=== PATIENT | male | born 1950 | race Caucasian/White ===

== ENCOUNTER 2022-12-02 08:27 | Emergency (ER) | payer MEDICARE, OTHER, SELFPAY ==
--- NOTE | ~2022-12-02 | XR_ITS ---
EXAMINATION: XR ANKLE, LEFT CLINICAL INFORMATION: Pain. COMPARISON: None available. TECHNIQUE: AP, lateral, and mortise views of the left ankle. FINDINGS: The bones and soft tissues are normal. No fracture. Alignment is anatomic. Joint spaces are maintained. No joint effusion. XR/XR ankle LT 2V IMPRESSION: Unremarkable left ankle.
--- NOTE | ~2022-12-02 | XR_ITS ---
EXAMINATION: XR FOOT, LEFT CLINICAL INFORMATION: Dorsal foot pain. COMPARISON: None available. TECHNIQUE: AP, lateral, and oblique views of the left foot. FINDINGS: There is acute, nondisplaced mid body navicular bone fracture extending into the joint spaces proximally and distally. The tarsal bones are otherwise normally aligned. There is a very small plantar calcaneal spur. The metatarsals and phalanges are intact. There is mild soft tissue swelling. XR/XR foot LT min 3V IMPRESSION: 1. Acute, nondisplaced mid body navicular bone fracture with mild soft tissue swelling. 2. Very small degenerative plantar calcaneal spur.
[2022-12-02 08:30] VITALS: BP 183/98; PULSE 84; RESP 18; TEMP 36.9; O2SAT 98; BMI 32.1
--- NOTE | 2022-12-02 08:41 | ED_ITS ---
HPI - Extremity Injury (Lower) General Chief Complaint: Extremity Injury, Lower Stated Complaint: L foot pain Time Seen by Provider: 12/02/22 08:40 Source: patient Mode of arrival: ambulatory History of Present Illness HPI Narrative: 72-year-old male no significant past medical history presenting to the ED complaining of left foot pain and swelling since awakening on Wednesday. Denies known injury, trauma or fall. Reports pain worse with pressure/ambulation and palpation. Denies numbness, tingling, weakness, calf pain, recent travel, fever MD complaint: foot injury Onset (ago): day(s) Related Data Allergies Allergy/AdvReac Type Severity Reaction Status Date / Time No Known Allergies Allergy Unverified 05/16/20 15:23 Review of Systems Review of Systems: Constitutional: No Fever, No Chills ENT/Mouth: No Ear Pain, No Nasal Congestion, No sore throat, No Rhinorrhea, No Swallowing Difficulty Cardiovascular: No Chest Pain, No SOB Respiratory: No Cough, No Sputum, No Wheezing Gastrointestinal: No Nausea, No Vomiting, No Diarrhea, No Constipation, No Abdominal pain Genitourinary: No Dysuria, No Urinary Frequency, No Hematuria Musculoskeletal: +joint pain, No Myalgias, + Joint Swelling Skin: No Skin Lesions, No rash Neuro: No Weakness, No Numbness, No Paresthesias Yes all other systems are reviewed and are negative Constitutional: Constitutional: Reports as per [facility] Past Medical History Attestation statement: The following information was validated with the patient. Social History Social History Advance Directives: Yes Advance Directives Information Provided: No Advance Directives on File: No Physical Exam Vital Signs: Vital Signs: Last Vital Signs Temp 98.4 F 12/02/22 08:30 Pulse 84 12/02/22 08:30 Resp 18 12/02/22 08:30 BP 183/98 H 12/02/22 08:30 Pulse Ox 98 12/02/22 08:30 O2 Del Method Room Air 12/02/22 08:30 BMI result Body Mass Index 32.1 Const: General: cooperative, healthy appearing and no acute distress Orientation/consciousness: patient oriented x3 Limitations: no limitations HEENT: Head: Yes normal to inspection and Yes atraumatic Ears: hearing grossly normal bilaterally General nose exam: Normal external nose present Face and sinus: Yes normal facial exam Eyes: General: appearance normal, both eyes and all related structures EOM: EOMs intact bilaterally Neck: Neck: Yes normal visual inspection and Yes no meningeal signs Resp: Effort & Inspection: normal respiratory effort and no respiratory distress Cardio: Rate: regular rate Heart sounds: S1 normal heart sound present and S2 normal heart sound present Peripheral pulses: dorsalis pedis present Skin: Rashes: no rashes Wounds: no wounds Neuro: General: patient oriented x3, tone normal and no meningeal signs Gait exam (Neuro): Normal gait present Extrem: Other: Left foot with mild swelling to proximal volar aspect with point tenderness. No erythema/ecchymosis. No warmth. FROM and NV intact Left knee, tib-fib, and ankle nontender. Course Course Course Narrative: XR ankle LT 2V IMPRESSION: Unremarkable left ankle. XR foot LT min 3V IMPRESSION: 1.? Acute, nondisplaced mid body navicular bone fracture with mild soft tissue swelling. 2.? Very small degenerative plantar calcaneal spur. >> patient placed in posterior short-leg splint, supplied with crutches to be nonweightbearing and follow up with Orthopedics Medical Decision Making Medical Decision Making MDM Narrative: 72-year-old male no significant past medical history presenting to the ED complaining of left foot pain and swelling since awakening on Wednesday. On exam vital signs stable, NAD, nontoxic appearing, physical exam as above. Concern for contusion vs fracture vs sprain. No evidence of cellulitis. Low suspicion for septic joint/arthritis or gout Plan: X-rays, pain control Please refer to course for remaining clinical decision making, interpretation of labs/imaging results, and discussions with consultants and/or family members. Differential Diagnosis Differential Diagnoses: The differential diagnosis associated with the presentation includes As above Admission/Observation Consideration of admission/observation: Escalation of care including admission/observation considered Lab Data [facility] Lab Attestation statement: I reviewed the patient's lab results. Radiology Impression Discussion of test interpretation with radiology: I have reviewed the radiologist's reading. External Record Review External record reviewed: Inpatient record, Office record, Outpatient record, Prior outpatient labs, Prior outpatient radiology, Primary care record and Outside ED record Procedures Orthopedic Splinting/Casting Injury #1: Side: left Lower Extremity Injury Location: foot Lower Extremity Immobilizer: posterior splint Other Orthopedic Equipment: crutches Discharge Plan Discharge Clinical Impression: Fracture of navicular bone of foot Patient Disposition: Home, Self-Care Instructions: Foot Fracture in Adults (ED) Additional Instructions: You have a nondisplaced fracture of her navicular bone. Keep splint on, dry, and clean. DO NOT BEAR ANY WEIGHT ON YOUR LEFT FOOT Use crutches Ice and elevate Take Tylenol and Motrin for pain Please follow-up with orthopedics Referrals: [facility] [Provider Group] - 1 week Interventions: ED Discharge Assessment Last Done: 12/02/22 10:36 Discharge Date/Time: 12/02/22 10:37
== END 2022-12-02 10:37 | disposition home or self-care (01) ==
PROVIDERS: Emergency Provider Emergency Medicine Emergency Medical Services; PCP Physician Assistant Medical
DX: S92.255A Nondisplaced fracture of navicular [scaphoid] of left foot, initial encounter for closed fracture (principal); X58.XXXA Exposure to other specified factors, initial encounter; Y93.9 Activity, unspecified; Y92.9 Unspecified place or not applicable; Y99.9 Unspecified external cause status
CPT/HCPCS: 29515; 73600; 73630; 99283

== ENCOUNTER → 2022-12-07 13:00 | Outpatient (BNVA) | payer MEDICARE, OTHER, SELFPAY | PROVIDERS: PCP Physician Assistant Medical; Visit Provider Physician Assistant | DX: S92.252A Displaced fracture of navicular [scaphoid] of left foot, initial encounter for closed fracture (principal) | CPT/HCPCS: 28450; 29405; 99202 ==

== ENCOUNTER 2023-01-18 07:08 | Outpatient (REF) | payer MEDICARE, OTHER, SELFPAY ==
--- NOTE | ~2023-01-18 | XR_ITS ---
EXAMINATION: XR FOOT, LEFT CLINICAL INFORMATION: Pain COMPARISON: Left foot radiograph from 12/02/2022 TECHNIQUE: AP, lateral, and oblique views of the left foot. FINDINGS: Redemonstration of fracture through the mid body of the navicular, stable. Plantar calcaneal heel spur. Spurring the dorsal midfoot. Joint spaces and alignment are maintained. Soft tissues are unremarkable. XR/XR foot LT min 3V IMPRESSION: 1. Redemonstration of fracture through the mid body of the navicular, stable. 2. Plantar calcaneal heel spur. 3. Spurring the dorsal midfoot.
== END 2023-01-18 07:09 | disposition home or self-care (01) ==
LOC: HO.HOSX 07:08
PROVIDERS: Visit Provider Physician Assistant
DX: S92.252D Displaced fracture of navicular [scaphoid] of left foot, subsequent encounter for fracture with routine healing (principal)
CPT/HCPCS: 73630; 99212

== ENCOUNTER 2023-02-19 07:54 | Outpatient (REF) | payer MEDICARE, OTHER, SELFPAY ==
--- NOTE | ~2023-02-19 | XR_ITS ---
EXAMINATION: XR FOOT, LEFT CLINICAL INFORMATION: Pain in left foot COMPARISON: 01/18/2023 TECHNIQUE: AP, lateral, and oblique views of the left foot. FINDINGS: Redemonstration of fracture through the mid body of the navicular with persistent visibility of the fracture line. Plantar calcaneal spur. Spurring along the dorsal aspect of the midfoot. XR/XR foot LT min 3V IMPRESSION: Redemonstration of fracture through the mid body of the navicular, similar in appearance
== END 2023-02-19 07:55 | disposition home or self-care (01) ==
LOC: HO.HOSX 07:54
PROVIDERS: Visit Provider Physician Assistant
DX: S92.252D Displaced fracture of navicular [scaphoid] of left foot, subsequent encounter for fracture with routine healing (principal); M79.672 Pain in left foot; X58.XXXD Exposure to other specified factors, subsequent encounter
CPT/HCPCS: 73630; 99212

== ENCOUNTER 2023-04-02 06:58 | Emergency (ER) | payer MEDICARE, OTHER, SELFPAY ==
--- NOTE | ~2023-04-02 | CT_ITS ---
EXAMINATION: CT CHEST WITHOUT CONTRAST CLINICAL INFORMATION: Rib pain status post fall. COMPARISON: Chest radiographs dated 02/04/2009. TECHNIQUE: Multidetector volumetric CT imaging of the chest was done. Axial MIP volume rendering provided. Sagittal and coronal reformatted images were obtained. This CT examination was performed using dose optimization techniques as appropriate, variously including the following: *Automated exposure control *Adjustment of mA and/or kV according to patient size (this includes techniques or standardized protocols for targeted exams where dose is matched to indication/reason for exam; i.e. extremities or head) *Use of iterative reconstruction technique DLP: 387.41 mGy-cm FINDINGS: LUNGS/PLEURA/AIRWAYS: Minimal biapical scarring. Very small calcified granulomas are seen. A guest services representative granuloma measures 0.2 cm laterally in the right upper lobe (image 247, series 26). No pleural effusions. No pneumothorax. The airways are patent. MEDIASTINUM: The thyroid gland is unremarkable. The ascending aorta measures up to 4.1 cm in AP dimension. Mild to moderate atherosclerosis is seen. Moderate to severe coronary artery calcifications. No pericardial effusion. UPPER ABDOMEN: Small low-attenuation focus in the interpolar right kidney measures 1.1 cm. No other significant upper abdominal abnormality. MUSCULOSKELETAL: Mild to moderate multilevel degenerative changes. No acute/suspicious SOFT TISSUES: No significant abnormality. CT/CT chest wo IV con IMPRESSION: 1. No overt acute osseous abnormality. 2. No acute cardiopulmonary process. 3. Incidental dilatation of the ascending aorta up to 4.1 cm.
--- NOTE | ~2023-04-02 | CT_ITS ---
EXAMINATION: CT ANGIOGRAM OF THE CHEST WITH AND WITHOUT CONTRAST (CT PULMONARY ANGIOGRAM FOR PE) CLINICAL INFORMATION: Reason for Exam PE? Elevated D- dimer COMPARISON: None available. TECHNIQUE: Prior to contrast administration, noncontrast localization images were obtained. Subsequently, multidetector volumetric imaging was performed from the thoracic inlet to below the diaphragms following the administration of 80 mL Omnipaque 350 intravenous contrast. No contrast reaction reported Sagittal, coronal, and MIP oblique sagittal reformatted images were obtained on the CT workstation, uploaded to PACS, and reviewed. This CT examination was performed using dose optimization techniques as appropriate, variously including the following: *Automated exposure control *Adjustment of mA and/or kV according to patient size (this includes techniques or standardized protocols for targeted exams where dose is matched to indication/reason for exam; i.e. extremities or head) *Use of iterative reconstruction technique Total exam dose-length product 427 mGy-cm FINDINGS: QUALITY OF STUDY/CONTRAST BOLUS: Satisfactory. PULMONARY ARTERIES: No pulmonary emboli. THORACIC AORTA: No aneurysm. LUNG: No focal consolidation, nodules or masses. PLEURA: No pleural effusion or pneumothorax. MEDIASTINUM: Normal heart size. No pericardial effusion. No hilar or mediastinal lymphadenopathy. No evidence of septal bowing or right heart strain. CORONARY ARTERY CALCIFICATION: Moderate calcification seen in the coronary arteries. CHEST WALL/AXILLA: No axillary or internal mammary lymphadenopathy. OSSEOUS STRUCTURES: There are multilevel degenerative changes in thoracic spine. There are postsurgical changes in the right shoulder UPPER ABDOMEN: Unremarkable. No reflux of contrast into the hepatic veins to suggest elevated right heart pressures. CT/CT angio chest PE protocol IMPRESSION: 1. No evidence of pulmonary embolism. 2. Coronary artery calcifications. VTE: negative.
--- NOTE | ~2023-04-02 | CT_ITS ---
EXAMINATION: CT HEAD WITHOUT CONTRAST CLINICAL INFORMATION: Head trauma. COMPARISON: None available. TECHNIQUE: Contiguous axial imaging was performed from the skull base to vertex without intravenous administration of contrast. Coronal and sagittal reformatted images were obtained. This CT examination was performed using dose optimization techniques as appropriate, variously including the following: *Automated exposure control *Adjustment of mA and/or kV according to patient size (this includes techniques or standardized protocols for targeted exams where dose is matched to indication/reason for exam; i.e. extremities or head) *Use of iterative reconstruction technique DLP: 842.68 mGy-cm FINDINGS: There is mild widening of the cortical sulci. Moderate symmetric dilatation of the lateral ventricles is seen. The callosal angle measures approximately 55 degrees (image 106, series 14). The lateral ventricles are symmetrical. The third and fourth ventricles are in their normal midline position. The basilar and prepontine cisterns are unremarkable. Mild periventricular microvascular changes are seen. There is no acute intra or extracerebral abnormality. There is no mass effect or midline shift. Sections through the bony calvarium are unremarkable. The orbits are intact. The paranasal sinuses are clear. The mastoid air cells are clear. CT/CT head/brain wo IV con IMPRESSION: 1. No acute intracranial pathology. 2. Moderate symmetric dilatation of the lateral ventricles with decreased callosal angle. These findings are nonspecific, but can be seen with normal pressure hydrocephalus.
--- NOTE | ~2023-04-02 | CT_ITS ---
EXAMINATION: CT CERVICAL SPINE WITHOUT CONTRAST CLINICAL INFORMATION: Neck pain status post fall. COMPARISON: None available. TECHNIQUE: Multiple axial images of the cervical spine were obtained without the administration of intravenous contrast. Coronal and sagittal reformatted images were obtained. This CT examination was performed using dose optimization techniques as appropriate, variously including the following: *Automated exposure control *Adjustment of mA and/or kV according to patient size (this includes techniques or standardized protocols for targeted exams where dose is matched to indication/reason for exam; i.e. extremities or head) *Use of iterative reconstruction technique DLP: 624.65 mGy-cm FINDINGS: There is straightening of the normal cervical lordosis with normal spinal alignment. Moderate to severe multilevel degenerative disc disease is seen most pronounced at C3-4, C5-6 and C6-7 with severe disc space narrowing, sclerosis and adjacent endplates, mild marginal ossified formation and mild bilateral neural foraminal narrowing. The odontoid process is intact. Mild to moderate articulating degenerative changes are seen. Mild multilevel bilateral facet arthropathy. The spinous and transverse processes are intact. The cervical soft tissues are unremarkable. There is no lymphadenopathy. The thyroid gland is unremarkable. The lung apices are clear. CT/CT cervical spine wo IV con IMPRESSION: 1. Straightening of the normal cervical lordosis may be secondary to positioning and/or muscle spasm. 2. Multilevel degenerative changes without acute abnormality.
[2023-04-02 07:07] VITALS: BP 155/90; PULSE 90; RESP 18; TEMP 36.9; O2SAT 94; BMI 32.9
--- NOTE | 2023-04-02 07:20 | ED_ITS ---
HPI - General Adult General Chief complaint: Fall Stated complaint: Fall/Head Inj 13 days ago Time Seen by Provider: 04/02/23 07:11 Source: patient Mode of arrival: ambulatory Limitations: no limitations History of Present Illness HPI narrative: 72-year-old male history with history of hypertension presents to ED for imaging of head and neck as recommended by his PA. patient was sent for imaging due to falling and hitting his head on the curb and having whiplash neck movement. patient states after fall he had left frontal headache/pain after fall and left rib pain that resolved, and since than has had posterior neck pain. patient states he fell due to tripping after coming out of his car. patient denies h aving any chest pain, abdominal pain, headache, or dizziness before falling. patient denies any chest pain, shortness of breath, nausea, abdominal pain, recetal bleeding, blood in urine, or vomitting blood. Patietn denies any headache. patient takes asprin. Patient denies any pleurisy, leg swelling, recent long travel, Calf pain, history of blood clots, or on estrogen therapy. Related Data Home Medications Medication Instructions Recorded Confirmed atenolol 50 mg tablet 50 mg PO DAILY 12/07/22 12/07/22 hydrochlorothiazide 25 mg tablet 25 mg PO DAILY 12/07/22 12/07/22 lisinopril 40 mg tablet 40 mg PO DAILY 12/07/22 12/07/22 Allergies Allergy/AdvReac Type Severity Reaction Status Date / Time No Known Allergies Allergy Unverified 02/19/23 11:50 Review of Systems Review of Systems: posterior neck pain Yes all other systems are reviewed and are negative [facility] Past Medical History Medical History High blood pressure Social History Social History Alcohol intake: current Alcohol intake frequency: holidays/special occasions only Smoked in Last 30 Days: No Use of substances other than those prescribed or required for medical reasons: No Advance Directives: Yes Advance Directives Information Provided: Yes Advance Directives on File: No 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[employer]/ [employer] Physical Exam ED Vital Signs: Vital Signs - 24 hr 04/02/23 07:07 04/02/23 07:43 Temperature 98.4 F 98.7 F Pulse Rate 90 87 Respiratory Rate 18 16 Blood Pressure 155/90 H 144/84 H Pulse Oximetry 94 94 Oxygen Delivery Method Room Air Room Air BMI result Body Mass Index 32.9 Const General: cooperative, healthy appearing, comfortable, no acute distress, well developed, alert, awake and Physically active Orientation/consciousness: oriented to person, oriented to place, oriented to time and patient oriented x3 HENWA Head: Yes normal to inspection, Yes No palpable skull fracture present, Yes normocephalic and Yes atraumatic Ears: hearing grossly normal bilaterally, external ears normal, TM's normal bilaterally, TM normal on the right, EAC's normal, mastoids normal and no periauricular adenopathy Face and sinus: Yes normal facial exam, Yes sinuses nontender and Yes face symmetric Mouth: Normal oral and palatal mucosa present, lip normal and tongue normal Eyes General: appearance normal, both eyes and all related structures Neck Neck: Yes normal visual inspection, Yes full ROM, Yes no lymphadenopathy, Yes no meningeal signs, Yes trachea midline, Yes supple, No anterior neck swelling and Yes tender (posterior cervical spine tenderness) Chest Chest palpation & inspection: normal inspection of the chest and normal palpation of entire chest wall Resp Effort & Inspection: normal respiratory effort and able to speak in complete sentences Auscultation: clear to auscultation bilaterally Cardio Jugular venous distension: no JVD Heart sounds: S1 normal heart sound present and S2 normal heart sound present GI Inspection: Yes normal to inspection and No abdominal wall ecchymosis Palpation (GI): Soft to palpation, not firm, nontender, no guarding and not rigid General: No CVA tenderness and Yes no CVA tenderness Back/Spine/Pelvis Back: no CVA tenderness, No CVA tenderness and No back tenderness Skin General skin exam: no rashes or lesions noted, elasticity normal and turgor n ormal Neuro General: oriented to person, oriented to place, oriented to time, patient oriented x3, gait normal, tone normal, moves all extremities, Normal light touch and pain sensation, no meningeal signs, no focal motor deficits, CN's II-XI intact bilaterally and normal sensation to monofilament Extrem General: Yes normal to inspection and Yes full ROM Knee images: 1. healing knee abrasions. no signs of infection. Psych Appearance: grossly normal, well kempt and not disheveled Medications Administered Discontinued Medications Generic Name Dose Route Start Last Admin Trade Name Balaji PRN Reason Stop Dose Admin Sodium Chloride 1,000 mls @ 999 mls/hr 04/02/23 08:21 04/02/23 09:55 Ns IV 04/02/23 09:21 Infused .Q1H1M STA Infusion Sodium Chloride 1,000 mls @ 999 mls/hr 04/02/23 08:21 04/02/23 11:47 Ns IV 04/02/23 09:21 Infused .Q1H1M STA Infusion Iohexol 65 ml 04/02/23 10:21 04/02/23 10:21 Iohexol 350 Mg/Ml 100 Ml Infus..Btl IV 04/02/23 10:22 65 ml ONCE ONE Administration Medical Decision Making Medical Decision Making [facility] Narrative: 72-year-old male with history of high blood pressure presents to ED for posterior neck pain. Patient is sent by primary care provider for imaging of head and neck due to patient falling and having slight headache with posterior neck pain. Patient no longer has left rib pain or frontal headache. Patient denies any chest pain or shortness of breath. Due to patient stating he had left for the rib pain after fall although presently asymptomatic will send for imaging of chest. Will have labs EKG ordered. Head CT cervical spine CT ordered. 7:44am 9:52am: Patient had D-dimer sent because patient stated although presently he has no left rib pain about a week ago he had pleurisy with left rib pain and also recent right hip surgery at the end of January with put him at risk of pulmonary embolus. D-dimer was 916. Patient is hyponatremic. Will give flu ids. CTA of chest ordered 2:27pm: Patient's chest CT came back negative for PE. Patient repeat troponin negative. Repeat chemistry shows improvement in hyponatremia. Patient presently asymptomatic. Rest of imaging head CT scan cervical spine chest CT came back normal. Patient informed to follow-up with primary care provider. Differential Diagnosis Differential Diagnoses: The differential diagnosis associated with the presenta tion includes (Cervical spine fracture, brain bleed, skull fracture, cervical spine subluxation, rib fracture, pulmonary embolus, myocardial infarction,) Admission/Observation Consideration of admission/observation: Escalation of care including admiss ion/observation considered Lab Data [facility] Lab Attestation statement: I reviewed the patient's lab results. 04/02/23 07:52 04/02/23 07:52 Labs: Lab Results 04/02/23 04/02/23 04/02/23 Range/Units 07:52 07:52 07:52 WBC 5.4 (4.8-10.8) X10*3/uL RBC 4.45 L (4.60-5.80) X10*6/uL Hgb 14.7 (14.0-18.0) g/dl Hct 42.4 (42.0-52.0) % MCV 95.3 (80.0-98.0) fL MCH 33.0 (27.0-33.0) pg MCHC 34.7 (31.0-36.0) g/dl RDW 12.8 (11.0-16.0) % Plt Count 219 (160-400) X10*3/uL MPV 9.6 (9.4-12.4) fL Immature Gran % (Auto) 1.1 H (0.0-0.4) % Neut % (Auto) 59.7 (45-73) % Lymph % (Auto) 20.8 (20-40) % [place] % (Auto) 9.2 (2-11) % Eos % (Auto) 8.1 H (0-4) % Baso % (Auto) 1.1 (0-2) % Lymph # (Auto) 1.1 L (1.2-4.9) X10*3/uL [place] # (Auto) 0.5 (0.1-1.2) X10*3/uL Eos # (Auto) 0.4 (0.0-0.4) X10*3/uL Baso # (Auto) 0.1 (0.0-0.2) X10*3/uL Abs Immat Gran (auto) 0.06 H (0.00-0.03) X10*3/uL Absolute Neuts (auto) 3.2 (2.0-8.3) x10*3/uL Absolute Nucleated RBC 0.000 (0.0-0.012) X10*3/uL Nucleated RBC % (auto) 0.0 (0.0-0.2) /100WBC PT 11.1 (11.1-13.3) SEC INR 0.9 (0.9-1.1) APTT 32.8 (26.0-36.4) SEC D-Dimer High Sensitivty 916 NG/ML Sodium 129 L (135-145) mmol/L Potassium 4.5 (3.3-5.1) mmol/L Chloride 95 L (96-108) mmol/L Carbon Dioxide 21 L (22-29) mmol/L Anion Gap 18 (12-20) BUN 13 (9-16) mg/dL Creatinine 0.86 (0.5-1.4) mg/dL Estim Creat Clear Calc 100.9 Estimated GFR > 60 Random Glucose 101 (60-115) mg/dL Calcium 9.6 (8.4-10.2) mg/dL Total Bilirubin 0.7 (0.0-1.0) mg/dL AST 47 H (5-37) U/L ALT 19 (0-40) U/L Alkaline Phosphatase 97 (39-117) U/L Troponin I High Sens (<3.5-35.0) ng/L B-Natriuretic Peptide (<100) pg/mL Total Protein 7.7 (6.5-8.0) g/dL Albumin 4.2 (3.5-5.0) g/dL 04/02/23 04/02/23 04/02/23 Range/Units 07:52 07:52 12:04 WBC (4.8-10.8) X10*3/uL RBC (4.60-5.80) X10*6/uL Hgb (14.0-18.0) g/dl Hct (42.0-52.0) % MCV (80.0-98.0) fL MCH (27.0-33.0) pg MCHC (31.0-36.0) g/dl RDW (11.0-16.0) % Plt Count (160-400) X10*3/uL MPV (9.4-12.4) fL Immature Gran % (Auto) (0.0-0.4) % Neut % (Auto) (45-73) % Lymph % (Auto) (20-40) % [place] % (Auto) (2-11) % Eos % (Auto) (0-4) % Baso % (Auto) (0-2) % Lymph # (Auto) (1.2-4.9) X10*3/uL [place] # (Auto) (0.1-1.2) X10*3/uL Eos # (Auto) (0.0-0.4) X10*3/uL Baso # (Auto) (0.0-0.2) X10*3/uL Abs Immat Gran (auto) (0.00-0.03) X10*3/uL Absolute Neuts (auto) (2.0-8.3) x10*3/uL Absolute Nucleated RBC (0.0-0.012) X10*3/uL Nucleated RBC % (auto) (0.0-0.2) /100WBC PT (11.1-13.3) SEC INR (0.9-1.1) APTT (26.0-36.4) SEC D-Dimer High Sensitivty NG/ML Sodium 131 L (135-145) mmol/L Potassium 4.6 (3.3-5.1) mmol/L Chloride 96 (96-108) mmol/L Carbon Dioxide 21 L (22-29) mmol/L Anion Gap 19 (12-20) BUN 13 (9-16) mg/dL Creatinine 0.81 (0.5-1.4) mg/dL Estim Creat Clear Calc 107.1 Estimated GFR > 60 Random Glucose 87 (60-115) mg/dL Calcium 9.2 (8.4-10.2) mg/dL Total Bilirubin 0.9 (0.0-1.0) mg/dL AST 46 H (5-37) U/L ALT 20 (0-40) U/L Alkaline Phosphatase 96 (39-117) U/L Troponin I High Sens < 2.7 (<3.5-35.0) ng/L B-Natriuretic Peptide 88 (<100) pg/mL Total Protein 7.8 (6.5-8.0) g/dL Albumin 4.3 (3.5-5.0) g/dL 04/02/23 Range/Units 12:04 WBC (4.8-10.8) X10*3/uL RBC (4.60-5.80) X10*6/uL Hgb (14.0-18.0) g/dl Hct (42.0-52.0) % MCV (80.0-98.0) fL MCH (27.0-33.0) pg MCHC (31.0-36.0) g/dl RDW (11.0-16.0) % Plt Count (160-400) X10*3/uL MPV (9.4-12.4) fL Immature Gran % (Auto) (0.0-0.4) % Neut % (Auto) (45-73) % Lymph % (Auto) (20-40) % [place] % (Auto) (2-11) % Eos % (Auto) (0-4) % Baso % (Auto) (0-2) % Lymph # (Auto) (1.2-4.9) X10*3/uL [place] # (Auto) (0.1-1.2) X10*3/uL Eos # (Auto) (0.0-0.4) X10*3/uL Baso # (Auto) (0.0-0.2) X10*3/uL Abs Immat Gran (auto) (0.00-0.03) X10*3/uL Absolute Neuts (auto) (2.0-8.3) x10*3/uL Absolute Nucleated RBC (0.0-0.012) X10*3/uL Nucleated RBC % (auto) (0.0-0.2) /100WBC PT (11.1-13.3) SEC INR (0.9-1.1) APTT (26.0-36.4) SEC D-Dimer High Sensitivty NG/ML Sodium (135-145) mmol/L Potassium (3.3-5.1) mmol/L Chloride (96-108) mmol/L Carbon Dioxide (22-29) mmol/L Anion Gap (12-20) BUN (9-16) mg/dL Creatinine (0.5-1.4) mg/dL Estim Creat Clear Calc Estimated GFR Random Glucose (60-115) mg/dL Calcium (8.4-10.2) mg/dL Total Bilirubin (0.0-1.0) mg/dL AST (5-37) U/L ALT (0-40) U/L Alkaline Phosphatase (39-117) U/L Troponin I High Sens < 2.7 (<3.5-35.0) ng/L B-Natriuretic Peptide (<100) pg/mL Total Protein (6.5-8.0) g/dL Albumin (3.5-5.0) g/dL Independent Interpretation I performed an independent interpretation of an: EKG (Normal sinus rhythm. Normal EKG. Ventricular rate 80. NV interval 180. QRS 68. QTC 419. Negative STEMI) and CT Scan Radiology Impression Discussion of test interpretation with radiology: I have reviewed the radiologist's reading. External Record Review External record reviewed: Other (Prior ED ivist) Discharge Plan Discharge Clinical Impression: Hyponatremia, Fall, Neck pain Patient Disposition: Home, Self-Care Instructions: Hyponatremia (ED), Fall Prevention for Older Adults (ED), Acute Neck Pain (ED) Additional Instructions: Your images came back normal and negative for brain bleed, skull fracture, cervical spine fracture, rib fractures, pneumothorax, hemothorax, or pulmonary embolus. Blood and EKG came back negative for signs of heart attack or heart failure. The low sodium increased during ED visit. Patient labs are normal. Please follow-up with your primary care provider. Return to the ED immediately for any chest pain, shortness of breath, dizziness, weakness, headache, seizure, fever, chills, abdominal pain, rectal bleeding, vomitting blood, or any other co ncerning symptoms. Prescriptions: No Action atenolol 50 mg tablet 50 mg PO DAILY hydrochlorothiazide 25 mg tablet 25 mg PO DAILY lisinopril 40 mg tablet 40 mg PO DAILY Interventions: ED Discharge Assessment Last Done: 04/02/23 14:45 Discharge Date/Time: 04/02/23 14:45 Print Language: Sinhala
--- NOTE | 2023-04-02 07:34 | ECG_ITS ---
Test Reason : fall Blood Pressure : / mmHG Vent. Rate : 080 BPM Atrial Rate : 080 BPM P-R Int : 188 ms QRS Dur : 068 ms QT Int : 364 ms P-R-T Axes : 028 013 023 degrees QTc Int : 419 ms Normal sinus rhythm Normal ECG When compared with ECG of 04-FEB-2009 08:25, No significant change was found Referred By: sOcar Jovel Electronically Signed By:JULIETTE JANSEN
[2023-04-02 07:43] VITALS: BP 144/84; PULSE 87; RESP 16; TEMP 37.1; O2SAT 94
[2023-04-02 07:58] LABS: MANUAL DIFF FLAG NO
--- NOTE | 2023-04-02 08:00 | PC.NURSE ---
pt axox4, vss, respirations even and unlabored, neuros intact, skin wpd. pt states he had a fall 03/20/23, tripped on sidewalk hit forehead against curb. pt states hes been on 325mg bid aspirin since hip replacement surgery 1 mo ago, last dose 04/01/23. pt states he had appt with pcp who advised he come in for ct scan. pt also c/o L. sided rib pain since fall; no tenderness at this time. denies cp/sob/n/v/d/dizziness. scabbed abrasions to L. knee from fall. PA to bedside. iv established, labs drawn, awaiting ct scan.
[2023-04-02 08:02] LABS: Basophils Absolute Auto 0.1 X10*3/uL (0.0-0.2); Basophils Percent Auto 1.1 % (0-2); Eosinophils Absolute Auto 0.4 X10*3/uL (0.0-0.4); Eosinophils Percent Auto 8.1 % (0-4); Hematocrit 42.4 % (42.0-52.0); Hemoglobin 14.7 g/dl (14.0-18.0); Imm Gran Abs Auto 0.06 X10*3/uL (0.00-0.03); Imm Gran Pct Auto 1.1 % (0.0-0.4); Lymphocytes Absolute Auto 1.1 X10*3/uL (1.2-4.9); Lymphocytes Percent Auto 20.8 % (20-40); Mean Corpuscular HGB Conc 34.7 g/dl (31.0-36.0); Mean Corpuscular Volume 95.3 fL (80.0-98.0); Mean Platelet Volume 9.6 fL (9.4-12.4); Monocytes Absolute Auto 0.5 X10*3/uL (0.1-1.2); Monocytes Percent Auto 9.2 % (2-11); Neutrophils Absolute Auto 3.2 x10*3/uL (2.0-8.3); Neutrophils Percent Auto 59.7 % (45-73); Platelet Count 219 X10*3/uL (160-400); Red Blood Count 4.45 X10*6/uL (4.60-5.80); Red Cell Distribution Width 12.8 % (11.0-16.0); White Blood Count 5.4 X10*3/uL (4.8-10.8)
[2023-04-02 08:05] LABS: INTERNATIONAL NORM RATIO 0.9 (0.9-1.1); Prothrombin Time 11.1 SEC (11.1-13.3)
[2023-04-02 08:07] LABS: Partial Thromboplastin Time 32.8 SEC (26.0-36.4)
[2023-04-02 08:15] LABS: Alanine Aminotransferase 19 U/L (0-40); Albumin Level 4.2 g/dL (3.5-5.0); Alkaline Phosphatase 97 U/L (39-117); Anion Gap 18 (12-20); Aspartate Amino Transferase 47 U/L (5-37); Bilirubin Total 0.7 mg/dL (0.0-1.0); Blood Urea Nitrogen 13 mg/dL (9-16); Calcium 9.6 mg/dL (8.4-10.2); Carbon Dioxide 21 mmol/L (22-29); Chloride 95 mmol/L (96-108); Creatinine Clr Calc Pharmacy 100.9; Estimated Glomerular Filt Rate > 60; Glucose Random 101 mg/dL (60-115); Potassium 4.5 mmol/L (3.3-5.1); Sodium 129 mmol/L (135-145); Total Protein 7.7 g/dL (6.5-8.0)
[2023-04-02 08:20] LABS: B Type Natriuretic Peptide 88 pg/mL (<100)
[2023-04-02 08:30] LABS: Troponin-I High Sensitivity < 2.7 ng/L (<3.5-35.0)
[2023-04-02] MEDS: 0.9 % Sodium Chloride 1,000 ML 999 ML IV ×2 (08:50→09:54)
[2023-04-02 08:57] LABS: D Dimer High Sensitivity 916 NG/ML
[2023-04-02] MEDS: iohexoL 350 MG/ML 100 ML INFUS..BTL 65 ML IV (10:21)
--- NOTE | 2023-04-02 12:09 | PC.NURSE ---
ivf infused; repeat labs drawn; awaiting results. pt pain level assessed; denies pain at this time.
[2023-04-02 13:11] LABS: Troponin-I High Sensitivity < 2.7 ng/L (<3.5-35.0)
[2023-04-02 13:49] LABS: Albumin Level 4.3 g/dL (3.5-5.0); Anion Gap 19 (12-20); Calcium 9.2 mg/dL (8.4-10.2); Carbon Dioxide 21 mmol/L (22-29); Chloride 96 mmol/L (96-108); Glucose Random 87 mg/dL (60-115); Potassium 4.6 mmol/L (3.3-5.1); Sodium 131 mmol/L (135-145); Total Protein 7.8 g/dL (6.5-8.0)
[2023-04-02 14:12] LABS: Alanine Aminotransferase 20 U/L (0-40); Alkaline Phosphatase 96 U/L (39-117); Aspartate Amino Transferase 46 U/L (5-37); Bilirubin Total 0.9 mg/dL (0.0-1.0); Blood Urea Nitrogen 13 mg/dL (9-16); Creatinine Clr Calc Pharmacy 107.1; Estimated Glomerular Filt Rate > 60
[2023-04-02 14:31] VITALS: PULSE 89; RESP 18; O2SAT 95
[2023-04-02 14:34] VITALS: BP 168/101
== END 2023-04-02 14:45 | disposition home or self-care (01) ==
PROVIDERS: Physician Assistant; Emergency Provider Emergency Medicine; PCP Physician Assistant Medical
DX: E87.1 Hypo-osmolality and hyponatremia (principal); M54.2 Cervicalgia; R51.9 Headache, unspecified; Z91.81 History of falling; I10 Essential (primary) hypertension; Z79.899 Other long term (current) drug therapy; Z79.82 Long term (current) use of aspirin
CPT/HCPCS: 36415; 70450; 71250; 71275; 72125; 80053; 83880; 84484; 85025; 85379; 85610; 85730; 93005; 96360; 96361; 99284; 99285; Q9967

== ENCOUNTER → 2023-04-02 07:34 | Outpatient (BNV) | payer MEDICARE, OTHER, SELFPAY | PROVIDERS: Emergency Provider Emergency Medicine; PCP Physician Assistant Medical; Visit Provider Internal Medicine | DX: R55 Syncope and collapse (principal) | CPT/HCPCS: 93010 ==

== ENCOUNTER 2023-05-12 09:42 | Outpatient (REF) | payer MEDICARE, OTHER, SELFPAY | END 2023-05-12 09:43 | disposition home or self-care (01) | LOC: HO.XRAY 09:42 | PROVIDERS: PCP Physician Assistant Medical; Visit Provider Internal Medicine | DX: Z13.89 Encounter for screening for other disorder (principal) ==

== ENCOUNTER 2023-05-24 10:19 | Outpatient (REF) | payer MEDICARE, OTHER, SELFPAY ==
--- NOTE | ~2023-05-24 | FL_ITS ---
EXAMINATION: FL BARIUM SWALLOW CLINICAL INFORMATION: Esophageal dysphagia. COMPARISON: None available. TECHNIQUE: Barium swallow examination is performed using fluoroscopic evaluation in addition to multiple fluoroscopic spot views. The patient is imaged both upright and prone and using both thick and thin sulfate along with effervescent granules. Fluoroscopy time: 41 seconds minutes DAP: 22 15 mcg Gycm2 Images: 7 cine runs FINDINGS: Following oral administration of thin, thick barium and barium coated turkey there is normal propagation of bolus from the cavity into the pharynx. A tight cricoesophageal sphincter is seen with mild ballooning of the pharynx. Otherwise there is normal transition of bolus from upper esophagus into the stomach without any evidence of obstruction, narrowing or stricture. On oral administration of barium tablet there is spontaneous passage of tablet from the oral cavity through the pharynx, esophagus into stomach. FL/FL barium swallow IMPRESSION: Prominent cricoesophageal sphincter with mild ballooning of pharynx. Otherwise unremarkable barium swallow.
== END 2023-05-24 10:20 | disposition home or self-care (01) ==
LOC: HO.XRAY 10:19
PROVIDERS: PCP Physician Assistant Medical; Visit Provider Internal Medicine
DX: R13.19 Other dysphagia (principal)
CPT/HCPCS: 74220

== ENCOUNTER → 2023-05-24 10:23 | Outpatient (BNV) | payer MEDICARE, OTHER, SELFPAY | PROVIDERS: PCP Physician Assistant Medical; Visit Provider Radiology Diagnostic Radiology | DX: R13.14 Dysphagia, pharyngoesophageal phase (principal) | CPT/HCPCS: 74221 ==

== ENCOUNTER 2024-07-04 06:35 | Outpatient (REF) | payer MEDICARE, OTHER, SELFPAY ==
[2024-07-04 08:17] LABS: Alanine Aminotransferase 31 U/L (0-40); Albumin Level 4.2 g/dL (3.5-5.0); Alkaline Phosphatase 57 U/L (39-117); Anion Gap 14 (12-20); Aspartate Amino Transferase 63 U/L (5-37); Bilirubin Direct 0.3 mg/dL (0.0-0.5); Bilirubin Total 0.7 mg/dL (0.0-1.0); Blood Urea Nitrogen 18 mg/dL (9-16); Calcium 9.3 mg/dL (8.4-10.2); Carbon Dioxide 27 mmol/L (22-29); Chloride 94 mmol/L (96-108); Estimated Glomerular Filt Rate > 60; Glucose Random 101 mg/dL (60-115); Sodium 131 mmol/L (135-145); Total Protein 7.7 g/dL (6.5-8.0)
[2024-07-04 08:36] LABS: Syphilis Screen Nonreactive (Nonreactive)
[2024-07-04 08:47] LABS: Folate 7.8 ng/mL (> or = 4.0); Vitamin B12 977 pg/mL (200-900)
[2024-07-06 06:48] LABS: Lyme Abs Screen <0.90 index
--- NOTE | 2024-08-04 11:23 | PC.NURSE ---
08/04/2024 Spoke with the patient. Medications and history updated. The patient states he doesn't take any NSAIDs or anticoagulants. Instructions for the day of the procedure were given. The patient verbalized an understanding.
== END 2024-07-04 06:36 | disposition home or self-care (01) ==
LOC: HO.LAB 06:35
PROVIDERS: PCP Physician Assistant Medical; Visit Provider Psychiatry & Neurology Neurology
DX: G62.9 Polyneuropathy, unspecified (principal)
CPT/HCPCS: 36415; 80048; 80076; 82607; 82746; 86617; 86618; 86780

== ENCOUNTER 2024-09-15 09:23 | Day surgery (SDC) | payer MEDICARE, OTHER, SELFPAY ==
--- NOTE | ~2024-09-15 | FL_ITS ---
FLUOROSCOPIC GUIDED LUMBAR PUNCTURE INDICATION: Peripheral neuropathy TECHNIQUE: Risks and benefits and possible complications were discussed with the patient and the consent form was signed. Patient was placed prone on the fluoroscopy table. The back was prepped and draped in routine sterile fashion. Betadine was used as a skin antiseptic. Utilizing fluoroscopic guidance, the L3-4 interlaminar space was accessed with a 22 gauge Anurag spinal needle and clear CSF fluid obtained. Opening pressure was 11 cm H2O. 8 cc of fluid was sent for analysis. The needle was removed without immediate complications. Total fluoroscopy time: 2.1 min FL/FL guided lumbar puncture LP IMPRESSION: Successful fluoroscopic guided lumbar puncture at L3-L4. This procedure was performed by Jaycob Farooq PA-C and supervised by Dr. Palumbo. Electronically signed by: Hector Palumbo MD 09/15/2024 03:54 PM [facility]
[2024-09-15 11:08] VITALS: BP 162/94; PULSE 79; RESP 14; TEMP 36.8; O2SAT 96
[2024-09-15 11:55] VITALS: BP 144/90; PULSE 76; RESP 16; TEMP 36.6; O2SAT 95
[2024-09-15 12:25] VITALS: BP 148/86; PULSE 78; RESP 16; O2SAT 98
[2024-09-15 12:53] VITALS: BP 149/86; PULSE 75; RESP 16; TEMP 36.6; O2SAT 98
[2024-09-15 12:59] LABS: CSF Appearance Clear, Colorless; CSF Tube # 1
[2024-09-15 13:07] LABS: Glucose CSF 67 mg/dL; Total Protein CSF 52.8 mg/dL (15-45)
[2024-09-15 13:26] LABS: Oligoclonal Serum Yes
[2024-09-15 13:46] LABS: Appearance CSF CLEAR; CSF Tube # 4; Color CSF COLORLESS; Red Blood Cell CSF 1 MM*3; White Blood Cell CSF 3 MM*3
[2024-09-15 13:47] LABS: Lymphocytes CSF 100 %
[2024-09-19 08:39] LABS: Albumin 4.2 g/dL (3.6-5.1); Albumin, CSF 31.9 mg/dL (8.0-42.0); IgG 1410 mg/dL (600-1540); IgG Synthesis Rate 0.5 mg/24 h (-9.9-3.3); IgG, CSF 5.9 mg/dL (0.8-7.7)
[2024-09-20 17:53] LABS: Oligoclonal Banding Absent (Absent)
== END 2024-09-15 12:55 | disposition home or self-care (01) ==
PROVIDERS: Physician Assistant Surgical; PCP Physician Assistant Medical; Visit Provider Psychiatry & Neurology Neurology
PROC: 009U3ZZ Drainage of Spinal Canal, Percutaneous Approach (ICD-10-PCS; CPT 62270; principal; 2024-09-15 11:00)
DX: G62.9 Polyneuropathy, unspecified (principal); R27.0 Ataxia, unspecified; R20.0 Anesthesia of skin; R20.2 Paresthesia of skin; I10 Essential (primary) hypertension; E78.5 Hyperlipidemia, unspecified; K21.9 Gastro-esophageal reflux disease without esophagitis; Z79.899 Other long term (current) drug therapy
CPT/HCPCS: 62328; 82042; 82945; 83916; 84157; 87015; 87070; 87205; 89051; J2003

== ENCOUNTER → 2024-09-15 11:20 | Outpatient (BNV) | payer MEDICARE, OTHER, SELFPAY | PROVIDERS: PCP Physician Assistant Medical; Visit Provider Physician Assistant Surgical | DX: G62.9 Polyneuropathy, unspecified (principal) | CPT/HCPCS: 62328 ==

== ENCOUNTER 2025-06-14 15:35 | Inpatient (IN) | payer MEDICARE, OTHER, SELFPAY ==
[2025-06-14] VITALS (7 sets, daily range): BP systolic 103–132; BP diastolic 57–88; PULSE 78–140; RESP 12–20; TEMP 36.4–37.9; O2SAT 91–96; BMI 29.0
--- NOTE | ~2025-06-14 | CT_ITS ---
CLINICAL HISTORY: dysuria, fever, fall CT abdomen and pelvis without contrast Comparison: None provided Findings: The lung bases are clear. The gallbladder and solid organs are within normal limits. No renal stones. Segmental mural thickening of the sigmoid colon with pericolonic inflammatory changes and distal sigmoid colon. Superior of the bladder and adjacent to the sigmoid colon there is an air-fluid level collection, 3.4 x 3.4 x 3.6 cm, axial image number 5 of 92 of 140 series 37. Calcified coronary atherosclerotic disease. [id number] calcified atherosclerotic disease of the abdominal aorta. The appendix not grossly identified. Diverticulosis. No acute fracture. IMPRESSION: 1. Sigmoid colon mural thickening with pericolonic inflammation and adjacent 3.4 x 3.4 x 3.6 cm air-fluid collection; intraperitoneal abscess from sigmoid diverticulitis and sigmoid colitis. 2. Calcified coronary and abdominal aortic atherosclerotic disease. This document has been electronically signed by: Gus Del Toro MD on 06/14/2025 19:36:48
--- NOTE | ~2025-06-14 | CT_ITS ---
CLINICAL HISTORY: fall non focal exam, septic CT cervical spine without contrast Comparison: CT/WA/SR - CT CERVICAL SPINE WITHOUT IV CONTRAST - 04/02/23 07:56 EDT Findings: C3-4: Grade 1 retrolisthesis C3 over C4. Moderate to severe DJD. Moderate anterior spurring. C4-5: Grade 1 retrolisthesis C4 over C5. Moderate DJD. Moderate anterior spurring. No significant degenerative change. No acute fractures or dislocations. No acute findings on limited view of the intracranial contents. Soft tissues of the neck are normal. Lung apices are clear. C1-2: [id number]-[id number] anterior osteoarthrosis of the mild mineralized pannus formation surrounding the odontoid. C2-3: Mild DJD mild anterior spurring. C5-6: Moderate DJD. Moderate anterior spurring. C6-7: Moderate to severe DJD. Mild anterior spurring C7-T1: Moderate DJD. Mild anterior spurring. IMPRESSION: 1. Grade 1 retrolisthesis of C3 over C4 and C4 over C5. 2. Moderate to severe degenerative joint disease throughout the cervical spine, most pronounced at C3-4 and C6-7. 3. No acute fractures or dislocations. 4. No acute cervical spine findings. This document has been electronically signed by: Gus Del Toro MD on 06/14/2025 19:16:52
--- NOTE | ~2025-06-14 | CT_ITS ---
CLINICAL HISTORY: fall, fever unknown source CT chest without contrast Comparison: CT/REG - CT ANGIO CHEST PE PROTOCOL - 04/02/23 10:06 EDT Findings: Calcified coronary atherosclerotic disease. Hiatal hernia. Gynecomastia. No consolidation or effusion. Mild calcified atherosclerotic disease of the abdominal aorta. Mild osteopenia. Diffuse idiopathic skeletal hyperostosis IMPRESSION: 1. Calcified coronary atherosclerotic disease. 2. Hiatal hernia. 3. No acute intrathoracic findings. This document has been electronically signed by: Gus Del Toro MD on 06/14/2025 19:13:41
--- NOTE | ~2025-06-14 | CT_ITS ---
CLINICAL HISTORY: fall, confused CT head without contrast Comparison: CT/NC/SR - CT HEAD WITHOUT IV CONTRAST - 04/02/23 07:56 EDT Findings: No intra-axial mass, midline shift, hydrocephalus, or acute hemorrhage. Mild heterogeneous low attenuation in the periventricular white matter. Mild cerebral atrophy. The visualized paranasal sinuses and mastoid air cells are normal. The orbits are unremarkable. There is no acute fracture. IMPRESSION: 1. Mild chronic periventricular microvascular ischemic disease. 2. Mild cerebral atrophy. 3. No acute intracranial findings. This document has been electronically signed by: Gus Del Toro MD on 06/14/2025 19:13:46
--- NOTE | ~2025-06-14 | XR_ITS ---
CLINICAL HISTORY: Low O2, fever, wheezing 1 view chest x-ray Comparison: None provided Findings: Mild perihilar edema or infiltrates. Cardiac silhouette is enlarged. No acute fracture. IMPRESSION: Mild perihilar edema or infiltrates. This document has been electronically signed by: Shreyas Canales MD, PHD on 06/16/2025 02:56:13
--- NOTE | ~2025-06-14 | CT_ITS ---
PROCEDURE: CT-GUIDED DRAINAGE, PERITONEAL ABSCESS CLINICAL INFORMATION: Diverticular abscess COMPARISON: Previous CT of the abdomen and pelvis from yesterday TECHNIQUE: Procedure and risks and benefits including bleeding, infection and injury to the adjacent organs, particularly the colon and bladder were discussed with the patient and informed consent was obtained. The patient was positioned in the supine position. Limited axial images through the pelvis were performed. The left lower quadrant was prepped and draped in the usual sterile fashion. The skin and soft tissues were anesthetized with 1% lidocaine plain. Using CT guidance an 8 22-gauge Chiba needle, access to the fluid collection in between the bladder and sigmoid colon was obtained. 2 to 3 mL of purulent fluid was obtained aspirated. Over an 018 wire, a 6 Irish drain was positioned in the collection. Additional scans bloody fluid was aspirated. A drainage catheter was attached to bulb suction. Specimen was specimen was sent for Gram stain and culture. Conscious sedation was provided by registered nurse under my direct supervision with continuous hemodynamic monitoring. Patient received Versed 1.5 mg and fentanyl 75 mcg intravenously during the procedure. Total sedation time was [address] examination was performed using dose optimization techniques as appropriate, variously including the following: *Automated exposure control *Adjustment of mA and/or kV according to patient size (this includes techniques or standardized protocols for targeted exams where dose is matched to indication/reason for exam; i.e. extremities or head) *Use of iterative reconstruction technique DLP 4 3 6 mgy /cm. FINDINGS: There is diverticulitis of the sigmoid colon. There is a small collection with air-fluid level in between the sigmoid colon and the bladder measuring 3 x 4 cm that was targeted for drainage. There is air in the bladder. Findings are suggestive of a colovesicular fistula. Images post drain placement demonstrate a drain positioned in the collection. This does not appear appreciably changed in size post aspiration. There is a small amount of hemorrhage seen in the left lateral pelvis adjacent to the drain. This remained stable on serial imaging. CT/CT drain peritoneum IMPRESSION: 6 Irish drain in pelvic abscess between the sigmoid colon and bladder. Sigmoid diverticulitis and air in the bladder suggestive of a colovesicular fistula. Abscess is likely in the site of connection between the bladder and colon. Electronically signed by: Marla Vallejo MD 06/15/2025 12:43 PM EDT
--- NOTE | 2025-06-14 15:50 | ECG_ITS ---
Test Reason : TACHYCARDIA Blood Pressure : */* mmHG Vent. Rate : 135 BPM Atrial Rate : 135 BPM P-R Int : 148 ms QRS Dur : 74 ms QT Int : 298 ms P-R-T Axes : 36 25 55 degrees QTcB Int : 447 ms Sinus tachycardia Nonspecific ST and T wave abnormality Abnormal ECG When compared with ECG of 02-Apr-2023 08:09, Vent. rate has increased by [address] now depressed in Lateral leads Nonspecific T wave abnormality now evident in Lateral leads Referred By: Yoni Malik Electronically Signed By: Segundo Vargas
--- NOTE | 2025-06-14 15:50 | ED.TRAUMA ---
HPI - Trauma General Chief Complaint: Fall Stated Complaint: fall, SOB Time Seen by Provider: 06/14/25 15:47 History of Present Illness ED Provider: madiha Related Data Home Medications ?Medication ?Instructions ?Recorded ?Confirmed atenolol 50 mg tablet 50 mg PO BEDTIME 12/07/22 06/14/25 hydrochlorothiazide 25 mg tablet 25 mg PO DAILY 12/07/22 06/14/25 lisinopril 40 mg tablet 40 mg PO DAILY 12/07/22 06/14/25 omeprazole 20 mg capsule,delayed 20 mg PO DAILY PRN Acid Reflux 08/04/24 06/14/25 release vitamin B complex 1 cap PO DAILY 06/14/25 06/14/25 Allergies Allergy/AdvReac Type Severity Reaction Status Date / Time No Known Allergies Allergy Verified 06/14/25 15:49 [facility] Past Medical History Medical History (Updated 06/15/25 @ 10:13 by Yoni Malik MD) Colonic diverticular abscess Essential hypertension FH: total knee replacement High blood pressure Surgical History (Updated 08/04/24 @ 11:19 by Cherie Betancourt RN) History of hip replacement, total Social History Social History Alcohol intake: current Alcohol intake frequency: holidays/special occasions only Advance Directives: No Advance Directives Information Provided: Yes service: No 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 Physical Exam Vital Signs: Vital Signs: Last Vital Signs Temp 97.9 F 06/15/25 10:01 Pulse 76 06/15/25 09:11 Resp 22 H 06/15/25 08:20 BP 144/89 H 06/15/25 09:11 Pulse Ox 96 06/15/25 08:20 O2 Del Method Room Air 06/15/25 08:20 BMI result Body Mass Index 29.0 Medications Administered Generic Name Dose Route Start Last Admin Trade Name Freq PRN Reason Stop Dose Admin Atenolol 50 mg 06/15/25 08:15 06/15/25 09:11 Atenolol 50 Mg Tablet PO 50 mg BEDTIME CORIE Administration Protocol Lactated Ringer's 1,000 mls @ 100 mls/hr 06/14/25 20:00 06/15/25 09:11 Lr IVCONT 100 mls/hr .Q10H CORIE Administration Piperacillin Sod/Tazobactam 50 mls @ 100 mls/hr 06/15/25 08:00 06/15/25 09:09 Sod 2.25 gm/ Sodium Chloride IV 100 mls/hr Q6H CORIE Administration Multivitamins/Vitamin C 1 tab 06/15/25 09:00 06/15/25 09:12 Multivitamin Tablet PO 1 tab DAILY CORIE Administration Sodium Chloride 3 ml 06/15/25 00:00 06/15/25 09:10 0.9 % Sodium Chloride Flush 3 Ml Syringe IVFLUSH 3 ml QSHIFT CORIE Administration Discontinued Medications Generic Name Dose Route Start Last Admin Trade Name Freq PRN Reason Stop Dose Admin Acetaminophen 975 mg 06/14/25 16:00 06/14/25 16:31 Acetaminophen 325 Mg Tablet PO 06/14/25 16:01 975 mg ONCE ONE Administration Ceftriaxone Sodium 1 gm 06/14/25 15:47 06/14/25 16:05 Ceftriaxone Sodium 1 Gm Vial IVPUSH 06/14/25 15:48 1 gm ONCE ONE Administration Lactated Ringer's 2,907 mls @ 2,907 mls/hr 06/14/25 16:00 06/14/25 19:14 Lr 30 ml/kg infuse over 1 hr (2907 ml) 06/14/25 16:59 Infused IV Infusion .Q1H ONE Vancomycin HCl 2,000 mg in 500 mls @ 250 mls/hr 06/14/25 16:59 06/14/25 19:40 Vancomycin/Ns IV 06/14/25 18:58 Infused ONCE ONE Infusion Metronidazole 500 mg in 100 mls @ 100 mls/hr 06/14/25 19:15 06/14/25 20:44 Flagyl IV 06/14/25 20:14 Infused ONCE ONE Infusion Piperacillin Sod/Tazobactam 50 mls @ 100 mls/hr 06/14/25 20:00 06/15/25 02:40 Sod 3.375 gm/ Sodium Chloride IV Infused Q6H CORIE Infusion Medical Decision Making Medical Decision Making MDM Narrative: Medical Decision Makin-year-old male who came in for a ground level fall but was reportedly confused. On arrival he had tactile fever and sure enough was febrile to 100.2 orally. This time we activated sepsis ordered antibiotics 30 cc/kg crystalloid bolus he did not have any clear obvious signs of traumatic injuries but given that he seemed slightly confused oriented x2 and there was suspicion of either head injury and/or intoxication or encephalopathy powell scan was ordered. The patient denied abdominal pain but CT did show colitis with intraperitoneal abscess. He did not have peritoneal signs. He never developed shock in the ED. Lactate was elevated however any met severe sepsis criteria. He did receive IV antibiotics and 30 cc/kg crystalloid bolus. Lactate improved somewhat. Likely intraperitoneal abscess as the infectious source covered broadly with ceftriaxone and Flagyl and vancomycin. No obvious signs of trauma on the imaging he did have some mild right hip tenderness but CT pelvis did not reveal fracture per my review of the report Preliminary Favored Differential Diagnosis: Trauma, encephalopathy, infectious versus metabolic versus toxic logic, electrolyte derangement, musculoskeletal or intra-abdominal or intrathoracic injury, among additional considered etiologies Testing Interpreted Independently: ?Sinus tachycardia rate 135, QTC 447, QRS 7 4, subtle possibly rate related ST depression V2 through V5. No ST elevations. Radiology or Lab testing Results Reviewed: Radiology reports reviewed most notable for no trauma and intra-abdominal abscess on the abdominal CT Leukocytosis to 25 with elevated lactate Consults: ?General surgery Dr. Whalen consulted who will follow the case recommends likely IR drainage of the abscess no emergent surgical intervention. Hospitalist consulted and will admit the case Independent Historians/External Chart Reviews: ?EMS Social Determinants of Health Impacting MDM/Planning: ?See below for details Lab Data 06/15/25 05:52 06/15/25 05:52 Labs: Lab Results 06/14/25 06/14/25 Range/Units 16:03 18:34 WBC 25.7 H (4.8-10.8) X10*3/uL RBC 4.38 L (4.60-5.80) X10*6/uL Hgb 14.5 (14.0-18.0) g/dl Hct 41.1 L (42.0-52.0) % MCV 93.8 (80.0-98.0) fL MCH 33.1 H (27.0-33.0) pg MCHC 35.3 (31.0-36.0) g/dl RDW 12.6 (11.0-16.0) % Plt Count 319 D (160-400) X10*3/uL MPV 9.7 (9.4-12.4) fL Immature Gran % (Auto) 2.3 H (0.0-0.4) % Neut % (Auto) 83.9 H (45-73) % Lymph % (Auto) 9.9 L (20-40) % [place] % (Auto) 3.3 (2-11) % Eos % (Auto) 0.1 (0-4) % Baso % (Auto) 0.5 (0-2) % Lymph # (Auto) 2.6 (1.2-4.9) X10*3/uL [place] # (Auto) 0.8 (0.1-1.2) X10*3/uL Eos # (Auto) 0.0 (0.0-0.4) X10*3/uL Baso # (Auto) 0.1 (0.0-0.2) X10*3/uL Abs Immat Gran (auto) 0.60 H (0.00-0.03) X10*3/uL Absolute Neuts (auto) 21.6 H (2.0-8.3) x10*3/uL Absolute Nucleated RBC 0.000 (0.0-0.012) X10*3/uL Nucleated RBC % (auto) 0.0 (0.0-0.2) /100WBC Smear Tech's Comments VERIFIED PT 12.3 (10.9-12.4) SEC INR 1.1 (0.9-1.1) APTT 28.2 (26.7-34.1) SEC Sodium 132 L (135-145) mmol/L Potassium 4.3 (3.3-5.1) mmol/L Chloride 100 (96-108) mmol/L Carbon Dioxide 19 L (22-29) mmol/L Anion Gap 17 (12-20) BUN 20 H (9-16) mg/dL Creatinine 1.86 H (0.5-1.4) mg/dL Estim Creat Clear Calc 42.6 Estimated GFR 36 Random Glucose 227 H (60-115) mg/dL Lactic Acid 6.0 H* (0.5-2.0) mmol/L Lactic Acid F/U @ 2Hr 2.4 H* (0.5-2.0) mmol/L Calcium 9.4 (8.4-10.2) mg/dL Total Bilirubin 0.8 (0.0-1.0) mg/dL Direct Bilirubin 0.3 (0.0-0.5) mg/dL AST 87 H (5-37) U/L ALT 30 (0-40) U/L Alkaline Phosphatase 74 (39-117) U/L Total Protein 7.9 (6.5-8.0) g/dL Albumin 4.3 (3.5-5.0) g/dL Ethyl Alcohol < 10 mg/dL Critical Care Time Critical Care Time Critical Care Time: Yes Total Critical Care Time: 100 Attestation: ED Critical Care: Trauma Severe sepsis Intra-abdominal abscess Authorized and Performed by: Yoni Malik MD Total critical care time: Approximately [] min Due to a high probability of clinically significant, life threatening deterioration, the patient required my highest level of preparedness to intervene emergently and I personally spent this critical care time directly and personally managing the patient. This critical care time included obtaining a history; examining the patient; pulse oximetry; ordering and review of studies; arranging urgent treatment with development of a management plan; evaluation of patient's response to treatment; frequent reassessment; and, discussions with other providers. This critical care time was performed to assess and manage the high probability of imminent, life-threatening deterioration that could result in multi-organ failure. It was exclusive of separately billable procedures and treating other patients and teaching time. Discharge Plan Discharge Clinical Impression: Severe sepsis, Intra-abdominal abscess Patient Disposition: Admitted As Inpatient
[2025-06-14] MEDS: LACTATED RINGERS 2907 ML IV (16:05)
[2025-06-14 16:14] LABS: Hematocrit 41.1 % (42.0-52.0); Hemoglobin 14.5 g/dl (14.0-18.0); Imm Gran Abs Auto 0.60 X10*3/uL (0.00-0.03); Imm Gran Pct Auto 2.3 % (0.0-0.4); Lymphocytes Absolute Auto 2.6 X10*3/uL (1.2-4.9); MANUAL DIFF FLAG SCAN; Mean Corpuscular HGB Conc 35.3 g/dl (31.0-36.0); Mean Corpuscular Hemoglobin 33.1 pg (27.0-33.0); Mean Corpuscular Volume 93.8 fL (80.0-98.0); NRBC Abs Auto 0.000 X10*3/uL (0.0-0.012); NRBC Pct Auto 0.0 /100WBC (0.0-0.2); Platelet Count 319 X10*3/uL (160-400); Red Blood Count 4.38 X10*6/uL (4.60-5.80); SCAN SMEAR FLAG 1; White Blood Count 25.7 X10*3/uL (4.8-10.8)
[2025-06-14 16:26] LABS: Anion Gap 17 (12-20); Blood Urea Nitrogen 20 mg/dL (9-16); Calcium 9.4 mg/dL (8.4-10.2); Carbon Dioxide 19 mmol/L (22-29); Chloride 100 mmol/L (96-108); Creatinine Clr Calc Pharmacy 42.6; Estimated Glomerular Filt Rate 36; Potassium 4.3 mmol/L (3.3-5.1); Sodium 132 mmol/L (135-145)
[2025-06-14 16:34] LABS: INTERNATIONAL NORM RATIO 1.1 (0.9-1.1); Partial Thromboplastin Time 28.2 SEC (26.7-34.1); Prothrombin Time 12.3 SEC (10.9-12.4)
[2025-06-14] MEDS: vancomycin/NS 2,000 MG/500 ML PLAST..BAG 250 MG IV (17:18)
[2025-06-14 18:11] LABS: Reflex Lactate? Lactic Acid Added
--- NOTE | 2025-06-14 18:18 | PC.NURSE ---
patient from home, had unwitnessed fall, heard him fall. patient on ground for 1hr, unable to get up. patient tachycardic in the 140s and febrile. per ems patient story kept changing. unknown loc or headstrike, c collar in placed in ED. #18 IV placed in the RFA, labs drawn and sent. condom cath placed on patient for urine sample. patients at bedside aware of plan.
[2025-06-14 19:00] LABS: ~Lactic Acid-LAB USE ONLY 2.4 mmol/L (0.5-2.0)
--- OUTSIDE RECORDS SUMMARY | 2025-06-14 19:41 | XMS_ITS | Clinical Summary ---
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 Name Role Phone Unavailable Primary Care Provider Unavailabl e Social History Tobacco Use Types Packs/Day Years Used Date Smoking Tobacco: Never Assessed Sex and Gender Information Value Date Recorded Sex Assigned at Not on file Legal Sex Male 12:42 PM EDT Gender Identity Not on file Sexual Orientation Not on file Plan of Treatment Health Maintenance Due Date Last Done Comments Advance Care Planning 1950 Hepatitis C Virus Screening 1950 DTaP/Tdap/Td Vaccines (1 - Tdap) 11/12/1970 Pneumococcal Vaccines 50+ (1 of 1 - PCV) 11/12/2001 Zoster (Shingles) Vaccine (1 of 2) 11/12/2001 COVID-19 Vaccine ( - 2023-2 5 season) 2025 RSV Vaccine 50 years and old er and Patients (1 - 1-dose 75+ series) 11/12/2026 Hepatitis B Vaccines Aged Out No long er eligible based on patient's age to complete this topic
--- OUTSIDE RECORDS SUMMARY | 2025-06-14 19:41 | XMS_ITS | Clinical Summary ---
Author Organization [facility] [address] [place] [address] [place] [phone] Phone Care Team Providers Care Latent Print Examiner Name Role Phone Bimal Feliz Primary Care Provider [phone] Allergies No known active allergies Medications lisinopril (PRINIVIL,ZESTR IL) 40 mg tablet TAKE 1 TABLET BY MOUTH DAILY 90 tablet 4 Active APPLE CIDER VINEGAR ORAL Take by mouth. Ac tive hydroCHLOROthia zide (HYDRODIURIL) 25 mg tablet Take 1 Tablet by mouth daily. 3 Active lisinopril (PRINIVIL,ZESTR IL) 40 mg tablet Take 1 Tablet by mouth daily. 3 Active MILK THISTLE ORAL 2 daily Active omeprazole (PriLOSEC) [address] capsule Take 20 mg by mouth daily. Active POTASSIUM CITRATE ORAL Take 99 mg by mouth daily. Active sildenafiL (VIAGRA) 100 mg tablet Take 0.5 Tablets by mouth as needed for Erectile Dysfunction for up to 180 days. 4 Active atenoloL (TENORMIN) 50 mg tablet Take 1 tablet (50 mg total) by mouth 1 (one) time each day. 90 tablet 3 5 Active lisinopril (PRINIVIL,ZESTR IL) 40 mg tablet Take 1 tablet (40 mg total) by mouth 1 (one) time each day. 90 tablet 3 5 Active diclofenac (VOLTAREN) 1 % topical gel Apply 2 gram four times daily to affected joint 100 g 5 Active hydroCHLOROthia zide (HYDRODIURIL) 25 mg tablet Take 1 tablet (25 mg total) by mouth 1 (one) time each day. 90 tablet 3 5 Active polyethylene glycol (Golytely) 236-22.74-6.74 -5.86 gram solution Take 4L by mouth once for one dose. May substitue any PEG. Starting at 2PM the day before your procedure drink 1 8oz glasses at your own pace until you complete half of the gallon. Finish 2nd half of the gallon at 8PM. 4000 mL 5 Active bisacodyL (DULCOLAX) 5 mg EC tablet Take 2 tablets by mouth right before beginning bowel prep. See instructions provided by the office 2 tablet 5 Active Active Problems Problem Noted Date Diagnosed Date Neuropathy 10/13/2024 Hyperlipidemia 08/28/2015 Osteoarthritis of knee 02/21/2009 Essential hypertension, benign 08/09/2005 Immunizations Immunization Administration Dates Next Due Influenza trivalent, 0.5mL ( Fluad) 65yo and older 07/16/2023,07/29/2022,06/02/2021,07/02 [place] SARS-CoV-2 COVID-19, mRNA, LNP-S, preservative free 12/16/2020,2020 Pneumococcal conjugate 13 va lent (Prevnar 13, PCV13) 2mo and older 12/03/2017 Pneumococcal polysaccharide 23 valent (Pneumovax 23) 2yo and older 06/12/2019 TD, Adsorbed, Preservative Free 04/30/2016 Tdap Tetanus diptheria acell ular pertussis (Boostrix; Adacel) 7yo and older 08/10/2007 Zoster Live 08/29/2012 Surgical History Surgery Date Site/Laterality Comments ROTATOR CUFF REPAIR Right PROCEDURE: HISTORICAL ROTATOR CUFF REPAIR; COMMENT: DONE TWICE 2003 DR ROMAN OTHER SURGICAL HISTORY PROCEDURE: HISTORY OTHER; COMMENT: RT KNEE ARTHAROSSCOPIC SURGERY APPENDECTOMY PROCEDURE: LA APPENDECTOMY OTHER SURGICAL HISTORY PROCEDURE: HISTORY OTHER; COMMENT: right partial knee replacement [facility] 2011 COLONOSCOPY 2002 PROCEDURE: LA COLONOSCOPY FLX DX W/COLLJ SPEC WHEN PFRMD; COMMENT: normal COLONOSCOPY 2012 PROCEDURE: LA COLONOSCOPY FLX DX W/COLLJ SPEC WHEN PFRMD; COMMENT: normal HIP ARTHROPLASTY 2015 Bilateral PROCEDURE: HISTORICAL HIP REPLACEMENT; COMMENT: dr modi Medical History Medical History Date Comments Essential hypertension, benign 08/09/2005 D X:Essential hypertension, benign Osteoarthritis of knee 02/21/2009 DX:Osteoa rthritis of knee Family History Medical History Relation Name Comments Colon cancer Father Relation Name Status Comments Brother htn Father (Age 72) colon canc er Mother Sister (Age 46) lupus Social History Tobacco Use Types Packs/Day Years Used Date Smoking Tobacco: Never Smokeless Tobacco: Never Tobacco Cessation:Counseling Given: Not Answered Alcohol Use Standard Drinks/Week Comments Yes 0 (1 standard drink = 0.6 oz pur e alcohol) occ Housing Instability Answer Date Recorde d Are you worried that in the next 2 months you may not have stable housing? No 10/11/2024 Food Access & Nutrition Answer Date Rec orded Do you have access to a vari ety of food including fruits and vegetables? Yes 10/11/2024 Access to Healthcare Answer Date Record ed Within the last 3 months, ho w many times did you visit the emergency department for your medical care? 0 10/11/2024 Health Literacy Answer Date Recorded How often do you need to hav e someone help you when you read instructions, pamphlets, or other written material from your doctor or pharmacy? Never 10/11/2024 Caregiver: How often do you need to have someone help you when you read instructions, pamphlets, or other written material from your doctor or pharmacy? Not on file 10/11/2024 Financial Risk Answer Date Recorded How hard is it for you to pa y for the very basics like food, housing, medical care, and air conditioning / heating? Not very hard 10/11/2024 Transportation Answer Date Recorded Has the lack of transportati on kept you from meetings, work, or from getting things needed for daily living? No Has the lack of transportati on kept you from medical appointments or from getting medications? No 10/11/2024 Social Isolation Answer Date Recorded How often do you feel lonely or isolated from th ose around you? Never 10/11/2024 Food Risk Answer Date Recorded Within the past 12 months we worried whether our food would run out before we got money to buy more. Never true 10/11/2024 Within the past 12 months th e food we bought just didn't last and we didn't have money to get more. Never true 10/11/2024 Dependent Care Answer Date Recorded Do you need help finding or paying for care for your loved ones. For example, child advocate or elderly care for an older adult? No 10/11/2024 Education Answer Date Recorded Do you think completing more education or training, like finishing a GED, going to college, or learning a trade, would be helpful for you? No 10/11/2024 Employment and Income Answer Date Recor ded During the last four weeks, have you been actively looking for work? No 10/11/2024 Living Situation Answer Date Recorded What is your living situation? Unrecognized valu e 10/11/2024 Sex and Gender Information Value Date Recorded Sex Assigned at Not on file Legal Sex Male 10:07 PM EST Gender Identity Not on file Sexual Orientation Not on file Obstetrics History Last Filed Vital Signs Vital Sign Reading Time Taken Comments Blood Pressure 130/80 10/13/2024 8:10 AM EST Pulse 81 10/13/2024 7:49 AM EST Temperature 36.8 C (98.3 F) 10/13/2024 7:49 AM EST Respiratory Rate 15 10/13/2024 7:49 AM EST Oxygen Saturation - - Inhaled Oxygen Concentration - - Weight 106 kg (234 lb) 10/13/2024 7:49 AM EST Height 182.9 cm (6') 10/13/2024 7:49 AM EST Body Mass Index 31.74 10/13/2024 7:49 AM EST Plan of Treatment Upcoming Encounters Date Type Department Care Team (Late st Contact Info) Description 06/21/2025 7:45 AM EDT Hospital Encounter [facility] [address] [place] [id number] Tommy Marie MD [address] [id number] Health Maintenance Due Date Last Done Comments Colorectal Cancer Screening: Colonoscopy 1950 Zoster Vaccines (2 of 3) 10/24/2012 08/29/2012 Falls Risk Assessment 08/08/2022 Medicare Annual Wellness Visit 07/16/2024 07/16/2023 COVID-19 Vaccine ( season) 2025 09/04/2021, 12/16/2020, 2020 Influenza Vaccine (#1) 2025 , 07/29/2022, 06/02/2021, Additional history exists Hypertension/CHF/CAD Annual BMP Blood Test 05/25/2025 05/25/2024, 05/25/2024 Social Influencers of Health Screening 10/11/2025 10/11/2024 DTaP,Tdap,and Td Vaccines (3 - Td or Tdap) 04/30/2026 04/30/2016, 08/10/2007 RSV Immunization Adult Patients (1 - 1-dose 75+ series) 11/12/2026 Cholesterol Screening (Lipid Panel) 05/25/2029 05/25/2024, 05/25/2024 Hepatitis C Screening Completed 02/12/2016 Pneumococcal Vaccine: 50+ Years Completed 06/12/2019, 12/03/2017 Depression Screening Completed 10/11/2024 HIB Vaccines Aged Out No longer eligi ble based on patient's age to complete this topic HPV Vaccines Aged Out No longer eligi ble based on patient's age to complete this topic Hepatitis A Vaccines Aged Out No long er eligible based on patient's age to complete this topic Hepatitis B Vaccines Aged Out No long er eligible based on patient's age to complete this topic IPV Vaccines Aged Out No longer eligi ble based on patient's age to complete this topic MMR Vaccines Aged Out No longer eligi ble based on patient's age to complete this topic Meningococcal ACWY Vaccine Aged Out N o longer eligible based on patient's age to complete this topic Meningococcal B Vaccine Aged Out No l onger eligible based on patient's age to complete this topic RSV Immunization Patients Under 20 months Aged Out No longer eligible based on patient's age to complete this topic Varicella Vaccines Aged Out No longer eligible based on patient's age to complete this topic Procedures Procedure Name Priority Date/Time Associated Diagnosis Comments ANNUAL BMP BLOOD TEST Routine 05/25/2024 LIPID PANEL Routine 05/25/2024 HEPATITIS C SCREENING Routine 02/12/2016 from Last 3 Months or Most Recently Relevant to Health Maintenance Results * Annual BMP Blood Test (05/25/2024) Pathologist [facility] Annual BMP Blood Test Abstracted Historical Provider HEALTH MAINTENANCE Final Result * (ABNORMAL) Lipid panel (05/25/2024) [facility] LDL/HDL Ratio 2 0 - 4 Triglycerides 65 0 - 150 mg/dL Cholesterol 217(A) 0 - 200 mg/dL HDL 100 >=40 mg/dL LDL Cholesterol 104(A) 0 - 100 mg/dL Blood Venous blood specimen / Unknown Historical Provider LAB BLOOD ORDERABLES Camille l Result * Hepatitis C Screening (02/12/2016) [facility] Hepatitis C Screening Abstracted [facility] Provider HEALTH MAINTENANCE Final Result from Last 3 Months or Most Recently Relevant to Health Maintenance Insurance MEDICARE [facility] [address] [place] [phone] Care Teams Latent Print Examiner Relationship Specialty Start Date End Date Bimal Feliz PA [address] [place] [phone] PCP - General Internal Medicine 11/07/20
--- OUTSIDE RECORDS SUMMARY | 2025-06-14 19:41 | XMS_ITS | Clinical Summary ---
Author Organization [facility] Address [address] [place] [phone] Phone Care Team Providers Care Commercial Solar Sales Consultant Name Role Phone Bimal Feliz Primary Care Provid er Allergies No known active allergies Medications lisinopril (PRINIVIL,ZESTR IL) 40 MG tablet Take 1 tablet by mouth every morning. 05/21/2023 Active hydroCHLOROthia zide (HYDRODIURIL) 25 MG tablet Take 1 tablet by mouth every morning. 04/18/2023 Active atenolol (TENORMIN) 50 mg tablet Take 1 tablet by mouth every morning. 04/18/2023 Active omeprazole (PRILOSEC) 20 MG capsule Take 1 capsule by mouth every morning. 04/18/2023 Active Active Problems No known active problems Social History Tobacco Use Types Packs/Day Years Used Date Smoking Tobacco: Never Passive Smoke Exposure: Never Smokeless Tobacco: Never Tobacco Cessation:Counseling Given: Not Answered Alcohol Use Standard Drinks/Week Comments Yes 0 (1 standard drink = 0.6 oz pur e alcohol) social Education Answer Date Recorded Are you interested in more education? Not on roxana e 01/13/2023 Are you concerned about learning? Not on file 01/13/2023 No 01/13/2023 No 01/13/2023 Digital Access Answer Date Recorded No 01/20/2023 No 01/20/2023 Reliable internet access at home? Not on file 01/20/2023 Device with a working camera? Not on file Sex and Gender Information Value Date Recorded Sex Assigned at Not on file Legal Sex Male 2:01 PM EDT Gender Identity Not on file Sexual Orientation Not on file Last Filed Vital Signs Vital Sign Reading Time Taken Comments Blood Pressure 162/95 06/03/2023 10:27 AM EDT Pulse 83 06/03/2023 10:27 AM EDT Temperature 36.7 C (98.1 F) 01/12/2023 2:37 PM EDT Respiratory Rate 16 06/03/2023 10:27 AM EDT Oxygen Saturation 97% 06/03/2023 10:27 AM EDT Inhaled Oxygen Concentration - - Weight 104.3 kg (230 lb) 06/03/2023 10:27 AM EDT Height 182.9 cm (6') 06/03/2023 10:27 AM EDT Body Mass Index 31.19 06/03/2023 10:27 AM EDT Plan of Treatment Health Maintenance Due Date Last Done Comments Adult Td,Tdap Booster 1950 CREATININE LEVEL 1950 LIPID PANEL 1950 POTASSIUM LEVEL 1950 DEPRESSION SCREENING 1963 HEPATITIS C SCREENING 11/12/1969 COLOGUARD 11/12/1996 COLONOSCOPY 11/12/1996 COLORECTAL CANCER SCREENING 11/12/1996 FIT TEST 11/12/1996 FOBT 11/12/1996 SIGMOIDOSCOPY 11/12/1996 VIRTUAL COLONOSCOPY 11/12/1996 PNEUMOCOCCAL VACCINES (50+ y ears) (1 of 1 - PCV) 11/12/2001 ZOSTER VACCINES (1 of 2) 11/12/2001 INFLUENZA VACCINE (#1) 2025 COVID-19 VACCINE ( - 2024-2 6 season) 2025 RSV VACCINE (1 - 1-dose 75+ series) 11/12/2026 SMOKING STATUS SCREENING (On ce After 26 Yrs) Completed 06/03/2023 HEPATITIS A VACCINES Aged Out No long er eligible based on patient's age to complete this topic HIB VACCINES Aged Out No longer eligi ble based on patient's age to complete this topic MENINGOCOCCAL VACCINES (ACWY) Aged Out No longer eligible based on patient's age to complete this topic MENINGOCOCCAL VACCINES (B) Aged Out N o longer eligible based on patient's age to complete this topic Medical Devices Not on file Insurance MEDICARE PART A & B [facility] MEDICARE SUPPLEMENT Care Teams Commercial Solar Sales Consultant Relationship Specialty Start Date End Date Bimal Feliz PA [address] [place] [address] PCP - General Physician Cat Dog Or Other Pet Groomer 01/12/23 Additional Source Comments The information contained in this document represents components of the legal health record. It is not the complete legal health record.[facility]
--- OUTSIDE RECORDS SUMMARY | 2025-06-14 19:41 | XMS_ITS ---
Author Name [facility] Organization Unknown Care Team Organization Name Specialty Phone Email Start Date End Da te [facility] Termed, PROVIDER Primary Care 07/07/202203/30
[2025-06-14] MEDS: metroNIDAZOLE/NS 500 MG/100 ML PIGGYBACK 100 MG IV (19:43)
[2025-06-14 20:37] LABS: Reflex Lactate? 2 Y
--- NOTE | 2025-06-14 20:37 | PM.IMHP ---
History of Present Illness Date of Service: 06/14/25 Attending physician on admission: Gamaliel Quinonez Chief Complaint: Fall, fever Alexandro Lastowski 74 years old man with past medical history significant for multiple events of diverticulitis, hypertension (on hydrochlorothiazide + lisinopril and atenolol) presents to the ED after sustaining a fall resulting in head trauma. His who is at bedside noted that he has been confused. Patient had fever spike of 102 today and has been having urinary frequency. Denied bloody urine. He denied abdominal pain, nausea, vomiting, diarrhea or constipation. Denied headache. He denied any acute cardiopulmonary symptoms. No history of abdominal surgeries. In the ED, he was initially found to have significant sinus tachycardia. Blood pressure has been stable. Yunier no significant hypoxia and temperature was a 100.2 degrees. Blood workup was remarkable for significant leukocytosis of 27.7. Hemoglobin is 14.5 and platelets 219. INR is 1.1. There are no significant electrolyte imbalances. CO2 is 19, BUN 20 and creatinine 1.86. He had significant lactic acidosis of 6.0. It is now 2.4. ETOH level is < 10. Abdominal pelvis CT scan showed sigmoid colon mural thickening with pericolic inflammation and adjacent 3.4 x 3.4 by 3.6 cm air-fluid collection, intraperitoneal abscess with sigmoid diverticulitis and sigmoid colitis. Head and neck CT scan showed no acute abnormalities. Chest CT scan without contrast showed no acute intrathoracic findings. ECG showed sinus tachycardia, 135 beats per minute with nonspecific ST and T-wave abnormalities. ED tx: Ceftriaxone 1 g, acetaminophen 975 mg p.o., LR 2.9 L bolus, vancomycin 2 g IV, metronidazole 500 mg IV Review of Systems Review of Systems: All 12 systems were reviewed and normal except as noted in HPI. 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/ [employer] Meds Allergies Allergy/AdvReac Type Severity Reaction Status Date / Time No Known Allergies Allergy Verified 06/14/25 15:49 Active Medications: Current Medications Acetaminophen (Acetaminophen 325 Mg Tablet) 650 mg PO Q6H PRN PRN Reason: Pain, Mild 1-3,fever,headache Calcium Carbonate (Calcium Carbonate 750 Mg Tab.Chew) 750 mg PO Q4H PRN PRN Reason: Heartburn Hydromorphone HCl (Hydromorphone Hcl 0.5 Mg/0.5 Ml Syringe) 0.5 mg IVPUSH Q3H PRN; Protocol PRN Reason: abdominal pain Lactated Ringer's (Lr) 1,000 mls @ 100 mls/hr IVCONT .Q10H CORIE Piperacillin Sod/Tazobactam (Sod 3.375 gm/ Sodium Chloride) 50 mls @ 100 mls/hr IV Q6H CORIE Magnesium Hydroxide (Milk Of Magnesia 30 Ml Oral.Susp) 30 ml PO DAILY PRN PRN Reason: Constipation Melatonin (Melatonin 3 Mg Tablet) 6 mg PO BEDTIME PRN PRN Reason: Insomnia Ondansetron HCl (Ondansetron Hcl 4 Mg/2 Ml Vial) 4 mg IVPUSH Q6H PRN PRN Reason: Nausea and Vomiting Sodium Chloride (0.9 % Sodium Chloride Flush 3 Ml Syringe) 3 ml [facility]FLUSH [facility] Home Medications ?Medication ?Instructions ?Recorded ?Confirmed ?Last Taken ?Type atenolol 50 mg tablet 50 mg PO DAILY 12/07/22 08/04/24 Unknown History hydrochlorothiazide 25 mg tablet 25 mg PO DAILY 12/07/22 08/04/24 Unknown History lisinopril 40 mg tablet 40 mg PO DAILY 12/07/22 08/04/24 Unknown History omeprazole 20 mg capsule,delayed 20 mg PO DAILY 08/04/24 08/04/24 Unknown History release Physical Exam Vital Signs and Narrative: Vital Signs: Last Vital Signs Temp 97.6 F 06/14/25 19:40 Pulse 90 06/14/25 19:17 Resp 16 06/14/25 19:17 BP 125/88 06/14/25 19:17 Pulse Ox 96 06/14/25 19:17 O2 Del Method Room Air 06/14/25 19:17 BMI result Body Mass Index 29.0 General: Alert, oriented, in no acute distress. Well nourished and cooperative. Afebrile. HEENT: Head normocephalic, atraumatic. PER, EOMI. Sclerae anicteric, conjunctiva clear. Oropharynx without erythema or exudate. Mucous membranes moist. Neck: Supple. Heart: RRR, no murmurs, rubs or gallops. Lungs: Clear to auscultation bilaterally. No wheezes, rales, or rhonchi. Normal respiratory effort. Abdomen: Distended, mildly depressible, increased bowel sounds; non tenderness. Extremities: No calf tenderness bilaterally, no swelling Musculoskeletal: Full range of motion. No joint swelling, deformity, or tenderness. Normal muscle tone and strength. Skin: Warm/Dry. No pallor. No jaundice. Neurologic: Alert & oriented x4. Moving all extremities spontaneously. Normal speech. Psychological: Normal mood and affect. Thought process coherent. Results Labs 06/14/25 16:03 06/14/25 16:03 Labs: Laboratory Results - last 24 hr 06/14/25 06/14/25 16:03 18:34 MCV 93.8 MCH 33.1 H MCHC 35.3 RDW 12.6 Plt Count 319 D MPV 9.7 Immature Gran % (Auto) 2.3 H Neut % (Auto) 83.9 H Lymph % (Auto) 9.9 L [place] % (Auto) 3.3 Eos % (Auto) 0.1 Baso % (Auto) 0.5 Lymph # (Auto) 2.6 [place] # (Auto) 0.8 Eos # (Auto) 0.0 Baso # (Auto) 0.1 Abs Immat Gran (auto) 0.60 H Absolute Neuts (auto) 21.6 H Absolute Nucleated RBC 0.000 Nucleated RBC % (auto) 0.0 Smear Tech's Comments VERIFIED PT 12.3 INR 1.1 APTT 28.2 Anion Gap 17 Estim Creat Clear Calc 42.6 Estimated GFR 36 Random Glucose 227 H Lactic Acid 6.0 H* Lactic Acid F/U @ 2Hr 2.4 H* Calcium 9.4 Total Bilirubin 0.8 Ethyl Alcohol < 10 Assessment and Plan (1) Severe sepsis: Status: Acute (2) Acute kidney injury: Status: Acute (3) Sigmoid diverticulitis: Status: Acute (4) Intraperitoneal abscess: Status: Acute Plan Alexandro Cullen 74 y/o man with a PMHx significant for multiple events of diverticulitis who presents with: Severe sepsis secondary to sigmoid diverticulitis/colitis with intraperitoneal abscess. NPO. Empiric IV antibiotic therapy with Zosyn. Continue IV fluids. Continue to monitor lactic acid. Blood culture obtained -will follow results. Urinalysis is still pending. Check LFTs. Discussed with surgeon, will arrange for CT drain tomorrow. IR consult. Acute kidney injury likely secondary to sepsis/volume depletion. Hold lisinopril. Continue IV fluids. Continue to monitor renal function. Essential hypertension. Hold home meds for now. Continue to monitor BP. Recent fall. Fall precautions. Code status: Full. DVT prophylaxis: SCDs for now (possible invasive procedure). Patient will need hospitalization for at least 2 midnights for severe sepsis due to diverticulitis with abscess treatment with IV fluids, IV antibiotics and urgent invasive procedure. This documentation was generated using dictation software; minor spreading or operator control room errors may be present. Quality Stroke Does the patient have a stroke diagnosis?: No VTE Prior VTE?: No VTE Risk Level:: Medical - moderate - high VTE Device Contraindication: N/A - Device Ordered VTE Drug Contraindication: Treatment Not Indicated
[2025-06-14 21:12] LABS: Alanine Aminotransferase 30 U/L (0-40); Albumin Level 4.3 g/dL (3.5-5.0); Alkaline Phosphatase 74 U/L (39-117); Aspartate Amino Transferase 87 U/L (5-37); Total Protein 7.9 g/dL (6.5-8.0)
--- NOTE | 2025-06-14 21:21 | PHA.MEDREC ---
Pharmacy Consult ? Medication Reconciliation Pharmacy has completed the medication reconciliation. Spoke to patient at bedside
[2025-06-14] MEDS: Lactated Ringers 1,000 ML 100 ML IVCONT (21:30)
[2025-06-14 21:32] LABS: ~Lactic Acid-LAB USE ONLY 1.6 mmol/L (0.5-2.0)
[2025-06-15] VITALS (23 sets, daily range): BP systolic 123–180; BP diastolic 74–105; PULSE 72–105; RESP 10–24; TEMP 36.4–38.3; O2SAT 92–100
[2025-06-15 00:45] LABS: Appearance Urine Cloudy; Glucose Urine UA Negative (Negative); PH 7.0 (5.0-9.0); Specific Gravity - Urine 1.015 (1.005-1.025); UMIC TRIGGER UACC YES
[2025-06-15 01:05] LABS: UACC Culture Trigger YES
--- NOTE | 2025-06-15 06:03 | P.CONGS_ITS ---
History of Present Illness Consult details Consult date: 06/15/25 Reason for consult: other (diverticulitis with abscess) Requesting physician: Gamaliel Quinonez Narrative: Alexandro Cullen is a 74 year old man with PMH significant for hypertension, GERD, hx of diverticulitis who presented to the ED after a fall resulting in head trauma. His stated he had been confused at home and had a fever with tmax of 102 degrees yesterday prior to the fall. He was up the previous night with urinary frequency. Following the fall, he was brought to the ED for evaluation. Work up included CBC, BMP, LFTs which was significant for a leukocytosis of 27.7 and Cr of 1.86. His initial lactic acid was 6 down to 2.4 with IV hydration. Abdominal pelvis CT scan showed thickening of the sigmoid colon with pericolonic inflammatory changes with possible adjacent fluid collection and bladder with air. UA suggestive of UTI. Head and neck CT scan showed no acute abnormalities. He was admitted to the hospitalist service for diverticulitis with abscess. He is on IV zosyn. He feels improved this morning. He denies nausea, vomiting, abdominal pain, diarrhea, pneumoturia, fecaluria. He had a colonoscopy 5 years ago which showed polyps. He is scheduled for a colonoscopy next week actually. he reports two prior episodes of diverticulitis 10-15 years ago. 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 Meds Allergies Allergy/AdvReac Type Severity Reaction Status Date / Time No Known Allergies Allergy Verified 06/14/25 15:49 Active Medications: Current Medications Acetaminophen (Acetaminophen 325 Mg Tablet) 650 mg PO Q6H PRN PRN Reason: Pain, Mild 1-3,fever,headache Calcium Carbonate (Calcium Carbonate 750 Mg Tab.Chew) 750 mg PO Q4H PRN PRN Reason: Heartburn Hydromorphone HCl (Hydromorphone Hcl 0.5 Mg/0.5 Ml Syringe) 0.5 mg IVPUSH Q3H PRN; Protocol PRN Reason: abdominal pain Lactated Ringer's (Lr) 1,000 mls @ 100 mls/hr IVCONT .Q10H [facility] Last Infusion: 06/15/25 02:41 Dose: 100 mls/hr Piperacillin Sod/Tazobactam (Sod 3.375 gm/ Sodium Chloride) 50 mls @ 100 mls/hr IV Q6H [facility] Last Infusion: 06/15/25 02:40 Dose: Infused Magnesium Hydroxide (Milk Of Magnesia 30 Ml Oral.Susp) 30 ml PO DAILY PRN PRN Reason: Constipation Melatonin (Melatonin 3 Mg Tablet) 6 mg PO BEDTIME PRN PRN Reason: Insomnia Ondansetron HCl (Ondansetron Hcl 4 Mg/2 Ml Vial) 4 mg IVPUSH Q6H PRN PRN Reason: Nausea and Vomiting Sodium Chloride (0.9 % Sodium Chloride Flush 3 Ml Syringe) 3 ml IVFLUSH QSHIFT [facility] Last Admin: 06/15/25 00:18 Dose: Not Given Home Medications ?Medication ?Instructions ?Recorded ?Confirmed ?Last Taken ?Type atenolol 50 mg tablet 50 mg PO BEDTIME 12/07/2206/13/25 History hydrochlorothiazide 25 mg tablet 25 mg PO DAILY 06/14/25 06/13/25 History lisinopril 40 mg tablet 40 mg PO DAILY 12/07/2205/3006/13/25 History omeprazole 20 mg capsule,delayed 20 mg PO DAILY PRN Ac id Reflux 08/04/24 06/14/25 06/13/25 History release vitamin B complex 1 cap PO DAILY 06/14/2505/3006/13/25 History Physical Exam 2 Vital Signs: Vital Signs: Last Vital Signs Temp 97.7 F 06/15/25 04:27 Pulse 72 06/15/25 04:27 Resp 18 06/15/25 04:27 BP 135/76 06/15/25 04:27 Pulse Ox 96 06/15/25 04:27 O2 Del Method Room Air 06/15/25 04:27 BMI result Body Mass Index 29.0 Const: General: comfortable, no acute distress and alert O rientation/consciousness: patient oriented x3 Resp: Effort & Inspection: normal respiratory effort and able to speak in complete sentences GI: Other: corpulent, protuberant abdomen soft, nontender, nondistended Inspection: No scar Palpation (GI): no guarding Percussion: Yes normal to percussion Skin: General skin exam: no rashes or lesions noted Neuro: General: patient oriented x3 and moves all extremities Results Labs 06/15/25 05:52 06/15/25 05:52 Labs: Abnormal lab results 06/14/25 06/14/25 06/15/25 Range/Units 16:03 18:34 00:32 WBC 25.7 H (4.8-10.8) X10*3/uL RBC 4.38 L (4.60-5.80) X10*6/uL Hct 41.1 L (42.0-52.0) % MCH 33.1 H (27.0-33.0) pg Immature Gran % (Auto) 2.3 H (0.0-0.4) % Neut % (Auto) 83.9 H (45-73) % Lymph % (Auto) 9.9 L (20-40) % Abs Immat Gran (auto) 0.60 H (0.00-0.03) X10*3/uL Absolute Neuts (auto) 21.6 H (2.0-8.3) x10*3/uL Sodium 132 L (135-145) mmol/L Carbon Dioxide 19 L (22-29) mmol/L BUN 20 H (9-16) mg/dL Creatinine 1.86 H (0.5-1.4) mg/dL Random Glucose 227 H (60-115) mg/dL Lactic Acid 6.0 H* (0.5-2.0) mmol/L Lactic Acid F/U @ 2Hr 2.4 H* (0.5-2.0) mmol/L AST 87 H (5-37) U/L Urine Blood Large (3+) H (Negative) Urine RBC >20 H (0-2) /HPF Urine WBC >50 H (0-5) /HPF Short CBC 06/14/25 Range/Units 16:03 WBC 25.7 H (4.8-10.8) X10*3/uL Hgb 14.5 (14.0-18.0) g/dl Hct 41.1 L (42.0-52.0) % Plt Count 319 D (160-400) X10*3/uL BMP 06/14/25 16:03 Sodium 132 L Potassium 4.3 Chloride 100 Carbon Dioxide 19 L BUN 20 H Creatinine 1.86 H Calcium 9.4 Liver Function 06/14/25 Range/Units 16:03 Total Bilirubin 0.8 (0.0-1.0) mg/dL Direct Bilirubin 0.3 (0.0-0.5) mg/dL AST 87 H (5-37) U/L ALT 30 (0-40) U/L Alkaline Phosphatase 74 (39-117) U/L Albumin 4.3 (3.5-5.0) g/dL Urine 06/15/25 Range/Units 00:32 Urine Color BROWN Urine Appearance Cloudy Urine pH 7.0 (5.0-9.0) Ur Specific [place] 1.015 (1.005-1.025) Urine Protein See Note (Neg-Trace) mg/dL Urine Glucose (UA) Negative (Negative) mg/dL All other labs normal. Imaging Abdomen CT scan report/results: report reviewed and image reviewed Additional studies: labs reveiwed Assessment and Plan (1) Colovesical fistula: Status: Acute Plan Alexandro Cullen is a 74 year old man with PMH significant for hypertension, GERD, hx of diverticulitis presenting following a fall with work up demonstrating sigmoid diverticulitis with abscess and likely colovesical fistula given the air in the bladder. He has been started on IV abx. Plan for IR drainage of the abscess collection today. Unfortunately the scan does demonstrate a colovesical fistula and he will require resection for this. Will add tenatively on the schedule for Wednesday. NPO until IR drainage, then ok for clears. Procedures Date of Service Date of Service: 06/15/25
[2025-06-15 06:07] LABS: MANUAL DIFF FLAG NO
[2025-06-15 06:11] LABS: Hematocrit 39.4 % (42.0-52.0); Hemoglobin 13.3 g/dl (14.0-18.0); Imm Gran Abs Auto 0.09 X10*3/uL (0.00-0.03); Imm Gran Pct Auto 0.6 % (0.0-0.4); Lymphocytes Absolute Auto 1.0 X10*3/uL (1.2-4.9); Mean Corpuscular HGB Conc 33.8 g/dl (31.0-36.0); Mean Corpuscular Hemoglobin 32.5 pg (27.0-33.0); Mean Corpuscular Volume 96.3 fL (80.0-98.0); NRBC Abs Auto 0.000 X10*3/uL (0.0-0.012); NRBC Pct Auto 0.0 /100WBC (0.0-0.2); Platelet Count 168 X10*3/uL (160-400); Red Blood Count 4.09 X10*6/uL (4.60-5.80); White Blood Count 14.4 X10*3/uL (4.8-10.8)
[2025-06-15 06:23] LABS: Anion Gap 15 (12-20); Blood Urea Nitrogen 25 mg/dL (9-16); Calcium 8.6 mg/dL (8.4-10.2); Carbon Dioxide 23 mmol/L (22-29); Chloride 102 mmol/L (96-108); Creatinine Clr Calc Pharmacy 34.8; Estimated Glomerular Filt Rate 28; Magnesium 1.9 mg/dL (1.6-2.6); Potassium 3.9 mmol/L (3.3-5.1); Sodium 136 mmol/L (135-145)
--- NOTE | 2025-06-15 06:40 | P.CONGS_ITS ---
History of Present Illness Consult details Consult date: 06/15/25 Narrative: 74-year-old male with a history of hypertension admitted last night because of the diverticular abscess. He actually was brought to the ER yesterday afternoon because of a fall at home. He said he has slipped while getting up with socks on. He admits he had not been feeling well yesterday morning and had some fevers. He denied any abdominal pain. He denied any vomiting. He says that he does felt unwell yesterday morning and this may have been contributory to this fall. He says that he has had poor oral intake as well today as he did not have any appetite. He denies any abdominal surgeries. Currently he says he is comfortable and denies any abdominal pain Review of Systems 2 Constitutional: Constitutional: Reports chills, Reports fever(s) and Reports malaise Cardiovascular: Cardiovascular: Denies chest pain, Denies dyspnea and Denies dyspnea on exertion Respiratory: Respiratory: Denies cough, Denies dyspnea and Denies dyspnea on exertion Gastrointestinal: Gastrointestinal: Denies hematochezia and Denies change in bowel habits Genitourinary: Genitourinary: Denies hematuria, Denies difficulty urinating and Reports urinary frequency Musculoskeletal: Musculoskeletal: Denies back pain and Denies limited range of motion Neurologic: Denies focal weakness and Denies convulsions Psychiatric: Psychiatric: Denies depression and Denies mood swings PMFSH Past Medical History Medical History Colonic diverticular abscess Essential hypertension FH: total knee replacement High blood pressure Surgical History Surgical History (Updated 06/18/25 @ 10:02 by Jeevan Nava RN) History of appendectomy History of knee replacement History of repair of right rotator cuff History of tonsillectomy History of colonoscopy History of hip replacement, total Social History Social History Household Members: Spouse Housing: House Are you a primary behavioral health care coordinator to a significant other at home: No Do you presently have visiting nurse or other home services: No Alcohol intake: current Alcohol intake frequency: does not drink Comment: one fall prior to this admission Patient Tobacco Use Status: Never used Tobacco Second Hand Smoke Exposure: No service: No 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[employer]/ [employer] Meds Allergies Allergy/AdvReac Type Severity Reaction Status Date / Time No Known Allergies Allergy Verified 06/14/25 15:49 Active Medications: Current Medications Acetaminophen (Acetaminophen 325 Mg Tablet) 650 mg PO Q6H PRN PRN Reason: Pain, Mild 1-3,fever,headache Calcium Carbonate (Calcium Carbonate 750 Mg Tab.Chew) 750 mg PO Q4H PRN PRN Reason: Heartburn Hydromorphone HCl (Hydromorphone Hcl 0.5 Mg/0.5 Ml Syringe) 0.5 mg IVPUSH Q3H PRN; Protocol PRN Reason: abdominal pain Lactated Ringer's (Lr) 1,000 mls @ 100 mls/hr IVCONT .Q10H [facility] Last Infusion: 06/15/25 02:41 Dose: 100 mls/hr Piperacillin Sod/Tazobactam (Sod 3.375 gm/ Sodium Chloride) 50 mls @ 100 mls/hr IV Q6H [facility] Last Infusion: 06/15/25 02:40 Dose: Infused Magnesium Hydroxide (Milk Of Magnesia 30 Ml Oral.Susp) 30 ml PO DAILY PRN PRN Reason: Constipation Melatonin (Melatonin 3 Mg Tablet) 6 mg PO BEDTIME PRN PRN Reason: Insomnia Ondansetron HCl (Ondansetron Hcl 4 Mg/2 Ml Vial) 4 mg IVPUSH Q6H PRN PRN Reason: Nausea and Vomiting Sodium Chloride (0.9 % Sodium Chloride Flush 3 Ml Syringe) 3 ml IVFLUSH QSHIFT [facility] Last Admin: 06/15/25 00:18 Dose: Not Given Home Medications ?Medication ?Instructions ?Recorded ?Confirmed ?Last Taken ?Type atenolol 50 mg tablet 50 mg PO BEDTIME 12/07/2206/13/25 History hydrochlorothiazide 25 mg tablet 25 mg PO DAILY 06/14/25 06/13/25 History lisinopril 40 mg tablet 40 mg PO DAILY 12/07/2205/3006/13/25 History omeprazole 20 mg capsule,delayed 20 mg PO DAILY PRN Ac id Reflux 08/04/24 06/14/25 06/13/25 History release vitamin B complex 1 cap PO DAILY 06/14/2505/3006/13/25 History Physical Exam 2 Vital Signs: Vital Signs: Last Vital Signs Temp 97.7 F 06/15/25 04:27 Pulse 72 06/15/25 04:27 Resp 18 06/15/25 04:27 BP 135/76 06/15/25 04:27 Pulse Ox 96 06/15/25 04:27 O2 Del Method Room Air 06/15/25 04:27 BMI result Body Mass Index 29.0 Const: Other: Alert and appears well General: comfortable and no acute distress Orientation/consciousness: p atient oriented x3 Neck: Neck: Yes no lymphadenopathy Resp: Auscultation: clear to auscultation bilaterally Cardio: Rhythm: regular rhythm GI: Palpation (GI): Soft to palpation, nontender, no guarding and not rigid Neuro: General: patient oriented x3 Results Labs 06/17/25 08:37 06/17/25 08:37 Labs: Abnormal lab results 06/14/25 06/14/25 06/15/25 Range/Units 16:03 18:34 00:32 WBC 25.7 H (4.8-10.8) X10*3/uL RBC 4.38 L (4.60-5.80) X10*6/uL Hgb (14.0-18.0) g/dl Hct 41.1 L (42.0-52.0) % MCH 33.1 H (27.0-33.0) pg Immature Gran % (Auto) 2.3 H (0.0-0.4) % Neut % (Auto) 83.9 H (45-73) % Lymph % (Auto) 9.9 L (20-40) % Lymph # (Auto) (1.2-4.9) X10*3/uL Abs Immat Gran (auto) 0.60 H (0.00-0.03) X10*3/uL Absolute Neuts (auto) 21.6 H (2.0-8.3) x10*3/uL Sodium 132 L (135-145) mmol/L Carbon Dioxide 19 L (22-29) mmol/L BUN 20 H (9-16) mg/dL Creatinine 1.86 H (0.5-1.4) mg/dL Random Glucose 227 H (60-115) mg/dL Lactic Acid 6.0 H* (0.5-2.0) mmol/L Lactic Acid F/U @ 2Hr 2.4 H* (0.5-2.0) mmol/L AST 87 H (5-37) U/L Urine Blood Large (3+) H (Negative) Urine RBC >20 H (0-2) /HPF Urine WBC >50 H (0-5) /HPF 06/15/25 Range/Units 05:52 WBC 14.4 H (4.8-10.8) X10*3/uL RBC 4.09 L (4.60-5.80) X10*6/uL Hgb 13.3 L (14.0-18.0) g/dl Hct 39.4 L (42.0-52.0) % MCH (27.0-33.0) pg Immature Gran % (Auto) 0.6 H (0.0-0.4) % Neut % (Auto) 87.3 H (45-73) % Lymph % (Auto) 7.1 L (20-40) % Lymph # (Auto) 1.0 L (1.2-4.9) X10*3/uL Abs Immat Gran (auto) 0.09 H (0.00-0.03) X10*3/uL Absolute Neuts (auto) 12.5 H (2.0-8.3) x10*3/uL Sodium (135-145) mmol/L Carbon Dioxide (22-29) mmol/L BUN 25 H (9-16) mg/dL Creatinine 2.28 H (0.5-1.4) mg/dL Random Glucose (60-115) mg/dL Lactic Acid (0.5-2.0) mmol/L Lactic Acid F/U @ 2Hr (0.5-2.0) mmol/L AST (5-37) U/L Urine Blood (Negative) Urine RBC (0-2) /HPF Urine WBC (0-5) /HPF Short CBC 06/14/25 06/15/25 Range/Units 16:03 05:52 WBC 25.7 H 14.4 H (4.8-10.8) X10*3/uL Hgb 14.5 13.3 L (14.0-18.0) g/dl Hct 41.1 L 39.4 L (42.0-52.0) % Plt Count 319 D 168 D (160-400) X10*3/uL BMP 06/14/25 06/15/25 16:03 05:52 Sodium 132 L 136 Potassium 4.3 3.9 Chloride 100 102 Carbon Dioxide 19 L 23 BUN 20 H 25 H Creatinine 1.86 H 2.28 H Calcium 9.4 8.6 D Liver Function 06/14/25 Range/Units 16:03 Total Bilirubin 0.8 (0.0-1.0) mg/dL Direct Bilirubin 0.3 (0.0-0.5) mg/dL AST 87 H (5-37) U/L ALT 30 (0-40) U/L Alkaline Phosphatase 74 (39-117) U/L Albumin 4.3 (3.5-5.0) g/dL Urine 06/15/25 Range/Units 00:32 Urine Color BROWN Urine Appearance Cloudy Urine pH 7.0 (5.0-9.0) Ur Specific [place] 1.015 (1.005-1.025) Urine Protein See Note (Neg-Trace) mg/dL Urine Glucose (UA) Negative (Negative) mg/dL All other labs normal. Imaging Abdomen CT scan report/results: report reviewed and image reviewed CT scan - pelvis: report reviewed and image reviewed Additional studies: CLINICAL HISTORY: dysuria, fever, fall CT abdomen and pelvis without contrast Comparison: None provided Findings: The lung bases are clear. The gallbladder and solid organs are within normal limits. No renal stones. Segmental mural thickening of the sigmoid colon with pericolonic inflammatory changes and distal sigmoid colon. Superior of the bladder and adjacent to the sigmoid colon there is an air-fluid level collection, 3.4 x 3.4 x 3.6 cm, axial image number 5 of 92 of 140 series 37. Calcified coronary atherosclerotic disease. [id number] calcified atherosclerotic disease of the abdominal aorta. The appendix not grossly identified. Diverticulosis. No acute fracture. IMPRESSION: 1. Sigmoid colon mural thickening with pericolonic inflammation and adjacent 3.4 x 3.4 x 3.6 cm air-fluid collection; intraperitoneal abscess from sigmoid diverticulitis and sigmoid colitis. 2. Calcified coronary and abdominal aortic atherosclerotic disease. This document has been electronically signed by: Gus Del Toro MD on 06/14/2025 19:36:48 Assessment and Plan (1) Colonic diverticular abscess: Status: Acute 74-year-old male with hypertension, brought to the ER last night because of a fall. He had a CAT scan of the abdomen because of this and this shows diverticulitis of the sigmoid with what appears to be an abscess adjacent to this up to 3.6 cm in dimension. We will schedule him for IR drainage today. He came in with signs of sepsis and his lactate was elevated. This has improved with hydration. Currently he looks well and comfortable and is not toxic looking. His abdomen is very soft and benign and is not tender Review of his CAT scan images also showed that there may be air in the bladder. This has not mentioned on the official report. He also has a urinary tract infection. He likely has a colovesical fistula so I have reviewed this CAT scan images with the radiologist . He does understand that there is a likelihood that he may require surgical intervention with the sigmoid resection and a stoma because of the CAT scan findings suggestive of a colovesical fistula. He has been started on IV antibiotics. I was able to talk to the Marla. She stated that the patient drinks about 3 glasses of hard drinks every day. He has not shown any signs of small bowel. His LFTs are unremarkable. Procedures Date of Service Date of Service: 06/18/25
--- NOTE | 2025-06-15 08:06 | PC.NURSE ---
pt is caox4 and in no distress, his resps are = and nonlabored and he is in nsr in lead 2. his pure wick needed to be changed and his bedding was changed, no skin breakdown was noted. we are awating a bed assignment and he is being maintained npo.
[2025-06-15] MEDS: 0.9 % Sodium Chloride Flush 3 ML SYRINGE IVFLUSH (09:10)
[2025-06-15] MEDS: Lactated Ringers 1,000 ML 100 ML IVCONT ×2 (09:11→19:44)
--- NOTE | 2025-06-15 09:21 | HO.PM.IMPN ---
Subjective Subjective Date of Service: 06/15/25 Interval History: Severe sepsis secondary to sigmoid diverticulitis/colitis with intraperitoneal abscess Review of Systems abd pain improving s/p Ir guided -6 Filipino drain in pelvic abscess between the sigmoid colon and bladder. Sigmoid diverticulitis and air in the bladder suggestive of a colovesicular fistula. Review of Systems: Yes all other systems are reviewed and are negative Physical Exam Exam: Exam: Appearance: Alert.? Oriented X3.? . cvs: rrr, [id number] , no murmur res: clear to auscultation ,no rhonchii or wheezing abd: no rebound or guarding , nt, bs present. ext pulses present , no cyanosis . neuro: axo3 , nonfocal. Vital Signs: Vital Signs: Last Vital Signs Temp 98.0 F 06/15/25 08:20 Pulse 76 06/15/25 09:11 Resp 22 H 06/15/25 08:20 BP 144/89 H 06/15/25 09:11 Pulse Ox 96 06/15/25 08:20 O2 Del Method Room Air 06/15/25 08:20 BMI result Body Mass Index 29.0 Objective Data Active Medications Acetaminophen (Acetaminophen 325 Mg Tablet) 650 mg PO Q6H PRN PRN Reason: Pain, Mild 1-3,fever,headache Atenolol (Atenolol 50 Mg Tablet) 50 mg PO BEDTIME [facility]; Protocol Last Admin: 06/15/25 09:11 Dose: 50 mg Documented By: DEANNA Calcium Carbonate (Calcium Carbonate 750 Mg Tab.Chew) 750 mg PO Q4H PRN PRN Reason: Heartburn Hydromorphone HCl (Hydromorphone Hcl 0.5 Mg/0.5 Ml Syringe) 0.5 mg IVPUSH Q3H PRN; Protocol PRN Reason: abdominal pain Lactated Ringer's (Lr) 1,000 mls @ 100 mls/hr IVCONT .Q10H [facility] Last Admin: 06/15/25 09:11 Dose: 100 mls/hr Documented By: DEANNA Piperacillin Sod/Tazobactam (Sod 2.25 gm/ Sodium Chloride) 50 mls @ 100 mls/hr IV Q6H [facility] Last Admin: 06/15/25 09:09 Dose: 100 mls/hr Documented By: DEANNA Magnesium Hydroxide (Milk Of Magnesia 30 Ml Oral.Susp) 30 ml PO DAILY PRN PRN Reason: Constipation Melatonin (Melatonin 3 Mg Tablet) 6 mg PO BEDTIME PRN PRN Reason: Insomnia Multivitamins/Vitamin C (Multivitamin Tablet) 1 tab PO DAILY [facility] Last Admin: 06/15/25 09:12 Dose: 1 tab Documented By: DEANNA Omeprazole (Omeprazole 20 Mg Capsule.Dr) 20 mg PO DAILY PRN PRN Reason: Acid Reflux Ondansetron HCl (Ondansetron Hcl 4 Mg/2 Ml Vial) 4 mg IVPUSH Q6H PRN PRN Reason: Nausea and Vomiting Sodium Chloride (0.9 % Sodium Chloride Flush 3 Ml Syringe) 3 ml IVFLUSH QSHIFT [facility] Last Admin: 06/15/25 09:10 Dose: 3 ml Documented By: DEANNA Labs 06/15/25 05:52 06/15/25 05:52 Labs: Laboratory Results - last 24 hr 06/14/25 06/14/25 06/14/25 16:03 18:34 21:12 MCV 93.8 MCH 33.1 H MCHC 35.3 RDW 12.6 Plt Count 319 D MPV 9.7 Immature Gran % (Auto) 2.3 H Neut % (Auto) 83.9 H Lymph % (Auto) 9.9 L [place] % (Auto) 3.3 Eos % (Auto) 0.1 Baso % (Auto) 0.5 Lymph # (Auto) 2.6 [place] # (Auto) 0.8 Eos # (Auto) 0.0 Baso # (Auto) 0.1 Abs Immat Gran (auto) 0.60 H Absolute Neuts (auto) 21.6 H Absolute Nucleated RBC 0.000 Nucleated RBC % (auto) 0.0 Smear Tech's Comments VERIFIED PT 12.3 INR 1.1 APTT 28.2 Anion Gap 17 Estim Creat Clear Calc 42.6 Estimated GFR 36 Random Glucose 227 H Lactic Acid 6.0 H* Lactic Acid F/U @ 2Hr 2.4 H* Lactic Acid F/U @ 4Hr 1.6 Calcium 9.4 Magnesium Total Bilirubin 0.8 Direct Bilirubin 0.3 AST 87 H ALT 30 Alkaline Phosphatase 74 Total Protein 7.9 Albumin 4.3 Urine Color Urine Appearance Urine pH Ur Specific [place] Urine Protein Urine Glucose (UA) Urine Ketones Urine Blood Urine Nitrite Ur Leukocyte Esterase Urine RBC Urine WBC Ur Squamous Epith Cells Urine Bacteria Hyaline Casts Ethyl Alcohol < 10 06/15/25 06/15/25 00:32 05:52 MCV 96.3 MCH 32.5 MCHC 33.8 RDW 12.8 Plt Count 168 D MPV 9.5 Immature Gran % (Auto) 0.6 H Neut % (Auto) 87.3 H Lymph % (Auto) 7.1 L [place] % (Auto) 4.6 Eos % (Auto) 0.1 Baso % (Auto) 0.3 Lymph # (Auto) 1.0 L [place] # (Auto) 0.7 Eos # (Auto) 0.0 Baso # (Auto) 0.0 Abs Immat Gran (auto) 0.09 H Absolute Neuts (auto) 12.5 H Absolute Nucleated RBC 0.000 Nucleated RBC % (auto) 0.0 Smear Tech's Comments PT INR APTT Anion Gap 15 Estim Creat Clear Calc 34.8 Estimated GFR 28 Random Glucose 102 Lactic Acid Lactic Acid F/U @ 2Hr Lactic Acid F/U @ 4Hr Calcium 8.6 D Magnesium 1.9 Total Bilirubin Direct Bilirubin AST ALT Alkaline Phosphatase Total Protein Albumin Urine Color BROWN Urine Appearance Cloudy Urine pH 7.0 Ur Specific [place] 1.015 Urine Protein See Note Urine Glucose (UA) Negative Urine Ketones Trace Urine Blood Large (3+) H Urine Nitrite See Note Ur Leukocyte Esterase See Note Urine RBC >20 H Urine WBC >50 H Ur Squamous Epith Cells 0-2 Urine Bacteria 4+ Hyaline Casts 0-2 Ethyl Alcohol Assessment and Plan (1) Sigmoid diverticulitis: Status: Acute (2) Colonic diverticular abscess: Status: Acute Plan 74 y/o man with a PMHx significant for multiple events of diverticulitis who presents with: Severe sepsis secondary to sigmoid diverticulitis/colitis with intraperitoneal abscess. NPO. Empiric IV antibiotic therapy with Zosyn. Continue IV fluids. Continue to monitor lactic acid. Blood culture obtained -will follow results. Urinalysis is still pending. Check LFTs. Discussed with surgeon, s/p CT drain ,may need surgerical interevntion. Acute kidney injury likely secondary to sepsis/volume depletion. Hold lisinopril. Continue IV fluids. Continue to monitor renal function. Essential hypertension. Hold home meds for now. Continue to monitor BP. Recent fall. Fall precautions. Code status: Full. DVT prophylaxis: SCDs for now (possible invasive procedure). ongoing need hospitalization for at least 2 midnights for severe sepsis due to diverticulitis with abscess treatment with IV fluids, IV antibiotics and urgent invasive procedure. Quality Stroke Does the patient have a stroke diagnosis?: No VTE Prior VTE?: No VTE Risk Level:: Medical - moderate - high VTE Device Contraindication: N/A - Device Ordered VTE Drug Contraindication: Treatment Not Indicated
--- NOTE | 2025-06-15 09:30 | MHC.CM.PN ---
CM met with Patient at bedside, in the ED, and addressed IMM with him, providing Patient with the original and a copy will be placed on the chart. Patient lives in a house with his /HCP/Marla, who will transport to home at dc. Patient is S/P Fall and may benefit from a PT Eval to assist with disposition. CM has initiated and will follow for dc Planning.PCP/PA is Bimal Feliz.
--- NOTE | 2025-06-15 11:30 | HO.RADPN ---
RADIOLOGY Narrative Narrative: 6 fr drain placed in pelvic abscess. 2-3 ml of purulent fluid followed by bloody fluid aspirated. Drain left in place. gram stain and culture sent.
--- NOTE | 2025-06-15 15:12 | P.EN_ITS ---
Event Note Date of Service: 06/15/25 Event Note: IR drain placed earlier - scanty amount of pus drained pt currently comfortable denies abdominal pain I have reviewed his images with the radiologist - findings consistent with acute sigmoid diverticulitis, with abscess and colovesical fistula the patient does admit to frequency of urination and very cloudy dark urine had urosepsis on admission I had a long discussion with pt and his I explained to the pt that it is best to proceed with hand assisted lapa roscopic sigmoid resection possible stoma I explained the risks inccluding but not limited to bleeding, infections, bowel injury, leak from bladder, anastomotic leak if with anastomosis, injury to ur inary tract, NE stroke, pneumonia I explained to him and his Marla what to expect he says he understands and agrees to proceed he is on the schedule for surgery on Wednesday continue IV abx Time Spent With Patient Time: Total time managing care of this patient today ____ minutes.
--- NOTE | 2025-06-15 21:37 | HO.NURTONUR ---
Pt initially arrived s/p fall, noticed confusion. Hx diverticulitis, HTN. Pt febrile to 102F, HR 140s; sepsis alert in ED. Lac 6-2.4-1.6, abd CT showed 'sigmoid colon mural thickening with pericolic inflammation and adjacent 3.4 x 3.4 by 3.6 cm air-fluid collection, intraperitoneal abscess with sigmoid diverticulitis and sigmoid colitis.' Pt sent to IR today for drain placement, currently clear liquid diet. Admit for IV abx (zosyn) and possible surgical intervention tomorrow. Pt aaox4, ambulatory @ baseline.
[2025-06-16] VITALS (7 sets, daily range): BP systolic 133–157; BP diastolic 78–90; PULSE 86–95; RESP 18–24; TEMP 36.5–37.7; O2SAT 95–98; BMI 32.1
[2025-06-16] MEDS: Lactated Ringers 1,000 ML 100 ML IVCONT ×2 (06:15→16:28)
--- NOTE | 2025-06-16 08:11 | P.PNIM_ITS ---
Subjective Subjective Date of Service: 06/16/25 Interval History: severe sepsis Review of Systems abd pain improving has some blood soaking on drain dressing no fevers Review of Systems: Yes all other systems are reviewed and are negative Physical Exam 2 Exam: Exam: Appearance: Alert.? Oriented X3.? cvs: rrr, [id number]. res: clear to auscultation ,no rhonchii or wheezing abd: no rebound or guarding , nt, bs present. has drain-draining little amount blood/purulent fluid ext pulses present , no cyanosis . neuro: axo3 , nonfocal. Vital Signs: Vital Signs: Last Vital Signs Temp 97.7 F 06/16/25 04:00 Pulse 88 06/16/25 04:00 Resp 24 H 06/16/25 04:00 BP 149/88 H 06/16/25 04:00 Pulse Ox 96 06/16/25 04:00 O2 Del Method Nasal Cannula 06/16/25 04:00 O2 Flow Rate 2 06/16/25 04:00 BMI result Body Mass Index 32.1 Objective Data Active Medications Acetaminophen (Acetaminophen 325 Mg Tablet) 975 mg PO Q6H PRN PRN Reason: Pain, Mild 1-3,fever,headache Atenolol (Atenolol 50 Mg Tablet) 50 mg PO BEDTIME [facility]; Protocol Last Admin: 06/15/25 21:55 Dose: 50 mg Documented By: YUNG-ZEINAB Calcium Carbonate (Calcium Carbonate 750 Mg Tab.Chew) 750 mg PO Q4H PRN PRN Reason: Heartburn Hydromorphone HCl (Hydromorphone Hcl 0.5 Mg/0.5 Ml Syringe) 0.5 mg IVPUSH Q3H PRN; Protocol PRN Reason: abdominal pain Lactated Ringer's (Lr) 1,000 mls @ 100 mls/hr IVCONT .Q10H [facility] Last Admin: 06/16/25 06:15 Dose: 100 mls/hr Documented By: NURIA Piperacillin Sod/Tazobactam (Sod 2.25 gm/ Sodium Chloride) 50 mls @ 100 mls/hr IV Q6H [facility] Last Infusion: 06/16/25 03:57 Dose: Infused Documented By: NURIA Lactated Ringer's (Lr) 1,000 mls @ 80 mls/hr IVCONT .[id number] [facility] Levalbuterol HCl (Levalbuterol Hcl 1.25 Mg/3 Ml Vial.Neb) 1.25 mg INHALE Q3H PRN PRN Reason: Wheezing Magnesium Hydroxide (Milk Of Magnesia 30 Ml Oral.Susp) 30 ml PO DAILY PRN PRN Reason: Constipation Melatonin (Melatonin 3 Mg Tablet) 6 mg PO BEDTIME PRN PRN Reason: Insomnia Multivitamins/Vitamin C (Multivitamin Tablet) 1 tab PO DAILY [facility] Last Admin: 06/15/25 09:12 Dose: 1 tab Documented By: DEANNA Omeprazole (Omeprazole 20 Mg Capsule.Dr) 20 mg PO DAILY PRN PRN Reason: Acid Reflux Ondansetron HCl (Ondansetron Hcl 4 Mg/2 Ml Vial) 4 mg IVPUSH Q6H PRN PRN Reason: Nausea and Vomiting Sodium Chloride (0.9 % Sodium Chloride Flush 3 Ml Syringe) 3 ml IVFLUSH QSHIFT [facility] Last Admin: 06/16/25 00:05 Dose: Not Given Documented By: NURIA Non-Admin Reason: IV Running Labs 06/15/25 05:52 06/15/25 05:52 Microbiology Microbiology Results: Microbiology 06/14/25 16:03 Blood Culture - Preliminary Blood - Venous No growth after 24 hours. 06/14/25 16:03 Blood Culture - Preliminary Blood - Venous No growth after 24 hours. 06/15/25 11:15 Gram Stain - Final Abscess Intra-abdominal Assessment and Plan (1) Sigmoid diverticulitis: Status: Acute (2) Acute kidney injury: Status: Acute Plan 74 y/o man with a PMHx significant for multiple events of diverticulitis who presents with: Severe sepsis secondary to sigmoid diverticulitis/colitis with intraperitoneal abscess,?uti plan:clears diet, Empiric IV antibiotic therapy with Zosyn. Continue IV fluids. Continue to monitor lactic acid. Blood culture obtained -will follow results. Urinalysis is still pending. Check LFTs. Discussed with surgeon, s/p CT drain ,possible surgery on wednesday-: Colovesical fistula in the setting of diverticulitis/abscess surgery following Acute kidney injury likely secondary to sepsis/volume depletion. Hold lisinopril/hctz. Continue IV fluids. Continue to monitor renal function. reviewed by vern: ?atn , recomended to continue ivf . moniter renal function/electrolytes daily Essential hypertension. Hold home meds for now. Continue to monitor BP. Recent fall. Fall precautions. Code status: Full. DVT prophylaxis: SCDs for now (possible invasive procedure). ongoing need hospitalization for severe sepsis due to diverticulitis with abscess treatment with IV fluids, IV antibiotics and will need surgerical procedure on wednesday. Quality Stroke Does the patient have a stroke diagnosis?: No VTE Prior VTE?: No VTE Risk Level:: Medical - moderate - high VTE Device Contraindication: N/A - Device Ordered VTE Drug Contraindication: Treatment Not Indicated
[2025-06-16] MEDS: 0.9 % Sodium Chloride Flush 3 ML SYRINGE IVFLUSH (10:25)
--- NOTE | 2025-06-16 12:38 | P.PNGS_ITS ---
Subjective Subjective Date of Service: 06/16/25 Interval history: Patient denies abdominal pain and denies pain at the drain site. Bloody discharge noted within bulb. Physical Exam 2 Vital Signs: Vital Signs: Last Vital Signs Temp 99.8 F 06/16/25 11:32 Pulse 94 06/16/25 11:32 Resp 18 06/16/25 11:32 BP 154/90 H 06/16/25 11:32 Pulse Ox 98 06/16/25 11:32 O2 Del Method Nasal Cannula 06/16/25 11:32 O2 Flow Rate 2 06/16/25 11:32 BMI result Body Mass Index 32.1 Const: General: no acute distress Nutritional Appearance: well nourished Orientation/consciousness: patient oriented x3 Resp: Effort & Inspection: normal respiratory effort, no audible wheezes, no cough and no respiratory distress GI: Other: IR drain in left groin dressings changed. Drained stripped of clot. No feculent material noted at this time. Inspection: Yes normal to inspection Palpation (GI): Soft to palpation, nontender and no guarding Neuro: General: patient oriented x3 Extrem: General: Yes no pedal edema Objective Data Active Medications Acetaminophen (Acetaminophen 325 Mg Tablet) 975 mg PO Q6H PRN PRN Reason: Pain, Mild 1-3,fever,headache Atenolol (Atenolol 50 Mg Tablet) 50 mg PO BEDTIME [facility]; Protocol Last Admin: 06/15/25 21:55 Dose: 50 mg Documented By: N-ZEINAB Calcium Carbonate (Calcium Carbonate 750 Mg Tab.Chew) 750 mg PO Q4H PRN PRN Reason: Heartburn Hydromorphone HCl (Hydromorphone Hcl 0.5 Mg/0.5 Ml Syringe) 0.5 mg IVPUSH Q3H PRN; Protocol PRN Reason: abdominal pain Lactated Ringer's (Lr) 1,000 mls @ 100 mls/hr IVCONT .Q10H [facility] Last Infusion: 06/16/25 10:53 Dose: 100 mls/hr Documented By: HATTIE Piperacillin Sod/Tazobactam (Sod 2.25 gm/ Sodium Chloride) 50 mls @ 100 mls/hr IV Q6H [facility] Last Infusion: 06/16/25 10:49 Dose: Infused Documented By: HO.FIGDIAN Levalbuterol HCl (Levalbuterol Hcl 1.25 Mg/3 Ml Vial.Neb) 1.25 mg INHALE Q3H PRN PRN Reason: Wheezing Magnesium Hydroxide (Milk Of Magnesia 30 Ml Oral.Susp) 30 ml PO DAILY PRN PRN Reason: Constipation Melatonin (Melatonin 3 Mg Tablet) 6 mg PO BEDTIME PRN PRN Reason: Insomnia Multivitamins/Vitamin C (Multivitamin Tablet) 1 tab PO DAILY [facility] Last Admin: 06/16/25 10:13 Dose: 1 tab Documented By: HATTIE Omeprazole (Omeprazole 20 Mg Capsule.Dr) 20 mg PO DAILY PRN PRN Reason: Acid Reflux Ondansetron HCl (Ondansetron Hcl 4 Mg/2 Ml Vial) 4 mg IVPUSH Q6H PRN PRN Reason: Nausea and Vomiting Sodium Chloride (0.9 % Sodium Chloride Flush 3 Ml Syringe) 3 ml IVFLUSH QSHIFT [facility] Last Admin: 06/16/25 10:25 Dose: 3 ml Documented By: KOLBYDIMIKE Labs 06/15/25 05:52 06/15/25 05:52 Microbiology Microbiology Results: Microbiology 06/15/25 Unknown Urine Culture - Final Urine clean catch - Clean Catch Midstream 06/15/25 11:15 Gram Stain - Final Abscess Intra-abdominal Routine Culture - Preliminary Culture in progress. Anaerobic Culture - Preliminary Culture in progress. 06/14/25 16:03 Blood Culture - Preliminary Blood - Venous No growth after 24 hours. 06/14/25 16:03 Blood Culture - Preliminary Blood - Venous No growth after 24 hours. Procedures Date of Service Date of Service: 06/16/25 Progress Note: A&P Assessment and plan (1) Sigmoid diverticulitis: Status: Acute (2) Colonic diverticular abscess: Status: Acute (3) Colovesical fistula: Status: Acute Plan 74-year-old male patient with diverticular abscess was resulting in a colovesical fistula. The patient is asymptomatic at this time. He is draining some bloody fluid from the IR drain but denies any symptoms from this. He is scheduled for surgery on Wednesday as per Dr. Whalen's note. Continue IV antibiotics. Time Spent With Patient Time: Total time managing care of this patient today ____ minutes. Quality Stroke Does the patient have a stroke diagnosis?: No VTE Prior VTE?: No VTE Risk Level:: Medical - moderate - high VTE Device Contraindication: N/A - Device Ordered VTE Drug Contraindication: Treatment Not Indicated
[2025-06-17] VITALS (8 sets, daily range): BP systolic 115–165; BP diastolic 58–103; PULSE 79–86; RESP 16–24; TEMP 36.6–37.6; O2SAT 93–99
[2025-06-17] MEDS: Lactated Ringers 1,000 ML 100 ML IVCONT ×3 (02:36→21:31)
--- NOTE | 2025-06-17 08:23 | HO.PM.IMPN ---
Subjective Subjective Date of Service: 06/17/25 Interval History: severe sepsis /abcess Review of Systems Abdominal pain improving , no nausea or vomiting Producing urine but look like has some fecal matter in it. adeline worsenin Review of Systems: Yes all other systems are reviewed and are negative Physical Exam Exam: Exam: Appearance: Alert.? Oriented X3.? cvs: rrr, [id number]. res: clear to auscultation ,no rhonchii or wheezing abd: no rebound or guarding , nt, bs present. has drain-draining little amount blood/purulent fluid ext pulses present , no cyanosis . neuro: axo3 , nonfocal. Vital Signs: Vital Signs: Last Vital Signs Temp 98.7 F 06/17/25 07:58 Pulse 81 06/17/25 07:58 Resp 19 06/17/25 07:58 BP 162/78 H 06/17/25 07:58 Pulse Ox 95 06/17/25 07:58 O2 Del Method Nasal Cannula 06/17/25 07:58 O2 Flow Rate 2 06/17/25 07:58 BMI result Body Mass Index 32.1 Objective Data Active Medications Acetaminophen (Acetaminophen 325 Mg Tablet) 975 mg PO Q6H PRN PRN Reason: Pain, Mild 1-3,fever,headache Atenolol (Atenolol 50 Mg Tablet) 50 mg PO BEDTIME [facility]; Protocol Last Admin: 06/16/25 20:26 Dose: 50 mg Documented By: KIMBERLY Calcium Carbonate (Calcium Carbonate 750 Mg Tab.Chew) 750 mg PO Q4H PRN PRN Reason: Heartburn Hydromorphone HCl (Hydromorphone Hcl 0.5 Mg/0.5 Ml Syringe) 0.5 mg IVPUSH Q3H [facility]; Protocol PRN Reason: abdominal pain Lactated Ringer's (Lr) 1,000 mls @ 100 mls/hr IVCONT .Q10H [facility] Last Admin: 06/17/25 02:36 Dose: 100 mls/hr Documented By: KIMBERLY Piperacillin Sod/Tazobactam (Sod 2.25 gm/ Sodium Chloride) 50 mls @ 100 mls/hr IV Q6H [facility] Last Infusion: 06/17/25 03:00 Dose: Infused Documented By: KIMBERLY Levalbuterol HCl (Levalbuterol Hcl 1.25 Mg/3 Ml Vial.Neb) 1.25 mg INHALE Q3H PRN PRN Reason: Wheezing Last Admin: 06/17/25 03:51 Dose: 1.25 mg Documented By: KURT Magnesium Hydroxide (Milk Of Magnesia 30 Ml Oral.Susp) 30 ml PO DAILY PRN PRN Reason: Constipation Melatonin (Melatonin 3 Mg Tablet) 6 mg PO BEDTIME PRN PRN Reason: Insomnia Multivitamins/Vitamin C (Multivitamin Tablet) 1 tab PO DAILY [facility] Last Admin: 06/16/25 10:13 Dose: 1 tab Documented By: HATTIE Omeprazole (Omeprazole 20 Mg Capsule.Dr) 20 mg PO DAILY PRN PRN Reason: Acid Reflux Ondansetron HCl (Ondansetron Hcl 4 Mg/2 Ml Vial) 4 mg IVPUSH Q6H PRN PRN Reason: Nausea and Vomiting Sodium Chloride (0.9 % Sodium Chloride Flush 3 Ml Syringe) 3 ml IVFLUSH QSHIFT [facility] Last Admin: 06/16/25 23:11 Dose: Not Given Documented By: KIMBERLY Non-Admin Reason: IV Running Labs 06/17/25 08:37 06/17/25 08:37 Microbiology Microbiology Results: Microbiology 06/15/25 11:15 Gram Stain - Final Abscess Intra-abdominal Routine Culture - Final Anaerobic Culture - Preliminary Culture in progress. 06/14/25 16:03 Blood Culture - Preliminary Blood - Venous No growth after 48 hours. 06/14/25 16:03 Blood Culture - Preliminary Blood - Venous No growth after 48 hours. 06/15/25 Unknown Urine Culture - Final Urine clean catch - Clean Catch Midstream Assessment and Plan (1) Sigmoid diverticulitis: Status: Acute (2) Acute kidney injury: Status: Acute Plan 74 y/o man with a PMHx significant for multiple events of diverticulitis who presents with: Severe sepsis secondary to sigmoid diverticulitis/colitis with intraperitoneal abscess,?uti plan:clears diet, Empiric IV antibiotic therapy with Zosyn. Continue IV fluids. Continue to monitor lactic acid. Blood culture obtained -will follow results. Urinalysis is still pending. Check LFTs. Discussed with surgeon, s/p CT drain ,possible surgery on wednesday-: Colovesical fistula in the setting of diverticulitis/abscess surgery following Acute kidney injury likely secondary to sepsis/volume depletion. Hold lisinopril/hctz. Continue IV fluids. Continue to monitor renal function. reviewed by vern: ?atn , recomended to continue ivf . moniter renal function/electrolytes daily Discussed with Nephro and urology: Currently plan is continue IV fluids, ADELINE in the setting of above possible colovesical fistula. Continue to monitor renal function electrolytes. Essential hypertension. Hold home meds for now. Continue to monitor BP. Recent fall. Fall precautions. Code status: Full. DVT prophylaxis: SCDs for now (possible invasive procedure). ongoing need hospitalization for severe sepsis due to diverticulitis with abscess treatment with IV fluids, IV antibiotics and will need surgerical procedure on wednesday. Quality Stroke Does the patient have a stroke diagnosis?: No VTE Prior VTE?: No VTE Risk Level:: Medical - moderate - high VTE Device Contraindication: N/A - Device Ordered VTE Drug Contraindication: Treatment Not Indicated
[2025-06-17 09:04] LABS: Hematocrit 33.9 % (42.0-52.0); Hemoglobin 11.6 g/dl (14.0-18.0); Mean Corpuscular HGB Conc 34.2 g/dl (31.0-36.0); Mean Corpuscular Hemoglobin 33.1 pg (27.0-33.0); Mean Corpuscular Volume 96.9 fL (80.0-98.0); NRBC Abs Auto 0.000 X10*3/uL (0.0-0.012); NRBC Pct Auto 0.0 /100WBC (0.0-0.2); Platelet Count 156 X10*3/uL (160-400); Red Blood Count 3.50 X10*6/uL (4.60-5.80); White Blood Count 8.2 X10*3/uL (4.8-10.8)
[2025-06-17 09:22] LABS: Anion Gap 15 (12-20); Blood Urea Nitrogen 41 mg/dL (9-16); Calcium 8.7 mg/dL (8.4-10.2); Carbon Dioxide 23 mmol/L (22-29); Chloride 100 mmol/L (96-108); Creatinine Clr Calc Pharmacy 30.1; Estimated Glomerular Filt Rate 23; Potassium 4.5 mmol/L (3.3-5.1); Sodium 133 mmol/L (135-145)
[2025-06-17] MEDS: 0.9 % Sodium Chloride Flush 3 ML SYRINGE IVFLUSH (09:52)
--- NOTE | 2025-06-17 13:17 | P.PNGS_ITS ---
Subjective Subjective Date of Service: 06/17/25 Interval history: Feels well today, denies any abdominal pain. EB producing a small amount of thin bloody fluid Physical Exam 2 Vital Signs: Vital Signs: Last Vital Signs Temp 98.2 F 06/17/25 11:49 Pulse 80 06/17/25 11:49 Resp 19 06/17/25 11:49 BP 154/80 H 06/17/25 11:49 Pulse Ox 99 06/17/25 11:49 O2 Del Method Nasal Cannula 06/17/25 11:49 O2 Flow Rate 2 06/17/25 11:49 BMI result Body Mass Index 32.1 Const: General: no acute distress Nutritional Appearance: well nourished Orientation/consciousness: patient oriented x3 Resp: Effort & Inspection: normal respiratory effort, no audible wheezes, no cough and no respiratory distress GI: Other: IR drain in left groin with thin bloody fluid. Inspection: Yes normal to inspection Palpation (GI): Soft to palpation, nontender and no guarding Neuro: General: patient oriented x3 Extrem: General: Yes no pedal edema Objective Data Active Medications Acetaminophen (Acetaminophen 325 Mg Tablet) 975 mg PO Q6H PRN PRN Reason: Pain, Mild 1-3,fever,headache Atenolol (Atenolol 50 Mg Tablet) 50 mg PO BEDTIME [facility]; Protocol Last Admin: 06/16/25 20:26 Dose: 50 mg Documented By: KIMBERLY Calcium Carbonate (Calcium Carbonate 750 Mg Tab.Chew) 750 mg PO Q4H PRN PRN Reason: Heartburn Hydromorphone HCl (Hydromorphone Hcl 0.5 Mg/0.5 Ml Syringe) 0.5 mg IVPUSH Q3H PRN; Protocol PRN Reason: abdominal pain Lactated Ringer's (Lr) 1,000 mls @ 100 mls/hr IVCONT .Q10H [facility] Last Admin: 06/17/25 10:50 Dose: 100 mls/hr Documented By: HATTIE Piperacillin Sod/Tazobactam (Sod 2.25 gm/ Sodium Chloride) 50 mls @ 100 mls/hr IV Q6H [facility] Last Infusion: 06/17/25 10:19 Dose: Infused Documented By: HATTIE Levalbuterol HCl (Levalbuterol Hcl 1.25 Mg/3 Ml Vial.Neb) 1.25 mg INHALE Q3H PRN PRN Reason: Wheezing Last Admin: 06/17/25 11:11 Dose: 1.25 mg Documented By: DIMPLE Loperamide HCl (Loperamide Hcl 2 Mg Capsule) 2 mg PO Q4H PRN PRN Reason: Diarrhea Magnesium Hydroxide (Milk Of Magnesia 30 Ml Oral.Susp) 30 ml PO DAILY PRN PRN Reason: Constipation Melatonin (Melatonin 3 Mg Tablet) 6 mg PO BEDTIME PRN PRN Reason: Insomnia Multivitamins/Vitamin C (Multivitamin Tablet) 1 tab PO DAILY [facility] Last Admin: 06/17/25 09:46 Dose: 1 tab Documented By: HATTIE Omeprazole (Omeprazole 20 Mg Capsule.) 20 mg PO DAILY PRN PRN Reason: Acid Reflux Ondansetron HCl (Ondansetron Hcl 4 Mg/2 Ml Vial) 4 mg IVPUSH Q6H PRN PRN Reason: Nausea and Vomiting Sodium Chloride (0.9 % Sodium Chloride Flush 3 Ml Syringe) 3 ml IVFLUSH QSHIFT [facility] Last Admin: 06/17/25 09:52 Dose: 3 ml Documented By: HATTIE Labs 06/17/25 08:37 06/17/25 08:37 Labs: Laboratory Results - last 24 hr 06/17/25 06/17/25 07:25 08:37 MCV 96.9 MCH 33.1 H MCHC 34.2 RDW 13.0 Plt Count 156 L MPV 9.6 Absolute Nucleated RBC 0.000 Nucleated RBC % (auto) 0.0 Anion Gap 15 Estim Creat Clear Calc 30.1 Estimated GFR 23 Random Glucose 105 Calcium 8.7 Blood Type A Positive Antibody Screen NEGATIVE Microbiology Microbiology Results: Microbiology 06/15/25 11:15 Gram Stain - Final Abscess Intra-abdominal Routine Culture - Final Anaerobic Culture - Preliminary Culture in progress. 06/14/25 16:03 Blood Culture - Preliminary Blood - Venous No growth after 48 hours. 06/14/25 16:03 Blood Culture - Preliminary Blood - Venous No growth after 48 hours. 06/15/25 Unknown Urine Culture - Final Urine clean catch - Clean Catch Midstream Procedures Date of Service Date of Service: 06/17/25 Progress Note: A&P Assessment and plan (1) Sigmoid diverticulitis: Status: Acute (2) Colonic diverticular abscess: Status: Acute (3) Colovesical fistula: Status: Acute Plan 74-year-old male patient with diverticular abscess was resulting in a colovesical fistula. The patient is asymptomatic at this time. He is draining some bloody fluid from the IR drain but denies any symptoms from this. He is scheduled for surgery tomorrow. NPO after midnight. Patient currently on Zosyn. Explain the procedure in detail with the patient he expressed understanding. Time Spent With Patient Time: Total time managing care of this patient today ____ minutes. Quality Stroke Does the patient have a stroke diagnosis?: No VTE Prior VTE?: No VTE Risk Level:: Medical - moderate - high VTE Device Contraindication: N/A - Device Ordered VTE Drug Contraindication: Treatment Not Indicated
[2025-06-18] VITALS (12 sets, daily range): BP systolic 138–178; BP diastolic 81–99; PULSE 71–78; RESP 13–22; TEMP 35.7–36.9; O2SAT 92–99
[2025-06-18] MEDS: Lactated Ringers 1,000 ML 100 ML IVCONT (08:06)
[2025-06-18] MEDS: 0.9 % Sodium Chloride Flush 3 ML SYRINGE IVFLUSH ×2 (08:09→17:14)
--- NOTE | 2025-06-18 08:49 | PM.PNGS ---
Subjective Subjective Date of Service: 06/20/25 Interval history: Says he feels well Denies GI complaints Denies abdominal pain Physical Exam Vital Signs: Vital Signs: Last Vital Signs Temp 97.2 F 06/18/25 07:48 Pulse 78 06/18/25 07:48 Resp 18 06/18/25 07:48 BP 168/84 H 06/18/25 07:48 Pulse Ox 92 06/18/25 07:48 O2 Del Method Room Air 06/18/25 07:48 O2 Flow Rate 2 06/17/25 11:49 BMI result Body Mass Index 32.1 Const: General: comfortable and no acute distress Resp: Effort & Inspection: normal respiratory effort Cardio: Rate: regular rate GI: Palpation (GI): Soft to palpation, not firm, nontender and no guarding Objective Data Active Medications Acetaminophen (Acetaminophen 325 Mg Tablet) 975 mg PO Q6H PRN PRN Reason: Pain, Mild 1-3,fever,headache Atenolol (Atenolol 50 Mg Tablet) 50 mg PO BEDTIME [facility]; Protocol Last Admin: 06/17/25 21:27 Dose: 50 mg Documented By: WILFRED Calcium Carbonate (Calcium Carbonate 750 Mg Tab.Chew) 750 mg PO Q4H PRN PRN Reason: Heartburn Hydromorphone HCl (Hydromorphone Hcl 0.5 Mg/0.5 Ml Syringe) 0.5 mg IVPUSH Q3H PRN; Protocol PRN Reason: abdominal pain Lactated Ringer's (Lr) 1,000 mls @ 100 mls/hr IVCONT .Q10H [facility] Last Admin: 06/18/25 08:06 Dose: 100 mls/hr Documented By: ANI Piperacillin Sod/Tazobactam (Sod 2.25 gm/ Sodium Chloride) 50 mls @ 100 mls/hr IV Q6H [facility] Last Infusion: 06/18/25 06:31 Dose: Infused Documented By: WILFRED Levalbuterol HCl (Levalbuterol Hcl 1.25 Mg/3 Ml Vial.Neb) 1.25 mg INHALE Q3H PRN PRN Reason: Wheezing Last Admin: 06/17/25 11:11 Dose: 1.25 mg Documented By: DIMPLE Loperamide HCl (Loperamide Hcl 2 Mg Capsule) 2 mg PO Q4H PRN PRN Reason: Diarrhea Magnesium Hydroxide (Milk Of Magnesia 30 Ml Oral.Susp) 30 ml PO DAILY PRN PRN Reason: Constipation Melatonin (Melatonin 3 Mg Tablet) 6 mg PO BEDTIME PRN PRN Reason: Insomnia Multivitamins/Vitamin C (Multivitamin Tablet) 1 tab PO DAILY [facility] Last Admin: 06/18/25 07:15 Dose: Not Given Documented By: ANI Non-Admin Reason: npo Omeprazole (Omeprazole 20 Mg Capsule.Dr) 20 mg PO DAILY PRN PRN Reason: Acid Reflux Ondansetron HCl (Ondansetron Hcl 4 Mg/2 Ml Vial) 4 mg IVPUSH Q6H PRN PRN Reason: Nausea and Vomiting Sodium Chloride (0.9 % Sodium Chloride Flush 3 Ml Syringe) 3 ml IVFLUSH QSHIFT [facility] Last Admin: 06/18/25 08:09 Dose: 3 ml Documented By: ANI Labs 06/20/25 06:45 06/20/25 06:45 Labs: Laboratory Results - last 24 hr 06/17/25 08:37 MCV 96.9 MCH 33.1 H MCHC 34.2 RDW 13.0 Plt Count 156 L MPV 9.6 Absolute Nucleated RBC 0.000 Nucleated RBC % (auto) 0.0 Anion Gap 15 Estim Creat Clear Calc 30.1 Estimated GFR 23 Random Glucose 105 Calcium 8.7 Microbiology Microbiology Results: Microbiology 06/15/25 11:15 Gram Stain - Final Abscess Intra-abdominal Routine Culture - Final Anaerobic Culture - Preliminary Culture in progress. Procedures Date of Service Date of Service: 06/20/25 Progress Note: A&P Assessment and plan (1) Colovesical fistula: Status: Acute Assessment and Plan: No complaints currently Scheduled for HALS sigmoid resection, stoma, possible open today, flexible sigmoidoscopy He understands the technique of the planned procedure He is aware of the risks, benefits, and alternatives He has given consent Creatinine remains elevated Time Spent With Patient Time: Total time managing care of this patient today ____ minutes. Quality Stroke Does the patient have a stroke diagnosis?: No VTE Prior VTE?: No VTE Risk Level:: Medical - moderate - high VTE Device Contraindication: N/A - Device Ordered VTE Drug Contraindication: Treatment Not Indicated
--- NOTE | 2025-06-18 10:33 | HO.ANESPROP2 ---
Documented by User: Oneida Stubbs NP 06/15/25 13:33 HPI - Anesthesia Eval Consult details Narrative: 74 yr old male for Hand Assist Laparoscopic Sigmoid Resection,possible Ostomy GA scares him , but has no adverse effects from previous anesthesia for hip replacements No GENNA dx however snores loudly No CP/SOB with walking 15 min daily No recent illness PMFSH Active Problems Active Problems: All Active Problems (Updated 06/15/25 @ 10:13 by Yoni Malik MD) Intra-abdominal abscess (Acute) Colovesical fistula (Acute) Colonic diverticular abscess (Acute) Intraperitoneal abscess (Acute) Sigmoid diverticulitis (Acute) Acute kidney injury (Acute) Severe sepsis (Acute) Left navicular fracture of foot (Acute) Past Medical History Medical History Colonic diverticular abscess Essential hypertension FH: total knee replacement High blood pressure Family History Family history of problems with anesthesia: No Surgical History Surgical History (Updated 06/18/25 @ 10:02 by Jeevan Nava RN) History of appendectomy History of knee replacement History of repair of right rotator cuff History of tonsillectomy History of colonoscopy History of hip replacement, total History of Problems with Anesthesia: No Social History Social History Household Members: Spouse Housing: House Are you a primary health care manager to a significant other at home: No Do you presently have visiting nurse or other home services: No Alcohol intake: current Alcohol intake frequency: does not drink Comment: one fall prior to this admission Patient Tobacco Use Status: Never used Tobacco Second Hand Smoke Exposure: No service: No 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 Meds Allergies Allergy/AdvReac Type Severity Reaction Status Date / Time No Known Allergies Allergy Verified 06/14/25 15:49 Active Medications: Current Medications Acetaminophen (Acetaminophen 325 Mg Tablet) 650 mg PO Q6H PRN PRN Reason: Pain, Mild 1-3,fever,headache Atenolol (Atenolol 50 Mg Tablet) 50 mg PO BEDTIME [facility]; Protocol Last Admin: 06/15/25 09:11 Dose: 50 mg Calcium Carbonate (Calcium Carbonate 750 Mg Tab.Chew) 750 mg PO Q4H PRN PRN Reason: Heartburn Hydromorphone HCl (Hydromorphone Hcl 0.5 Mg/0.5 Ml Syringe) 0.5 mg IVPUSH Q3H PRN; Protocol PRN Reason: abdominal pain Lactated Ringer's (Lr) 1,000 mls @ 100 mls/hr IVCONT .Q10H [facility] Last Admin: 06/15/25 09:11 Dose: 100 mls/hr Piperacillin Sod/Tazobactam (Sod 2.25 gm/ Sodium Chloride) 50 mls @ 100 mls/hr IV Q6H [facility] Last Admin: 06/15/25 09:09 Dose: 100 mls/hr Magnesium Hydroxide (Milk Of Magnesia 30 Ml Oral.Susp) 30 ml PO DAILY PRN PRN Reason: Constipation Melatonin (Melatonin 3 Mg Tablet) 6 mg PO BEDTIME PRN PRN Reason: Insomnia Multivitamins/Vitamin C (Multivitamin Tablet) 1 tab PO DAILY [facility] Last Admin: 06/15/25 09:12 Dose: 1 tab Omeprazole (Omeprazole 20 Mg Capsule.Dr) 20 mg PO DAILY PRN PRN Reason: Acid Reflux Ondansetron HCl (Ondansetron Hcl 4 Mg/2 Ml Vial) 4 mg IVPUSH Q6H PRN PRN Reason: Nausea and Vomiting Sodium Chloride (0.9 % Sodium Chloride Flush 3 Ml Syringe) 3 ml IVFLUSH QSHIFT [facility] Last Admin: 06/15/25 09:10 Dose: 3 ml Home Medications ?Medication ?Instructions ?Recorded ?Confirmed ?Last Taken ?Type atenolol 50 mg tablet 50 mg PO BEDTIME 12/07/22 06/14/25 06/13/25 History hydrochlorothiazide 25 mg tablet 25 mg PO DAILY 12/07/22 06/14/25 06/13/25 History lisinopril 40 mg tablet 40 mg PO DAILY 12/07/22 06/14/25 06/13/25 History omeprazole 20 mg capsule,delayed 20 mg PO DAILY PRN Acid Reflux 08/04/24 06/14/25 06/13/25 History release vitamin B complex 1 cap PO DAILY 06/14/25 06/14/25 06/13/25 History Exam Height,Weight and Vital Signs: Height 6 ft Weight 96.9 kg Last Vital Signs Temp 97.9 F 06/15/25 10:01 Pulse 73 06/15/25 11:15 Resp 12 06/15/25 11:15 BP 147/79 H 06/15/25 11:15 Pulse Ox 99 06/15/25 11:15 O2 Del Method Room Air 06/15/25 11:15 O2 Flow Rate 0 06/15/25 11:15 Pertinent Lab Results Pertinent Lab Results: Laboratory Tests 06/14/25 06/14/25 06/14/25 16:03 18:34 21:12 WBC 25.7 H RBC 4.38 L Hgb 14.5 Hct 41.1 L MCV 93.8 MCH 33.1 H MCHC 35.3 RDW 12.6 Plt Count 319 D MPV 9.7 Immature Gran % (Auto) 2.3 H Neut % (Auto) 83.9 H Lymph % (Auto) 9.[address] % (Auto) 3.3 Eos % (Auto) 0.1 Baso % (Auto) 0.5 Lymph # (Auto) 2.6 [place] # (Auto) 0.8 Eos # (Auto) 0.0 Baso # (Auto) 0.1 Abs Immat Gran (auto) 0.60 H Absolute Neuts (auto) 21.6 H Absolute Nucleated RBC 0.000 Nucleated RBC % (auto) 0.0 Smear Tech's Comments VERIFIED PT 12.3 INR 1.1 APTT 28.2 Sodium 132 L Potassium 4.3 Chloride 100 Carbon Dioxide 19 L Anion Gap 17 BUN 20 H Creatinine 1.86 H Estim Creat Clear Calc 42.6 Estimated GFR 36 Random Glucose 227 H Lactic Acid 6.0 H* Lactic Acid F/U @ 2Hr 2.4 H* Lactic Acid F/U @ 4Hr 1.6 Calcium 9.4 Magnesium Total Bilirubin 0.8 Direct Bilirubin 0.3 AST 87 H ALT 30 Alkaline Phosphatase 74 Total Protein 7.9 Albumin 4.3 Urine Color Urine Appearance Urine pH Ur Specific [place] Urine Protein Urine Glucose (UA) Urine Ketones Urine Blood Urine Nitrite Ur Leukocyte Esterase Urine RBC Urine WBC Ur Squamous Epith Cells Urine Bacteria Hyaline Casts Ethyl Alcohol < 10 06/15/25 06/15/25 00:32 05:52 WBC 14.4 H RBC 4.09 L Hgb 13.3 L Hct 39.4 L MCV 96.3 MCH 32.5 MCHC 33.8 RDW 12.8 Plt Count 168 D MPV 9.5 Immature Gran % (Auto) 0.6 H Neut % (Auto) 87.3 H Lymph % (Auto) 7.[address] [place] % (Auto) 4.6 Eos % (Auto) 0.1 Baso % (Auto) 0.3 Lymph # (Auto) 1.[address] [place] # (Auto) 0.7 Eos # (Auto) 0.0 Baso # (Auto) 0.0 Abs Immat Gran (auto) 0.09 H Absolute Neuts (auto) 12.5 H Absolute Nucleated RBC 0.000 Nucleated RBC % (auto) 0.0 Smear Tech's Comments PT INR APTT Sodium 136 Potassium 3.9 Chloride 102 Carbon Dioxide 23 Anion Gap 15 BUN 25 H Creatinine 2.28 H Estim Creat Clear Calc 34.8 Estimated GFR 28 Random Glucose 102 Lactic Acid Lactic Acid F/U @ 2Hr Lactic Acid F/U @ 4Hr Calcium 8.6 D Magnesium 1.9 Total Bilirubin Direct Bilirubin AST ALT Alkaline Phosphatase Total Protein Albumin Urine Color BROWN Urine Appearance Cloudy Urine pH 7.0 Ur Specific [place] 1.015 Urine Protein See Note Urine Glucose (UA) Negative Urine Ketones Trace Urine Blood Large (3+) H Urine Nitrite See Note Ur Leukocyte Esterase See Note Urine RBC >20 H Urine WBC >50 H Ur Squamous Epith Cells 0-2 Urine Bacteria 4+ Hyaline Casts 0-2 Ethyl Alcohol Narrative Narrative: EKG 06/14/25 Vent. Rate : 135 BPM Atrial Rate : 135 BPM P-R Int : 148 ms QRS Dur : 74 ms QT Int : 298 ms P-R-T Axes : 36 25 55 degrees QTcB Int : 447 ms Sinus tachycardia Nonspecific ST and T wave abnormality Abnormal ECG When compared with ECG of 02-Apr-2023 08:09, Vent. rate has increased by [address] now depressed in Lateral leads Nonspecific T wave abnormality now evident in Lateral leads Assessment and Plan Final Anesthetic Review Family History of Problems with Anesthesia: No History of Problems with Anesthesia: No Documented by User: Ronel Jean DO 06/18/25 10:38 [facility] Past Medical History Medical History Colonic diverticular abscess Essential hypertension FH: total knee replacement High blood pressure Family History Family history of problems with anesthesia: No Surgical History Surgical History (Updated 06/18/25 @ 10:02 by Jeevan Nava RN) History of appendectomy History of knee replacement History of repair of right rotator cuff History of tonsillectomy History of colonoscopy History of hip replacement, total History of Problems with Anesthesia: No Social History Social History Household Members: Spouse Housing: House Are you a primary health care manager to a significant other at home: No Do you presently have visiting nurse or other home services: No Alcohol intake: current Alcohol intake frequency: does not drink Comment: one fall prior to this admission Patient Tobacco Use Status: Never used Tobacco Second Hand Smoke Exposure: No service: No 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 First Meds Allergies Allergy/AdvReac Type Severity Reaction Status Date / Time No Known Allergies Allergy Verified 06/14/25 15:49 Home Medications ?Medication ?Instructions ?Recorded ?Confirmed ?Last Taken ?Type atenolol 50 mg tablet 50 mg PO BEDTIME 12/07/22 06/14/25 06/13/25 History hydrochlorothiazide 25 mg tablet 25 mg PO DAILY 12/07/22 06/14/25 06/13/25 History lisinopril 40 mg tablet 40 mg PO DAILY 12/07/22 06/14/25 06/13/25 History omeprazole 20 mg capsule,delayed 20 mg PO DAILY PRN Acid Reflux 08/04/24 06/14/25 06/13/25 History release vitamin B complex 1 cap PO DAILY 06/14/25 06/14/25 06/13/25 History Exam Exam Date and Time: 06/18/25 1020 Height,Weight and Vital Signs: Vital Signs Temperature 100.2 F 06/14/25 15:47 Pulse Rate 140 H 06/14/25 15:47 Respiratory Rate 20 06/14/25 15:47 Blood Pressure 132/74 06/14/25 15:47 Pulse Oximetry 91 L 06/14/25 15:47 Oxygen Delivery Method Room Air 06/14/25 15:47 Temperature 98.5 F 06/18/25 09:55 Pulse Rate 75 10/20/25 09:55 Respiratory Rate 16 06/18/25 09:55 Blood Pressure 178/96 H 06/18/25 09:55 Pulse Oximetry 95 06/18/25 09:55 Oxygen Delivery Method Room Air 06/18/25 09:55 Oxygen Flow Rate 2 06/17/25 11:49 Height 6 ft Weight 96.9 kg Last Vital Signs Temp 97.9 F 06/15/25 10:01 Pulse 73 06/15/25 11:15 Resp 12 06/15/25 11:15 BP 147/79 H 06/15/25 11:15 Pulse Ox 99 06/15/25 11:15 O2 Del Method Room Air 06/15/25 11:15 O2 Flow Rate 0 06/15/25 11:15 Airway Mallampati Class: III TM Dist: <=3cm Neck ROM: Full Loose/Missing/Broken Teeth: No (patient denies any loose or broken teeth) Heart: S1S2 Lungs: CTAB Assessment and Plan Assessment Anesthesia Assessment: Anesthesia Plan Discussed and Chart Reviewed Final Anesthetic Review Family History of Problems with Anesthesia: No History of Problems with Anesthesia: No NPO: Yes ASA Class: II Final Preanesthetic Review: No Changes in Pt Med Stat, Meds/Allgs Chart Reviewed, Consent Obtained/Reviewed and Anes Risks/Benef Reviewed Patient Risk: Low Procedure Risk: Intermediate Anesthetic Plan Anesthetic Plan: GA, Regional Block (bilateral TAP block and bilateral rectus sheath block) and Agree w/ Assess. and Plan Disposition: Standard PACU
--- NOTE | 2025-06-18 10:48 | MHC.CM.PN ---
Per ROUNDS discussion, Patient is not yet medically cleared for dc (Surgery today); Patient may benefit from a PT Eval to assist with disposition. CM will continue to follow.
--- NOTE | 2025-06-18 12:07 | HO.OSTOMY ---
Ostomy consult: Site Marking Patient seen in Pre-OP for brief pre-operative ostomy teaching and stoma site selection/marking. ?The patient was instructed in very basic GI anatomy and stoma creation, and teaching to be available after surgery should a stoma be created. Throughout the visit the patient and his had several questions related to the ostomy and future care of the ostomy. ?Instruction was given on the purpose of pre-operative stoma site selection and marking: ?the importance of identifying a location within sight, avoiding creases on a relatively flat area of the abdomen, and siting within the large muscle of the abdomen for support. ?He agreed with the procedure. The patient's abdomen was visualized and palpated in the sitting, bending, and lying positions, patient was not steady to stand at this time of my consultation. ?The margins of the rectus abdominis muscles were identified, and sites were marked in the RLQ and LLQ within the margins. ?The patients pant location was taken into consideration when marking. ?He has a diastasis recti above the umbilicus and he was marking accordingly - I also took into consideration a midline incision and marked accordingly for surgeon visibility in the OR. The sites were cleansed with alcohol prep pads before marking, marked with sterile surgical marker, and covered with tegaderms. ? Please re-consult after surgery for timely teaching. ?Thank you.
--- NOTE | 2025-06-18 14:02 | HO.PM.IMPN ---
Subjective Subjective Date of Service: 06/19/25 Interval History: severe sepsis /abcess Review of Systems Abdominal pain improving, No nausea/vomiting Still has urine with fecal material Review of Systems: Yes all other systems are reviewed and are negative Physical Exam Exam: Exam: Appearance: Alert.? Oriented X3.? cvs: rrr, [id number]. res: clear to auscultation ,no rhonchii or wheezing abd: no rebound or guarding , nt, bs present. has drain-draining little amount blood/purulent fluid ext pulses present , no cyanosis . neuro: axo3 , nonfocal. Vital Signs: Vital Signs: Last Vital Signs Temp 98.5 F 06/18/25 09:55 Pulse 75 06/18/25 09:55 Resp 16 06/18/25 09:55 BP 178/96 H 06/18/25 09:55 Pulse Ox 95 06/18/25 09:55 O2 Del Method Room Air 06/18/25 09:55 O2 Flow Rate 2 06/17/25 11:49 BMI result Body Mass Index 32.1 Objective Data Active Medications Acetaminophen (Acetaminophen 325 Mg Tablet) 975 mg PO Q6H PRN PRN Reason: Pain, Mild 1-3,fever,headache Atenolol (Atenolol 50 Mg Tablet) 50 mg PO BEDTIME CORIE; Protocol Last Admin: 06/17/25 21:27 Dose: 50 mg Documented By: WILFRED Calcium Carbonate (Calcium Carbonate 750 Mg Tab.Chew) 750 mg PO Q4H PRN PRN Reason: Heartburn Haloperidol Lactate (Haloperidol Lactate 5 Mg/Ml Vial) 0.5 mg IVPUSH ONCE PRN PRN Reason: intractable nausea Stop: 06/18/25 16:40 Hydromorphone HCl (Hydromorphone Hcl 0.5 Mg/0.5 Ml Syringe) 0.5 mg IVPUSH Q3H PRN; Protocol PRN Reason: abdominal pain Hydromorphone HCl (Hydromorphone Hcl 0.5 Mg/0.5 Ml Syringe) 0.5 mg IVPUSH Q5M PRN PRN Reason: Pain, Moderate to Severe (Pain Scale 4-10) Stop: 06/18/25 16:40 Lactated Ringer's (Lr) 1,000 mls @ 100 mls/hr IVCONT .Q10H CORIE Last Admin: 06/18/25 08:06 Dose: 100 mls/hr Documented By: ANI Piperacillin Sod/Tazobactam (Sod 2.25 gm/ Sodium Chloride) 50 mls @ 100 mls/hr IV Q6H [facility] Last Infusion: 06/18/25 06:31 Dose: Infused Documented By: WILFRED Levalbuterol HCl (Levalbuterol Hcl 1.25 Mg/3 Ml Vial.Neb) 1.25 mg INHALE Q3H PRN PRN Reason: Wheezing Last Admin: 06/17/25 11:11 Dose: 1.25 mg Documented By: DIMPLE Loperamide HCl (Loperamide Hcl 2 Mg Capsule) 2 mg PO Q4H PRN PRN Reason: Diarrhea Magnesium Hydroxide (Milk Of Magnesia 30 Ml Oral.Susp) 30 ml PO DAILY PRN PRN Reason: Constipation Melatonin (Melatonin 3 Mg Tablet) 6 mg PO BEDTIME PRN PRN Reason: Insomnia Multivitamins/Vitamin C (Multivitamin Tablet) 1 tab PO DAILY [facility] Last Admin: 06/18/25 07:15 Dose: Not Given Documented By: ANI Non-Admin Reason: npo Naloxone HCl (Naloxone Hcl 0.4 Mg/Ml Vial) 0.04 mg IVPUSH Q5M PRN PRN Reason: Excessive sedation or RR < 8 Omeprazole (Omeprazole 20 Mg Capsule.Dr) 20 mg PO DAILY PRN PRN Reason: Acid Reflux Ondansetron HCl (Ondansetron Hcl 4 Mg/2 Ml Vial) 4 mg IVPUSH Q6H PRN PRN Reason: Nausea and Vomiting Sodium Chloride (0.9 % Sodium Chloride Flush 3 Ml Syringe) 3 ml IVFLUSH QSHIFT [facility] Last Admin: 06/18/25 08:09 Dose: 3 ml Documented By: ANI Labs 06/19/25 05:18 06/19/25 05:18 Microbiology Microbiology Results: Microbiology 06/15/25 11:15 Gram Stain - Final Abscess Intra-abdominal Routine Culture - Final Anaerobic Culture - Final Assessment and Plan (1) Sigmoid diverticulitis: Status: Acute (2) Acute kidney injury: Status: Acute Plan 74 y/o man with a PMHx significant for multiple events of diverticulitis who presents with: Severe sepsis secondary to sigmoid diverticulitis/colitis with intraperitoneal abscess,?uti plan:clears diet, Empiric IV antibiotic therapy with Zosyn. Continue IV fluids. Continue to monitor lactic acid. Blood culture obtained -will follow results. Urinalysis is still pending. Check LFTs. 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 Hold lisinopril/hctz. Continue IV fluids. Continue to monitor renal function. reviewed by vern: ?atn , recomended to continue ivf . moniter renal function/electrolytes daily Discussed with Nephro and urology: Currently plan is continue IV fluids, ADELINE in the setting of above possible colovesical fistula. Continue to monitor renal function electrolytes. Essential hypertension. Hold home meds for now. Continue to monitor BP. Recent fall. Fall precautions. Code status: Full. DVT prophylaxis: SCDs for now (possible invasive procedure). ongoing need hospitalization for severe sepsis due to diverticulitis with abscess treatment with IV fluids, IV antibiotics and will need surgerical procedure on wednesday. Quality Stroke Does the patient have a stroke diagnosis?: No VTE Prior VTE?: No VTE Risk Level:: Medical - moderate - high VTE Device Contraindication: N/A - Device Ordered VTE Drug Contraindication: Treatment Not Indicated
--- NOTE | 2025-06-18 15:31 | W.PM.OPN ---
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 He understood the technique of the planned procedure. He was aware of the risks, benefits, and alternatives He was brought to the operating room placed in modified lithotomy position under general anesthesia via endotracheal tube. A Esqueda catheter was inserted. We removed the pigtail drain placed last week Markings had been earlier placed by the stoma nurse for ideal stoma placement.. A TAP block and rectus sheath block were done by the anesthesiologist. The abdomen and the perineum were then prepped and draped in the usual sterile fashion. A surgical time-out was done. The patient was receiving scheduled IV antibiotics. I made a short infraumbilical midline incision with a blade 15. This carried down through the full-thickness of the skin subcutaneous fat with electrocautery. The peritoneum was entered. We positioned the Jesus wound retractor as well as the GelPort with the insufflating port. Laparoscopic visualization should the GelPort we inserted the 5/12 mm port in the epigastric area. We moved the laparoscope into this epigastric port the 2nd 5/12 mm port was placed in the right lower quadrant The patient was placed in a steep head-down [id number] position. I placed my hand through the GelPort. I reflected small bowel loops away from the pelvis. I could actually see the very indurated sigmoid starting from the distal left colon all the the rectosigmoid. This was also densely adherent to the pelvic sidewall as well as the left anterior pelvis I had to release this with careful dissection using the LigaSure from the left pelvic sidewall. This was also done with a combination of finger fracture technique. I had to mobilize the left colon all the way to the hepatic flexure allow good visualization of the sigmoid in view of the poor planes We had to work on the long segment of disease rectosigmoid which was very indurated with severely foreshortened mesentery. We had to separate this from the left pelvic sidewall all the way to the rectosigmoid. This part of the procedure took an extended period of time in view of the extreme induration and poor planes Eventually was able to palpate for a supple rectosigmoid. I was also able to see the transition from diseased sigmoid and non diseased left colon. This disease segment was noted to be very long We then proceeded to continued to mobilize these diseased sigmoid from the left colon was able to release it from the anterior pelvis with finger fracture technique We had extremely poor planes so we could not really separate the sigmoid from the pelvic side wall. We had to continue to do this part of the procedure mm by mm using the LigaSure Eventually I was able to achieve some degree of mobilization of the sigmoid. However, we could not pull this up we will because of the very foreshortened and severely inflamed mesentery with what appeared to be an abscess We continued to work on this diseased mesentery for an extended period of time. Eventually, I decided to transect the proximal sigmoid/left colon. I chose a supple area and created a mesenteric window with the LigaSure. I transected this with an Endo-ADALBERTO 60 mm stapler. We had to fire this multiple times because of the diameter of the colon We then proceeded to try to work on the mesentery from proximal to distal. Again, we had very limited success in view of the severe induration. The mesentery was very thickened and the laparoscopic LigaSure could not adequately divide the thickened mesentery I decided to divide the distal rectosigmoid as well by creating mesenteric window. I used an Endo-ADALBERTO 60 mm stapler and this was fired multiple times Once we had transected both proximal distal segments, I continued to try to work on the mesentery. Eventually, we had to through this with direct visualization through the incision. We had to lengthen the incision a little bit to allow good visualization. We positioned the retractors We used the [place]'s retractor as well to lift up the pelvis. This allowed me visualization of the distal rectosigmoid. I had to use the large [place] LigaSure to divide the very thickened mesentery. We had to do this serially in a mm by mm fashion until we are able to completely transect this has he segment. This has sent as a specimen We then proceeded to copiously irrigate. We suctioned out the irrigant fluid. We observed for hemostasis I examined the cecum, and all the bowel loops surrounding the pelvis. There were no evidence of any bowel injury I cauterized oozing areas on the divided this has mesentery to achieve hemostasis Once this was achieved, I proceeded to ask for Dr. Rangel to do an intraop consult. While waiting, we proceeded to mature the stoma. I created the stoma opening by excising a discoid piece of skin in the left side of the abdomen and dividing through the anterior sheath, the rectus muscles and dividing the posterior sheath. He had up the remaining left colon with the staple line through this opening. We matured the stoma by excisi the staple line and applying a circumferential row of full-thickness Polysorb 3-0 simple interrupted sutures through the full-thickness of the wall and the subdermal layer. The stoma appeared adequately vascularized with a any signs of ischemia. There was no significant tension Dr. Rangel then eventually came in He insufflated the urinary bladder with methylene blue. There was no evidence of any obvious leak . We irrigated. We made sure that there was good hemostasis We positioned a EB drain into the pelvis and this was brought out of the port site on the left side of the abdomen This EB drain was secured to the skin with anchoring nylon 3-0 sutures I proceeded to then close the fascia with a running Maxon 1 stitch All skin incisions were closed with skin sveta. The stoma appliance was placed Dressings were applied. The procedure was completed The patient tolerated the procedure well. There were no immediate complications. Initial final counts of sponges and instruments were correct. Estimated blood loss about 250 cc The patient was extubated without difficulty and transferred to the recovery room with stable vital signs The urine was clear and nonbloody after the procedure.
--- NOTE | 2025-06-18 15:48 | W.PM.OPN ---
Operative Note Operative Note Date of Service: 06/18/25 Narrative: This is an intraoperative consult Please see Dr. Whalen's dictation for complete note 74-year-old male patient with diverticular abscess was resulting in a colovesical fistula. Has undergone sigmoid resection Concern regarding potential bladder laceration or communication 180 cc methylene blue normal saline injected into bladder using catheter tip syringe. No leakage seen within operative field Bladder palpated and shown to be full Decision made to allow bladder drainage and have Esqueda catheter remain 2 weeks prior to removal
[2025-06-18 17:37] LABS: Hematocrit 38.8 % (42.0-52.0); Hemoglobin 12.9 g/dl (14.0-18.0); Mean Corpuscular HGB Conc 33.2 g/dl (31.0-36.0); Mean Corpuscular Hemoglobin 32.7 pg (27.0-33.0); Mean Corpuscular Volume 98.2 fL (80.0-98.0); NRBC Abs Auto 0.000 X10*3/uL (0.0-0.012); NRBC Pct Auto 0.0 /100WBC (0.0-0.2); Platelet Count 148 X10*3/uL (160-400); Red Blood Count 3.95 X10*6/uL (4.60-5.80); White Blood Count 10.6 X10*3/uL (4.8-10.8)
[2025-06-18 17:52] LABS: Anion Gap 15 (12-20); Blood Urea Nitrogen 44 mg/dL (9-16); Calcium 8.8 mg/dL (8.4-10.2); Carbon Dioxide 25 mmol/L (22-29); Chloride 102 mmol/L (96-108); Creatinine Clr Calc Pharmacy 33.8; Estimated Glomerular Filt Rate 26; Potassium 5.3 mmol/L (3.3-5.1); Sodium 137 mmol/L (135-145)
--- NOTE | 2025-06-18 18:14 | PM.EVENT ---
Event Note Date of Service: 06/19/25 Event Note: Seen postop Underwent complicated sigmoid resection, end colostomy for colovesical fistula earlier Appears to have adequate pain control currently Abdomen is soft Stoma viable Good urine output Stable vital sign Pain Management IV antibiotics EB drain care Incentive spirometry at bedside Time Spent With Patient Time: Total time managing care of this patient today ____ minutes.
[2025-06-19] MEDS: Lactated Ringers 1,000 ML 100 ML IVCONT ×2 (02:43→11:15)
[2025-06-19 03:00] VITALS: BP 142/90; PULSE 71; RESP 18; TEMP 36.4; O2SAT 96
[2025-06-19 05:30] LABS: MANUAL DIFF FLAG NO
[2025-06-19 05:38] LABS: Hematocrit 35.1 % (42.0-52.0); Hemoglobin 11.9 g/dl (14.0-18.0); Imm Gran Abs Auto 0.10 X10*3/uL (0.00-0.03); Imm Gran Pct Auto 1.0 % (0.0-0.4); Lymphocytes Absolute Auto 1.0 X10*3/uL (1.2-4.9); Mean Corpuscular HGB Conc 33.9 g/dl (31.0-36.0); Mean Corpuscular Hemoglobin 32.8 pg (27.0-33.0); Mean Corpuscular Volume 96.7 fL (80.0-98.0); NRBC Abs Auto 0.000 X10*3/uL (0.0-0.012); NRBC Pct Auto 0.0 /100WBC (0.0-0.2); Platelet Count 160 X10*3/uL (160-400); Red Blood Count 3.63 X10*6/uL (4.60-5.80); White Blood Count 10.5 X10*3/uL (4.8-10.8)
[2025-06-19 05:51] LABS: Anion Gap 14 (12-20); Blood Urea Nitrogen 49 mg/dL (9-16); Calcium 8.4 mg/dL (8.4-10.2); Carbon Dioxide 24 mmol/L (22-29); Chloride 103 mmol/L (96-108); Creatinine Clr Calc Pharmacy 34.4; Estimated Glomerular Filt Rate 26; Potassium 5.3 mmol/L (3.3-5.1); Sodium 136 mmol/L (135-145)
[2025-06-19 07:00] VITALS: BP 171/91; PULSE 71; RESP 18; TEMP 36.6; O2SAT 96
--- NOTE | 2025-06-19 08:04 | P.PNGS_ITS ---
Subjective Subjective Date of Service: 06/19/25 <Heather Macedo PA-C - Last Filed: 06/19/25 08:09> 06/19/25 <Juarez Whalen MD - Last Filed: 06/19/25 08:23> Interval history: Feels well this morning. Has some soreness at incision site but comfortable. Has not been OOB yet. Reports passing smallt amount of flatus from ostomy. <Heather Macedo PA-C - Last Filed: 06/19/25 08:09> Physical Exam 2 Vital Signs: Vital Signs: Last Vital Signs Temp 97.6 F 06/19/25 03:00 Pulse 71 06/19/25 03:00 Resp 18 06/19/25 03:00 BP 142/90 H 06/19/25 03:00 Pulse Ox 96 06/19/25 03:00 O2 Del Method Room Air 06/19/25 03:00 O2 Flow Rate 1 06/18/25 17:00 BMI result Body Mass Index 32.1 <Heather Macedo PA-C - Last Filed: 06/19/25 08:09> Const: General: comfortable, no acute distress and alert <Heather Macedo PA-C - Last Filed: 06/19/25 08:09> Orientation/consciousness: patient oriented x3 <PERRY Sabillon Last Filed: 06/19/25 08:09> Resp: Effort & Inspection: normal respiratory effort and able to speak in complete sentences <Heather Macedo PA-C - Last Filed: 06/19/25 08:09> GI: Other: abdomen distended soft, mild incisional tenderness dressing clean and intact EB scant serosanguineous ostomy pink, no output <PERRY Sabillon Last Filed: 06/19/25 08:09> : Other: alba in place, straw colored urine <PERRY Sabillon Last Filed: 06/19/25 08:09> Skin: General skin exam: no rashes or lesions noted <PERRY Sabillon Last Filed: 06/19/25 08:09> Neuro: General: patient oriented x3 and moves all extremities <Heather Macedo PA-C - Last Filed: 06/19/25 08:09> Objective Data Active Medications Amlodipine Besylate (Amlodipine Besylate 2.5 Mg Tablet) 2.5 mg PO ONCE PRN; Protocol PRN Reason: htn Atenolol (Atenolol 50 Mg Tablet) 50 mg PO BEDTIME CORIE; Protocol Last Admin: 06/18/25 21:09 Dose: 50 mg Documented By: WILFRED Calcium Carbonate (Calcium Carbonate 750 Mg Tab.Chew) 750 mg PO Q4H PRN PRN Reason: Heartburn Hydromorphone HCl (Hydromorphone Hcl 0.5 Mg/0.5 Ml Syringe) 0.5 mg IVPUSH Q3H PRN; Protocol PRN Reason: abdominal pain Lactated Ringer's (Lr) 1,000 mls @ 100 mls/hr IVCONT .Q10H CORIE Last Admin: 06/19/25 02:43 Dose: 100 mls/hr Documented By: WILFRED Piperacillin Sod/Tazobactam (Sod 2.25 gm/ Sodium Chloride) 50 mls @ 100 mls/hr IV Q6H [facility] Last Infusion: 06/19/25 06:11 Dose: Infused Documented By: WILFRED Acetaminophen (Ofirmev) 1,000 mg in 100 mls @ 400 mls/hr IV Q6H [facility] Last Infusion: 06/19/25 05:15 Dose: Infused Documented By: WILFRED Levalbuterol HCl (Levalbuterol Hcl 1.25 Mg/3 Ml Vial.Neb) 1.25 mg INHALE Q3H PRN PRN Reason: Wheezing Last Admin: 06/17/25 11:11 Dose: 1.25 mg Documented By: DIMPLE Loperamide HCl (Loperamide Hcl 2 Mg Capsule) 2 mg PO Q4H PRN PRN Reason: Diarrhea Magnesium Hydroxide (Milk Of Magnesia 30 Ml Oral.Susp) 30 ml PO DAILY PRN PRN Reason: Constipation Melatonin (Melatonin 3 Mg Tablet) 6 mg PO BEDTIME PRN PRN Reason: Insomnia Multivitamins/Vitamin C (Multivitamin Tablet) 1 tab PO DAILY CORIE Last Admin: 06/18/25 07:15 Dose: Not Given Documented By: ANI Non-Admin Reason: npo Omeprazole (Omeprazole 20 Mg Capsule.Dr) 20 mg PO DAILY PRN PRN Reason: Acid Reflux Ondansetron HCl (Ondansetron Hcl 4 Mg/2 Ml Vial) 4 mg IVPUSH Q6H PRN PRN Reason: Nausea and Vomiting Oxycodone HCl (Oxycodone Hcl Immed Release 5 Mg Tablet) 5 mg PO Q4H PRN PRN Reason: Pain, Moderate(Pain Scale 4-6) Sodium Chloride (0.9 % Sodium Chloride Flush 3 Ml Syringe) 3 ml IVFLUSH QSHIFT CORIE Last Admin: 06/18/25 21:14 Dose: Not Given Documented By: WILFRED Non-Admin Reason: IV Running <Heather Macedo PA-C - Last Filed: 06/19/25 08:09> Labs CBC & Chem 7: 06/19/25 05:18 06/19/25 05:18 <Heather Macedo PA-C - Last Filed: 06/19/25 08:09> Labs: Laboratory Results - last 24 hr 06/18/25 06/19/25 17:29 05:18 MCV 98.2 H 96.7 MCH 32.7 32.8 MCHC 33.2 33.9 RDW 12.7 12.7 Plt Count 148 L 160 MPV 9.6 10.0 Immature Gran % (Auto) 1.0 H Neut % (Auto) 80.5 H Lymph % (Auto) 9.4 L [place] % (Auto) 9.0 Eos % (Auto) 0.0 Baso % (Auto) 0.1 Lymph # (Auto) 1.0 L [place] # (Auto) 0.9 Eos # (Auto) 0.0 Baso # (Auto) 0.0 Abs Immat Gran (auto) 0.10 H Absolute Neuts (auto) 8.4 H Absolute Nucleated RBC 0.000 0.000 Nucleated RBC % (auto) 0.0 0.0 Anion Gap 15 14 Estim Creat Clear Calc 33.8 34.4 Estimated GFR 26 26 Random Glucose 148 H Fasting Glucose 142 H Calcium 8.8 8.4 <Heather Macedo PA-C - Last Filed: 06/19/25 08:09> Microbiology Microbiology Results: Microbiology 06/15/25 11:15 Gram Stain - Final Abscess Intra-abdominal Routine Culture - Final Anaerobic Culture - Final <Heather Macedo PA-C - Last Filed: 06/19/25 08:09> Procedures Date of Service Date of Service: 06/19/25 <Heather Macedo PA-C - Last Filed: 06/19/25 08:09> 06/19/25 <Juarez Whalen MD - Last Filed: 06/19/25 08:23> Progress Note: A&P Assessment and plan (1) Colovesical fistula: Status: Acute <Heather Macedo PA-C - Last Filed: 06/19/25 08:09> Assessment and Plan: States he was comfortable overnight Good pain control He says he has noticed some air from his stoma Stoma viable Good urine output, clear Abdomen is soft EB drain serosanguineous Pain management Incentive spirometry Out of bed Seen and examined independently Keep Alba in <Juarez Whalen MD - Last Filed: 06/19/25 08:23> (2) Colonic diverticular abscess: Status: Acute <Heather Macedo PA-C - Last Filed: 06/19/25 08:09> Assessment and Plan: POD #1 s/p Hand assisted laparoscopic sigmoid resection, extensive lysis of adhesions, end-colostomy, intraop consultation with Urology. Doing fairly well post op. Abd benign with appropriate post op tenderness, dressing intact, ostomy viable appearing with no significant output. EB drain serosang, urine clear. Will cont clear liquids for now until more evidence of GI functon but ostomy is viable appearing, IVF, IV abx. Encouraged OOB/ambulation and IS use. Keep alba x 1 month and f/u with urology. AM labs reviewed. <Heather Macedo PA-C - Last Filed: 06/19/25 08:09> Time Spent With Patient Time: Total time managing care of this patient today ____ minutes. <Heather Macedo PA-C - Last Filed: 06/19/25 08:09> Quality Stroke Does the patient have a stroke diagnosis?: No <PERRY Sabillon Last Filed: 06/19/25 08:09> VTE Prior VTE?: No <Heather Macedo PA-C - Last Filed: 06/19/25 08:09> VTE Risk Level:: Medical - moderate - high <PERRY Sabillon Last Filed: 06/19/25 08:09> VTE Device Contraindication: N/A - Device Ordered <PERRY Sabillon Last Filed: 06/19/25 08:09> VTE Drug Contraindication: Treatment Not Indicated <Heather Macedo PA-C - Last Filed: 06/19/25 08:09>
--- NOTE | 2025-06-19 08:18 | HO.POSTANES ---
Post Anesthesia Evaluation Post Anesthesia Evaluation Date of Service: 06/19/25 Vital Signs: Vital Signs Temp Pulse Resp BP Pulse Ox O2 Del Method 06/19/25 03:00 97.6 F 71 18 142/90 H 96 Room Air 06/18/25 23:09 97.0 F 72 18 152/91 H 92 Room Air Anesthesia: Nerve Block and General Mental Status: Awake Pain Control: Satisfactory Nausea/Vomiting: None Hydration: Adequate Anesthesia-Related Issues: No Anes. Related Issues
--- NOTE | 2025-06-19 10:49 | P.CONNP_ITS ---
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 Underwent IR guided drainage of the abscess, followed by laparoscopic sigmoid resection with extensive lysis of adhesion and end colostomy on 06/18/2025 His baseline creatinine is around 1, increased to 1.86 on 06/14/2025, peaking at 2.76 and now slowly trending down. Urinalysis showed greater than 50 WBCs, greater than 50 RBCs Review of Systems Review of Systems Const : no body aches, no chills Eyes: no blurry vision and no change in vision ENT: no bleeding gums and no change in voice, no dizziness Card: no chest pain, no shortness of breath, no orthopnea, no PND Resp: no cough, no excessive phlegm production, no SOB GI: + abdominal pain and + nausea, + vomiting : no hematuria, no urinary frequency and no difficulty voiding Musc: no abnormal gait, no bone pain Neuro: no abnormal movements, no weakness Psych: no behavioral changes and no change in appetite Endo: no change in body appearance, no cold intolerance PMFSH Past Medical History Medical History Colonic diverticular abscess Essential hypertension FH: total knee replacement High blood pressure Surgical History Surgical History (Updated 06/18/25 @ 10:02 by Jeevan Nava RN) History of appendectomy History of knee replacement History of repair of right rotator cuff History of tonsillectomy History of colonoscopy History of hip replacement, total Social History Social History Household Members: Spouse Housing: House Are you a primary childcare center director to a significant other at home: No Do you presently have visiting nurse or other home services: No Alcohol intake: current Alcohol intake frequency: does not drink Comment: one fall prior to this admission Patient Tobacco Use Status: Never used Tobacco Second Hand Smoke Exposure: No service: No 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[employer] Allergies Allergy/AdvReac Type Severity Reaction Status Date / Time No Known Allergies Allergy Verified 06/14/25 15:49 Active Medications: Current Medications Amlodipine Besylate (Amlodipine Besylate 2.5 Mg Tablet) 2.5 mg PO ONCE PRN; Protocol PRN Reason: htn Atenolol (Atenolol 50 Mg Tablet) 50 mg PO BEDTIME [facility]; Protocol Last Admin: 06/18/25 21:09 Dose: 50 mg Calcium Carbonate (Calcium Carbonate 750 Mg Tab.Chew) 750 mg PO Q4H PRN PRN Reason: Heartburn Hydromorphone HCl (Hydromorphone Hcl 0.5 Mg/0.5 Ml Syringe) 0.5 mg IVPUSH Q3H PRN; Protocol PRN Reason: abdominal pain Piperacillin Sod/Tazobactam (Sod 2.25 gm/ Sodium Chloride) 50 mls @ 100 mls/hr IV Q6H [facility] Last Infusion: 06/19/25 06:11 Dose: Infused Acetaminophen (Ofirmev) 1,000 mg in 100 mls @ 400 mls/hr IV Q6H [facility] Last Admin: 06/19/25 10:33 Dose: 100 mls/hr Levalbuterol HCl (Levalbuterol Hcl 1.25 Mg/3 Ml Vial.Neb) 1.25 mg INHALE Q3H PRN PRN Reason: Wheezing Last Admin: 06/17/25 11:11 Dose: 1.25 mg Loperamide HCl (Loperamide Hcl 2 Mg Capsule) 2 mg PO Q4H PRN PRN Reason: Diarrhea Magnesium Hydroxide (Milk Of Magnesia 30 Ml Oral.Susp) 30 ml PO DAILY PRN PRN Reason: Constipation Melatonin (Melatonin 3 Mg Tablet) 6 mg PO BEDTIME PRN PRN Reason: Insomnia Multivitamins/Vitamin C (Multivitamin Tablet) 1 tab PO DAILY [facility] Last Admin: 06/19/25 09:05 Dose: 1 tab Omeprazole (Omeprazole 20 Mg Capsule.Dr) 20 mg PO DAILY PRN PRN Reason: Acid Reflux Ondansetron HCl (Ondansetron Hcl 4 Mg/2 Ml Vial) 4 mg IVPUSH Q6H PRN PRN Reason: Nausea and Vomiting Oxycodone HCl (Oxycodone Hcl Immed Release 5 Mg Tablet) 5 mg PO Q4H PRN PRN Reason: Pain, Moderate(Pain Scale 4-6) Sodium Chloride (0.9 % Sodium Chloride Flush 3 Ml Syringe) 3 ml IVFLUSH QSHIFT [facility] Last Admin: 06/19/25 09:05 Dose: Not Given Home Medications ?Medication ?Instructions ?Recorded ?Confirmed ?Last Taken ?Type atenolol 50 mg tablet 50 mg PO BEDTIME 12/07/2206/13/25 History hydrochlorothiazide 25 mg tablet 25 mg PO DAILY 06/14/25 06/13/25 History lisinopril 40 mg tablet 40 mg PO DAILY 12/07/2205/3006/13/25 History omeprazole 20 mg capsule,delayed 20 mg PO DAILY PRN Ac id Reflux 08/04/24 06/14/25 06/13/25 History release vitamin B complex 1 cap PO DAILY 06/14/2505/3006/13/25 History Physical Exam Vital Signs: Last Vital Signs Temp 97.9 F 06/19/25 07:00 Pulse 71 06/19/25 07:00 Resp 18 06/19/25 07:00 BP 171/91 H 06/19/25 07:00 Pulse Ox 96 06/19/25 07:00 O2 Del Method Room Air 06/19/25 07:00 O2 Flow Rate 1 06/18/25 17:00 BMI result Body Mass Index 32.1 General: Elderly male in severe acute distress, ill appearing and tired appearing Nutritional Appearance: well nourished and overweight Eyes: appearance normal, both eyes and all related structures; Alignment and Position: alignment normal and position normal Neck: No lymphadenopathy, no thyromegaly Resp: bilateral air entry equal, occasional added sounds present Cardio: Regular rate, regular rhythm; Heart sounds: S1 normal heart sound present and S2 normal heart sound present GI: soft, nontender, no guarding, no hepatosplenomegaly : bladder normal to inspection, bladder normal to palpation, no renal angle tenderness Skin: no rashes or lesions noted and elasticity normal Neuro: oriented to person, oriented to place, oriented to time and moves all extremities Results Lab Results 06/19/25 05:18 06/19/25 05:18 Lab results: Chemistry 06/17/25 06/18/25 06/19/25 08:37 17:29 05:18 Sodium 133 L 137 136 Potassium 4.5 5.3 H 5.3 H Carbon Dioxide 23 25 24 BUN 41 H 44 H 49 H Creatinine 2.76 H 2.46 H 2.42 H Calcium 8.7 8.8 8.4 Hematology 06/17/25 06/18/25 06/19/25 08:37 17:29 05:18 WBC 8.2 10.6 10.5 Hgb 11.6 L 12.9 L 11.9 L Plt Count 156 L 148 L 160 Assessment and Plan (1) Acute kidney injury: Status: Acute (2) Intraperitoneal abscess: Status: Acute Plan Acute kidney injury: Possibly secondary to ATN due to drop in the blood pressures to 103/57mmHG in a patient with relatively very high blood pressures all the time as creatinine started uptrending the day after this event. Baseline creatinine around 1.07, peaked to 2.76, currently trending down for the past 2 days Urinalysis showing greater than 50 WBCs, 50 RBCs possibly secondary to colovesical fistula leading to pus drainage; so not much helpful Status post IR guided drainage of the abscess, and also status post laparoscopic sigmoid resection with lysis of adhesions and end colostomy on 06/18/2025. Continue Zosyn for antibiotics Hold nephrotoxic medications, IV contrast, Raymundo or arbs Hypertension: On atenolol, hydrochlorothiazide and lisinopril at home with poor control of blood pressures Continue holding lisinopril, on atenolol Can add chlorthalidone or hydrochlorothiazide Can also add hydralazine as needed to maintain normotension Procedures Date of Service Date of Service: 06/19/25
[2025-06-19 11:00] VITALS: BP 170/94; PULSE 74; RESP 20; TEMP 36.8; O2SAT 95
--- NOTE | 2025-06-19 13:37 | HO.WOUND ---
Ostomy Consult: Initial Teaching 74yr old male admitted to [facility] on 06/14/25 - see H&P for detailed history and admission.? Consult for new ostomy teaching. ?He had Colostomy creation on 06/18/[address] Whalen. ?Upon entry into patient's room, patient is sitting in his recliner chair, alert and oriented x 3, currently has no complaints. ? at bedside for teaching as well. Introductions were completed, they are agreeable to continuing with teaching. ? We discussed pain control at ?3?/10 at the current moment, not yet ambulating. ?We began by discussing general knowledge about the Colostomy and questions they had. ?We discussed opening and closing the ostomy pouch. They were able to independently provide a return demonstration on an empty pouch. ?They had not yet emptied their pouch only bowel sweat is noted, gas was audible while in with patient. ? We discussed the importance of emptying pouch when 1/3 to 1/2 full, how to empty pouch, and lining water with toilet paper to prevent splash back. Patient was educated on when to contact radio program checker/Dr?s office/seek emergency medical treatment. Aware that Rx written for pouches and rings will be sent by Outpt nurse to [facility] for home delivery.? Reviewed written education with patient and left at bedside for further review. ?Education videos supplied by [facility] were not yet watched he reports he will watch on another day. Permission was granted for pouch assessment and no leak was noted.? Stoma is flush, round and pink.? Due to no output from stoma pouch is not needed to be changed at this time.? Throughout education he and his had questions that lead to further discussion and understanding. ?Patient reported having no questions at this time. ?Patient was made aware that I will return to bedside later in week for ongoing education - however to note patient seems to have a good understanding of care and material at this time. ?Patient will benefit from VNA services at time of discharge. ?All questions and concerns addressed at this time. Next teaching session goals: Demonstrate open and close independently Stoma model pouch change.
[2025-06-19 15:00] VITALS: BP 174/88; PULSE 80; RESP 20; TEMP 36.7; O2SAT 97
--- NOTE | 2025-06-19 15:36 | P.PNIM_ITS ---
Subjective Subjective Date of Service: 06/19/25 Interval History: severe sepsis /abcess Review of Systems Status post laparoscopic procedure-sigmoid resection/end colostomy. Says abdominal pain minimal. Has drain on the left side As well as colostomy bag-minimal serous fluid Review of Systems: Yes all other systems are reviewed and are negative Physical Exam 2 Exam: Exam: Appearance: Alert.? Oriented X3.? cvs: rrr, [id number]. res: clear to auscultation ,no rhonchii or wheezing abd: no rebound or guarding ,nt, bs present, has drain-draining minimal pinkish fluid, Colostomy bag as above. ext pulses present , no cyanosis . neuro: axo3 , nonfocal. Vital Signs: Vital Signs: Last Vital Signs Temp 98.3 F 06/19/25 11:00 Pulse 74 06/19/25 11:00 Resp 20 06/19/25 11:00 BP 170/94 H 06/19/25 11:00 Pulse Ox 95 06/19/25 11:00 O2 Del Method Room Air 06/19/25 11:00 O2 Flow Rate 1 06/18/25 17:00 BMI result Body Mass Index 32.1 Objective Data Active Medications Amlodipine Besylate (Amlodipine Besylate 2.5 Mg Tablet) 2.5 mg PO ONCE PRN; Protocol PRN Reason: htn Atenolol (Atenolol 50 Mg Tablet) 50 mg PO BEDTIME [facility]; Protocol Last Admin: 06/18/25 21:09 Dose: 50 mg Documented By: WILFRED Calcium Carbonate (Calcium Carbonate 750 Mg Tab.Chew) 750 mg PO Q4H PRN PRN Reason: Heartburn Hydrochlorothiazide (Hydrochlorothiazide 25 Mg Tablet) 25 mg PO DAILY [facility]; Protocol Last Admin: 06/19/25 11:13 Dose: 25 mg Documented By: ANGEL Hydromorphone HCl (Hydromorphone Hcl 0.5 Mg/0.5 Ml Syringe) 0.5 mg IVPUSH Q3H PRN; Protocol PRN Reason: abdominal pain Piperacillin Sod/Tazobactam (Sod 2.25 gm/ Sodium Chloride) 50 mls @ 100 mls/hr IV Q6H [facility] Last Infusion: 06/19/25 12:26 Dose: Infused Documented By: ANGEL Acetaminophen (Ofirmev) 1,000 mg in 100 mls @ 400 mls/hr IV Q6H [facility] Last Infusion: 06/19/25 11:29 Dose: 0 mls/hr Documented By: ANGEL Levalbuterol HCl (Levalbuterol Hcl 1.25 Mg/3 Ml Vial.Neb) 1.25 mg INHALE Q3H PRN PRN Reason: Wheezing Last Admin: 06/17/25 11:11 Dose: 1.25 mg Documented By: DIMPLE Loperamide HCl (Loperamide Hcl 2 Mg Capsule) 2 mg PO Q4H PRN PRN Reason: Diarrhea Magnesium Hydroxide (Milk Of Magnesia 30 Ml Oral.Susp) 30 ml PO DAILY PRN PRN Reason: Constipation Melatonin (Melatonin 3 Mg Tablet) 6 mg PO BEDTIME PRN PRN Reason: Insomnia Multivitamins/Vitamin C (Multivitamin Tablet) 1 tab PO DAILY [facility] Last Admin: 06/19/25 09:05 Dose: 1 tab Documented By: ANGEL Omeprazole (Omeprazole 20 Mg Capsule.Dr) 20 mg PO DAILY PRN PRN Reason: Acid Reflux Ondansetron HCl (Ondansetron Hcl 4 Mg/2 Ml Vial) 4 mg IVPUSH Q6H PRN PRN Reason: Nausea and Vomiting Oxycodone HCl (Oxycodone Hcl Immed Release 5 Mg Tablet) 5 mg PO Q4H PRN PRN Reason: Pain, Moderate(Pain Scale 4-6) Sodium Chloride (0.9 % Sodium Chloride Flush 3 Ml Syringe) 3 ml IVFLUSH QSHIFT [facility] Last Admin: 06/19/25 09:05 Dose: Not Given Documented By: ANGEL Non-Admin Reason: Patient Refused Labs 06/19/25 05:18 06/19/25 05:18 Labs: Laboratory Results - last 24 hr 06/18/25 06/19/25 17:29 05:18 MCV 98.2 H 96.7 MCH 32.7 32.8 MCHC 33.2 33.9 RDW 12.7 12.7 Plt Count 148 L 160 MPV 9.6 10.0 Immature Gran % (Auto) 1.0 H Neut % (Auto) 80.5 H Lymph % (Auto) 9.4 L [place] % (Auto) 9.0 Eos % (Auto) 0.0 Baso % (Auto) 0.1 Lymph # (Auto) 1.0 L [place] # (Auto) 0.9 Eos # (Auto) 0.0 Baso # (Auto) 0.0 Abs Immat Gran (auto) 0.10 H Absolute Neuts (auto) 8.4 H Absolute Nucleated RBC 0.000 0.000 Nucleated RBC % (auto) 0.0 0.0 Anion Gap 15 14 Estim Creat Clear Calc 33.8 34.4 Estimated GFR 26 26 Random Glucose 148 H Fasting Glucose 142 H Calcium 8.8 8.4 Microbiology Microbiology Results: Microbiology 06/15/25 11:15 Gram Stain - Final Abscess Intra-abdominal Routine Culture - Final Anaerobic Culture - Final Assessment and Plan (1) Sigmoid diverticulitis: Status: Acute (2) Acute kidney injury: Status: Acute Plan 74 y/o man with a PMHx significant for multiple events of diverticulitis who presents with: Severe sepsis secondary to sigmoid diverticulitis/colitis with intraperitoneal abscess,?uti : normal lactic acid. plan: POD #1 s/p Hand assisted laparoscopic sigmoid resection, extensive lysis of adhesions, end-colostomy, intraop consultation with Urology clears diet, Empiric IV antibiotic therapy with Zosyn. colostomy bag , has drain. Acute kidney injury likely secondary to sepsis/volume depletion. Hold lisinopril/hctz. Mild hyperkalemia-added Lokelma. Continue IV fluids. Continue to monitor renal function. reviewed by vern: ?atn , recomended to continue ivf . moniter renal function/electrolytes daily Discussed with Nephro and urology: Currently plan is continue IV fluids, ADELINE in the setting of above possible colovesical fistula. Continue to monitor renal function electrolytes. Essential hypertension. Hold home meds for now. Continue to monitor BP. Recent fall. Fall precautions. Code status: Full. DVT prophylaxis: SCDs for now (possible invasive procedure). ongoing need hospitalization for severe sepsis due to diverticulitis with abscess treatment with IV fluids, IV antibiotics and will need surgerical procedure on wednesday. Quality Stroke Does the patient have a stroke diagnosis?: No VTE Prior VTE?: No VTE Risk Level:: Medical - moderate - high VTE Device Contraindication: N/A - Device Ordered VTE Drug Contraindication: Treatment Not Indicated
--- NOTE | 2025-06-19 15:45 | PM.EVENT ---
Event Note Date of Service: 06/19/25 Event Note: Seen on afternoon rounds Says he had a good day Feels comfortable Good pain control Abdomen is soft He says he has noticed flatus via his stoma Good urine output Continue current care Hope to advance diet tomorrow Keep Esqueda in Time Spent With Patient Time: Total time managing care of this patient today ____ minutes.
[2025-06-19 19:00] VITALS: BP 170/90; PULSE 76; RESP 22; TEMP 36.6; O2SAT 94
[2025-06-19 23:00] VITALS: BP 176/94; PULSE 73; RESP 20; TEMP 36.5; O2SAT 94
[2025-06-20] VITALS (7 sets, daily range): BP systolic 130–174; BP diastolic 70–98; PULSE 71–95; RESP 18–20; TEMP 36.2–36.7; O2SAT 95–97
[2025-06-20 07:23] LABS: Hematocrit 35.8 % (42.0-52.0); Hemoglobin 12.1 g/dl (14.0-18.0); Mean Corpuscular HGB Conc 33.8 g/dl (31.0-36.0); Mean Corpuscular Hemoglobin 32.7 pg (27.0-33.0); Mean Corpuscular Volume 96.8 fL (80.0-98.0); NRBC Abs Auto 0.000 X10*3/uL (0.0-0.012); NRBC Pct Auto 0.0 /100WBC (0.0-0.2); Platelet Count 172 X10*3/uL (160-400); Red Blood Count 3.70 X10*6/uL (4.60-5.80); White Blood Count 10.0 X10*3/uL (4.8-10.8)
[2025-06-20 07:48] LABS: Alanine Aminotransferase 148 U/L (0-40); Albumin Level 2.9 g/dL (3.5-5.0); Alkaline Phosphatase 47 U/L (39-117); Anion Gap 13 (12-20); Aspartate Amino Transferase 524 U/L (5-37); Blood Urea Nitrogen 45 mg/dL (9-16); Calcium 8.4 mg/dL (8.4-10.2); Carbon Dioxide 25 mmol/L (22-29); Chloride 104 mmol/L (96-108); Creatinine Clr Calc Pharmacy 38.9; Estimated Glomerular Filt Rate 30; Potassium 4.0 mmol/L (3.3-5.1); Sodium 138 mmol/L (135-145); Total Protein 5.9 g/dL (6.5-8.0)
--- NOTE | 2025-06-20 08:11 | PM.PNGS ---
Subjective Subjective Date of Service: 06/20/25 Interval history: Says he was initially unable to sleep but did well after a getting melatonin Says he is passing flatus via the stoma No nausea or vomiting No events reported Physical Exam Vital Signs: Vital Signs: Last Vital Signs Temp 97.9 F 06/20/25 04:50 Pulse 74 06/20/25 04:50 Resp 20 06/20/25 04:50 BP 174/98 H 06/20/25 04:50 Pulse Ox 96 06/20/25 04:50 O2 Del Method Room Air 06/20/25 04:50 O2 Flow Rate 1 06/18/25 17:00 BMI result Body Mass Index 32.1 Const: General: comfortable and no acute distress Resp: Effort & Inspection: normal respiratory effort Cardio: Rate: regular rate GI: Other: Stoma viable, no stool yet, EB drain serosanguineous Palpation (GI): Soft to palpation, not firm and no guarding Objective Data Active Medications Amlodipine Besylate (Amlodipine Besylate 2.5 Mg Tablet) 2.5 mg PO ONCE PRN; Protocol PRN Reason: htn Last Admin: 06/19/25 23:40 Dose: 2.5 mg Documented By: NURIA Atenolol (Atenolol 50 Mg Tablet) 50 mg PO BEDTIME [facility]; Protocol Last Admin: 06/19/25 20:14 Dose: 50 mg Documented By: NURIA Calcium Carbonate (Calcium Carbonate 750 Mg Tab.Chew) 750 mg PO Q4H PRN PRN Reason: Heartburn Hydrochlorothiazide (Hydrochlorothiazide 25 Mg Tablet) 25 mg PO DAILY [facility]; Protocol Last Admin: 06/20/25 07:51 Dose: 25 mg Documented By: ANGEL Piperacillin Sod/Tazobactam (Sod 2.25 gm/ Sodium Chloride) 50 mls @ 100 mls/hr IV Q6H [facility] Last Infusion: 06/20/25 06:42 Dose: Infused Documented By: NURIA Acetaminophen (Ofirmev) 1,000 mg in 100 mls @ 400 mls/hr IV Q6H [facility] Last Infusion: 06/20/25 05:47 Dose: Infused Documented By: NURIA Sodium Chloride (Ns) 1,000 mls @ 80 mls/hr IVCONT .[id number] [facility] Last Admin: 06/20/25 05:04 Dose: 80 mls/hr Documented By: NURIA Levalbuterol HCl (Levalbuterol Hcl 1.25 Mg/3 Ml Vial.Neb) 1.25 mg INHALE Q3H PRN PRN Reason: Wheezing Last Admin: 06/17/25 11:11 Dose: 1.25 mg Documented By: DIMPLE Loperamide HCl (Loperamide Hcl 2 Mg Capsule) 2 mg PO Q4H PRN PRN Reason: Diarrhea Magnesium Hydroxide (Milk Of Magnesia 30 Ml Oral.Susp) 30 ml PO DAILY PRN PRN Reason: Constipation Melatonin (Melatonin 3 Mg Tablet) 6 mg PO BEDTIME PRN PRN Reason: Insomnia Last Admin: 06/19/25 23:22 Dose: 6 mg Documented By: NURIA Multivitamins/Vitamin C (Multivitamin Tablet) 1 tab PO DAILY [facility] Last Admin: 06/20/25 07:51 Dose: 1 tab Documented By: ANGEL Omeprazole (Omeprazole 20 Mg Capsule.Dr) 20 mg PO DAILY PRN PRN Reason: Acid Reflux Ondansetron HCl (Ondansetron Hcl 4 Mg/2 Ml Vial) 4 mg IVPUSH Q6H PRN PRN Reason: Nausea and Vomiting Oxycodone HCl (Oxycodone Hcl Immed Release 5 Mg Tablet) 5 mg PO Q4H PRN PRN Reason: Pain, Moderate(Pain Scale 4-6) Sodium Chloride (0.9 % Sodium Chloride Flush 3 Ml Syringe) 3 ml IVFLUSH QSHIFT [facility] Last Admin: 06/20/25 07:52 Dose: Not Given Documented By: ANGEL Non-Admin Reason: IV Running Labs 06/20/25 06:45 06/20/25 06:45 Labs: Laboratory Results - last 24 hr 06/20/25 06:45 MCV 96.8 MCH 32.7 MCHC 33.8 RDW 12.8 Plt Count 172 MPV 10.5 Absolute Nucleated RBC 0.000 Nucleated RBC % (auto) 0.0 Anion Gap 13 Estim Creat Clear Calc 38.9 Estimated GFR 30 Random Glucose 110 Calcium 8.4 Total Bilirubin 0.5 AST 524 H ALT 148 H Alkaline Phosphatase 47 Total Protein 5.9 L Albumin 2.9 L Microbiology Microbiology Results: Microbiology 06/14/25 16:03 Blood Culture - Final Blood - Venous No growth after 5 days. 06/14/25 16:03 Blood Culture - Final Blood - Venous No growth after 5 days. Procedures Date of Service Date of Service: 06/20/25 Progress Note: A&P Assessment and plan (1) Colovesical fistula: Status: Acute Assessment and Plan: Status post sigmoid resection, end colostomy Doing well clinically Has flatus via the stoma Possibly advance diet later on Keep EB drain in place Esqueda in place - clear urine output Creatinine slowly improved Out of bed Stoma care Incentive spirometry Time Spent With Patient Time: Total time managing care of this patient today ____ minutes. Quality Stroke Does the patient have a stroke diagnosis?: No VTE Prior VTE?: No VTE Risk Level:: Medical - moderate - high VTE Device Contraindication: N/A - Device Ordered VTE Drug Contraindication: Treatment Not Indicated
--- NOTE | 2025-06-20 09:36 | P.PNNP_ITS ---
Subjective Subjective Date of Service: 06/20/25 Interval history: Doing well, creatinine improving down to 2.14 this morning Physical Exam 2 Vital Signs: Vital Signs: Last Vital Signs Temp 98.1 F 06/20/25 08:13 Pulse 75 06/20/25 08:13 Resp 18 06/20/25 08:13 BP 158/86 H 06/20/25 08:13 Pulse Ox 95 06/20/25 08:13 O2 Del Method Room Air 06/20/25 08:13 O2 Flow Rate 1 06/18/25 17:00 BMI result Body Mass Index 32.1 General: not in any acute distress, ill appearing Nutritional Appearance: well nourished and overweight Eyes: appearance normal, both eyes and all related structures; Alignment and Position: alignment normal and position normal Neck: No lymphadenopathy, no thyromegaly Resp: bilateral air entry equal, no added sounds present Cardio: Regular rate, regular rhythm; Heart sounds: S1 normal heart sound present and S2 normal heart sound present GI: soft, nontender, no guarding, no hepatosplenomegaly : bladder normal to inspection, bladder normal to palpation, no renal angle tenderness Skin: no rashes or lesions noted and elasticity normal Neuro: alert, oriented x 3, moves all extremities Objective Data Labs 06/20/25 06:45 06/20/25 06:45 Labs: Laboratory Results - last 24 hr 06/20/25 06:45 WBC 10.0 RBC 3.70 L Hgb 12.1 L Hct 35.8 L MCV 96.8 MCH 32.7 MCHC 33.8 RDW 12.8 Plt Count 172 MPV 10.5 Absolute Nucleated RBC 0.000 Nucleated RBC % (auto) 0.0 Sodium 138 Potassium 4.0 D Chloride 104 Carbon Dioxide 25 Anion Gap 13 BUN 45 H Creatinine 2.14 H Estim Creat Clear Calc 38.9 Estimated GFR 30 Random Glucose 110 Calcium 8.4 Total Bilirubin 0.5 AST 524 H ALT 148 H Alkaline Phosphatase 47 Total Protein 5.9 L Albumin 2.9 L Microbiology Microbiology Results: Microbiology 06/14/25 16:03 Blood - Venous Blood Culture - Final No growth after 5 days. 06/14/25 16:03 Blood - Venous Blood Culture - Final No growth after 5 days. 06/15/25 11:15 Abscess Intra-abdominal Gram Stain - Final 06/15/25 11:15 Abscess Intra-abdominal Routine Culture - Final 06/15/25 11:15 Abscess Intra-abdominal Anaerobic Culture - Final 06/15/25 Unknown Urine clean catch - Clean Catch Midstream Urine Culture - Final Procedures Date of Service Date of Service: 06/20/25 Assessment & Plan Assessment and plan (1) Acute kidney injury: Status: Acute Plan Acute kidney injury: Possibly secondary to ATN due to drop in the blood pressures to 103/57mmHG in a patient with relatively very high blood pressures all the time as creatinine started uptrending the day after this event. Baseline creatinine around 1.07, peaked to 2.76, currently trending down; down to 2.14 this morning. Urinalysis showing greater than 50 WBCs, 50 RBCs possibly secondary to colovesical fistula leading to pus drainage; so not much helpful Status post IR guided drainage of the abscess, and also status post laparoscopic sigmoid resection with lysis of adhesions and end colostomy on 06/18/2025. Continue Zosyn for antibiotics Hold nephrotoxic medications, IV contrast, Raymundo or arbs eating well, no need for IV fluids. Hypertension: On atenolol, hydrochlorothiazide and lisinopril at home with poor control of blood pressures Continue holding lisinopril, on atenolol, hydrochlorothiazide will add amlodipine 10mg to further assist with blood pressure control. Time Spent With Patient Time: Total time managing care of this patient today ____ minutes. Progress Note: Quality Stroke Does the patient have a stroke diagnosis?: No
--- NOTE | 2025-06-20 10:45 | HO.PM.IMPN ---
Subjective Subjective Date of Service: 06/20/25 Interval History: first day feeling better Physical Exam Vital Signs: Vital Signs: Last Vital Signs Temp 98.1 F 06/20/25 08:13 Pulse 75 06/20/25 08:13 Resp 18 06/20/25 08:13 BP 158/86 H 06/20/25 08:13 Pulse Ox 95 06/20/25 08:13 O2 Del Method Room Air 06/20/25 08:13 O2 Flow Rate 1 06/18/25 17:00 BMI result Body Mass Index 32.1 General: not in any acute distress, ill appearing Nutritional Appearance: well nourished and overweight Eyes: appearance normal, both eyes and all related structures; Alignment and Position: alignment normal and position normal Neck: No lymphadenopathy, no thyromegaly Resp: bilateral air entry equal, no added sounds present Cardio: Regular rate, regular rhythm; Heart sounds: S1 normal heart sound present and S2 normal heart sound present GI: soft, nontender, no guarding, no hepatosplenomegaly : bladder normal to inspection, bladder normal to palpation, no renal angle tenderness Skin: no rashes or lesions noted and elasticity normal Neuro: alert, oriented x 3, moves all extremities Objective Data Active Medications Amlodipine Besylate (Amlodipine Besylate 2.5 Mg Tablet) 2.5 mg PO ONCE PRN; Protocol PRN Reason: htn Last Admin: 06/19/25 23:40 Dose: 2.5 mg Documented By: NURIA Amlodipine Besylate (Amlodipine Besylate 10 Mg Tablet) 10 mg PO DAILY [facility]; Protocol Last Admin: 06/20/25 10:34 Dose: 10 mg Documented By: ANGEL Atenolol (Atenolol 50 Mg Tablet) 50 mg PO BEDTIME [facility]; Protocol Last Admin: 06/19/25 20:14 Dose: 50 mg Documented By: NURIA Calcium Carbonate (Calcium Carbonate 750 Mg Tab.Chew) 750 mg PO Q4H PRN PRN Reason: Heartburn Hydrochlorothiazide (Hydrochlorothiazide 25 Mg Tablet) 25 mg PO DAILY [facility]; Protocol Last Admin: 06/20/25 07:51 Dose: 25 mg Documented By: ANGEL Piperacillin Sod/Tazobactam (Sod 2.25 gm/ Sodium Chloride) 50 mls @ 100 mls/hr IV Q6H [facility] Last Infusion: 06/20/25 06:42 Dose: Infused Documented By: NURIA Acetaminophen (Ofirmev) 1,000 mg in 100 mls @ 400 mls/hr IV Q6H [facility] Last Admin: 06/20/25 10:35 Dose: 400 mls/hr Documented By: ANGEL Sodium Chloride (Ns) 1,000 mls @ 80 mls/hr IVCONT .[id number] [facility] Last Admin: 06/20/25 05:04 Dose: 80 mls/hr Documented By: NURIA Levalbuterol HCl (Levalbuterol Hcl 1.25 Mg/3 Ml Vial.Neb) 1.25 mg INHALE Q3H PRN PRN Reason: Wheezing Last Admin: 06/17/25 11:11 Dose: 1.25 mg Documented By: DIMPLE Loperamide HCl (Loperamide Hcl 2 Mg Capsule) 2 mg PO Q4H PRN PRN Reason: Diarrhea Magnesium Hydroxide (Milk Of Magnesia 30 Ml Oral.Susp) 30 ml PO DAILY PRN PRN Reason: Constipation Melatonin (Melatonin 3 Mg Tablet) 6 mg PO BEDTIME PRN PRN Reason: Insomnia Last Admin: 06/19/25 23:22 Dose: 6 mg Documented By: NURIA Multivitamins/Vitamin C (Multivitamin Tablet) 1 tab PO DAILY [facility] Last Admin: 06/20/25 07:51 Dose: 1 tab Documented By: ANGEL Omeprazole (Omeprazole 20 Mg Capsule.Dr) 20 mg PO DAILY PRN PRN Reason: Acid Reflux Ondansetron HCl (Ondansetron Hcl 4 Mg/2 Ml Vial) 4 mg IVPUSH Q6H PRN PRN Reason: Nausea and Vomiting Oxycodone HCl (Oxycodone Hcl Immed Release 5 Mg Tablet) 5 mg PO Q4H PRN PRN Reason: Pain, Moderate(Pain Scale 4-6) Sodium Chloride (0.9 % Sodium Chloride Flush 3 Ml Syringe) 3 ml IVFLUSH QSHIFT [facility] Last Admin: 06/20/25 07:52 Dose: Not Given Documented By: ANGEL Non-Admin Reason: IV Running Labs 06/20/25 06:45 06/20/25 06:45 Labs: Laboratory Results - last 24 hr 06/20/25 06:45 MCV 96.8 MCH 32.7 MCHC 33.8 RDW 12.8 Plt Count 172 MPV 10.5 Absolute Nucleated RBC 0.000 Nucleated RBC % (auto) 0.0 Anion Gap 13 Estim Creat Clear Calc 38.9 Estimated GFR 30 Random Glucose 110 Calcium 8.4 Total Bilirubin 0.5 AST 524 H ALT 148 H Alkaline Phosphatase 47 Total Protein 5.9 L Albumin 2.9 L Microbiology Microbiology Results: Microbiology 06/14/25 16:03 Blood Culture - Final Blood - Venous No growth after 5 days. 06/14/25 16:03 Blood Culture - Final Blood - Venous No growth after 5 days. Assessment and Plan (1) Sigmoid diverticulitis: Status: Acute Plan 74M PMH diverticulitis, htn, presented with fall, ams, found to have sepsis due to sigmoid diverticulitis with abscess Severe sepsis due to acute recurrent sigmoid diverticulitis with retroperitoneal abscess Continue Zosyn, cultures negative so far, postop day 2 sigmoid resection with colostomy PT eval ATN/acute kidney injury Due to sepsis Improving Continue to monitor Keep [place] 2 weeks, follow up with Urology Hypertension Atenolol, HCTZ, amlodipine DVT prophylaxis with heparin subQ Full code reason for continued hospitalization: Awaiting return of GI function, monitoring creatinine Quality Stroke Does the patient have a stroke diagnosis?: No VTE Prior VTE?: No VTE Risk Level:: Medical - moderate - high VTE Device Contraindication: N/A - Device Ordered VTE Drug Contraindication: Treatment Not Indicated
--- NOTE | 2025-06-20 11:01 | MHC.CM.PN ---
Per ROUNDS discussion, Patient is not yet medically cleared for dc (on clear liquids/advancing diet); Patient may benefit from a PT Eval to assist with disposition.
--- NOTE | 2025-06-20 13:33 | HO.OSTOMY ---
Ostomy Consult: Follow up Teaching 74yr old male admitted to [facility] [place] on 06/14/25 - see H&P for detailed history and admission.? Consult for ostomy teaching. ?He had Colostomy creation on 06/18/[address] Whalen. ?Upon entry into patient's room, patient is sitting in his recliner chair, alert and oriented x 3, currently has no complaints. ? at bedside for teaching as well. Introductions were completed, they are agreeable to continuing with teaching. ? We discussed pain control at ?0?/10 at the current moment. Patient is not yet ambulating, but expressing desire to get up and walk. Spoke with direct care RN who reports patient was heavy assist to chair with noted weakness, plan for PT eval. ?We began by discussing general knowledge about the Colostomy and questions they had. ?We discussed opening and closing the ostomy pouch. They were able to independently provide a return demonstration on an empty pouch. ?They had not yet emptied their pouch only bowel sweat is noted, gas was audible while in with patient. ? We discussed the importance of emptying pouch when 1/3 to 1/2 full, how to empty pouch, and lining water with toilet paper to prevent splash back. We discussed purpose and process of measuring stoma for pouch change, pouch change was demonstrated on stoma model, including measuring of stoma. Patient was educated on when to contact band ripsaw operator/?s office/seek emergency medical treatment. Aware that Rx written for pouches and rings will be sent by Outpt nurse to [facility] for home delivery.? Reviewed written education with patient and left at bedside for further review. ?Education videos supplied by [facility] were watched by patients at home. She had many appropriate questions, which were all answered. Patient has begun watching videos and plans to complete them prior to next teaching. Permission was granted for pouch assessment and no leak was noted.? Stoma is flush, round and pink.? Due to no output from stoma pouch is not needed to be changed at this time.? Throughout education he and his had questions that lead to further discussion and understanding. ?Patient reported having no further questions at this time. ?Patient was made aware that I will return to bedside later in week for ongoing education - however to note patient seems to have a good understanding of care and material at this time. ?Patient will benefit from VNA services at time of discharge. ?All questions and concerns addressed at this time. Next teaching session goals: Demonstrate open and close independently Empty pouch Pouch change
--- NOTE | 2025-06-20 15:11 | MHC.CM.PN ---
CM met with Patient at bedside to discuss PT's recommendation for STR. Patient is agreeable to the initiation of a SNF bed search. CM will continue to follow.
--- NOTE | 2025-06-20 15:26 | PM.EVENT ---
Event Note Date of Service: 06/20/25 Event Note: Seen on afternoon rounds Continues to feel well Passing flatus via the stoma Abdomen is soft Tolerating clear liquids Stable vital signs He wants to try food Regular diet ordered for anna Instructed to do on a small meals for now Urine clear updated Time Spent With Patient Time: Total time managing care of this patient today ____ minutes.
[2025-06-20] MEDS: 0.9 % Sodium Chloride Flush 3 ML SYRINGE IVFLUSH (20:48)
[2025-06-21 03:00] VITALS: BP 140/80; PULSE 67; RESP 18; TEMP 36.7; O2SAT 93
[2025-06-21 07:00] VITALS: BP 148/86; PULSE 71; RESP 20; TEMP 36.4; O2SAT 97
[2025-06-21 07:06] LABS: Hematocrit 35.7 % (42.0-52.0); Hemoglobin 11.9 g/dl (14.0-18.0); Mean Corpuscular HGB Conc 33.3 g/dl (31.0-36.0); Mean Corpuscular Hemoglobin 32.8 pg (27.0-33.0); Mean Corpuscular Volume 98.3 fL (80.0-98.0); NRBC Abs Auto 0.000 X10*3/uL (0.0-0.012); NRBC Pct Auto 0.0 /100WBC (0.0-0.2); Platelet Count 164 X10*3/uL (160-400); Red Blood Count 3.63 X10*6/uL (4.60-5.80); White Blood Count 9.2 X10*3/uL (4.8-10.8)
[2025-06-21 07:53] LABS: Anion Gap 13 (12-20); Blood Urea Nitrogen 39 mg/dL (9-16); Calcium 8.5 mg/dL (8.4-10.2); Carbon Dioxide 28 mmol/L (22-29); Chloride 104 mmol/L (96-108); Creatinine Clr Calc Pharmacy 41.8; Estimated Glomerular Filt Rate 33; Magnesium 1.7 mg/dL (1.6-2.6); Potassium 4.3 mmol/L (3.3-5.1); Sodium 141 mmol/L (135-145)
[2025-06-21] MEDS: 0.9 % Sodium Chloride Flush 3 ML SYRINGE IVFLUSH ×3 (09:08→20:37)
--- NOTE | 2025-06-21 09:16 | P.PNGS_ITS ---
Subjective Subjective Date of Service: 06/21/25 Interval history: Feels well Tolerated regular diet Stoma functioning well with good stools Urine clear Physical Exam 2 Vital Signs: Vital Signs: Last Vital Signs Temp 97.5 F 06/21/25 07:00 Pulse 71 06/21/25 07:00 Resp 20 06/21/25 07:00 BP 148/86 H 06/21/25 07:00 Pulse Ox 97 06/21/25 07:00 O2 Del Method Room Air 06/21/25 07:00 O2 Flow Rate 1 06/18/25 17:00 BMI result Body Mass Index 32.1 Const: General: comfortable and no acute distress Resp: Effort & Inspection: normal respiratory effort Cardio: Rate: regular rate GI: Other: Stoma functioning well with good output Incisions clean, EB drain serosanguineous Palpation (GI): Soft to palpation, not firm and nontender Objective Data Active Medications Amlodipine Besylate (Amlodipine Besylate 2.5 Mg Tablet) 2.5 mg PO ONCE PRN; Protocol PRN Reason: htn Last Admin: 06/19/25 23:40 Dose: 2.5 mg Documented By: NURIA Amlodipine Besylate (Amlodipine Besylate 10 Mg Tablet) 10 mg PO DAILY [facility]; Protocol Last Admin: 06/21/25 09:00 Dose: 10 mg Documented By: PHU Atenolol (Atenolol 50 Mg Tablet) 50 mg PO BEDTIME [facility]; Protocol Last Admin: 06/20/25 20:45 Dose: 50 mg Documented By: CLARISSA Calcium Carbonate (Calcium Carbonate 750 Mg Tab.Chew) 750 mg PO Q4H PRN PRN Reason: Heartburn Heparin Sodium (Porcine) (Heparin Sodium,Porcine 5,000 Unit/Ml Vial) 5,000 unit SUBCUT Q8H [facility] Last Admin: 06/21/25 03:29 Dose: 5,000 unit Documented By: CLARISSA Hydrochlorothiazide (Hydrochlorothiazide 25 Mg Tablet) 25 mg PO DAILY [facility]; Protocol Last Admin: 06/21/25 09:00 Dose: 25 mg Documented By: PHU Piperacillin Sod/Tazobactam (Sod 2.25 gm/ Sodium Chloride) 50 mls @ 100 mls/hr IV Q6H [facility] Last Infusion: 06/21/25 06:49 Dose: Infused Documented By: CLARISSA Acetaminophen (Ofirmev) 1,000 mg in 100 mls @ 400 mls/hr IV Q6H [facility] Last Admin: 06/21/25 05:45 Dose: Not Given Documented By: CLARISSA Non-Admin Reason: Patient Refused Levalbuterol HCl (Levalbuterol Hcl 1.25 Mg/3 Ml Vial.Neb) 1.25 mg INHALE Q3H PRN PRN Reason: Wheezing Last Admin: 06/17/25 11:11 Dose: 1.25 mg Documented By: DIMPLE Loperamide HCl (Loperamide Hcl 2 Mg Capsule) 2 mg PO Q4H PRN PRN Reason: Diarrhea Magnesium Hydroxide (Milk Of Magnesia 30 Ml Oral.Susp) 30 ml PO DAILY PRN PRN Reason: Constipation Melatonin (Melatonin 3 Mg Tablet) 6 mg PO BEDTIME PRN PRN Reason: Insomnia Last Admin: 06/19/25 23:22 Dose: 6 mg Documented By: NURIA Multivitamins/Vitamin C (Multivitamin Tablet) 1 tab PO DAILY [facility] Last Admin: 06/21/25 09:00 Dose: 1 tab Documented By: PHU Omeprazole (Omeprazole 20 Mg Capsule.Dr) 20 mg PO DAILY PRN PRN Reason: Acid Reflux Ondansetron HCl (Ondansetron Hcl 4 Mg/2 Ml Vial) 4 mg IVPUSH Q6H PRN PRN Reason: Nausea and Vomiting Oxycodone HCl (Oxycodone Hcl Immed Release 5 Mg Tablet) 5 mg PO Q4H PRN PRN Reason: Pain, Moderate(Pain Scale 4-6) Sodium Chloride (0.9 % Sodium Chloride Flush 3 Ml Syringe) 3 ml IVFLUSH QSHIFT [facility] Last Admin: 06/21/25 09:08 Dose: 3 ml Documented By: PHU Labs 06/21/25 06:28 06/21/25 06:28 Labs: Laboratory Results - last 24 hr 06/21/25 06:28 MCV 98.3 H MCH 32.8 MCHC 33.3 RDW 12.6 Plt Count 164 MPV 11.0 Absolute Nucleated RBC 0.000 Nucleated RBC % (auto) 0.0 Anion Gap 13 Estim Creat Clear Calc 41.8 Estimated GFR 33 Random Glucose 112 Calcium 8.5 Magnesium 1.7 Procedures Date of Service Date of Service: 06/21/25 Progress Note: A&P Assessment and plan (1) Colovesical fistula: Status: Acute Assessment and Plan: Status post sigmoid resection, colostomy Doing well Good GI function, on regular diet Stoma functioning well Discharge planning [place] to stay for at least 2 weeks Possibly remove EB drain prior to discharge Ambulate [place] to leg bag Time Spent With Patient Time: Total time managing care of this patient today ____ minutes. Quality Stroke Does the patient have a stroke diagnosis?: No VTE Prior VTE?: No VTE Risk Level:: Medical - moderate - high VTE Device Contraindication: N/A - Device Ordered VTE Drug Contraindication: Treatment Not Indicated
--- NOTE | 2025-06-21 09:21 | P.PNNP_ITS ---
Subjective Subjective Date of Service: 06/21/25 Interval history: Blood pressure is better controlled after adding amlodipine yesterday Renal function improving, creatinine down to 1.99 Physical Exam 2 Vital Signs: Vital Signs: Last Vital Signs Temp 97.5 F 06/21/25 07:00 Pulse 71 06/21/25 07:00 Resp 20 06/21/25 07:00 BP 148/86 H 06/21/25 07:00 Pulse Ox 97 06/21/25 07:00 O2 Del Method Room Air 06/21/25 07:00 O2 Flow Rate 1 06/18/25 17:00 BMI result Body Mass Index 32.1 General: not in any acute distress, ill appearing Nutritional Appearance: well nourished and overweight Eyes: appearance normal, both eyes and all related structures; Alignment and Position: alignment normal and position normal Neck: No lymphadenopathy, no thyromegaly Resp: bilateral air entry equal, no added sounds present Cardio: Regular rate, regular rhythm; Heart sounds: S1 normal heart sound present and S2 normal heart sound present GI: soft, nontender, no guarding, no hepatosplenomegaly : bladder normal to inspection, bladder normal to palpation, no renal angle tenderness Skin: no rashes or lesions noted and elasticity normal Neuro: alert, oriented x 3, moves all extremities Objective Data Labs 06/21/25 06:28 06/21/25 06:28 Labs: Laboratory Results - last 24 hr 06/21/25 06:28 WBC 9.2 RBC 3.63 L Hgb 11.9 L Hct 35.7 L MCV 98.3 H MCH 32.8 MCHC 33.3 RDW 12.6 Plt Count 164 MPV 11.0 Absolute Nucleated RBC 0.000 Nucleated RBC % (auto) 0.0 Sodium 141 Potassium 4.3 Chloride 104 Carbon Dioxide 28 Anion Gap 13 BUN 39 H Creatinine 1.99 H Estim Creat Clear Calc 41.8 Estimated GFR 33 Random Glucose 112 Calcium 8.5 Magnesium 1.7 Microbiology Microbiology Results: Microbiology 06/14/25 16:03 Blood - Venous Blood Culture - Final No growth after 5 days. 06/14/25 16:03 Blood - Venous Blood Culture - Final No growth after 5 days. 06/15/25 11:15 Abscess Intra-abdominal Gram Stain - Final 06/15/25 11:15 Abscess Intra-abdominal Routine Culture - Final 06/15/25 11:15 Abscess Intra-abdominal Anaerobic Culture - Final 06/15/25 Unknown Urine clean catch - Clean Catch Midstream Urine Culture - Final Procedures Date of Service Date of Service: 06/21/25 Assessment & Plan Assessment and plan (1) Acute kidney injury: Status: Acute (2) High blood pressure: Status: Acute Plan Acute kidney injury: Possibly secondary to ATN due to drop in the blood pressures to 103/57mmHG in a patient with relatively very high blood pressures all the time as creatinine started uptrending the day after this event. Baseline creatinine around 1.07, peaked to 2.76, currently trending down for the past 3-4 days and is down to 1.99 this morning. Urinalysis showing greater than 50 WBCs, 50 RBCs possibly secondary to colovesical fistula leading to pus drainage; so not much helpful Status post IR guided drainage of the abscess, and also status post laparoscopic sigmoid resection with lysis of adhesions and end colostomy on 06/18/2025. Continue Zosyn for antibiotics Hold nephrotoxic medications, IV contrast, Raymundo or arbs eating well, no need for IV fluids. Hypertension: On atenolol, hydrochlorothiazide and lisinopril at home with poor control of blood pressures Continue holding lisinopril, on atenolol, hydrochlorothiazide and amlodipine 10 mg added yesterday with which the blood pressures are better controlled. Nephrology we will sign off, please reconsult if clinical status changes Time Spent With Patient Time: Total time managing care of this patient today ____ minutes. Progress Note: Quality Stroke Does the patient have a stroke diagnosis?: No
--- NOTE | 2025-06-21 10:21 | P.PNIM_ITS ---
Subjective Subjective Date of Service: 06/21/25 Interval History: tolerating solids Physical Exam 2 Vital Signs: Vital Signs: Last Vital Signs Temp 97.5 F 06/21/25 07:00 Pulse 71 06/21/25 07:00 Resp 20 06/21/25 07:00 BP 148/86 H 06/21/25 07:00 Pulse Ox 97 06/21/25 07:00 O2 Del Method Room Air 06/21/25 07:00 O2 Flow Rate 1 06/18/25 17:00 BMI result Body Mass Index 32.1 General: not in any acute distress, ill appearing Nutritional Appearance: well nourished and overweight Eyes: appearance normal, both eyes and all related structures; Alignment and Position: alignment normal and position normal Neck: No lymphadenopathy, no thyromegaly Resp: bilateral air entry equal, no added sounds present Cardio: Regular rate, regular rhythm; Heart sounds: S1 normal heart sound present and S2 normal heart sound present GI: soft, nontender, no guarding, no hepatosplenomegaly : bladder normal to inspection, bladder normal to palpation, no renal angle tenderness Skin: no rashes or lesions noted and elasticity normal Neuro: alert, oriented x 3, moves all extremities Objective Data Active Medications Amlodipine Besylate (Amlodipine Besylate 2.5 Mg Tablet) 2.5 mg PO ONCE PRN; Protocol PRN Reason: htn Last Admin: 06/19/25 23:40 Dose: 2.5 mg Documented By: NURIA Amlodipine Besylate (Amlodipine Besylate 10 Mg Tablet) 10 mg PO DAILY [facility]; Protocol Last Admin: 06/21/25 09:00 Dose: 10 mg Documented By: PHU Atenolol (Atenolol 50 Mg Tablet) 50 mg PO BEDTIME [facility]; Protocol Last Admin: 06/20/25 20:45 Dose: 50 mg Documented By: CLARISSA Calcium Carbonate (Calcium Carbonate 750 Mg Tab.Chew) 750 mg PO Q4H PRN PRN Reason: Heartburn Heparin Sodium (Porcine) (Heparin Sodium,Porcine 5,000 Unit/Ml Vial) 5,000 unit SUBCUT Q8H [facility] Last Admin: 06/21/25 03:29 Dose: 5,000 unit Documented By: CLARISSA Hydrochlorothiazide (Hydrochlorothiazide 25 Mg Tablet) 25 mg PO DAILY [facility]; Protocol Last Admin: 06/21/25 09:00 Dose: 25 mg Documented By: PHU Piperacillin Sod/Tazobactam (Sod 2.25 gm/ Sodium Chloride) 50 mls @ 100 mls/hr IV Q6H [facility] Last Infusion: 06/21/25 06:49 Dose: Infused Documented By: CLARISSA Acetaminophen (Ofirmev) 1,000 mg in 100 mls @ 400 mls/hr IV Q6H [facility] Last Admin: 06/21/25 05:45 Dose: Not Given Documented By: CLARISSA Non-Admin Reason: Patient Refused Levalbuterol HCl (Levalbuterol Hcl 1.25 Mg/3 Ml Vial.Neb) 1.25 mg INHALE Q3H PRN PRN Reason: Wheezing Last Admin: 06/17/25 11:11 Dose: 1.25 mg Documented By: DIMPLE Loperamide HCl (Loperamide Hcl 2 Mg Capsule) 2 mg PO Q4H PRN PRN Reason: Diarrhea Magnesium Hydroxide (Milk Of Magnesia 30 Ml Oral.Susp) 30 ml PO DAILY PRN PRN Reason: Constipation Melatonin (Melatonin 3 Mg Tablet) 6 mg PO BEDTIME PRN PRN Reason: Insomnia Last Admin: 06/19/25 23:22 Dose: 6 mg Documented By: NURIA Multivitamins/Vitamin C (Multivitamin Tablet) 1 tab PO DAILY [facility] Last Admin: 06/21/25 09:00 Dose: 1 tab Documented By: PHU Omeprazole (Omeprazole 20 Mg Capsule.Dr) 20 mg PO DAILY PRN PRN Reason: Acid Reflux Ondansetron HCl (Ondansetron Hcl 4 Mg/2 Ml Vial) 4 mg IVPUSH Q6H PRN PRN Reason: Nausea and Vomiting Oxycodone HCl (Oxycodone Hcl Immed Release 5 Mg Tablet) 5 mg PO Q4H PRN PRN Reason: Pain, Moderate(Pain Scale 4-6) Sodium Chloride (0.9 % Sodium Chloride Flush 3 Ml Syringe) 3 ml IVFLUSH QSHIFT [facility] Last Admin: 06/21/25 09:08 Dose: 3 ml Documented By: PHU Labs 06/21/25 06:28 06/21/25 06:28 Labs: Laboratory Results - last 24 hr 06/21/25 06:28 MCV 98.3 H MCH 32.8 MCHC 33.3 RDW 12.6 Plt Count 164 MPV 11.0 Absolute Nucleated RBC 0.000 Nucleated RBC % (auto) 0.0 Anion Gap 13 Estim Creat Clear Calc 41.8 Estimated GFR 33 Random Glucose 112 Calcium 8.5 Magnesium 1.7 Assessment and Plan (1) Sigmoid diverticulitis: Status: Acute Plan 74M PMH diverticulitis, htn, presented with fall, ams, found to have sepsis due to sigmoid diverticulitis with abscess Severe sepsis due to acute recurrent sigmoid diverticulitis with retroperitoneal abscess Continue Zosyn, cultures negative so far, postop day 3 sigmoid resection with colostomy PT eval - rec str ATN/acute kidney injury Due to sepsis Improving Continue to monitor Keep [place] 2 weeks, follow up with Urology Hypertension Atenolol, HCTZ, amlodipine DVT prophylaxis with heparin subQ Full code reason for continued hospitalization: dispo planning Quality Stroke Does the patient have a stroke diagnosis?: No VTE Prior VTE?: No VTE Risk Level:: Medical - moderate - high VTE Device Contraindication: N/A - Device Ordered VTE Drug Contraindication: Treatment Not Indicated
--- NOTE | 2025-06-21 10:27 | P.DS_ITS ---
DS: Providers Provider Date of Service: 06/22/25 Date of admission: 06/14/25 19:50 Date of discharge: 06/22/25 Primary care physician: LAI Delcid Consults: 06/14/25 19:54 Consult to General Surgery Routine Consulting Provider: [facility] Reason for consultation: complicated diverticulitis Has provider been notified: Yes 06/15/25 13:38 Consult to Ostomy Care Routine 06/16/25 08:06 Consult to Nephrology Routine Consulting Provider: [facility] Reason for consultation: cam 06/16/25 10:20 Consult to Urology Routine Consulting Provider: [facility] Reason for consultation: Cam Has provider been notified: No DS: Diagnosis Discharge Diagnosis (1) Sigmoid diverticulitis: Status: Acute DS: Summary Hospital Course Hospital Course: from initial hpi: 74 years old man with past medical history significant for multiple events of diverticulitis, hypertension (on hydrochlorothiazide + lisinopril and atenolol) presents to the ED after sustaining a fall resulting in head trauma. His who is at bedside noted that he has been confused. Patient had fever spike of 102 today and has been having urinary frequency. Denied bloody urine. He denied abdominal pain, nausea, vomiting, diarrhea or constipation. Denied headache. He denied any acute cardiopulmonary symptoms. No history of abdominal surgeries. In the ED, he was initially found to have significant sinus tachycardia. Blood pressure has been stable. Yunier no significant hypoxia and temperature was a 100.2 degrees. Blood workup was remarkable for significant leukocytosis of 27.7. Hemoglobin is 14.5 and platelets 219. INR is 1.1. There are no significant electrolyte imbalances. CO2 is 19, BUN 20 and creatinine 1.86. He had significant lactic acidosis of 6.0. It is now 2.4. ETOH level is < 10. Abdominal pelvis CT scan showed sigmoid colon mural thickening with pericolic inflammation and adjacent 3.4 x 3.4 by 3.6 cm air-fluid collection, intraperitoneal abscess with sigmoid diverticulitis and sigmoid colitis. Head and neck CT scan showed no acute abnormalities. Chest CT scan without contrast showed no acute intrathoracic findings. ECG showed sinus tachycardia, 135 beats per minute with nonspecific ST and T-wave abnormalities. ED tx: Ceftriaxone 1 g, acetaminophen 975 mg p.o., LR 2.9 L bolus, vancomycin 2 g IV, metronidazole 500 mg IV hospital course: Patient was admitted for severe sepsis due to acute recurrent sigmoid diverticulitis with retroperitoneal abscess. Was treated with IV Zosyn. Cultu res were negative. Sepsis resolved. Was seen by surgery who performed sigmoid resection with colostomy. Was seen by physical therapy recommended short-term rehab to which patient will be discharged. He will continue 7 more days of Augmentin on discharge. 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 For acute kidney injury due to ATN from sepsis lisinopril has been held. Creatinine somewhat improved and is 1.99 at discharge. Lisinopril has been replaced with amlodipine and should follow up with Nephrology as outpatient. For hypertension we will continue atenolol, hydrochlorothiazide, amlodipine. Time Attestation Discharge Coordination Time (in mins): 37 Quality: Safe Use of Opioids Does Pt have an Active Cancer Diagnosis on the Problem List?: No Quality: Stroke Does the patient have a stroke diagnosis?: No Physical Exam Vital Signs: Vital Signs: Last Vital Signs Temp 97.5 F 06/21/25 07:00 Pulse 71 06/21/25 07:00 Resp 20 06/21/25 07:00 BP 148/86 H 06/21/25 07:00 Pulse Ox 97 06/21/25 07:00 O2 Del Method Room Air 06/21/25 07:00 O2 Flow Rate 1 06/18/25 17:00 BMI result Body Mass Index 32.1 General: not in any acute distress, ill appearing Nutritional Appearance: well nourished and overweight Eyes: appearance normal, both eyes and all related structures; Alignment and Position: alignment normal and position normal Neck: No lymphadenopathy, no thyromegaly Resp: bilateral air entry equal, no added sounds present Cardio: Regular rate, regular rhythm; Heart sounds: S1 normal heart sound present and S2 normal heart sound present GI: soft, nontender, no guarding, no hepatosplenomegaly : bladder normal to inspection, bladder normal to palpation, no renal angle tenderness Skin: no rashes or lesions noted and elasticity normal Neuro: alert, oriented x 3, moves all extremities DS: Data Data Completed and Pending Pending studies at discharge: Pending at discharge 06/18/25 14:25 Surgical [PTH] Routine Labs on day of discharge: Laboratory Results - last 24 hr 06/21/25 06:28 WBC 9.2 RBC 3.63 L Hgb 11.9 L Hct 35.7 L MCV 98.3 H MCH 32.8 MCHC 33.3 RDW 12.6 Plt Count 164 MPV 11.0 Absolute Nucleated RBC 0.000 Nucleated RBC % (auto) 0.0 Sodium 141 Potassium 4.3 Chloride 104 Carbon Dioxide 28 Anion Gap 13 BUN 39 H Creatinine 1.99 H Estim Creat Clear Calc 41.8 Estimated GFR 33 Random Glucose 112 Calcium 8.5 Magnesium 1.7 Discharge Plan Discharge Anticipated Discharge Date/Time: 06/21/25 10:23 Patient Disposition: Xfer [facility] Discharge Diagnosis: sepsis, diverticullitis, abscess, cam Referrals: Cris Muhammad [facility] [Outside] - 1 Week Dustin Covington MD [Physician, Critical Care (Intensivists)] - 1 Week Toney Rangel MD [Physician, Urology] - 1 Month Referral Note: colovesical fistula, catheter in place Juarez Whalen MD [Physician, General Surgery] - 2 Weeks Bimal Feliz PA [Primary Care Provider, Internal Medicine] - 1 Week Discharge Medications: New amlodipine 10 mg Tablet 10 mg PO DAILY Qty: 0 0RF Protocol: Hold for SBP< HOLD for SBP < : 90 amoxicillin-pot clavulanate 875-125 mg tablet 1 tab PO BID 7 Days Qty: 14 0RF Continued omeprazole 20 mg Capsule,Delayed Release(Dr/Ec) 20 mg PO DAILY PRN (Reason: Acid Reflux) vitamin B complex Capsule 1 cap PO DAILY atenolol 50 mg tablet 50 mg PO BEDTIME hydrochlorothiazide 25 mg tablet 25 mg PO DAILY Discontinued lisinopril 40 mg tablet 40 mg PO DAILY Discharge Orders: Discharge Order (Routine); Ordered 06/22/25 Ordered By: Landry Min Diet: Advance to usual diet Activity on Discharge: As tolerated Stand Alone Forms: Patient Portal Discharge page Print Language: Montenegrin Activity Restrictions/Additional Instructions: If the incision area is tender, you may apply an ice pack for short intervals (No more than 20 minutes on, followed by at least 20 minutes off). Do not apply heat. Do not use creams, lotions, or topical antibiotics. These can cause infection or allergic reaction. Ok to shower. You have sveta closing your incision and these will be removed approximately 10-14 days after surgery. NO HEAVY LIFTING (>10lbs) or strenuous activity. Follow up in office with Dr. Whalen. ([phone]) Follow up with urology regarding your alba catheter. Call Your Doctor If: -Your temperature exceeds 101.5? F -You experience excessive pain or swelling -You have an unexpected reaction to medication -You have excessive bleeding -You experience continued vomiting/nausea -Your incision begins to separate -Your incision shows signs of infection such as increased redness, swelling, excessive pain, drainage (light blood or clear fluid is normal) or heat Ostomy recommendations: 1. Empty pouch before pouch change 2. Remove pouch using push/pull technique from top to bottom 3. Cleanse stoma and skin with tap water only - no soap or baby wipes 4. Pat dry 5. Measure stoma and cut new pouch no more than 1/8 inch larger than stoma and no smaller than stoma 6. If instructed by your ostomy nurse stretch barrier seal to the size of the stoma and press onto skin around stoma (up to the edge of the stoma but not onto the stoma) 7. Press the new pouch into place and hold for several minutes (close pouch tail) 8. Empty pouch when 1/3 to 1/2 full 9. Change pouch twice weekly on a schedule (for example, every Wednesday and ) and as needed for any leaking (feels like intense itch or burn at edge of stoma) Alba catheter care: Wash your hands before and after touching the catheter or bag. Clean the skin around where the catheter enters your body once a day with soap and water. Pat dry. Keep the bag below your bladder (waist level) at all times. Empty the bag when it?s about 2/3 full or every 6?8 hours: ? Open the spout over the toilet ? Don?t touch the tip ? Close it tightly after draining Make sure the tube isn?t kinked or pulled. Secure it with a leg strap or tape. Call your doctor if you have: ? Fever or chills ? Pain in your lower belly ? Blood, pus, or foul-smelling urine ? No urine draining ? Leaking around the catheter Care Plan Goals: recovery Health Concerns: diverticulitis, cam Plan of Treatment: med changes as above keep alba 2 weeks, then voiding trial, follow up with urology follow up with general surgery and nephrology 7 more days augmentin Assessment: see above
[2025-06-21 11:00] VITALS: BP 159/81; PULSE 79; RESP 20; TEMP 36.6; O2SAT 98
--- NOTE | 2025-06-21 11:52 | MHC.CM.PN ---
Patient will be dc'd to [facility] tomorrow at 11 AM, via [facility], as long as he is medically cleared by tomorrow. CM met with Patient and his /Marla at bedside and they are in agreement with this dc plan. IMM was completed with Patient today and he received the original and a copy was placed on the chart.
[2025-06-21 15:00] VITALS: BP 147/74; PULSE 81; RESP 20; TEMP 37.1; O2SAT 96
--- NOTE | 2025-06-21 15:35 | MHC.CM.PN ---
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 Original Note: CM continues to follow for Wound Care/new Colostomy details from [employer] maintenance worker, that [facility] has requested. Per MariluIdaarik [facility], Patient will need to dc to SNF with enough colostomy supplies to last for the weekend and they will order their own supplies, once they have the ostomy supply details from the Wound Care Nurse, so they know what to order. Per Attending, Surgeon may dc EB drain tomorrow.
--- NOTE | 2025-06-21 15:42 | HO.OSTOMY ---
Ostomy Consult: Follow up Teaching 74yr old male admitted to [facility] on 06/14/25 - see H&P for detailed history and admission.? Consult for ostomy teaching. ?He had Colostomy creation on 06/18/[address] Whalen. ?Upon entry into patient's room, patient is sitting in his recliner chair, alert and oriented x 3, currently has no complaints. ? at bedside for teaching as well. Introductions were completed, they are agreeable to continuing with teaching. ? We discussed pain control at ?0?/10 at the current moment. Patient is ambulating small distances with a walker due to weakness and is set for d/c to rehab facility tomorrow. We began by discussing general knowledge about the Colostomy and questions they had. ?We discussed opening and closing the ostomy pouch, he reports the pouch was emptied overnight but by staff. Together we assessed his pouch and noted it to be filled greater than 1/2 he was agreeable to emptying his pouch together. Given overall weakness he was not able to walk to bathroom so we agreed to perform this with a graduate in the recliner chair in the sitting position similar to being on the toilet. He participated in this and needed some assistance at times. He was able to independently close his pouch. We discussed the importance of emptying pouch when 1/3 to 1/2 full, how to empty pouch, and lining water with toilet paper to prevent splash back. Patient was educated on when to contact marine equipment preservation inspector/?s office/seek emergency medical treatment. Aware that Rx written for pouches and rings will be sent by Outpt nurse to [facility] for home delivery.? Reviewed written education with patient and left at bedside for further review. ?Education videos supplied by [facility] were watched by patient and his . All questions answered. Permission was granted for pouch assessment and no leak was noted.? Stoma is flush, oval and pink.? Pouch removed and noted to have silent leaking starting at the 6 o'clock area - this portion of the stoma is flat. The stoma is pink and moist remains viable, slight slough noted to J. Given the flat nature of the stoma he may need a convex pouch in the future but at this time a flat pouch coloplast # [id number] was used along with a barrier strip paste to the edge of the stoma - see photo below. Throughout education he and his had questions that lead to further discussion and understanding. ?Patient reported having no further questions at this time. ?Patient was made aware that I will return to bedside tomorrow prior to d/c for ongoing education - however to note patient seems to have a good understanding of care and material at this time. ?Patient will benefit from VNA services at time of discharge from rehab. ?All questions and concerns addressed at this time. Stoma Stoma with barrier strip We discussed the following steps: 1. Empty pouch before pouch change 2. Remove pouch using push/pull technique from top to bottom 3. Cleanse stoma and skin with tap water only - no soap or wipes 4. Pat dry 5.Measure stoma and cut new pouch no more than 1/8 inch larger than stoma and no smaller than stoma 6. If instructed by your ostomy nurse stretch barrier seal to the size of the stoma and press onto skin around stoma (up to the edge of the stoma but not onto the stoma) 7. Press the new pouch into place and hold for several seconds (close pouch tail) 8. Empty pouch when 1/3 to 1/2 full 9. Change pouch twice weekly on a schedule (for example, every Wednesday and ) and as needed for any leaking (feels like intense itch or burn at edge of stoma) 10. May order pre-cut pouches (already cut to size of stoma) once stoma measures the same size consistently at about 8-12 weeks.
--- NOTE | 2025-06-21 16:20 | MHC.CM.PN ---
CM has asked RN to pass on in report that Patient needs enough ostomy supplies to be sent with him to last through Wednesday06/25/2025.
[2025-06-21 20:26] VITALS: BP 120/60; PULSE 65; RESP 19; TEMP 36.7; O2SAT 95
[2025-06-21 23:47] VITALS: BP 135/65; PULSE 67; RESP 17; TEMP 36.8; O2SAT 97
[2025-06-22 03:19] VITALS: BP 139/70; PULSE 71; RESP 18; TEMP 36.6; O2SAT 73
[2025-06-22 08:00] VITALS: BP 140/84; PULSE 73; RESP 17; O2SAT 97
--- NOTE | 2025-06-22 09:35 | P.PNGS_ITS ---
Subjective Subjective Date of Service: 06/22/25 Interval history: Says he feels ?great? Tolerating diet well Stoma functioning well Urine clear Physical Exam 2 Vital Signs: Vital Signs: Last Vital Signs Temp 97.9 F 06/22/25 03:19 Pulse 73 06/22/25 08:00 Resp 17 06/22/25 08:00 BP 140/84 H 06/22/25 08:00 Pulse Ox 97 06/22/25 08:00 O2 Del Method Room Air 06/22/25 08:00 O2 Flow Rate 1 06/18/25 17:00 BMI result Body Mass Index 32.1 Const: General: comfortable and no acute distress Resp: Effort & Inspection: normal respiratory effort Cardio: Rate: regular rate GI: Other: Incisions clean, stoma functioning well, EB drain serosanguineous Palpation (GI): Soft to palpation, not firm and no guarding Objective Data Active Medications Amlodipine Besylate (Amlodipine Besylate 2.5 Mg Tablet) 2.5 mg PO ONCE PRN; Protocol PRN Reason: htn Last Admin: 06/19/25 23:40 Dose: 2.5 mg Documented By: NURIA Amlodipine Besylate (Amlodipine Besylate 10 Mg Tablet) 10 mg PO DAILY [facility]; Protocol Last Admin: 06/22/25 09:07 Dose: 10 mg Documented By: JOSÉ LUIS Atenolol (Atenolol 50 Mg Tablet) 50 mg PO BEDTIME [facility]; Protocol Last Admin: 06/21/25 20:37 Dose: 50 mg Documented By: CLARISSA Calcium Carbonate (Calcium Carbonate 750 Mg Tab.Chew) 750 mg PO Q4H PRN PRN Reason: Heartburn Heparin Sodium (Porcine) (Heparin Sodium,Porcine 5,000 Unit/Ml Vial) 5,000 unit SUBCUT Q8H [facility] Last Admin: 06/22/25 03:40 Dose: 5,000 unit Documented By: CLARISSA Hydrochlorothiazide (Hydrochlorothiazide 25 Mg Tablet) 25 mg PO DAILY [facility]; Protocol Last Admin: 06/22/25 09:07 Dose: 25 mg Documented By: JOSÉ LUIS Piperacillin Sod/Tazobactam (Sod 2.25 gm/ Sodium Chloride) 50 mls @ 100 mls/hr IV Q6H [facility] Last Infusion: 06/22/25 09:15 Dose: Infused Documented By: JOSÉ LUIS Levalbuterol HCl (Levalbuterol Hcl 1.25 Mg/3 Ml Vial.Neb) 1.25 mg INHALE Q3H PRN PRN Reason: Wheezing Last Admin: 06/17/25 11:11 Dose: 1.25 mg Documented By: DIMPLE Loperamide HCl (Loperamide Hcl 2 Mg Capsule) 2 mg PO Q4H PRN PRN Reason: Diarrhea Magnesium Hydroxide (Milk Of Magnesia 30 Ml Oral.Susp) 30 ml PO DAILY PRN PRN Reason: Constipation Melatonin (Melatonin 3 Mg Tablet) 6 mg PO BEDTIME PRN PRN Reason: Insomnia Last Admin: 06/19/25 23:22 Dose: 6 mg Documented By: NURIA Multivitamins/Vitamin C (Multivitamin Tablet) 1 tab PO DAILY [facility] Last Admin: 06/22/25 09:08 Dose: 1 tab Documented By: JOSÉ LUIS Omeprazole (Omeprazole 20 Mg Capsule.Dr) 20 mg PO DAILY PRN PRN Reason: Acid Reflux Ondansetron HCl (Ondansetron Hcl 4 Mg/2 Ml Vial) 4 mg IVPUSH Q6H PRN PRN Reason: Nausea and Vomiting Oxycodone HCl (Oxycodone Hcl Immed Release 5 Mg Tablet) 5 mg PO Q4H PRN PRN Reason: Pain, Moderate(Pain Scale 4-6) Sodium Chloride (0.9 % Sodium Chloride Flush 3 Ml Syringe) 3 ml IVFLUSH QSHIFT [facility] Last Admin: 06/22/25 09:08 Dose: Not Given Documented By: JOSÉ LUIS Non-Admin Reason: No Access Labs 06/21/25 06:28 06/21/25 06:28 Procedures Date of Service Date of Service: 06/22/25 Progress Note: A&P Assessment and plan (1) Colovesical fistula: Status: Acute Assessment and Plan: Status post sigmoid resection, colostomy Doing well clinically Good GI functions Stoma functioning well Path report shows diverticular associated segmental colitis, no malignancy Good urine output For transfer to rehab today [facility]UNDREA [facility] prior to discharge Follow up with urology for Esqueda removal in about 2 weeks Follow up in the office for removal of the sveta about 2 weeks No lifting more than 20 lb Time Spent With Patient Time: Total time managing care of this patient today ____ minutes. Quality Stroke Does the patient have a stroke diagnosis?: No VTE Prior VTE?: No VTE Risk Level:: Medical - moderate - high VTE Device Contraindication: N/A - Device Ordered VTE Drug Contraindication: Treatment Not Indicated
--- NOTE | 2025-06-22 10:39 | HO.OSTOMY ---
Ostomy Consult: Follow up Teaching 74yr old male admitted to [facility] on 06/14/25 - see H&P for detailed history and admission.? Consult for ostomy teaching. ?He had Colostomy creation on 06/18/[address] Whalen. ?Upon entry into patient's room, patient is sitting in his recliner chair, alert and oriented x 3. He reports he has not been up walking but is anxious to be discharged to rehab. is not at bedside. He reports he did not participate in emptying the pouch last night and is not able to recall why he did not. His pouch was assessed and noted to be with liquid brown stool - he reports it needs to be emptied. He is agreeable to doing this together. At this time that patient does not have questions he is eager to discharge and start getting stronger so he will be able to shower. Patient is set for d/c to facility with supplies and written education provided. Pouch assessed intact and no leak noted no need for pouch changed since completed yesterday. We discussed the following steps: 1. Empty pouch before pouch change 2. Remove pouch using push/pull technique from top to bottom 3. Cleanse stoma and skin with tap water only - no soap or wipes 4. Pat dry 5.Measure stoma and cut new pouch no more than 1/8 inch larger than stoma and no smaller than stoma 6. If instructed by your ostomy nurse stretch barrier seal to the size of the stoma and press onto skin around stoma (up to the edge of the stoma but not onto the stoma) 7. Press the new pouch into place and hold for several seconds (close pouch tail) 8. Empty pouch when 1/3 to 1/2 full 9. Change pouch twice weekly on a schedule (for example, every Wednesday and ) and as needed for any leaking (feels like intense itch or burn at edge of stoma) 10. May order pre-cut pouches (already cut to size of stoma) once stoma measures the same size consistently at about 8-12 weeks.
--- NOTE | 2025-06-22 10:52 | PM.EVENT ---
Event Note Date of Service: 06/22/25 Event Note: EB with serosanguineous output. Removed uneventfully at bedside. Dry dressing placed. Time Spent With Patient Time: Total time managing care of this patient today ____ minutes.
--- NOTE | 2025-06-22 11:15 | MHC.CM.PN ---
[facility] MEDIC[facility]
== END 2025-06-22 11:59 | disposition skilled nursing facility (03) | DRG 853 ==
LOC: HO.ED 16:17 → HO.EDOVER 19:54 → HO.IMC 06-15 19:57
PROVIDERS: Internal Medicine; Physician Assistant Medical; Physician Assistant Surgical; Radiology Diagnostic Radiology; Surgery; Admitting Provider Internal Medicine; Emergency Provider Emergency Medicine; PCP Physician Assistant Medical; Visit Provider Internal Medicine
PROC: 0DTE0ZZ Resection of Large Intestine, Open Approach (ICD-10-PCS; principal; 2025-06-18 11:10)
DX: A41.9 Sepsis, unspecified organism (principal); K65.1 Peritoneal abscess; N17.0 Acute kidney failure with tubular necrosis; K57.20 Diverticulitis of large intestine with perforation and abscess without bleeding; N32.1 Vesicointestinal fistula; N17.9 Acute kidney failure, unspecified; N39.0 Urinary tract infection, site not specified; E86.9 Volume depletion, unspecified; K66.0 Peritoneal adhesions (postprocedural) (postinfection); E87.5 Hyperkalemia; W19.XXXA Unspecified fall, initial encounter; G89.18 Other acute postprocedural pain; I10 Essential (primary) hypertension; R65.20 Severe sepsis without septic shock; Z79.899 Other long term (current) drug therapy
CPT/HCPCS: 36415; 49406; 70450; 71045; 71250; 72125; 74176; 80048; 80053; 80076; 80307; 81001; 82247; 83605; 83735; 85025; 85027; 85610; 85730; 86850; 86900; 86901; 87040; 87070; 87073; 87086; 87205; 88305; 88307; 93005; 94640; 97110; 97162; 99152; 99153; 99285; C1729; C1894; J0131; J0696; J1100; J1171; J1644; J1836; J1920; J2003; J2250; J2405; J2543; J3010; J3373; J7120; Q9968

== ENCOUNTER → 2025-06-14 15:47 | Outpatient (BNV) | payer MEDICARE, OTHER, SELFPAY | PROVIDERS: Admitting Provider Internal Medicine; Emergency Provider Emergency Medicine; PCP Physician Assistant Medical; Visit Provider Radiology Diagnostic Radiology | DX: K57.32 Diverticulitis of large intestine without perforation or abscess without bleeding (principal); K52.89 Other specified noninfective gastroenteritis and colitis; I70.0 Atherosclerosis of aorta; I25.10 Atherosclerotic heart disease of native coronary artery without angina pectoris; K44.9 Diaphragmatic hernia without obstruction or gangrene; M50.323 Other cervical disc degeneration at C6-C7 level; M50.320 Other cervical disc degeneration, mid-cervical region, unspecified level; I67.82 Cerebral ischemia; G31.89 Other specified degenerative diseases of nervous system | CPT/HCPCS: 70450; 71250; 72125; 74176 ==

== ENCOUNTER → 2025-06-14 15:50 | Outpatient (BNV) | payer MEDICARE, OTHER, SELFPAY | PROVIDERS: Admitting Provider Internal Medicine; Emergency Provider Emergency Medicine; PCP Physician Assistant Medical; Visit Provider Internal Medicine Cardiovascular Disease | DX: R00.0 Tachycardia, unspecified (principal) | CPT/HCPCS: 93010 ==

== ENCOUNTER 2025-06-14 19:50 | Outpatient (BNV) | payer MEDICARE, OTHER, SELFPAY | END 2025-06-15 10:15 | PROVIDERS: Admitting Provider Internal Medicine; Emergency Provider Emergency Medicine; PCP Physician Assistant Medical; Visit Provider Radiology Diagnostic Radiology | DX: K63.0 Abscess of intestine (principal); K57.32 Diverticulitis of large intestine without perforation or abscess without bleeding; N32.1 Vesicointestinal fistula | CPT/HCPCS: 49406 ==

== ENCOUNTER 2025-06-14 19:50 | Outpatient (BNV) | payer MEDICARE, OTHER, SELFPAY | END 2025-06-16 00:27 | PROVIDERS: Admitting Provider Internal Medicine; Emergency Provider Emergency Medicine; PCP Physician Assistant Medical; Visit Provider General Practice | DX: R06.2 Wheezing (principal); R09.02 Hypoxemia; R50.9 Fever, unspecified | CPT/HCPCS: 71045 ==

== ENCOUNTER → 2025-06-14 19:50 | Outpatient (BNV) | payer MEDICARE, OTHER, SELFPAY | PROVIDERS: Admitting Provider Internal Medicine; Emergency Provider Emergency Medicine; PCP Physician Assistant Medical; Visit Provider Internal Medicine | DX: K57.32 Diverticulitis of large intestine without perforation or abscess without bleeding (principal) | CPT/HCPCS: 99223; 99232; 99233 ==

== ENCOUNTER → 2025-06-14 19:50 | Outpatient (BNV) | payer MEDICARE, OTHER, SELFPAY | PROVIDERS: Admitting Provider Internal Medicine; Emergency Provider Emergency Medicine; PCP Physician Assistant Medical; Visit Provider Urology | DX: N32.1 Vesicointestinal fistula (principal) | CPT/HCPCS: 51700 ==

== ENCOUNTER → 2025-06-14 19:50 | Outpatient (BNV) | payer MEDICARE, OTHER, SELFPAY | PROVIDERS: Admitting Provider Internal Medicine; Emergency Provider Emergency Medicine; PCP Physician Assistant Medical; Visit Provider Internal Medicine Critical Care Medicine | DX: N17.9 Acute kidney failure, unspecified (principal); K65.1 Peritoneal abscess | CPT/HCPCS: 99223; 99232 ==

== ENCOUNTER → 2025-06-14 19:50 | Outpatient (BNV) | payer MEDICARE, OTHER, SELFPAY | PROVIDERS: Admitting Provider Internal Medicine; Emergency Provider Emergency Medicine; PCP Physician Assistant Medical; Visit Provider Surgery | DX: K57.20 Diverticulitis of large intestine with perforation and abscess without bleeding (principal); N32.1 Vesicointestinal fistula | CPT/HCPCS: 99222; 99232; 99499 ==

== ENCOUNTER 2025-07-04 10:48 | Outpatient (REF) | payer MEDICARE, OTHER, SELFPAY ==
--- NOTE | ~2025-07-04 | FL_ITS ---
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 Rule out vesicointestinal fistula. COMPARISON: No prior available. Correlation made with CT abdomen and pelvis 06/14/2025, and CT peritoneal drainage 06/15/2025. TECHNIQUE: Using sterile technique, Cystografin contrast was administered through the patient's existing Esqueda catheter utilizing gravity. Fluoroscopic spot images and cine runs were obtained. Postevacuation spot images were also obtained after gravity drainage of contrast. FINDINGS: The urinary bladder has a normal shape and contour. It normally distended with Cystografin contrast. An intraluminal Esqueda catheter balloon is present. No additional filling defect. No evidence of sinus tract or fistulous tract, nor was there evidence of extravasation of contrast from the urinary bladder. FLUOROSCOPY TIME: 1 minute, 10 seconds DOSE AREA PRODUCT: 1291 uGy-m2 (microgray-meter squared) 4 fluoroscopic spot images obtained. 9 cine runs were obtained. FL/FL cystogram IMPRESSION: 1. Normal fluoroscopic guided cystogram without evidence of extravasation, sinus or fistulous tract. Electronically signed by: Hector Palumbo MD 07/04/2025 12:20 PM [facility]
--- OUTSIDE RECORDS SUMMARY | 2025-07-04 12:42 | XMS_ITS | Encounter Summary ---
Author Organization [facility] Address [address] [place] [address] Care Team Providers Care Lead Furnace Operator Name Role Phone Bimal Feliz Primary Care Provider [phone] [phone] Encounter Details Date Type Department Care Team (Latest Contact Info) Description 06/27/2025 Lab Requisition [facility] - Main Lab [address] [facility] [place] [address] Jenaro Vanessa MD [address] [place] [address] Diverticulitis of large intestine with perforation and abscess without bleeding; Infectious gastroenteritis and colitis, unspecified Social History Tobacco Use Types Packs/Day Years Used Date Smoking Tobacco: Never Smokeless Tobacco: Never Alcohol Use Standard Drinks/Week Comments Yes 0 [...] for your loved ones. For example, child welfare worker or elderly care for an older adult? [...] on file Sexual Orientation Not on file documented as of this encounter Plan of Treatment Not on file documented as of this encounter Procedures Procedure Name Priority Date/Time Associated Diagnosis Comments COMPLETE BLOOD COUNT Routine 06/28/2025 5:41 AM EDT Diverticulitis of large intestine with perforation and abscess without bleeding Infectious gastroenteritis and colitis, unspecified BASIC METABOLIC PANEL Routine 06/28/2025 5:41 AM EDT Diverticulitis of large intestine with perforation and abscess without bleeding Infectious gastroenteritis and colitis, unspecified documented in this encounter Results * (ABNORMAL) Complete blood count (06/28/2025 5:41 AM EDT) [facility] Signature WBC 13.1(H) 4.8 - 10.8 K/mcL LAB HEMETOLOGY METHOD 06/28/2025 8:50 AM [facility] LAB RBC 3.90(L) 4.50 - 5.50 M/mcL LAB HEMETOLOGY METHOD 06/28/2025 8:50 AM EDT [facility] LAB Hemoglobin 12.5(L) 13.5 - 17.5 g/dL LAB HEMETOLOGY METHOD 06/28/2025 8:50 AM [facility] LAB Hematocrit 38.1(L) 42.0 - 54.0 % LAB HEMETOLOGY METHOD 06/28/2025 8:50 AM [facility] LAB MCV 97.7 79.0 - 98.0 FL LAB HEMETOLOGY METHOD 06/28/2025 8:50 AM [facility] LAB MCH 32.1(H) 27.0 - 32.0 pcg LAB HEMETOLOGY METHOD 06/28/2025 8:50 AM [facility] LAB MCHC 32.8 32.0 - 37.0 g/dL LAB HEMETOLOGY METHOD 06/28/2025 8:50 AM [facility] LAB RDW 12.7 11.0 - 15.0 % LAB HEMETOLOGY METHOD 06/28/2025 8:50 AM T [facility] LAB Platelets 413(H) 130 - 400 K/mcL LAB HEMETOLOGY METHOD 06/28/2025 8:50 AM T [facility] LAB MPV 11.4(H) 7.0 - 11.0 FL LAB HEMETOLOGY METHOD 06/28/2025 8:50 AM [facility] LAB NRBC 0.0 <1.0 % LAB HEMETOLOGY METHOD 06/28/2025 8:50 AM EDT [facility] LAB NRBC Absolute 0.00 <0.10 K/mcL LAB HEMETOLOGY METHOD 06/28/2025 8:50 AM EDT [facility] LAB Blood Venous blood specimen / Unknown Venipuncture / Unknown 06/28/2025 5:41 AM EDT 06/28/2025 8:06 AM EDT us Jenaro Vanessa MD LAB BLOOD ORDERABLES Final Resu lt [facility] LAB [address] [place] [address], [place] [phone] * (ABNORMAL) Basic metabolic panel (06/28/2025 5:41 AM EDT) Sodium 136 133 - 145 mmol/L LAB CHEMISTRY METHOD 06/28/2025 9:03 AM [facility] LAB Potassium 3.8 3.5 - 5.5 mmol/L LAB CHEMISTRY METHOD 06/28/2025 9:03 AM [facility] LAB Chloride 95(L) 96 - 110 mmol/L LAB CHEMISTRY METHOD 06/28/2025 9:03 AM [facility] LAB CO2 34(H) 21 - 32 mmol/L LAB CHEMISTRY METHOD 06/28/2025 9:03 AM [facility] LAB Anion Gap 7 3 - 11 LAB CHEMISTRY METHOD 06/28/2025 9:03 AM [facility] LAB Glucose 120(H) 70 - 100 mg/dL LAB CHEMISTRY METHOD 06/28/2025 9:03 AM [facility] LAB BUN 29(H) 5 - 25 mg/dL LAB CHEMISTRY METHOD 06/28/2025 9:03 AM [facility] LAB Creatinine 1.60(H) 0.70 - 1.30 mg/dL LAB CHEMISTRY METHOD 06/28/2025 9:03 AM [facility] LAB eGFR 45(L) >=60 mL/min/1. 73m2 LAB CHEMISTRY METHOD 06/28/2025 9:03 AM EDT [facility] LAB Comment:Calculation based on the Chronic Kidney Disease Epidemiology Collaboration (CKD-EPI) equation refit without adjustment for race. BUN/Creatinine Ratio 18.1 LAB CHEMISTRY METHOD 06/28/2025 9:03 AM EDT [facility] LAB Calcium 8.8 8.5 - 10.5 mg/dL LAB CHEMISTRY METHOD 06/28/2025 9:03 AM EDT [facility] LAB Blood Venous blood specimen / Unknown Venipuncture / Unknown 06/28/2025 5:41 AM EDT 06/28/2025 8:06 AM EDT us Jenaro Vanessa MD LAB BLOOD ORDERABLES Final Resu lt [facility] LAB [address] [place] [address], documented in this encounter Visit Diagnoses Diagnosis Diverticulitis of large intestine with perforation and abscess without bleeding Infectious gastroenteritis and colitis, unspecified documented in this encounter Additional Health Concerns Assessment Noted Time PHQ-9 Depression Total Score: 0 10/11/19 25 1:48 PM EST documented as of this encounter Care Teams Lead Furnace Operator Relationship Specialty Start Date End Date Bimal Feliz PA [address] [place] [address] PCP - General Internal Medicine 11/07/20 documented as of this encounter
--- OUTSIDE RECORDS SUMMARY | 2025-07-04 12:42 | XMS_ITS | Encounter Summary ---
Author Organization [facility] Address [address] [place] [address] Care Team Providers Care Director Of Intercollegiate Athletics Name Role Phone Bimal Feliz Primary Care Provider [phone] [phone] Encounter Details Date Type Department Care Team (Latest Contact Info) Description 07/04/2025 Lab Requisition [facility] - Main Lab [address] [facility] [place] [address] Jenaro Vanessa MD [address] [place] [address] Diverticulitis of large intestine with [...] for your loved ones. For example, child care worker or elderly care for an older [...] as of this encounter Plan of Treatment Scheduled Orders Name Type Priority Associated Diagnoses Orde r Schedule Complete blood count Lab Routine Diverticulitis of large intestine with perforation and abscess without bleeding Infectious gastroenteritis and colitis, unspecified Ordered: 07/04/2025 Basic metabolic panel Lab Routine Diverticulitis of large intestine with perforation and abscess without bleeding Infectious gastroenteritis and colitis, unspecified Ordered: 07/04/2025 documented as of this encounter Visit Diagnoses Diagnosis Diverticulitis of large intestine with perforation and abscess without bleeding Infectious gastroenteritis and colitis, unspecified documented in this encounter Additional Health Concerns Assessment Noted Time PHQ-9 Depression Total Score: 0 10/11/19 25 1:48 PM EST documented as of this encounter Care Teams Director Of Intercollegiate Athletics Relationship Specialty Start Date End Date Bimal Feliz PA [address] [place] [address] PCP - General Internal Medicine 11/07/20 documented as of this encounter
--- OUTSIDE RECORDS SUMMARY | 2025-07-04 12:42 | XMS_ITS | Encounter Summary ---
Author Organization [facility] Address [address] [place] [address] Care Team Providers Care Broadloom Weaver Name Role Phone Bimal Feliz Primary Care Provider [phone] [phone] Encounter Details Date Type Department Care Team (Latest Contact Info) Description 06/23/2025 Lab Requisition [facility] - Main Lab [address] [facility] [address] [place] [address] Jenaro Vanessa MD [address] [place] [address] Diverticulitis of large intestine with [...] your loved ones. For example, child care cook or elderly care for an older adult? [...] Associated Diagnosis Comments COMPLETE BLOOD COUNT Routine 06/23/2025 7:33 AM EDT Diverticulitis of large intestine with perforation and abscess without bleeding Infectious gastroenteritis and colitis, unspecified COMPREHENSIVE METABOLIC PANEL Routine 06/23/2025 7:33 AM EDT Diverticulitis of large intestine with perforation and abscess without bleeding Infectious gastroenteritis and colitis, unspecified documented in this encounter Results * (ABNORMAL) Comprehensive metabolic panel (06/23/2025 7:33 AM EDT) Sodium 138 133 - 145 mmol/L LAB CHEMISTRY METHOD 06/23/2025 9:44 AM [facility] LAB Potassium 3.5 3.5 - 5.5 mmol/L LAB CHEMISTRY METHOD 06/23/2025 9:44 AM [facility] LAB Chloride 99 96 - 110 mmol/L LAB CHEMISTRY METHOD 06/23/2025 9:44 AM [facility] LAB CO2 33(H) 21 - 32 mmol/L LAB CHEMISTRY METHOD 06/23/2025 9:44 AM [facility] LAB Anion Gap 6 3 - 11 LAB CHEMISTRY METHOD 06/23/2025 9:44 AM [facility] LAB Glucose 115(H) 70 - 100 mg/dL LAB CHEMISTRY METHOD 06/23/2025 9:44 AM [facility] LAB BUN 36(H) 5 - 25 mg/dL LAB CHEMISTRY METHOD 06/23/2025 9:44 AM [facility] LAB Creatinine 2.00(H) 0.70 - 1.30 mg/dL LAB CHEMISTRY METHOD 06/23/2025 9:44 AM [facility] LAB eGFR 35(L) >=60 mL/min/1. 73m2 LAB CHEMISTRY METHOD 06/23/2025 9:44 AM [facility] LAB Comment:Calculation based on the Chronic Kidney Disease Epidemiology Collaboration (CKD-EPI) equation refit without adjustment for race. BUN/Creatinine Ratio 18.0 LAB CHEMISTRY METHOD 06/23/2025 9:44 AM [facility] LAB Calcium 8.7 8.5 - 10.5 mg/dL LAB CHEMISTRY METHOD 06/23/2025 9:44 AM [facility] LAB AST (SGOT) 435(H) 10 - 42 unit/L LAB CHEMISTRY METHOD 06/23/2025 9:44 AM [facility] LAB ALT (SGPT) 159(H) 10 - 60 unit/L LAB CHEMISTRY METHOD 06/23/2025 9:44 AM EDT [facility] LAB Alkaline Phosphatase 63 42 - 121 unit/L LAB CHEMISTRY METHOD 06/23/2025 9:44 AM EDT [facility] LAB Total Protein 6.2 6.0 - 8.0 g/dL LAB CHEMISTRY METHOD 06/23/2025 9:44 AM EDT [facility] Albumin 2.7(L) 3.2 - 5.0 g/dL LAB CHEMISTRY METHOD 06/23/2025 9:44 AM EDT [facility] Total Bilirubin 0.6 0.0 - 1.4 mg/dL LAB CHEMISTRY METHOD 06/23/2025 9:44 AM EDT [facility] LAB Blood Venous blood specimen / Unknown Venipuncture / Unknown 06/23/2025 7:33 AM EDT 06/23/2025 8:26 AM EDT us Jenaro Vanessa MD LAB BLOOD ORDERABLES Final Resu lt [facility] [address] [place] [address], * (ABNORMAL) Complete blood count (06/23/2025 7:33 AM EDT) WBC 8.8 4.8 - 10.8 K/[facility] LAB HEMETOLOGY METHOD 06/23/2025 8:58 AM EDT [facility] RBC 3.40(L) 4.50 - 5.50 M/[facility] LAB HEMETOLOGY METHOD 06/23/2025 8:58 AM EDT [facility] Hemoglobin 11.2(L) 13.5 - 17.5 g/dL LAB HEMETOLOGY METHOD 06/23/2025 8:58 AM EDT [facility] LAB Hematocrit 34.1(L) 42.0 - 54.0 % LAB HEMETOLOGY METHOD 06/23/2025 8:58 AM EDT [facility] LAB MCV 99.1(H) 79.0 - 98.0 FL LAB HEMETOLOGY METHOD 06/23/2025 8:58 AM EDT [facility] LAB MCH 32.6(H) 27.0 - 32.0 pcg LAB HEMETOLOGY METHOD 06/23/2025 8:58 AM EDT [facility] MCHC 32.8 32.0 - 37.0 g/dL LAB HEMETOLOGY METHOD 06/23/2025 8:58 AM EDT [facility] RDW 12.8 11.0 - 15.0 % LAB HEMETOLOGY METHOD 06/23/2025 8:58 AM EDT [facility] Platelets 184 130 - 400 K/mcL LAB HEMETOLOGY METHOD 06/23/2025 8:58 AM EDT [facility] MPV 11.2(H) 7.0 - 11.0 FL LAB HEMETOLOGY METHOD 06/23/2025 8:58 AM EDT [facility] NRBC 0.0 <1.0 % LAB HEMETOLOGY METHOD 06/23/2025 8:58 AM EDT [facility] LAB NRBC Absolute 0.00 <0.10 K/mcL LAB HEMETOLOGY METHOD 06/23/2025 8:58 AM EDT [facility] Blood Venous blood specimen / Unknown Venipuncture / Unknown 06/23/2025 7:33 AM EDT 06/23/2025 8:26 AM EDT us Jenaro Vanessa MD LAB BLOOD ORDERABLES Final Resu lt [facility] [address] [place] [address], documented in this encounter Visit Diagnoses Diagnosis Diverticulitis of large intestine with perforation and abscess without bleeding Infectious gastroenteritis and colitis, unspecified documented in this encounter Additional Health Concerns Assessment Noted Time PHQ-9 Depression Total Score: 0 10/11/19 25 1:48 PM EST documented as of this encounter Care Teams Broadloom Weaver Relationship Specialty Start Date End Date Bimal Feliz PA [address] [place] [address] PCP - General Internal Medicine 11/07/20 documented as of this encounter
--- OUTSIDE RECORDS SUMMARY | 2025-07-04 12:42 | XMS_ITS | Encounter Summary ---
Author Organization [facility] Address [address] [place] [address] Care Team Providers Care Automobile Designer Name Role Phone Bimal Feliz Primary Care Provider +1 [phone] Encounter Details Date Type Department Care Team (Latest Contact Info) Description 06/25/2025 Lab Requisition [facility] - Main Lab [address] [facility] [place] [address] Jenaro Vanessa MD [address] [place] [address] Diverticulitis of large intestine with [...] your loved ones. For example, child care assistant or elderly care for an older adult? [...] Associated Diagnosis Comments COMPLETE BLOOD COUNT Routine 06/25/2025 5:05 AM EDT Diverticulitis of large intestine with perforation and abscess without bleeding Infectious gastroenteritis and colitis, unspecified COMPREHENSIVE METABOLIC PANEL Routine 06/25/2025 5:05 AM EDT Diverticulitis of large intestine with perforation and abscess without bleeding Infectious gastroenteritis and colitis, unspecified documented in this encounter Results * (ABNORMAL) Comprehensive metabolic panel (06/25/2025 5:05 AM EDT) Sodium 137 133 - 145 mmol/L LAB CHEMISTRY METHOD 06/25/2025 10:[address] [facility] LAB Potassium 3.3(L) 3.5 - 5.5 mmol/L LAB CHEMISTRY METHOD 06/25/2025 10:[address] [facility] LAB Chloride 96 96 - 110 mmol/L LAB CHEMISTRY METHOD 06/25/2025 10:[address] [facility] LAB CO2 33(H) 21 - 32 mmol/L LAB CHEMISTRY METHOD 06/25/2025 10:[address] [facility] LAB Anion Gap 8 3 - 11 LAB CHEMISTRY METHOD 06/25/2025 10:[address] [facility] LAB Glucose 116(H) 70 - 100 mg/dL LAB CHEMISTRY METHOD 06/25/2025 10:[address] [facility] BUN 35(H) 5 - 25 mg/dL LAB CHEMISTRY METHOD 06/25/2025 10:[address] [facility] LAB Creatinine 1.84(H) 0.70 - 1.30 mg/dL LAB CHEMISTRY METHOD 06/25/2025 10:[address] [facility] LAB eGFR 38(L) >=60 mL/min/1. 73m2 LAB CHEMISTRY METHOD 06/25/2025 10:[address] [facility] LAB Comment:Calculation based on the Chronic Kidney Disease Epidemiology Collaboration (CKD-EPI) equation refit without adjustment for race. BUN/Creatinine Ratio 19.0 LAB CHEMISTRY METHOD 06/25/2025 10:[address] [facility] LAB Calcium 8.5 8.5 - 10.5 mg/dL LAB CHEMISTRY METHOD 06/25/2025 10:[address] [facility] AST (SGOT) 364(H) 10 - 42 unit/L LAB CHEMISTRY METHOD 06/25/2025 10:[address] [facility] ALT (SGPT) 163(H) 10 - 60 unit/L LAB CHEMISTRY METHOD 06/25/2025 10:48 AM EDT [facility] LAB Alkaline Phosphatase 73 42 - 121 unit/L LAB CHEMISTRY METHOD 06/25/2025 10:48 AM EDT [facility] Total Protein 6.2 6.0 - 8.0 g/dL LAB CHEMISTRY METHOD 06/25/2025 10:48 AM EDT [facility] Albumin 2.7(L) 3.2 - 5.0 g/dL LAB CHEMISTRY METHOD 06/25/2025 10:48 AM EDT [facility] Total Bilirubin 0.6 0.0 - 1.4 mg/dL LAB CHEMISTRY METHOD 06/25/2025 10:48 AM EDT [facility] LAB Blood Venous blood specimen / Unknown Venipuncture / Unknown 06/25/2025 5:05 AM EDT 06/25/2025 9:52 AM EDT us Jenaro Vanessa MD LAB BLOOD ORDERABLES Final Resu lt [facility] [address] [place] [address], [place] [phone] * (ABNORMAL) Complete blood count (06/25/2025 5:05 AM EDT) WBC 10.0 4.8 - 10.8 K/[facility] LAB HEMETOLOGY METHOD 06/25/2025 10:24 AM EDT [facility] RBC 3.40(L) 4.50 - 5.50 M/[facility] LAB HEMETOLOGY METHOD 06/25/2025 10:24 AM EDT [facility] Hemoglobin 11.1(L) 13.5 - 17.5 g/dL LAB HEMETOLOGY METHOD 06/25/2025 10:24 AM EDT [facility] Hematocrit 33.6(L) 42.0 - 54.0 % LAB HEMETOLOGY METHOD 06/25/2025 10:24 AM EDT [facility] MCV 98.0 79.0 - 98.0 FL LAB HEMETOLOGY METHOD 06/25/2025 10:24 AM EDT [facility] MCH 32.4(H) 27.0 - 32.0 pcg LAB HEMETOLOGY METHOD 06/25/2025 10:24 AM EDT [facility] MCHC 33.0 32.0 - 37.0 g/dL LAB HEMETOLOGY METHOD 06/25/2025 10:24 AM EDT [facility] RDW 12.8 11.0 - 15.0 % LAB HEMETOLOGY METHOD 06/25/2025 10:[address] [facility] Platelets 160 130 - 400 K/mcL LAB HEMETOLOGY METHOD 06/25/2025 10:24 AM EDT [facility] MPV 11.3(H) 7.0 - 11.0 FL LAB HEMETOLOGY METHOD 06/25/2025 10:24 AM EDT [facility] NRBC 0.0 <1.0 % LAB HEMETOLOGY METHOD 06/25/2025 10:[address] [facility] NRBC Absolute 0.00 <0.10 K/mcL LAB HEMETOLOGY METHOD 06/25/2025 10:24 AM T [facility] Blood Venous blood specimen / Unknown Venipuncture / Unknown 06/25/2025 5:05 AM EDT 06/25/2025 9:52 AM EDT us Jenaro Vanessa MD LAB BLOOD ORDERABLES Final Resu lt [facility] [address] [place] [address], documented in this encounter Visit Diagnoses Diagnosis Diverticulitis of large intestine with perforation and abscess without bleeding Infectious gastroenteritis and colitis, unspecified documented in this encounter Additional Health Concerns Assessment Noted Time PHQ-9 Depression Total Score: 0 10/11/19 25 1:48 PM EST documented as of this encounter Care Teams Automobile Designer Relationship Specialty Start Date End Date Bimal Feliz PA [address] [place] [address] PCP - General Internal Medicine 11/07/20 documented as of this encounter
--- OUTSIDE RECORDS SUMMARY | 2025-07-04 12:42 | XMS_ITS | Clinical Summary ---
Author Organization [facility] [address] [place] [address] [place] [phone] Phone Care Team Providers Care Decorating Machine Operator Name Role Phone Bimal Feliz Primary Care Provider [phone] Allergies No known active allergies Medications lisinopril [...] of knee 02/21/2009 Essential hypertension, benign 08/09/2005 Encounters Date Type Department Care Team Description 07/04/2025 Lab Requisition [facility] [address] [place] [phone] Jenaro Vanessa MD Diverticulitis of large intestine with perforation and abscess without bleeding; Infectious gastroenteritis and colitis, unspecified 06/29/2025 Lab Requisition [facility] [address] [place] [phone] Jenaro Vanessa MD Diverticulitis of large intestine with perforation and abscess without bleeding; Infectious gastroenteritis and colitis, unspecified 06/27/2025 Lab Requisition [facility] [address] [place] [phone] Jenaro Vanessa MD Diverticulitis of large intestine with perforation and abscess without bleeding; Infectious gastroenteritis and colitis, unspecified 06/25/2025 Lab Requisition [facility] [address] [place] [phone] Jenaro Vanessa MD Diverticulitis of large intestine with perforation and abscess without bleeding; Infectious gastroenteritis and colitis, unspecified 06/23/2025 Lab Requisition [facility] [address] [place] [address] Jenaro Vanessa MD Diverticulitis of large intestine with perforation and abscess without bleeding; Infectious gastroenteritis and colitis, unspecified 06/15/2025 Telephone Gastroenterology - [place] [facility] [address] [facility] [address] [place] [address] Tommy Marie MD from Last 3 Months Immunizations Immunization Administration Dates Next Due Influenza trivalent, 0.5mL ( Fluad) 65yo and older 07/16/2023,07/29/2022,06/02/2021,07/02 Pfizer SARS-CoV-2 COVID-19, mRNA, LNP-S, preservative free 12/16/2020,2020 [...] COMMENT: RT KNEE ARTHAROSSCOPIC SURGERY APPENDECTOMY PROCEDURE: IN APPENDECTOMY OTHER SURGICAL HISTORY PROCEDURE: HISTORY OTHER; COMMENT: right partial knee replacement [facility] 2011 COLONOSCOPY 2002 PROCEDURE: IN COLONOSCOPY FLX DX W/COLLJ SPEC WHEN PFRMD; COMMENT: normal COLONOSCOPY 2012 PROCEDURE: IN COLONOSCOPY FLX DX W/COLLJ SPEC WHEN PFRMD; [...] care for your loved ones. For example, children's service worker or elderly care for an older [...] 10/13/2024 7:49 AM EST Plan of Treatment Health Maintenance Due Date Last Done Comments Colorectal Cancer Screening: Colonoscopy 1950 Zoster Vaccines (2 of 3) 10/24/2012 08/29/2012 Falls Risk Assessment 08/08/2022 Medicare Annual Wellness Visit 07/16/2024 07/16/2023 COVID-19 Vaccine ( season) 2025 09/04/2021, 12/16/2020, 2020 Influenza Vaccine (#1) 2025 , 07/29/2022, 06/02/2021, Additional history exists Social Influencers of Health Screening 10/11/2025 10/11/2024 DTaP,Tdap,and Td Vaccines (3 - Td or Tdap) 04/30/2026 04/30/2016, 08/10/2007 Hypertension/CHF/CAD Annual BMP Blood Test 07/02/2026 07/02/2025, 06/28/2025, 06/25/2025, Additional history exists RSV Immunization Adult Patients (1 - 1-dose [...] Associated Diagnosis Comments COMPLETE BLOOD COUNT Routine 07/02/2025 7:17 AM EST Diverticulitis of large intestine with perforation and abscess without bleeding Infectious gastroenteritis and colitis, unspecified COMPREHENSIVE METABOLIC PANEL Routine 07/02/2025 7:17 AM EST Diverticulitis of large intestine with perforation and abscess without bleeding Infectious gastroenteritis and colitis, unspecified COMPLETE BLOOD COUNT Routine 06/28/2025 5:41 AM [...] without bleeding Infectious gastroenteritis and colitis, unspecified COMPLETE BLOOD COUNT Routine 06/25/2025 5:05 AM EDT Diverticulitis of large intestine with perforation and abscess without bleeding Infectious gastroenteritis and colitis, unspecified COMPREHENSIVE METABOLIC PANEL Routine 06/23/2025 7:33 AM EDT Diverticulitis of large intestine with perforation and abscess without bleeding Infectious gastroenteritis and colitis, unspecified COMPLETE BLOOD COUNT Routine 06/23/2025 7:33 AM EDT Diverticulitis of large intestine with perforation and abscess without bleeding Infectious gastroenteritis and colitis, unspecified EXTERNAL XRAY REPORT 06/16/2025 EXTERNAL XRAY REPORT 06/16/[address] REPORT 06/15/[address] REPORT 06/15/[address] REPORT 06/14/[address] REPORT 06/14/[address] REPORT 06/14/[address] REPORT 06/14/[address] REPORT 06/14/2025 LIPID PANEL Routine 05/25/2024 HEPATITIS C SCREENING Routine 02/12/2016 from Last 3 Months or Most Recently Relevant to Health Maintenance Results * (ABNORMAL) Complete blood count (07/02/2025 7:17 AM EST) Only the most recent of4 resultswithin the time period is included. WBC 9.2 4.8 - 10.8 K/mcL LAB HEMETOLOGY METHOD 07/02/2025 10:42 AM [facility] RBC 3.60(L) 4.50 - 5.50 M/mcL LAB HEMETOLOGY METHOD 07/02/2025 10:42 AM [facility] LAB Hemoglobin 11.4(L) 13.5 - 17.5 g/dL LAB HEMETOLOGY METHOD 07/02/2025 10:42 AM [facility] LAB Hematocrit 34.1(L) 42.0 - 54.0 % LAB HEMETOLOGY METHOD 07/02/2025 10:42 AM [facility] LAB MCV 95.8 79.0 - 98.0 FL LAB HEMETOLOGY METHOD 07/02/2025 10:42 AM [facility] LAB MCH 32.0 27.0 - 32.0 pcg LAB HEMETOLOGY METHOD 07/02/2025 10:42 AM EST [facility] MCHC 33.4 32.0 - 37.0 g/dL LAB HEMETOLOGY METHOD 07/02/2025 10:42 AM [facility] RDW 12.3 11.0 - 15.0 % LAB HEMETOLOGY METHOD 07/02/2025 10:42 AM [facility] Platelets 332 130 - 400 K/mcL LAB HEMETOLOGY METHOD 07/02/2025 10:42 AM [facility] MPV 11.2(H) 7.0 - 11.0 FL LAB HEMETOLOGY METHOD 07/02/2025 10:42 AM [facility] NRBC 0.0 <1.0 % LAB HEMETOLOGY METHOD 07/02/2025 10:42 AM [facility] LAB NRBC Absolute 0.00 <0.10 K/mcL LAB HEMETOLOGY METHOD 07/02/2025 10:42 AM [facility] LAB Blood Venous blood specimen / Unknown Venipuncture / Unknown 07/02/2025 7:17 AM EST 07/02/2025 10:29 AM EST Jenaro Vanessa MD LAB BLOOD ORDERABLES Final Resu lt [facility] [address] [place] [address], * (ABNORMAL) Comprehensive metabolic panel (07/02/2025 7:17 AM EST) Only the most recent of3 resultswithin the time period is included. Sodium 135 133 - 145 mmol/L LAB CHEMISTRY METHOD 07/02/2025 11:15 AM EST [facility] Potassium 3.9 3.5 - 5.5 mmol/L LAB CHEMISTRY METHOD 07/02/2025 11:15 AM [facility] Chloride 96 96 - 110 mmol/L LAB CHEMISTRY METHOD 07/02/2025 11:15 AM [facility] CO2 31 21 - 32 mmol/L LAB CHEMISTRY METHOD 07/02/2025 11:15 AM [facility] Anion Gap 8 3 - 11 LAB CHEMISTRY METHOD 07/02/2025 11:15 AM [facility] Glucose 99 70 - 100 mg/dL LAB CHEMISTRY METHOD 07/02/2025 11:15 AM [facility] BUN 26(H) 5 - 25 mg/dL LAB CHEMISTRY METHOD 07/02/2025 11:15 AM [facility] Creatinine 1.55(H) 0.70 - 1.30 mg/dL LAB CHEMISTRY METHOD 07/02/2025 11:15 AM [facility] LAB eGFR 47(L) >=60 mL/min/1. 73m2 LAB CHEMISTRY METHOD 07/02/2025 11:15 AM [facility] LAB Comment:Calculation based on the Chronic Kidney Disease Epidemiology Collaboration (CKD-EPI) equation refit without adjustment for race. BUN/Creatinine Ratio 16.8 LAB CHEMISTRY METHOD 07/02/2025 11:15 AM [facility] Calcium 8.9 8.5 - 10.5 mg/dL LAB CHEMISTRY METHOD 07/02/2025 11:15 AM [facility] AST (SGOT) 149(H) 10 - 42 unit/L LAB CHEMISTRY METHOD 07/02/2025 11:15 AM [facility] ALT (SGPT) 72(H) 10 - 60 unit/L LAB CHEMISTRY METHOD 07/02/2025 11:15 AM [facility] LAB Alkaline Phosphatase 84 42 - 121 unit/L LAB CHEMISTRY METHOD 07/02/2025 11:15 AM [facility] Total Protein 7.2 6.0 - 8.0 g/dL LAB CHEMISTRY METHOD 07/02/2025 11:15 AM EST [facility] Albumin 3.2 3.2 - 5.0 g/dL LAB CHEMISTRY METHOD 07/02/2025 11:15 AM EST [facility] Total Bilirubin 0.7 0.0 - 1.4 mg/dL LAB CHEMISTRY METHOD 07/02/2025 11:15 AM [facility] Blood Venous blood specimen / Unknown Venipuncture / Unknown 07/02/2025 7:17 AM EST 07/02/2025 10:29 AM EST us Jenaro Vanessa MD LAB BLOOD ORDERABLES Final Resu lt [facility] [address] [place] [address], [place] [phone] * (ABNORMAL) Basic metabolic panel (06/28/2025 5:41 AM EDT) Sodium 136 133 - 145 mmol/L LAB CHEMISTRY METHOD 06/28/2025 9:03 AM [facility] LAB Potassium 3.8 3.5 - 5.5 mmol/L LAB CHEMISTRY METHOD 06/28/2025 9:03 AM [facility] LAB Chloride 95(L) 96 - 110 mmol/L LAB CHEMISTRY METHOD 06/28/2025 9:03 AM [facility] LAB CO2 34(H) 21 - 32 mmol/L LAB CHEMISTRY METHOD 06/28/2025 9:03 AM [facility] LAB Anion Gap 7 3 - 11 LAB CHEMISTRY METHOD 06/28/2025 9:03 AM [facility] LAB Glucose 120(H) 70 - 100 mg/dL LAB CHEMISTRY METHOD 06/28/2025 9:03 AM [facility] BUN 29(H) 5 - 25 mg/dL LAB CHEMISTRY METHOD 06/28/2025 9:03 AM [facility] LAB Creatinine 1.60(H) 0.70 - 1.30 mg/dL LAB CHEMISTRY METHOD 06/28/2025 9:03 AM EDT [facility] eGFR 45(L) >=60 mL/min/1. 73m2 LAB CHEMISTRY METHOD 06/28/2025 9:03 AM EDT [facility] Comment:Calculation based on the Chronic Kidney Disease Epidemiology Collaboration (CKD-EPI) equation refit without adjustment for race. BUN/Creatinine Ratio 18.1 LAB CHEMISTRY METHOD 06/28/2025 9:03 AM EDT [facility] Calcium 8.8 8.5 - 10.5 mg/dL LAB CHEMISTRY METHOD 06/28/2025 9:03 AM EDT [facility] Blood Venous blood specimen / Unknown Venipuncture / Unknown 06/28/2025 5:41 AM EDT 06/28/2025 8:06 AM EDT Jenaro Vanessa MD LAB BLOOD ORDERABLES Final Resu lt [facility] [address] [place] [address], * External Xray Report (06/16/2025) Only the most recent of2 resultswithin the time period is included. Anatomical Region Laterality Modality Radiographic Lucita ging Provider [facility] XR PROCEDURES Final Result * External CT Report (06/15/2025) Only the most recent of7 resultswithin the time period is included. Anatomical Region Laterality Modality Computed Tomogra phy Provider [facility] PROCEDURES Final Result * (ABNORMAL) Lipid panel (05/25/2024) LDL/HDL Ratio 2 0 - 4 Triglycerides 65 0 - 150 mg/dL Cholesterol 217(A) 0 - 200 mg/dL HDL 100 >=40 mg/dL LDL Cholesterol 104(A) 0 - 100 mg/dL Blood Venous blood specimen / Unknown Historical Provider LAB BLOOD ORDERABLES Acmille l Result * Hepatitis C Screening (02/12/2016) Hepatitis C Screening Abstracted Historical Provider HEALTH MAINTENANCE Final Result from Last 3 Months or Most Recently Relevant to Health Maintenance Insurance MEDICARE [facility] Care Teams Decorating Machine Operator Relationship Specialty Start Date End Date Bimal Feliz PA [address] [place] [id number] PCP - General Internal Medicine 11/07/20
--- OUTSIDE RECORDS SUMMARY | 2025-07-04 12:42 | XMS_ITS | Clinical Summary ---
Author Organization [facility] Address [address] [place] [phone] Phone Care Team Providers Care Plaster Tender Name Role Phone Bimal Feliz Primary Care [...] file Insurance MEDICARE PART A & B [facility] MEDICARE SUPPLEMENT Care Teams Plaster Tender Relationship Specialty Start Date End Date Bimal Feliz PA [address] [place] [address] PCP - General Physician Veterans' Coordinator 01/12/23 Additional Source Comments The information contained in this document represents components of the legal health record. It is not the complete legal health record.[facility]
--- OUTSIDE RECORDS SUMMARY | 2025-07-04 12:42 | XMS_ITS | Encounter Summary ---
Author Organization [facility] Address [address] [place] [address] Care Team Providers Care Deicer Inspector Pneumatic Name Role Phone Bimal Feliz Primary Care Provider [phone] Encounter Details Date Type Department Care Team (Latest Contact Info) Description 06/29/2025 Lab Requisition [facility] [address] [facility] [place] [address] Jenaro Vanessa MD [address] [place] [address] Diverticulitis of large intestine with [...] encounter Results * (ABNORMAL) Complete blood count (07/02/2025 7:17 AM EST) [facility] WBC 9.2 4.8 - 10.8 K/mcL LAB HEMETOLOGY METHOD 07/02/2025 10:42 AM [facility] RBC 3.60(L) 4.50 - 5.50 M/mcL LAB HEMETOLOGY METHOD 07/02/2025 10:42 AM [facility] Hemoglobin 11.4(L) 13.5 - 17.5 g/dL LAB HEMETOLOGY METHOD 07/02/2025 10:42 AM [facility] LAB Hematocrit 34.1(L) 42.0 - 54.0 % LAB HEMETOLOGY METHOD 07/02/2025 10:42 AM [facility] LAB MCV 95.8 79.0 - 98.0 FL LAB HEMETOLOGY METHOD 07/02/2025 10:42 AM [facility] LAB MCH 32.0 27.0 - 32.0 pcg LAB HEMETOLOGY METHOD 07/02/2025 10:42 AM [facility] LAB MCHC 33.4 32.0 - 37.0 g/dL LAB HEMETOLOGY METHOD 07/02/2025 10:42 AM [facility] RDW 12.3 11.0 - 15.0 % LAB HEMETOLOGY METHOD 07/02/2025 10:42 AM [facility] Platelets 332 130 - 400 K/mcL LAB HEMETOLOGY METHOD 07/02/2025 10:42 AM [facility] MPV 11.2(H) 7.0 - 11.0 FL LAB HEMETOLOGY METHOD 07/02/2025 10:42 AM [facility] NRBC 0.0 <1.0 % LAB HEMETOLOGY METHOD 07/02/2025 10:42 AM [facility] NRBC Absolute 0.00 <0.10 K/mcL LAB HEMETOLOGY METHOD 07/02/2025 10:42 AM EST [facility] Blood Venous blood specimen / Unknown Venipuncture / Unknown 07/02/2025 7:17 AM EST 07/02/2025 10:29 AM EST us Jenaro Vanessa MD LAB BLOOD ORDERABLES Final Resu lt [facility] [address] [place] [address], [place] [phone] * (ABNORMAL) Comprehensive metabolic panel (07/02/2025 7:17 AM EST) Sodium 135 133 - 145 mmol/L LAB CHEMISTRY METHOD 07/02/2025 11:15 AM [facility] Potassium 3.9 3.5 - 5.5 mmol/L LAB CHEMISTRY METHOD 07/02/2025 11:15 AM [facility] Chloride 96 96 - 110 mmol/L LAB CHEMISTRY METHOD 07/02/2025 11:15 AM [facility] CO2 31 21 - 32 mmol/L LAB CHEMISTRY METHOD 07/02/2025 11:15 AM [facility] Anion Gap 8 3 - 11 LAB CHEMISTRY METHOD 07/02/2025 11:15 AM [facility] Glucose 99 70 - 100 mg/dL LAB CHEMISTRY METHOD 07/02/2025 11:15 AM [facility] BUN 26(H) 5 - 25 mg/dL LAB CHEMISTRY METHOD 07/02/2025 11:15 AM [facility] Creatinine 1.55(H) 0.70 - 1.30 mg/dL LAB CHEMISTRY METHOD 07/02/2025 11:15 AM [facility] eGFR 47(L) >=60 mL/min/1. 73m2 LAB CHEMISTRY METHOD 07/02/2025 11:15 AM [facility] Comment:Calculation based on the Chronic Kidney Disease Epidemiology Collaboration (CKD-EPI) equation refit without adjustment for race. BUN/Creatinine Ratio 16.8 LAB CHEMISTRY METHOD 07/02/2025 11:15 AM [facility] Calcium 8.9 8.5 - 10.5 mg/dL LAB CHEMISTRY METHOD 07/02/2025 11:15 AM [facility] AST (SGOT) 149(H) 10 - 42 unit/L LAB CHEMISTRY METHOD 07/02/2025 11:15 AM [facility] ALT (SGPT) 72(H) 10 - 60 unit/L LAB CHEMISTRY METHOD 07/02/2025 11:15 AM [facility] Alkaline Phosphatase 84 42 - 121 unit/L LAB CHEMISTRY METHOD 07/02/2025 11:15 AM [facility] Total Protein 7.2 6.0 - 8.0 g/dL LAB CHEMISTRY METHOD 07/02/2025 11:15 AM [facility] Albumin 3.2 3.2 - 5.0 g/dL LAB CHEMISTRY METHOD 07/02/2025 11:15 AM [facility] Total Bilirubin 0.7 0.0 - 1.4 mg/dL LAB CHEMISTRY METHOD 07/02/2025 11:15 AM [facility] Blood Venous blood specimen / Unknown Venipuncture / Unknown 07/02/2025 7:17 AM EST 07/02/2025 10:29 AM EST us Jenaro Vanessa MD LAB BLOOD ORDERABLES Final Resu lt [facility] [address] [place] [address], documented in this encounter Visit Diagnoses Diagnosis Diverticulitis of large intestine with perforation and abscess without bleeding Infectious gastroenteritis and colitis, unspecified documented in this encounter Additional Health Concerns Assessment Noted Time PHQ-9 Depression Total Score: 0 10/11/19 25 1:48 PM EST documented as of this encounter Care Teams Deicer Inspector Pneumatic Relationship Specialty Start Date End Date Bimal Feliz PA [address] [place] [address] PCP - General Internal Medicine 11/07/20 documented as of this encounter
--- OUTSIDE RECORDS SUMMARY | 2025-07-04 12:42 | XMS_ITS | Clinical Summary ---
Author Organization [facility] Address [address] [place] [address] Care Team Providers Care Process Trainer Name Role Phone Unavailable Primary Care Provider [...]
== END 2025-07-04 10:49 | disposition home or self-care (01) ==
LOC: HO.XRAY 10:48
PROVIDERS: PCP Physician Assistant Medical; Visit Provider Urology
DX: N32.1 Vesicointestinal fistula (principal); N17.9 Acute kidney failure, unspecified
CPT/HCPCS: 51600; 74455; Q9958

== ENCOUNTER → 2025-07-04 10:50 | Outpatient (BNV) | payer MEDICARE, OTHER, SELFPAY | PROVIDERS: PCP Physician Assistant Medical; Visit Provider Radiology Diagnostic Radiology | DX: N32.1 Vesicointestinal fistula (principal) | CPT/HCPCS: 51600; 74455 ==

== ENCOUNTER 2025-07-05 13:59 | Outpatient (AMB) | payer MEDICARE, OTHER, SELFPAY ==
--- NOTE | 2025-07-05 14:07 | AM.OFFVISNUR ---
Intake Visit Reasons: FF Stitch removal Recreational Sports Director Required: No Allergies No Known Allergies Allergy (Verified 06/14/25 15:49) Medication List - Last Reconciled 07/05/25 by Declan Espinoza RN amlodipine 10 mg See Protocol PO DAILY atenolol 50 mg PO BEDTIME omeprazole 20 mg PO DAILY PRN vitamin B complex 1 cap PO DAILY Nursing Note Pt reports to the office for staple removal from surgery on 06/18/25. Pt reports that he is eating well, although not back to normal yet, ostomy is functioning well and he is managing the appliance well so far. Upon exam, wounds are healing well, all sveta removed, steri-strips applied to mid abdominal wound. The mid abdominal wound has some slight redness at the staple insertion sites,but the incision itself is healing well, no drainage, no swelling, pt reports minimal pain. Pt advised to watch for increased redness, drainage, fevers or increased pain and to call if any of these occur. He has VNA starting tomorrow and will report back to see MD next week. Coding Level of Care Code Established Pt Est Pt Level 1 (65702) Patient Type Established History Problem Focused Exam Problem Focused Medical Decision Making Straight Forward Time Spent (min) 15 Comment wound teaching, staple removal, wound assessment
--- OUTSIDE RECORDS SUMMARY | 2025-07-05 17:09 | XMS_ITS | Encounter Summary ---
Author Organization [facility] Address [address] [place] [address] Care Team Providers Care Business Services Vice President Name Role Phone Bimal Feliz Primary Care Provider [phone] Reason for Visit * Reason Onset Date Comments vna 07/05/2025 Encounter Details Date Type Department Care Team ([facility] Contact Info) Description 07/05/2025 Telephone Adult Medicine [address] [phone] Bimal Feliz PA [address] [place] [address] Social History Tobacco Use Types Packs/Day Years [...] for your loved ones. For example, children's choir director or elderly care for an older adult? [...] on file documented as of this encounter Progress Notes * Ugo Ferro LPN - 07/05/2025 4:08 PM EST VO given to Stone * Thanh Driscoll MD - 07/05/2025 4:01 PM EST Okay for PT, OT and nursing * Ugo Ferro LPN - 07/05/2025 3:46 PM EST [facility] is requesting VO for PT, OT and nursing. Please review and advise.for Irvin STEVENS Thank you Please send response to nurse triage [facility] [place] Last OV 10/13/24 Please book a hospital follow up * Vivian Morfin - 07/05/2025 3:12 PM EST VNA CALL Which [facility] office is calling? [facility] / Full name of caller: Stone The caller is A nurse Is the caller at the patients home?: no Reason for call: Verbal orders Home Care Services on 07/06/2025 Does caller need an urgent call back? yes Was CONTACT Telephone # obtained above?: yes Fax #: [phone] documented in this encounter Plan of Treatment Not on file documented as of this encounter Visit Diagnoses Not on filedocumented in this encounter Additional Health Concerns Assessment Noted Time PHQ-9 Depression Total Score: 0 10/11/19 25 1:48 PM EST documented as of this encounter Care Teams Business Services Vice President Relationship Specialty Start Date End Date Bimal Feliz PA [address] [place] [address] PCP - General Internal Medicine 11/07/20 documented as of this encounter
--- OUTSIDE RECORDS SUMMARY | 2025-07-05 17:09 | XMS_ITS | Clinical Summary ---
Author Organization [facility] Address [address] [place] [address] Care Team Providers Care Special Investigation Unit Investigator Name Role Phone Unavailable Primary Care Provider [...]
--- OUTSIDE RECORDS SUMMARY | 2025-07-05 17:09 | XMS_ITS | Encounter Summary ---
Author Organization [facility] Address [address] [place] [address] Care Team Providers Care Member Service Specialist Name Role Phone Bimal Feliz Primary Care Provider [phone] [phone] Encounter Details Date Type Department Care Team (Latest Contact Info) Description 06/23/2025 Lab Requisition [facility] - Main Lab [address] [facility] [place] [address] Jenaro Vanessa MD [address] [place] [address] Diverticulitis of large intestine with [...] your loved ones. For example, child care leader or elderly care for an older adult? [...] mmol/L LAB CHEMISTRY METHOD 06/23/2025 9:44 AM [facility] LAB Potassium 3.5 3.5 - 5.5 mmol/L LAB CHEMISTRY METHOD 06/23/2025 9:44 AM [facility] LAB Chloride 99 96 - 110 mmol/L LAB CHEMISTRY METHOD 06/23/2025 9:44 AM [facility] LAB CO2 33(H) 21 - 32 mmol/L LAB CHEMISTRY METHOD 06/23/2025 9:44 AM [facility] LAB Anion Gap 6 3 - 11 LAB CHEMISTRY METHOD 06/23/2025 9:44 AM [facility] LAB Glucose 115(H) 70 - 100 mg/dL LAB CHEMISTRY METHOD 06/23/2025 9:44 AM [facility] BUN 36(H) 5 - 25 mg/dL LAB CHEMISTRY METHOD 06/23/2025 9:44 AM [facility] Creatinine 2.00(H) 0.70 - 1.30 mg/dL LAB CHEMISTRY METHOD 06/23/2025 9:44 AM [facility] LAB eGFR 35(L) >=60 mL/min/1. 73m2 LAB CHEMISTRY METHOD 06/23/2025 9:44 AM [facility] LAB Comment:Calculation based on the Chronic Kidney Disease Epidemiology Collaboration (CKD-EPI) equation refit without adjustment for race. BUN/Creatinine Ratio 18.0 LAB CHEMISTRY METHOD 06/23/2025 9:44 AM [facility] LAB Calcium 8.7 8.5 - 10.5 mg/dL LAB CHEMISTRY METHOD 06/23/2025 9:44 AM [facility] LAB AST (SGOT) 435(H) 10 - 42 unit/L LAB CHEMISTRY METHOD 06/23/2025 9:44 AM [facility] LAB ALT (SGPT) 159(H) 10 - 60 unit/L LAB CHEMISTRY METHOD 06/23/2025 9:44 AM EDT [facility] LAB Alkaline Phosphatase 63 42 - 121 unit/L LAB CHEMISTRY METHOD 06/23/2025 9:44 AM EDT [facility] LAB Total Protein 6.2 6.0 - 8.0 g/dL LAB CHEMISTRY METHOD 06/23/2025 9:44 AM EDT [facility] Albumin 2.7(L) 3.2 - 5.0 g/dL LAB CHEMISTRY METHOD 06/23/2025 9:44 AM EDT [facility] Total Bilirubin 0.6 0.0 - 1.4 mg/dL LAB CHEMISTRY METHOD 06/23/2025 9:44 AM EDT [facility] Blood Venous blood specimen / Unknown Venipuncture / Unknown 06/23/2025 7:33 AM EDT 06/23/2025 8:26 AM EDT us Jenaro Vanessa MD LAB BLOOD ORDERABLES Final Resu lt [facility] [address] [place] [address], * (ABNORMAL) Complete blood count (06/23/2025 7:33 AM EDT) WBC 8.8 4.8 - 10.8 K/[facility] LAB HEMETOLOGY METHOD 06/23/2025 8:58 AM EDT [facility] RBC 3.40(L) 4.50 - 5.50 M/[facility] LAB HEMETOLOGY METHOD 06/23/2025 8:58 AM EDT [facility] Hemoglobin 11.2(L) 13.5 - 17.5 g/dL LAB HEMETOLOGY METHOD 06/23/2025 8:58 AM EDT [facility] Hematocrit 34.1(L) 42.0 - 54.0 % LAB HEMETOLOGY METHOD 06/23/2025 8:58 AM EDT [facility] MCV 99.1(H) 79.0 - 98.0 FL LAB HEMETOLOGY METHOD 06/23/2025 8:58 AM EDT [facility] MCH 32.6(H) 27.0 - 32.0 pcg LAB HEMETOLOGY METHOD 06/23/2025 8:58 AM EDT [facility] MCHC 32.8 32.0 - 37.0 g/dL LAB HEMETOLOGY METHOD 06/23/2025 8:58 AM EDT [facility] RDW 12.8 11.0 - 15.0 % LAB HEMETOLOGY METHOD 06/23/2025 8:58 AM EDT [facility] Platelets 184 130 - 400 K/mcL LAB HEMETOLOGY METHOD 06/23/2025 8:58 AM EDT [facility] MPV 11.2(H) 7.0 - 11.0 FL LAB HEMETOLOGY METHOD 06/23/2025 8:58 AM EDT [facility] NRBC 0.0 <1.0 % LAB HEMETOLOGY METHOD 06/23/2025 8:58 AM EDT [facility] NRBC Absolute 0.00 <0.10 K/mcL LAB HEMETOLOGY METHOD 06/23/2025 8:58 AM EDT [facility] Blood Venous blood specimen / Unknown Venipuncture / Unknown 06/23/2025 7:33 AM EDT 06/23/2025 8:26 AM EDT us Jenaro Vanessa MD LAB BLOOD ORDERABLES Final Resu lt [facility] [address] [place] [address], documented in this encounter Visit Diagnoses Diagnosis Diverticulitis of large intestine with perforation and abscess without bleeding Infectious gastroenteritis and colitis, unspecified documented in this encounter Additional Health Concerns Assessment Noted Time PHQ-9 Depression Total Score: 0 10/11/19 25 1:48 PM EST documented as of this encounter Care Teams Member Service Specialist Relationship Specialty Start Date End Date Bimal Feliz PA [address] [place] [address] PCP - General Internal Medicine 11/07/20 documented as of this encounter
--- OUTSIDE RECORDS SUMMARY | 2025-07-05 17:09 | XMS_ITS | Encounter Summary ---
Author Organization [facility] Address [address] [place] [address] Care Team Providers Care Boatbuilder Apprentice Wood Name Role Phone Bimal Feliz Primary Care Provider [phone] [phone] Encounter Details Date Type Department Care Team (Latest Contact Info) Description 06/27/2025 Lab Requisition [facility] - Main Lab [address] [facility] [place] [address] Jenaro Vanessa MD [address] [place] [address] Diverticulitis of large intestine with [...] for your loved ones. For example, child adolescent psychiatrist or elderly care for an older adult? [...] Complete blood count (06/28/2025 5:41 AM EDT) [facility] Signature WBC 13.1(H) 4.8 - 10.8 K/mcL LAB HEMETOLOGY METHOD 06/28/2025 8:[address] [facility] LAB RBC 3.90(L) 4.50 - 5.50 M/mcL LAB HEMETOLOGY METHOD 06/28/2025 8:50 AM EDT [facility] Hemoglobin 12.5(L) 13.5 - 17.5 g/dL LAB HEMETOLOGY METHOD 06/28/2025 8:[address] [facility] LAB Hematocrit 38.1(L) 42.0 - 54.0 % LAB HEMETOLOGY METHOD 06/28/2025 8:[address] [facility] LAB MCV 97.7 79.0 - 98.0 FL LAB HEMETOLOGY METHOD 06/28/2025 8:[address] [facility] LAB MCH 32.1(H) 27.0 - 32.0 pcg LAB HEMETOLOGY METHOD 06/28/2025 8:[address] [facility] MCHC 32.8 32.0 - 37.0 g/dL LAB HEMETOLOGY METHOD 06/28/2025 8:[address] [facility] RDW 12.7 11.0 - 15.0 % LAB HEMETOLOGY METHOD 06/28/2025 8:50 AM T [facility] LAB Platelets 413(H) 130 - 400 K/mcL LAB HEMETOLOGY METHOD 06/28/2025 8:50 AM T [facility] MPV 11.4(H) 7.0 - 11.0 FL LAB HEMETOLOGY METHOD 06/28/2025 8:[address] [facility] NRBC 0.0 <1.0 % LAB HEMETOLOGY METHOD 06/28/2025 8:50 AM EDT [facility] NRBC Absolute 0.00 <0.10 K/mcL LAB HEMETOLOGY METHOD 06/28/2025 8:50 AM EDT [facility] Blood Venous blood specimen / Unknown Venipuncture / Unknown 06/28/2025 5:41 AM EDT 06/28/2025 8:06 AM EDT us Jenaro Vanessa MD LAB BLOOD ORDERABLES Final Resu lt [facility] [address] [place] [address], [place] [phone] * (ABNORMAL) Basic metabolic panel (06/28/2025 5:41 AM EDT) Sodium 136 133 - 145 mmol/L LAB CHEMISTRY METHOD 06/28/2025 9:[address] [facility] Potassium 3.8 3.5 - 5.5 mmol/L LAB CHEMISTRY METHOD 06/28/2025 9:[address] [facility] Chloride 95(L) 96 - 110 mmol/L LAB CHEMISTRY METHOD 06/28/2025 9:[address] [facility] CO2 34(H) 21 - 32 mmol/L LAB CHEMISTRY METHOD 06/28/2025 9:[address] [facility] Anion Gap 7 3 - 11 LAB CHEMISTRY METHOD 06/28/2025 9:[address] [facility] Glucose 120(H) 70 - 100 mg/dL LAB CHEMISTRY METHOD 06/28/2025 9:[address] [facility] BUN 29(H) 5 - 25 mg/dL LAB CHEMISTRY METHOD 06/28/2025 9:[address] [facility] Creatinine 1.60(H) 0.70 - 1.30 mg/dL LAB CHEMISTRY METHOD 06/28/2025 9:[address] [facility] LAB eGFR 45(L) >=60 mL/min/1. 73m2 LAB CHEMISTRY METHOD 06/28/2025 9:03 AM EDT [facility] Comment:Calculation based on the Chronic Kidney Disease Epidemiology Collaboration (CKD-EPI) equation refit without adjustment for race. BUN/Creatinine Ratio 18.1 LAB CHEMISTRY METHOD 06/28/2025 9:03 AM EDT [facility] Calcium 8.8 8.5 - 10.5 mg/dL LAB CHEMISTRY METHOD 06/28/2025 9:03 AM EDT [facility] Blood Venous blood specimen / Unknown Venipuncture / Unknown 06/28/2025 5:41 AM EDT 06/28/2025 8:06 AM EDT us Jenaro Vanessa MD LAB BLOOD ORDERABLES Final Resu lt [facility] [address] [place] [address], documented in this encounter Visit Diagnoses Diagnosis Diverticulitis of large intestine with perforation and abscess without bleeding Infectious gastroenteritis and colitis, unspecified documented in this encounter Additional Health Concerns Assessment Noted Time PHQ-9 Depression Total Score: 0 10/11/19 25 1:48 PM EST documented as of this encounter Care Teams Boatbuilder Apprentice Wood Relationship Specialty Start Date End Date Bimal Feliz PA [address] [place] [address] PCP - General Internal Medicine 11/07/20 documented as of this encounter
--- OUTSIDE RECORDS SUMMARY | 2025-07-05 17:09 | XMS_ITS | Encounter Summary ---
Author Organization [facility] Address [address] [place] [address] Care Team Providers Care Yard Hand Name Role Phone Bimal Feliz Primary Care Provider [phone] [phone] Encounter Details Date Type Department Care Team (Latest Contact Info) Description 06/25/2025 Lab Requisition [facility] - Main Lab [address] [facility] [place] [address] Jenaro Vanessa MD [address] [place] [address] Diverticulitis of large intestine with [...] care for your loved ones. For example, childcare worker or elderly care for an older [...] mmol/L LAB CHEMISTRY METHOD 06/25/2025 10:48 AM [facility] Potassium 3.3(L) 3.5 - 5.5 mmol/L LAB CHEMISTRY METHOD 06/25/2025 10:48 AM [facility] Chloride 96 96 - 110 mmol/L LAB CHEMISTRY METHOD 06/25/2025 10:48 AM [facility] CO2 33(H) 21 - 32 mmol/L LAB CHEMISTRY METHOD 06/25/2025 10:48 AM [facility] Anion Gap 8 3 - 11 LAB CHEMISTRY METHOD 06/25/2025 10:48 AM [facility] Glucose 116(H) 70 - 100 mg/dL LAB CHEMISTRY METHOD 06/25/2025 10:48 AM [facility] BUN 35(H) 5 - 25 mg/dL LAB CHEMISTRY METHOD 06/25/2025 10:48 AM [facility] Creatinine 1.84(H) 0.70 - 1.30 mg/dL LAB CHEMISTRY METHOD 06/25/2025 10:48 AM [facility] LAB eGFR 38(L) >=60 mL/min/1. 73m2 LAB CHEMISTRY METHOD 06/25/2025 10:48 AM [facility] Comment:Calculation based on the Chronic Kidney Disease Epidemiology Collaboration (CKD-EPI) equation refit without adjustment for race. BUN/Creatinine Ratio 19.0 LAB CHEMISTRY METHOD 06/25/2025 10:48 AM [facility] Calcium 8.5 8.5 - 10.5 mg/dL LAB CHEMISTRY METHOD 06/25/2025 10:48 AM [facility] LAB AST (SGOT) 364(H) 10 - 42 unit/L LAB CHEMISTRY METHOD 06/25/2025 10:48 AM [facility] ALT (SGPT) 163(H) 10 - 60 unit/L LAB CHEMISTRY METHOD 06/25/2025 10:48 AM EDT [facility] Alkaline Phosphatase 73 42 - 121 unit/L LAB CHEMISTRY METHOD 06/25/2025 10:48 AM EDT [facility] Total Protein 6.2 6.0 - 8.0 g/dL LAB CHEMISTRY METHOD 06/25/2025 10:48 AM EDT [facility] Albumin 2.7(L) 3.2 - 5.0 g/dL LAB CHEMISTRY METHOD 06/25/2025 10:48 AM EDT [facility] Total Bilirubin 0.6 0.0 - 1.4 mg/dL LAB CHEMISTRY METHOD 06/25/2025 10:48 AM EDT [facility] Blood Venous blood specimen / Unknown Venipuncture / Unknown 06/25/2025 5:05 AM EDT 06/25/2025 9:52 AM EDT us Jenaro Vanessa MD LAB BLOOD ORDERABLES Final Resu lt [facility] [address] [place] [address], [place] [phone] * (ABNORMAL) Complete blood count (06/25/2025 5:05 AM EDT) WBC 10.0 4.8 - 10.8 K/[facility] LAB HEMETOLOGY METHOD 06/25/2025 10:24 AM EDT [facility] RBC 3.40(L) 4.50 - 5.50 M/[facility] LAB HEMETOLOGY METHOD 06/25/2025 10:24 AM EDT [facility] Hemoglobin 11.1(L) 13.5 - 17.5 g/dL LAB HEMETOLOGY METHOD 06/25/2025 10:24 AM EDT [facility] Hematocrit 33.6(L) 42.0 - 54.0 % LAB HEMETOLOGY METHOD 06/25/2025 10:24 AM EDT [facility] MCV 98.0 79.0 - 98.0 FL LAB HEMETOLOGY METHOD 06/25/2025 10:24 AM EDT [facility] MCH 32.4(H) 27.0 - 32.0 pcg LAB HEMETOLOGY METHOD 06/25/2025 10:24 AM EDT [facility] MCHC 33.0 32.0 - 37.0 g/dL LAB HEMETOLOGY METHOD 06/25/2025 10:24 AM EDT [facility] RDW 12.8 11.0 - 15.0 % LAB HEMETOLOGY METHOD 06/25/2025 10:24 AM [facility] Platelets 160 130 - 400 K/mcL LAB HEMETOLOGY METHOD 06/25/2025 10:24 AM EDT [facility] MPV 11.3(H) 7.0 - 11.0 FL LAB HEMETOLOGY METHOD 06/25/2025 10:24 AM EDT [facility] NRBC 0.0 <1.0 % LAB HEMETOLOGY METHOD 06/25/2025 10:24 AM [facility] NRBC Absolute 0.00 <0.10 K/mcL LAB HEMETOLOGY METHOD 06/25/2025 10:24 AM T [facility] Blood Venous blood specimen / Unknown Venipuncture / Unknown 06/25/2025 5:05 AM EDT 06/25/2025 9:52 AM EDT us Jenaro Vanessa MD LAB BLOOD ORDERABLES Final Resu lt [facility] [address] [place] [address], documented in this encounter Visit Diagnoses Diagnosis Diverticulitis of large intestine with perforation and abscess without bleeding Infectious gastroenteritis and colitis, unspecified documented in this encounter Additional Health Concerns Assessment Noted Time PHQ-9 Depression Total Score: 0 10/11/19 25 1:48 PM EST documented as of this encounter Care Teams Yard Hand Relationship Specialty Start Date End Date Bimal Feliz PA [address] [place] [address] PCP - General Internal Medicine 11/07/20 documented as of this encounter
--- OUTSIDE RECORDS SUMMARY | 2025-07-05 17:09 | XMS_ITS | Clinical Summary ---
Author Organization [facility] [address] [place] [address] [place] [phone] Phone Care Team Providers Care Direct Casting Operator Name Role Phone Bimal Feliz Primary Care Provider +1 [phone] Allergies No known active allergies Medications lisinopril [...] Encounters Date Type Department Care Team Description 07/05/2025 Telephone Adult Medicine [address] [address] Bimal Feliz PA 07/04/2025 Lab Requisition [facility] Lab [address] [place] [address] Jenaro Vanessa MD Diverticulitis of large intestine with perforation and abscess without bleeding; Infectious gastroenteritis and colitis, unspecified 06/29/2025 Lab Requisition [facility] Lab [address] [place] [phone] Jenaro Vanessa MD Diverticulitis of large intestine with perforation and abscess without bleeding; Infectious gastroenteritis and colitis, unspecified 06/27/2025 Lab Requisition [facility] Lab [address] [place] [phone] Jenaro Vanessa MD Diverticulitis of large intestine with perforation and abscess without bleeding; Infectious gastroenteritis and colitis, unspecified 06/25/2025 Lab Requisition [facility] Lab [address] [facility] [place] [address] Jenaro Vanessa MD Diverticulitis of large intestine with perforation and abscess without bleeding; Infectious gastroenteritis and colitis, unspecified 06/23/2025 Lab Requisition [facility] - Main Lab [address] [facility] [address] Jenaro Vanessa MD Diverticulitis of large intestine with perforation and abscess without bleeding; Infectious gastroenteritis and colitis, unspecified 06/15/2025 Telephone [facility] - [place] [address] [facility] [address] [place] [address] Tommy Marie MD from Last [...] COMMENT: RT KNEE ARTHAROSSCOPIC SURGERY APPENDECTOMY PROCEDURE: NC APPENDECTOMY OTHER SURGICAL HISTORY PROCEDURE: HISTORY OTHER; COMMENT: right partial knee replacement [facility] 2011 COLONOSCOPY 2002 PROCEDURE: NC COLONOSCOPY FLX DX W/COLLJ SPEC WHEN PFRMD; COMMENT: normal COLONOSCOPY 2012 PROCEDURE: NC COLONOSCOPY FLX DX W/COLLJ SPEC WHEN PFRMD; COMMENT: normal HIP ARTHROPLASTY 2016 Bilateral PROCEDURE: HISTORICAL HIP REPLACEMENT; COMMENT: dr [...] for your loved ones. For example, childcare attendant or elderly care for an older adult? [...] K/mcL LAB HEMETOLOGY METHOD 07/02/2025 10:42 AM [facility] RBC 3.60(L) 4.50 - 5.50 M/mcL LAB HEMETOLOGY METHOD 07/02/2025 10:42 AM [facility] Hemoglobin 11.4(L) 13.5 - 17.5 g/dL LAB HEMETOLOGY METHOD 07/02/2025 10:42 AM [facility] Hematocrit 34.1(L) 42.0 - 54.0 % LAB HEMETOLOGY METHOD 07/02/2025 10:42 AM [facility] LAB MCV 95.8 79.0 - 98.0 FL LAB HEMETOLOGY METHOD 07/02/2025 10:[address] [facility] MCH 32.0 27.0 - 32.0 pcg LAB HEMETOLOGY METHOD 07/02/2025 10:[address] [facility] MCHC 33.4 32.0 - 37.0 g/dL LAB HEMETOLOGY METHOD 07/02/2025 10:[address] [facility] RDW 12.3 11.0 - 15.0 % LAB HEMETOLOGY METHOD 07/02/2025 10:[address] [facility] Platelets 332 130 - 400 K/mcL LAB HEMETOLOGY METHOD 07/02/2025 10:[address] [facility] MPV 11.2(H) 7.0 - 11.0 FL LAB HEMETOLOGY METHOD 07/02/2025 10:[address] [facility] NRBC 0.0 <1.0 % LAB HEMETOLOGY METHOD 07/02/2025 10:[address] [facility] NRBC Absolute 0.00 <0.10 K/mcL LAB HEMETOLOGY METHOD 07/02/2025 10:[address] [facility] Blood Venous blood specimen / Unknown Venipuncture / Unknown 07/02/2025 7:17 AM EST 07/02/2025 10:29 AM EST us Jenaro Vanessa MD LAB BLOOD ORDERABLES Final Resu lt [facility] [address] [place] [address], * (ABNORMAL) Comprehensive metabolic panel (07/02/2025 7:17 AM EST) Only the most recent of3 resultswithin the time period is included. [facility] Sodium 135 133 - 145 mmol/L LAB CHEMISTRY METHOD 07/02/2025 11:15 AM [facility] Potassium 3.9 3.5 - 5.5 mmol/L LAB CHEMISTRY METHOD 07/02/2025 11:15 AM [facility] Chloride 96 96 - 110 mmol/L LAB CHEMISTRY METHOD 07/02/2025 11:15 AM [facility] CO2 31 21 - 32 mmol/L LAB CHEMISTRY METHOD 07/02/2025 11:15 AM [facility] Anion Gap 8 3 - 11 LAB CHEMISTRY METHOD 07/02/2025 11:15 AM [facility] Glucose 99 70 - 100 mg/dL LAB CHEMISTRY METHOD 07/02/2025 11:15 AM [facility] BUN 26(H) 5 - 25 mg/dL LAB CHEMISTRY METHOD 07/02/2025 11:15 AM [facility] Creatinine 1.55(H) 0.70 - 1.30 mg/dL LAB CHEMISTRY METHOD 07/02/2025 11:15 AM [facility] eGFR 47(L) >=60 mL/min/1. 73m2 LAB CHEMISTRY METHOD 07/02/2025 11:15 AM [facility] Comment:Calculation based on the Chronic Kidney Disease Epidemiology Collaboration (CKD-EPI) equation refit without adjustment for race. BUN/Creatinine Ratio 16.8 LAB CHEMISTRY METHOD 07/02/2025 11:15 AM [facility] Calcium 8.9 8.5 - 10.5 mg/dL LAB CHEMISTRY METHOD 07/02/2025 11:15 AM [facility] AST (SGOT) 149(H) 10 - 42 unit/L LAB CHEMISTRY METHOD 07/02/2025 11:15 AM [facility] ALT (SGPT) 72(H) 10 - 60 unit/L LAB CHEMISTRY METHOD 07/02/2025 11:15 AM [facility] Alkaline Phosphatase 84 42 - 121 unit/L LAB CHEMISTRY METHOD 07/02/2025 11:[address] [facility] Total Protein 7.2 6.0 - 8.0 g/dL LAB CHEMISTRY METHOD 07/02/2025 11:15 AM [facility] Albumin 3.2 3.2 - 5.0 g/dL LAB CHEMISTRY METHOD 07/02/2025 11:15 AM [facility] Total Bilirubin 0.7 0.0 - 1.4 mg/dL LAB CHEMISTRY METHOD 07/02/2025 11:15 AM [facility] Blood Venous blood specimen / Unknown Venipuncture / Unknown 07/02/2025 7:17 AM EST 07/02/2025 10:29 AM EST us Jenaro Vanessa MD LAB BLOOD ORDERABLES Final Resu lt [facility] [address] [place] [address], * (ABNORMAL) Basic metabolic panel (06/28/2025 5:41 AM EDT) Sodium 136 133 - 145 mmol/L LAB CHEMISTRY METHOD 06/28/2025 9:03 AM [facility] Potassium 3.8 3.5 - 5.5 mmol/L LAB CHEMISTRY METHOD 06/28/2025 9:03 AM [facility] Chloride 95(L) 96 - 110 mmol/L LAB CHEMISTRY METHOD 06/28/2025 9:03 AM [facility] CO2 34(H) 21 - 32 mmol/L LAB CHEMISTRY METHOD 06/28/2025 9:03 AM [facility] Anion Gap 7 3 - 11 LAB CHEMISTRY METHOD 06/28/2025 9:03 AM [facility] Glucose 120(H) 70 - 100 mg/dL LAB CHEMISTRY METHOD 06/28/2025 9:[address] [facility] BUN 29(H) 5 - 25 mg/dL LAB CHEMISTRY METHOD 06/28/2025 9:[address] [facility] Creatinine 1.60(H) 0.70 - 1.30 mg/dL LAB CHEMISTRY METHOD [facility] eGFR 45(L) >=60 mL/min/1. 73m2 LAB CHEMISTRY METHOD 06/28/2025 9:[address] [facility] Comment:Calculation based on the Chronic Kidney Disease Epidemiology Collaboration (CKD-EPI) equation refit without adjustment for race. BUN/Creatinine Ratio 18.1 LAB CHEMISTRY METHOD [facility]/28[facility]2025 [facility] Calcium 8.8 8.5 - 10.5 mg/dL LAB CHEMISTRY METHOD 06/28/2025 9:03 AM [facility] Blood Venous blood specimen / Unknown Venipuncture / Unknown 06/28/2025 5:41 AM EDT 06/28/2025 8:06 AM EDT Jenaro Vanessa MD LAB BLOOD ORDERABLES Final Resu lt [facility] [address] [place] [address], * External Xray Report (06/16/2025) Only the most recent of2 resultswithin the time period is included. Anatomical Region Laterality Modality Radiographic Lucita ging us Provider [facility] XR PROCEDURES Final [...] l Result * Hepatitis C Screening (02/12/2016) Pathologist [facility] Hepatitis C Screening Abstracted Historical Provider HEALTH MAINTENANCE Final Result from Last 3 Months or Most Recently Relevant to Health Maintenance Insurance [facility] [address] [place] [address] Care Teams Direct Casting Operator Relationship Specialty Start Date End Date Bimal Feliz PA [address] [place] [id number] PCP - General Internal Medicine 11/07/20
--- OUTSIDE RECORDS SUMMARY | 2025-07-05 17:09 | XMS_ITS | Encounter Summary ---
Author Organization [facility] Address [address] [place] [address] Care Team Providers Care Fern Gatherer Name Role Phone Bimal Feliz Primary Care Provider +1 [phone] Encounter Details Date Type Department Care Team (Latest Contact Info) Description 07/04/2025 Lab Requisition [facility] - Main Lab [address] [facility] [place] [address] Jenaro Vanessa MD [address] [place] [address] Diverticulitis of large intestine with [...] care for your loved ones. For example, childhood teacher or elderly care for an older adult? [...] documented as of this encounter Care Teams Fern Gatherer Relationship Specialty Start Date End Date Bimal Feliz PA [address] [place] [address] PCP - General Internal Medicine 11/07/20 documented as of this encounter
--- OUTSIDE RECORDS SUMMARY | 2025-07-05 17:09 | XMS_ITS | Clinical Summary ---
Author Organization [facility] Address [address] [facility] [address] [place] [address] Phone Care Team Providers Care Tax Form Preparer Name Role Phone Bimal Feliz Primary Care [...] file Insurance MEDICARE PART A & B [facility] MEDICARE SUPPLEMENT Care Teams Tax Form Preparer Relationship Specialty Start Date End Date Bimal Feliz PA [address] [place] [address] PCP - General Physician Jewel Staker 01/12/23 Additional Source Comments The information contained in this document represents components of the legal health record. It is not the complete legal health record.[facility]
--- OUTSIDE RECORDS SUMMARY | 2025-07-05 17:09 | XMS_ITS | Encounter Summary ---
Author Organization [facility] Address [address] [place] [address] Care Team Providers Care Bar Supervisor Name Role Phone Bimal Feliz Primary Care Provider +1 [phone] Encounter Details Date Type Department Care Team (Latest Contact Info) Description 06/29/[address] [facility] [address] [facility] [place] [address] Jenaro Vanessa MD [address] [place] [address] Diverticulitis of large intestine with [...] for your loved ones. For example, child nurse or elderly care for an older adult? [...] Complete blood count (07/02/2025 7:17 AM EST) [facility] WBC 9.2 4.8 - 10.8 K/mcL [...] pcg LAB HEMETOLOGY METHOD 07/02/2025 10:42 AM [facility] MCHC 33.4 32.0 - 37.0 [...] LAB HEMETOLOGY METHOD 07/02/2025 10:42 AM EST [facility] Blood Venous blood specimen / Unknown Venipuncture / Unknown 07/02/2025 7:17 AM EST 07/02/2025 10:29 AM EST us Jenaro Vanessa MD LAB BLOOD ORDERABLES Final Resu lt [facility] [address] [place] [address], [place] [phone] * (ABNORMAL) Comprehensive metabolic panel (07/02/2025 7:17 AM EST) Sodium 135 133 - 145 mmol/L LAB CHEMISTRY METHOD 07/02/2025 11:15 AM [facility] Potassium 3.9 3.5 - 5.5 [...] g/dL LAB CHEMISTRY METHOD 07/02/2025 11:15 AM [facility] Albumin 3.2 3.2 - 5.0 g/dL LAB CHEMISTRY METHOD 07/02/2025 11:15 AM [facility] Total Bilirubin 0.7 0.0 - 1.4 mg/dL LAB CHEMISTRY METHOD 07/02/2025 11:15 AM [facility] Blood Venous blood specimen / Unknown Venipuncture / Unknown 07/02/2025 7:17 AM EST 07/02/2025 10:29 AM EST us Jenaro Vanessa MD LAB BLOOD ORDERABLES Final Resu lt [facility] [address] [place] [address], documented in this encounter Visit Diagnoses Diagnosis Diverticulitis of large intestine with perforation and abscess without bleeding Infectious gastroenteritis and colitis, unspecified documented in this encounter Additional Health Concerns Assessment Noted Time PHQ-9 Depression Total Score: 0 10/11/19 25 1:48 PM EST documented as of this encounter Care Teams Bar Supervisor Relationship Specialty Start Date End Date Bimal Feliz PA [address] [place] [address] PCP - General Internal Medicine 11/07/20 documented as of this encounter
== END 2025-07-05 14:36 | disposition home or self-care (01) ==
LOC: HO.HGS 14:01
PROVIDERS: PCP Physician Assistant Medical; Visit Provider Surgery
DX: Z48.89 Encounter for other specified surgical aftercare (principal)
CPT/HCPCS: 99024

== ENCOUNTER → 2025-07-05 13:59 | Outpatient (BNVA) | payer MEDICARE, OTHER, SELFPAY | PROVIDERS: PCP Physician Assistant Medical; Visit Provider Surgery | DX: N32.1 Vesicointestinal fistula (principal); Z48.89 Encounter for other specified surgical aftercare; Z48.02 Encounter for removal of sutures; F10.11 Alcohol abuse, in remission | CPT/HCPCS: 99212 ==

== ENCOUNTER 2025-07-12 14:53 | Outpatient (AMB) | payer MEDICARE, OTHER, SELFPAY ==
--- NOTE | 2025-07-12 14:56 | MHC.OFFVIS ---
Vital Signs 07/12/25 15:03 Height 6 ft 1 in Weight 223 lb 2 oz BMI 29.4 Intake Visit Reasons: FF Stitch removal Intake Note: Patient presents for post-op assessment status post Hand assisted laparoscopic sigmoid resection, extensive lysis of adhesions, end-colostomy; significantly difficult dissection; intraop consultation with Urology. Pt c/o; reports no complaints at this time. Radiology Technologist Required: No Accompanied by: Spouse Allergies No Known Allergies Allergy (Verified 07/12/25 15:04) HPI HPI FF Stitch removal: Details: He had undergone hand assisted laparoscopic resection of the sigmoid colon with an end-colostomy in view of a colovesical fistula has a 06/18/2025. This was a very difficult dissection in view of the severe inflammatory changes surrounding the area He was discharged on postop day 4. He is colostomy has been functioning well and he says he has had no problems with this so far. He feels well overall. He has good oral intake. His Esqueda catheter has also been removed by Dr. Rangel. He walks with a cane because of neuropathy which was deemed to be secondary to his alcohol abuse. He says he has been sober since that time of his admission. [facility] Medical History Colonic diverticular abscess Essential hypertension FH: total knee replacement High blood pressure Surgical History History of surgical procedure (~06/18/25) History of appendectomy History of knee replacement History of repair of right rotator cuff History of tonsillectomy History of colonoscopy History of hip replacement, total Social History Household Members: Spouse Housing: House Are you a primary skin care therapist to a significant other at home: No Do you presently have visiting nurse or other home services: No Alcohol intake: current Alcohol intake frequency: does not drink Comment: pt refused chair alarm at this time. pt in verbal agreement to ring prior. 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 Review of Systems Const Denies chills and Denies fever(s) Card Denies chest pain, Denies dyspnea and Denies dyspnea on exertion Resp Denies cough, Denies dyspnea and Denies dyspnea on exertion GI Details: Has ostomy Denies hematochezia Denies hematuria and Denies difficulty urinating Musc Denies back pain and Denies limited range of motion Neuro Denies focal weakness and Denies convulsions Psych Denies depression and Denies mood swings Physical Exam Vital Signs: BMI result Body Mass Index 29.4 Const Other: Ambulating with a cane General: comfortable and no acute distress Resp Effort & Inspection: normal respiratory effort GI Other: Incision well healed, colostomy functioning well Palpation (GI): Soft to palpation, not firm and no guarding Assessment & Plan Assessment & Plan (1) 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 He is doing very well. All his incisions are well healed. His stoma is functioning well. I will see him again in the office next month. He is incision and reversal at some point. I did explain to him that I anticipate reversal to be a much bigger procedure in view of the severe inflammatory changes in the pelvis. He is final path report shows diverticular disease related segmental colitis. Coding Level of Care Code Global (83532) Diagnoses Colovesical fistula N32.1
[2025-07-12 15:03] VITALS: BMI 29.4
--- OUTSIDE RECORDS SUMMARY | 2025-07-12 18:12 | XMS_ITS | Clinical Summary ---
Author Organization [facility] Address [address] [place] [address] Care Team Providers Care Marine Railway Operator Name Role Phone Unavailable Primary Care Provider [...]
--- OUTSIDE RECORDS SUMMARY | 2025-07-12 18:12 | XMS_ITS | Clinical Summary ---
Author Organization [facility] Address [address] [facility] [address] [place] [address] Phone Care Team Providers Care Bolt Sorter Name Role Phone Bimal Feliz Primary Care [...] patient's age to complete this topic IPV VACCINES Aged Out No longer eligi ble based on patient's age to complete this topic MENINGOCOCCAL VACCINES (ACWY) Aged Out No longer eligible based on patient's age to complete this topic MENINGOCOCCAL VACCINES (B) Aged Out N o longer eligible based on patient's age to complete this topic Medical Devices Not on file Insurance MEDICARE PART A & B [facility] MEDICARE SUPPLEMENT Care Teams Bolt Sorter Relationship Specialty Start Date End Date Bimal Feliz PA [address] [place] [id number] PCP - General Physician Senior Scrum Master 01/12/23 Additional Source Comments The information contained in this document represents components of the legal health record. It is not the complete legal health record.[facility]
== END 2025-07-12 15:22 | disposition home or self-care (01) ==
LOC: HO.HGS 14:54
PROVIDERS: PCP Physician Assistant Medical; Visit Provider Surgery
DX: N32.1 Vesicointestinal fistula (principal)
CPT/HCPCS: 99024

== ENCOUNTER → 2025-07-12 14:53 | Outpatient (BNVA) | payer MEDICARE, OTHER, SELFPAY | PROVIDERS: PCP Physician Assistant Medical; Visit Provider Surgery | DX: N32.1 Vesicointestinal fistula (principal); Z98.890 Other specified postprocedural states; Z48.02 Encounter for removal of sutures | CPT/HCPCS: 99212 ==

== ENCOUNTER 2025-08-15 13:22 | Outpatient (AMB) | payer MEDICARE, OTHER, SELFPAY ==
--- NOTE | 2025-08-15 13:23 | A.OFFVIS_ITS ---
Vital Signs 08/15/25 13:32 Height 6 ft 1 in Weight 236 lb BMI 31.1 BP 135/66 Blood Pressure Location Rt brachial Position Sitting Pulse 91 Intake Visit Reasons: 1mth FF Stitch removal Intake Note: Patient presents for and assessment for follow-up status post Hand assisted laparoscopic sigmoid resection, extensive lysis of adhesions, end-colostomy; significantly difficult dissection; intraop consultation with Urology. Pt and c/o; reports he has been feeling cold and needs to wear a sweater and blanket at home. Disposition Clerk Required: No Accompanied by: Spouse Allergies No Known Allergies Allergy (Verified 08/15/25 13:33) Medication List - Last Reconciled 08/15/25 by Juarez Whalen MD amlodipine 10 mg See Protocol PO DAILY atenolol 50 mg PO BEDTIME furosemide 20 mg PO DAILY omeprazole 20 mg PO DAILY PRN vitamin B complex 1 cap PO DAILY HPI HPI 1mth FF Stitch removal: Details: 74-year-old male here for follow-up after sigmoid resection. He had undergone hand assisted laparoscopic resection of the sigmoid colon with an end-colostomy in view of a colovesical fistula has a 06/18/2025. This was a very difficult dissection in view of the severe inflammatory changes surrounding the area. He has colostomy continues to function well. He feels well overall. He has good oral intake. He denies urinary complaints. He walks with a cane because of neuropathy which was deemed to be secondary to his alcohol abuse. He says he has been sober since that time of his admission. Overall, he says he has been doing well. [facility] Medical History (Updated 08/15/25 @ 13:56 by Juarez Whalen MD) Colostomy in place Colonic diverticular abscess Essential hypertension FH: total knee replacement High blood pressure Surgical History History of surgical procedure (~06/18/25) History of appendectomy History of knee replacement History of repair of right rotator cuff History of tonsillectomy History of colonoscopy History of hip replacement, total Social History Household Members: Spouse Housing: House Are you a primary clinical care manager to a significant other at home: No Do you presently have visiting nurse or other home services: No Alcohol intake: current Alcohol intake frequency: does not drink Comment: pt refused chair alarm at this time. pt in verbal agreement to ring prior. 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 Review of Systems Const Reports chills (He says he feels cold currently although without any fever) and Denies fever(s) Card Denies chest pain, Denies dyspnea and Denies dyspnea on exertion Resp Denies cough, Denies dyspnea and Denies dyspnea on exertion GI Details: Colostomy functioning well Denies hematochezia and Denies change in bowel habits Denies hematuria and Denies difficulty urinating Musc Denies back pain and Denies limited range of motion Neuro Denies focal weakness and Denies convulsions Psych Denies depression and Denies mood swings Physical Exam Vital Signs: Last Vital Signs Pulse 91 08/15/25 13:32 BP 135/66 08/15/25 13:32 BMI result Body Mass Index 31.1 Const Other: Using a cane General: comfortable and no acute distress Orientation/consciousness: patient oriented x3 Neck Neck: Yes no lymphadenopathy Resp Auscultation: clear to auscultation bilaterally Cardio Rhythm: regular rhythm GI Other: Colostomy on the left side functioning well Incisions well healed, no hernias Palpation (GI): Soft to palpation, nontender and no guarding Neuro General: patient oriented x3 Assessment & Plan Assessment & Plan (1) Colostomy in place: Code(s): Z93.3 - Colostomy status Category: Medical Plan: He has a colostomy in place after complex surgery for a colovesical fistula last May,. He says that he is due for a colonoscopy. He says he has had no problems with this colostomy. He also expressed interest about reversal of his colostomy. I therefore told him that it will be best to do his colonoscopy and evaluate the entire colon via the stoma in the rectum. I reviewed with him the technique of this procedure. I explained the risks including but not limited to bleeding, infections, perforation, as well as the benefits and alternatives. He understands what to expect as well. We will schedule him for colonoscopy via the stoma and the rectum. Orders: Referrals General Surgery Procedure Notification Z93.3 - Colostomy status Medications: New sodium,potassium,mag sulfates 17.5-3.13-1.6 gram (Suprep Bowel Prep Kit) DILUTE; drink full amount early evening before AND next morning at least 2 hr before procedure; follow w 960 mL water PO 354 mL 0RF Coding Level of Care Code Est Pt Level 3 (04548) Diagnoses Colostomy in place Z93.3
[2025-08-15 13:32] VITALS: BP 135/66; PULSE 91; BMI 31.1
--- OUTSIDE RECORDS SUMMARY | 2025-08-15 17:34 | XMS_ITS | Clinical Summary ---
Author Organization [facility] [address] [place] [address] [place] [phone] Phone Care Team Providers Care Associate Automation Engineer Name Role Phone Bimal Feliz Primary Care Provider +1 [phone] Allergies No known active allergies Medications lisinopril [...] by the office 2 tablet 5 Active furosemide (LASIX) 20 mg tablet Take 1 tablet (20 mg total) by mouth 1 (one) time each day if needed (leg swelling). 30 each 11 5 Active Active Problems Problem Noted Date Diagnosed Date Neuropathy 10/13/2024 Hyperlipidemia 08/28/2015 Osteoarthritis of knee 02/21/2009 Essential hypertension, benign 08/09/2005 Encounters Date Type Department Care Team Description 08/14/2025 Telephone Endocrinology [address] [phone] Jaquelin Wadsworth [place] 07/24/2025 Telephone Adult Medicine [address] [phone] Bimal Feliz PA 07/19/2025 Telephone Adult Medicine [address] [phone] Jaquelin Wadsworth [place] 07/05/2025 Telephone Adult Medicine [address] [phone] Bimal Feliz PA 07/04/2025 Lab Requisition [facility] [address] [facility] [place] [address] Jenaro Vanessa MD Diverticulitis of large intestine with perforation and abscess without bleeding; Infectious gastroenteritis and colitis, unspecified 06/29/2025 Lab Requisition [facility] [address] [place] [phone] Jenaro Vanessa MD Diverticulitis of large intestine with perforation and abscess without bleeding; Infectious gastroenteritis and colitis, unspecified 06/27/2025 Lab Requisition [facility] [address] [place] [phone] Jenaro Vanessa MD Diverticulitis of large intestine with perforation and abscess without bleeding; Infectious gastroenteritis and colitis, unspecified 06/25/2025 Lab Requisition [facility] [address] [place] [phone] Jenaro Vanessa MD Diverticulitis of large intestine with perforation and abscess without bleeding; Infectious gastroenteritis and colitis, unspecified 06/23/2025 Lab Requisition [facility] [address] [place] [phone] Jenaro Vanessa MD Diverticulitis of large intestine with perforation and abscess without bleeding; Infectious gastroenteritis and colitis, unspecified 06/15/2025 Telephone Gastroenterology - [place] [address] [facility] [address] [facility] [address] [place] [address] Tommy Marie MD from Last [...] COMMENT: RT KNEE ARTHAROSSCOPIC SURGERY APPENDECTOMY PROCEDURE: [place] APPENDECTOMY OTHER SURGICAL HISTORY PROCEDURE: HISTORY OTHER; COMMENT: right partial knee replacement [facility] 2011 COLONOSCOPY 2002 PROCEDURE: [place] COLONOSCOPY FLX DX W/COLLJ SPEC WHEN PFRMD; COMMENT: normal COLONOSCOPY 2012 PROCEDURE: [place] COLONOSCOPY FLX DX W/COLLJ SPEC WHEN PFRMD; [...] for your loved ones. For example, child psychologist or elderly care for an older adult? [...] Procedure Name Priority Date/Time Associated Diagnosis Comments EXTERNAL XRAY REPORT 07/04/2025 EXTERNAL XRAY REPORT 07/04/2025 COMPLETE BLOOD COUNT Routine 07/02/2025 7:17 AM [...] Recently Relevant to Health Maintenance Results * External Xray Report (07/04/2025) Only the most recent of4 resultswithin the time period is included. Anatomical Region Laterality Modality Radiographic Lucita ging us Provider [facility] IMG XR PROCEDURES Final Result * (ABNORMAL) Complete blood count (07/02/2025 7:17 AM EST) Only the most recent of4 resultswithin the time period is included. WBC 9.2 4.8 - 10.8 K/mcL LAB HEMETOLOGY METHOD 07/02/2025 10:42 AM [facility] RBC 3.60(L) 4.50 - 5.50 M/mcL LAB HEMETOLOGY METHOD 07/02/2025 10:42 AM [facility] Hemoglobin 11.4(L) 13.5 - 17.5 g/dL LAB HEMETOLOGY METHOD 07/02/2025 10:42 AM [facility] Hematocrit 34.1(L) 42.0 - 54.0 % LAB HEMETOLOGY METHOD 07/02/2025 10:42 AM [facility] MCV 95.8 79.0 - 98.0 FL LAB HEMETOLOGY METHOD 07/02/2025 10:42 AM [facility] MCH 32.0 27.0 - 32.0 pcg LAB HEMETOLOGY METHOD 07/02/2025 10:42 AM [facility] MCHC 33.4 32.0 - 37.0 g/dL LAB HEMETOLOGY METHOD 07/02/2025 10:42 AM [facility] RDW 12.3 11.0 - 15.0 % LAB HEMETOLOGY METHOD 07/02/2025 10:42 AM [facility] Platelets 332 130 - 400 K/mcL LAB HEMETOLOGY METHOD 07/02/2025 10:42 AM [facility] MPV 11.2(H) 7.0 - 11.0 FL LAB HEMETOLOGY METHOD 07/02/2025 10:42 AM [facility] NRBC 0.0 <1.0 % LAB HEMETOLOGY METHOD 07/02/2025 10:42 AM EST [facility] NRBC Absolute 0.00 <0.10 K/mcL LAB HEMETOLOGY METHOD 07/02/2025 10:42 AM [facility] Blood Venous blood specimen / Unknown Venipuncture / Unknown 07/02/2025 7:17 AM EST 07/02/2025 10:29 AM EST us Jenaro Vanessa MD LAB BLOOD ORDERABLES Final Resu lt [facility] [address] [place] [address], [place] [phone] * (ABNORMAL) Comprehensive metabolic panel (07/02/2025 7:17 AM EST) Only the most recent of3 resultswithin the time period is included. Sodium 135 133 - 145 mmol/L LAB CHEMISTRY METHOD 07/02/2025 11:15 AM [facility] Potassium 3.9 3.5 - 5.5 mmol/L LAB CHEMISTRY METHOD 07/02/2025 11:15 AM [facility] Chloride 96 96 - 110 mmol/L LAB CHEMISTRY METHOD 07/02/2025 11:15 AM [facility] CO2 31 21 - 32 mmol/L LAB CHEMISTRY METHOD 07/02/2025 11:15 AM [facility] Anion Gap 8 3 - 11 LAB CHEMISTRY METHOD 07/02/2025 11:15 AM [facility] Glucose 99 70 - 100 mg/dL LAB CHEMISTRY METHOD 07/02/2025 11:15 AM [facility] BUN 26(H) 5 - 25 mg/dL LAB CHEMISTRY METHOD 07/02/2025 11:15 AM [facility] Creatinine 1.55(H) 0.70 - 1.30 mg/dL LAB CHEMISTRY METHOD 07/02/2025 11:15 AM [facility] eGFR 47(L) >=60 mL/min/1. 73m2 LAB CHEMISTRY METHOD 07/02/2025 11:15 AM [facility] Comment:Calculation based on the Chronic Kidney Disease Epidemiology Collaboration (CKD-EPI) equation refit without adjustment for race. BUN/Creatinine Ratio 16.8 LAB CHEMISTRY METHOD 07/02/2025 11:15 AM [facility] Calcium 8.9 8.5 - 10.5 mg/dL LAB CHEMISTRY METHOD 07/02/2025 11:15 AM [facility] AST (SGOT) 149(H) 10 - 42 unit/L LAB CHEMISTRY METHOD 07/02/2025 11:15 AM [facility] ALT (SGPT) 72(H) 10 - 60 unit/L LAB CHEMISTRY METHOD 07/02/2025 11:15 AM [facility] Alkaline Phosphatase 84 42 - 121 unit/L LAB CHEMISTRY METHOD 07/02/2025 11:15 AM [facility] Total Protein 7.2 6.0 - 8.0 g/dL LAB CHEMISTRY METHOD 07/02/2025 11:15 AM [facility] Albumin 3.2 3.2 - 5.0 g/dL LAB CHEMISTRY METHOD 07/02/2025 11:15 AM [facility] Total Bilirubin 0.7 0.0 - 1.4 mg/dL LAB CHEMISTRY METHOD 07/02/2025 11:15 AM [facility] Blood Venous blood specimen / Unknown Venipuncture / Unknown 07/02/2025 7:17 AM EST 07/02/2025 10:29 AM EST us Jenaro Vanessa MD LAB BLOOD ORDERABLES Final Resu lt [facility] [address] [place] [address], [place] [phone] * (ABNORMAL) Basic metabolic panel (06/28/2025 5:41 AM EDT) Sodium 136 133 - 145 mmol/L LAB CHEMISTRY METHOD 06/28/2025 9:03 AM [facility] Potassium 3.8 3.5 - 5.5 mmol/L LAB CHEMISTRY METHOD 06/28/2025 9:03 AM [facility] Chloride 95(L) 96 - 110 mmol/L LAB CHEMISTRY METHOD 06/28/2025 9:03 AM [facility] CO2 34(H) 21 - 32 mmol/L LAB CHEMISTRY METHOD 06/28/2025 9:03 AM [facility] Anion Gap 7 3 - 11 LAB CHEMISTRY METHOD 06/28/2025 9:03 AM [facility] Glucose 120(H) 70 - 100 mg/dL LAB CHEMISTRY METHOD 06/28/2025 9:03 AM [facility] BUN 29(H) 5 - 25 mg/dL LAB CHEMISTRY METHOD 06/28/2025 9:03 AM [facility] Creatinine 1.60(H) 0.70 - 1.30 mg/dL LAB CHEMISTRY METHOD 06/28/2025 9:03 AM [facility] eGFR 45(L) >=60 mL/min/1. 73m2 LAB CHEMISTRY METHOD 06/28/2025 9:03 AM [facility] Comment:Calculation based on the Chronic Kidney Disease Epidemiology Collaboration (CKD-EPI) equation refit without adjustment for race. BUN/Creatinine Ratio 18.1 LAB CHEMISTRY METHOD 06/28/2025 9:03 AM [facility] Calcium 8.8 8.5 - 10.5 mg/dL LAB CHEMISTRY METHOD 06/28/2025 9:03 AM [facility] Blood Venous blood specimen / Unknown Venipuncture / Unknown 06/28/2025 5:41 AM EDT 06/28/2025 8:06 AM EDT Jenaro Vanessa MD LAB BLOOD ORDERABLES Final Resu lt [facility] [address] [place] [address], [place] [phone] * External CT Report (06/15/2025) Only the [...] Result * Hepatitis C Screening (02/12/2016) [facility] C Screening Abstracted Historical Provider HEALTH MAINTENANCE Final Result from Last 3 Months or Most Recently Relevant to Health Maintenance Insurance MEDICARE [facility] Care Teams Associate Automation Engineer Relationship Specialty Start Date End Date Bimal Feliz PA [address] [place] [address] PCP - General Internal Medicine 11/07/20
--- OUTSIDE RECORDS SUMMARY | 2025-08-15 17:34 | XMS_ITS | Encounter Summary ---
Author Organization [facility] Address [address] [place] [address] Care Team Providers Care Grad Intern Name Role Phone Bimal Feliz Primary Care Provider [phone] Reason for Visit * Reason Onset Date Comments faxed order 08/14/2025 John paulino #[id number] Encounter Details Date Type Department Care Team ([facility] Contact Info) Description 08/14/2025 Telephone [place] [id number] [place] [phone] Jaquelin Wadsworth [place] Social History Tobacco Use Types Packs/Day Years [...] care for your loved ones. For example, school childcare attendant or elderly care for an [...] as of this encounter Progress Notes * Jaquelin Wadsworth [place] - 08/14/2025 10:29 AM EST Received orders from [facility] order #[id number]. Please sign and fax to [phone] documented in this encounter Plan of Treatment Not on file documented as of this encounter Visit Diagnoses Not on filedocumented in this encounter Additional Health Concerns Assessment Noted Time PHQ-9 Depression Total Score: 0 10/11/19 25 1:48 PM EST documented as of this encounter Care Teams Grad Intern Relationship Specialty Start Date End Date Bimal Feliz PA [address] [place] [address] PCP - General Internal Medicine 11/07/20 documented as of this encounter
--- OUTSIDE RECORDS SUMMARY | 2025-08-15 17:34 | XMS_ITS | Encounter Summary ---
Author Organization [facility] Address [address] [place] [address] Care Team Providers Care Patent Paralegal Name Role Phone Bimal Feliz Primary Care Provider +1 [phone] Encounter Details Date Type Department Care Team (Latest Contact Info) Description 06/23/2025 Lab Requisition [facility] - Main Lab [address] [facility] [place] [address] Jenaro Vanessa MD [address] [place] [address] Diverticulitis of large intestine with [...] for your loved ones. For example, child health associate or elderly care for an older adult? [...] mmol/L LAB CHEMISTRY METHOD 06/23/2025 9:[address] [facility] Potassium 3.5 3.5 - 5.5 mmol/L LAB CHEMISTRY METHOD 06/23/2025 9:[address] [facility] Chloride 99 96 - 110 mmol/L LAB CHEMISTRY METHOD 06/23/2025 9:[address] [facility] CO2 33(H) 21 - 32 mmol/L LAB CHEMISTRY METHOD 06/23/2025 9:[address] [facility] Anion Gap 6 3 - 11 LAB CHEMISTRY METHOD 06/23/2025 9:[address] [facility] Glucose 115(H) 70 - 100 mg/dL LAB CHEMISTRY METHOD 06/23/2025 9:[address] [facility] BUN 36(H) 5 - 25 mg/dL LAB CHEMISTRY METHOD 06/23/2025 9:[address] [facility] Creatinine 2.00(H) 0.70 - 1.30 mg/dL LAB CHEMISTRY METHOD 06/23/2025 9:[address] [facility] eGFR 35(L) >=60 mL/min/1. 73m2 LAB CHEMISTRY METHOD 06/23/2025 9:[address] [facility] Comment:Calculation based on the Chronic Kidney Disease Epidemiology Collaboration (CKD-EPI) equation refit without adjustment for race. BUN/Creatinine Ratio 18.0 LAB CHEMISTRY METHOD 06/23/2025 9:[address] [facility] Calcium 8.7 8.5 - 10.5 mg/dL LAB CHEMISTRY METHOD 06/23/2025 9:[address] [facility] AST (SGOT) 435(H) 10 - 42 unit/L LAB CHEMISTRY METHOD 06/23/2025 9:[address] [facility] ALT (SGPT) 159(H) 10 - 60 unit/L LAB CHEMISTRY METHOD 06/23/2025 9:[address] [facility] Alkaline Phosphatase 63 42 - 121 unit/L LAB CHEMISTRY METHOD 06/23/2025 9:[address] [facility] Total Protein 6.2 6.0 - 8.0 g/dL LAB CHEMISTRY METHOD 06/23/2025 9:[address] [facility] Albumin 2.7(L) 3.2 - 5.0 g/dL LAB CHEMISTRY METHOD 06/23/2025 9:[address] [facility] Total Bilirubin 0.6 0.0 - 1.4 mg/dL LAB CHEMISTRY METHOD 06/23/2025 9:[address] [facility] Blood Venous blood specimen / Unknown Venipuncture / Unknown 06/23/2025 7:33 AM EDT 06/23/2025 8:26 AM EDT us Jenaro Vanessa MD LAB BLOOD ORDERABLES Final Resu lt [facility] [address] [place] [address], * (ABNORMAL) Complete blood count (06/23/2025 7:33 AM EDT) WBC 8.8 4.8 - 10.8 K/[facility] LAB HEMETOLOGY METHOD 06/23/2025 8:[address] [facility] RBC 3.40(L) 4.50 - 5.50 M/[facility] LAB HEMETOLOGY METHOD 06/23/2025 8:[address] [facility] Hemoglobin 11.2(L) 13.5 - 17.5 g/dL LAB HEMETOLOGY METHOD 06/23/2025 8:[address] [facility] Hematocrit 34.1(L) 42.0 - 54.0 % LAB HEMETOLOGY METHOD 06/23/2025 8:[address] [facility] MCV 99.1(H) 79.0 - 98.0 FL LAB HEMETOLOGY METHOD 06/23/2025 8:[address] [facility] MCH 32.6(H) 27.0 - 32.0 pcg LAB HEMETOLOGY METHOD 06/23/2025 8:[address] [facility] MCHC 32.8 32.0 - 37.0 g/dL LAB HEMETOLOGY METHOD 06/23/2025 8:[address] [facility] RDW 12.8 11.0 - 15.0 % LAB HEMETOLOGY METHOD 06/23/2025 8:[address] [facility] Platelets 184 130 - 400 K/mcL LAB HEMETOLOGY METHOD 06/23/2025 8:[address] [facility] MPV 11.2(H) 7.0 - 11.0 FL LAB HEMETOLOGY METHOD 06/23/2025 8:[address] [facility] NRBC 0.0 <1.0 % LAB HEMETOLOGY METHOD 06/23/2025 8:[address] [facility] NRBC Absolute 0.00 <0.10 K/mcL LAB HEMETOLOGY METHOD 06/23/2025 8:[address] [facility] Blood Venous blood specimen / Unknown Venipuncture / Unknown 06/23/2025 7:33 AM EDT 06/23/2025 8:26 AM EDT us Jenaro Vanessa MD LAB BLOOD ORDERABLES Final Resu lt [facility] [address] [place] [address], documented in this encounter Visit Diagnoses Diagnosis Diverticulitis of large intestine with perforation and abscess without bleeding Infectious gastroenteritis and colitis, unspecified documented in this encounter Additional Health Concerns Assessment Noted Time PHQ-9 Depression Total Score: 0 10/11/19 25 1:48 PM EST documented as of this encounter Care Teams Patent Paralegal Relationship Specialty Start Date End Date Bimal Feliz PA [address] [place] [address] PCP - General Internal Medicine 11/07/20 documented as of this encounter
--- OUTSIDE RECORDS SUMMARY | 2025-08-15 17:34 | XMS_ITS | Encounter Summary ---
Author Organization [facility] Address [address] [place] [address] Care Team Providers Care Environmental Projects Advisor Name Role Phone Bimal Feliz Primary Care Provider +1 [phone] Encounter Details Date Type Department Care Team (Latest Contact Info) Description 06/29/2025 Lab Requisition [facility] - Main Lab [address] [facility] [place] [address] Jenaro Vanessa MD [address] [place] [address] Diverticulitis of large intestine with [...] for your loved ones. For example, children's counselor or elderly care for an older adult? [...] Complete blood count (07/02/2025 7:17 AM EST) [facility] WBC 9.2 4.8 - 10.8 K/mcL LAB HEMETOLOGY METHOD 07/02/2025 10:42 AM [facility] RBC 3.60(L) 4.50 - 5.50 M/mcL LAB HEMETOLOGY METHOD 07/02/2025 10:42 AM [facility] Hemoglobin 11.4(L) 13.5 - 17.5 g/dL LAB HEMETOLOGY METHOD 07/02/2025 10:42 AM [facility] Hematocrit 34.1(L) 42.0 - 54.0 % LAB HEMETOLOGY METHOD 07/02/2025 10:42 AM [facility] MCV 95.8 79.0 - 98.0 FL LAB HEMETOLOGY METHOD 07/02/2025 10:42 AM [facility] MCH 32.0 27.0 - 32.0 pcg LAB HEMETOLOGY METHOD 07/02/2025 10:42 AM [facility] MCHC 33.4 32.0 - 37.0 g/dL LAB HEMETOLOGY METHOD 07/02/2025 10:42 AM [facility] RDW 12.3 11.0 - 15.0 % LAB HEMETOLOGY METHOD 07/02/2025 10:42 AM [facility] Platelets 332 130 - 400 K/mcL LAB HEMETOLOGY METHOD 07/02/2025 10:42 AM [facility] MPV 11.2(H) 7.0 - 11.0 FL LAB HEMETOLOGY METHOD 07/02/2025 10:42 AM [facility] NRBC 0.0 <1.0 % LAB HEMETOLOGY METHOD 07/02/2025 10:42 AM [facility] NRBC Absolute 0.00 <0.10 K/mcL LAB HEMETOLOGY METHOD 07/02/2025 10:42 AM EST [facility] Blood Venous blood specimen / Unknown Venipuncture / Unknown 07/02/2025 7:17 AM EST 07/02/2025 10:29 AM EST us Jenaro Vanessa MD LAB BLOOD ORDERABLES Final Resu lt [facility] [address] [place] [address], [place] [phone] * (ABNORMAL) Comprehensive metabolic panel (07/02/2025 7:17 AM EST) Sodium 135 133 - 145 mmol/L LAB CHEMISTRY METHOD 07/02/2025 11:15 AM [facility] Potassium 3.9 3.5 - 5.5 mmol/L LAB CHEMISTRY METHOD 07/02/2025 11:15 AM [facility] Chloride 96 96 - 110 mmol/L LAB CHEMISTRY METHOD 07/02/2025 11:15 AM [facility] CO2 31 21 - 32 mmol/L LAB CHEMISTRY METHOD 07/02/2025 11:15 AM [facility] Anion Gap 8 3 - 11 LAB CHEMISTRY METHOD 07/02/2025 11:15 AM [facility] Glucose 99 70 - 100 mg/dL LAB CHEMISTRY METHOD 07/02/2025 11:15 AM [facility] BUN 26(H) 5 - 25 mg/dL LAB CHEMISTRY METHOD 07/02/2025 11:15 AM [facility] Creatinine 1.55(H) 0.70 - 1.30 mg/dL LAB CHEMISTRY METHOD 07/02/2025 11:15 AM [facility] eGFR 47(L) >=60 mL/min/1. 73m2 LAB CHEMISTRY METHOD 07/02/2025 11:15 AM [facility] Comment:Calculation based on the Chronic Kidney Disease Epidemiology Collaboration (CKD-EPI) equation refit without adjustment for race. BUN/Creatinine Ratio 16.8 LAB CHEMISTRY METHOD 07/02/2025 11:15 AM [facility] Calcium 8.9 8.5 - 10.5 mg/dL LAB CHEMISTRY METHOD 07/02/2025 11:15 AM [facility] AST (SGOT) 149(H) 10 - 42 unit/L LAB CHEMISTRY METHOD 07/02/2025 11:15 AM [facility] ALT (SGPT) 72(H) 10 - 60 unit/L LAB CHEMISTRY METHOD 07/02/2025 11:15 AM [facility] Alkaline Phosphatase 84 42 - 121 unit/L LAB CHEMISTRY METHOD 07/02/2025 11:15 AM [facility] Total Protein 7.2 6.0 - 8.0 g/dL LAB CHEMISTRY METHOD 07/02/2025 11:15 AM [facility] Albumin 3.2 3.2 - 5.0 g/dL LAB CHEMISTRY METHOD 07/02/2025 11:15 AM [facility] Total Bilirubin 0.7 0.0 - 1.4 mg/dL LAB CHEMISTRY METHOD 07/02/2025 11:15 AM [facility] Blood Venous blood specimen / Unknown Venipuncture / Unknown 07/02/2025 7:17 AM EST 07/02/2025 10:29 AM EST us Jenaro Vanessa MD LAB BLOOD ORDERABLES Final Resu lt [facility] [address] [place] [address], documented in this encounter Visit Diagnoses Diagnosis Diverticulitis of large intestine with perforation and abscess without bleeding Infectious gastroenteritis and colitis, unspecified documented in this encounter Additional Health Concerns Assessment Noted Time PHQ-9 Depression Total Score: 0 10/11/19 25 1:48 PM EST documented as of this encounter Care Teams Environmental Projects Advisor Relationship Specialty Start Date End Date Bimal Feliz PA [address] [place] [address] PCP - General Internal Medicine 11/07/20 documented as of this encounter
--- OUTSIDE RECORDS SUMMARY | 2025-08-15 17:34 | XMS_ITS | Clinical Summary ---
Author Organization [facility] Address [address] [facility] [facility] [address] [place] [phone] Phone Care Team Providers Care It Coordinator Name Role Phone Bimal Feliz Primary Care [...] Insurance MEDICARE PART A & B [facility] D[facility] MEDICARE SUPPLEMENT Care Teams It Coordinator Relationship Specialty Start Date End Date Bimal Feliz PA [address] [place] [address] PCP - General Physician Billet Sawyer 01/12/23 Additional Source Comments The information contained in this document represents components of the legal health record. It is not the complete legal health record.[facility]
--- OUTSIDE RECORDS SUMMARY | 2025-08-15 17:34 | XMS_ITS | Encounter Summary ---
Author Organization [facility] Address [address] [place] [address] Care Team Providers Care Grain Scooper Name Role Phone Bimal Feliz Primary Care Provider +1 [phone] Encounter Details Date Type Department Care Team (Latest Contact Info) Description 07/04/2025 Lab Requisition [facility] - Main Lab [address] [facility] [place] [address] Jenaro Vanessa MD [address] [place] [address] Diverticulitis of large intestine with [...] for your loved ones. For example, child and youth program assistant or elderly care for an older [...] documented as of this encounter Care Teams Grain Scooper Relationship Specialty Start Date End Date Bimal Feliz PA [address] [place] [address] PCP - General Internal Medicine 11/07/20 documented as of this encounter
--- OUTSIDE RECORDS SUMMARY | 2025-08-15 17:34 | XMS_ITS | Encounter Summary ---
Author Organization [facility] Address [address] [place] [address] Care Team Providers Care Cured Meat Packing Supervisor Name Role Phone Bimal Feliz Primary Care Provider [phone] [phone] Encounter Details Date Type Department Care Team (Latest Contact Info) Description 06/25/2025 Lab Requisition [facility] - Main Lab [address] [facility] [place] [address] Jenaro Vanessa MD [address] [place] [address] Diverticulitis of large intestine with [...] for your loved ones. For example, children's tutor or elderly care for an older adult? [...] mmol/L LAB CHEMISTRY METHOD 06/25/2025 10:48 AM [facility] Potassium 3.3(L) 3.5 - 5.5 mmol/L LAB CHEMISTRY METHOD 06/25/2025 10:48 AM [facility] Chloride 96 96 - 110 mmol/L LAB CHEMISTRY METHOD 06/25/2025 10:48 AM [facility] CO2 33(H) 21 - 32 mmol/L LAB CHEMISTRY METHOD 06/25/2025 10:48 AM [facility] Anion Gap 8 3 - 11 LAB CHEMISTRY METHOD 06/25/2025 10:48 AM [facility] Glucose 116(H) 70 - 100 mg/dL LAB CHEMISTRY METHOD 06/25/2025 10:48 AM [facility] BUN 35(H) 5 - 25 mg/dL LAB CHEMISTRY METHOD 06/25/2025 10:48 AM [facility] Creatinine 1.84(H) 0.70 - 1.30 mg/dL LAB CHEMISTRY METHOD 06/25/2025 10:48 AM [facility] eGFR 38(L) >=60 mL/min/1. 73m2 LAB CHEMISTRY METHOD 06/25/2025 10:48 AM [facility] Comment:Calculation based on the Chronic Kidney Disease Epidemiology Collaboration (CKD-EPI) equation refit without adjustment for race. BUN/Creatinine Ratio 19.0 LAB CHEMISTRY METHOD 06/25/2025 10:48 AM [facility] Calcium 8.5 8.5 - 10.5 mg/dL LAB CHEMISTRY METHOD 06/25/2025 10:48 AM [facility] AST (SGOT) 364(H) 10 - 42 unit/L LAB CHEMISTRY METHOD 06/25/2025 10:48 AM [facility] ALT (SGPT) 163(H) 10 - 60 unit/L LAB CHEMISTRY METHOD 06/25/2025 10:48 AM EDT [facility] Alkaline Phosphatase 73 42 - 121 unit/L LAB CHEMISTRY METHOD 06/25/2025 10:48 AM EDT [facility] Total Protein 6.2 6.0 - 8.0 g/dL LAB CHEMISTRY METHOD 06/25/2025 10:48 AM EDT [facility] Albumin 2.7(L) 3.2 - 5.0 g/dL LAB CHEMISTRY METHOD 06/25/2025 10:48 AM EDT [facility] Total Bilirubin 0.6 0.0 - 1.4 mg/dL LAB CHEMISTRY METHOD 06/25/2025 10:48 AM EDT [facility] Blood Venous blood specimen / Unknown Venipuncture / Unknown 06/25/2025 5:05 AM EDT 06/25/2025 9:52 AM EDT us Jenaro Vanessa MD LAB BLOOD ORDERABLES Final Resu lt [facility] [address] [place] [address], [place] [phone] * (ABNORMAL) Complete blood count (06/25/2025 5:05 AM EDT) WBC 10.0 4.8 - 10.8 K/[facility] LAB HEMETOLOGY METHOD 06/25/2025 10:24 AM EDT [facility] RBC 3.40(L) 4.50 - 5.50 M/[facility] LAB HEMETOLOGY METHOD 06/25/2025 10:24 AM EDT [facility] Hemoglobin 11.1(L) 13.5 - 17.5 g/dL LAB HEMETOLOGY METHOD 06/25/2025 10:24 AM EDT [facility] Hematocrit 33.6(L) 42.0 - 54.0 % LAB HEMETOLOGY METHOD 06/25/2025 10:24 AM EDT [facility] MCV 98.0 79.0 - 98.0 FL LAB HEMETOLOGY METHOD 06/25/2025 10:24 AM EDT [facility] MCH 32.4(H) 27.0 - 32.0 pcg LAB HEMETOLOGY METHOD 06/25/2025 10:24 AM EDT [facility] MCHC 33.0 32.0 - 37.0 g/dL LAB HEMETOLOGY METHOD 06/25/2025 10:24 AM EDT [facility] RDW 12.8 11.0 - 15.0 % LAB HEMETOLOGY METHOD 06/25/2025 10:24 AM [facility] Platelets 160 130 - 400 K/mcL LAB HEMETOLOGY METHOD 06/25/2025 10:24 AM EDT [facility] MPV 11.3(H) 7.0 - 11.0 FL LAB HEMETOLOGY METHOD 06/25/2025 10:24 AM EDT [facility] NRBC 0.0 <1.0 % LAB HEMETOLOGY METHOD 06/25/2025 10:24 AM [facility] NRBC Absolute 0.00 <0.10 K/mcL LAB HEMETOLOGY METHOD 06/25/2025 10:24 AM T [facility] Blood Venous blood specimen / Unknown Venipuncture / Unknown 06/25/2025 5:05 AM EDT 06/25/2025 9:52 AM EDT us Jenaro Vanessa MD LAB BLOOD ORDERABLES Final Resu lt [facility] [address] [place] [address], documented in this encounter Visit Diagnoses Diagnosis Diverticulitis of large intestine with perforation and abscess without bleeding Infectious gastroenteritis and colitis, unspecified documented in this encounter Additional Health Concerns Assessment Noted Time PHQ-9 Depression Total Score: 0 10/11/19 25 1:48 PM EST documented as of this encounter Care Teams Cured Meat Packing Supervisor Relationship Specialty Start Date End Date Bimal Feliz PA [address] [place] [address] PCP - General Internal Medicine 11/07/20 documented as of this encounter
--- OUTSIDE RECORDS SUMMARY | 2025-08-15 17:34 | XMS_ITS | Encounter Summary ---
Author Organization [facility] Address [address] [place] [address] Care Team Providers Care Play Reader Name Role Phone Bimal Feliz Primary Care Provider +1 [phone] Encounter Details Date Type Department Care Team (Latest Contact Info) Description 06/27/2025 Lab Requisition [facility] - Main Lab [address] [facility] [place] [address] Jenaro Vanessa MD [address] [place] [address] Diverticulitis of large intestine with [...] for your loved ones. For example, child specialist or elderly care for an older adult? [...] Complete blood count (06/28/2025 5:41 AM EDT) [facility] Signature WBC 13.1(H) 4.8 - 10.8 K/mcL LAB HEMETOLOGY METHOD 06/28/2025 8:50 AM [facility] RBC 3.90(L) 4.50 - 5.50 M/mcL LAB HEMETOLOGY METHOD 06/28/2025 8:50 AM EDT [facility] Hemoglobin 12.5(L) 13.5 - 17.5 g/dL LAB HEMETOLOGY METHOD 06/28/2025 8:50 AM [facility] Hematocrit 38.1(L) 42.0 - 54.0 % LAB HEMETOLOGY METHOD 06/28/2025 8:50 AM [facility] MCV 97.7 79.0 - 98.0 FL LAB HEMETOLOGY METHOD 06/28/2025 8:50 AM [facility] MCH 32.1(H) 27.0 - 32.0 pcg LAB HEMETOLOGY METHOD 06/28/2025 8:50 AM [facility] MCHC 32.8 32.0 - 37.0 g/dL LAB HEMETOLOGY METHOD 06/28/2025 8:50 AM [facility] RDW 12.7 11.0 - 15.0 % LAB HEMETOLOGY METHOD 06/28/2025 8:50 AM T [facility] Platelets 413(H) 130 - 400 K/mcL LAB HEMETOLOGY METHOD 06/28/2025 8:50 AM T [facility] MPV 11.4(H) 7.0 - 11.0 FL LAB HEMETOLOGY METHOD 06/28/2025 8:50 AM [facility] NRBC 0.0 <1.0 % LAB HEMETOLOGY METHOD 06/28/2025 8:50 AM EDT [facility] NRBC Absolute 0.00 <0.10 K/mcL LAB HEMETOLOGY METHOD 06/28/2025 8:50 AM EDT [facility] Blood Venous blood specimen / Unknown Venipuncture / Unknown 06/28/2025 5:41 AM EDT 06/28/2025 8:06 AM EDT us Jenaro Vanessa MD LAB BLOOD ORDERABLES Final Resu lt [facility] [address] [place] [address], [place] [phone] * (ABNORMAL) Basic metabolic panel (06/28/2025 5:41 AM EDT) Sodium 136 133 - 145 mmol/L LAB CHEMISTRY METHOD 06/28/2025 9:03 AM [facility] Potassium 3.8 3.5 - 5.5 mmol/L LAB CHEMISTRY METHOD 06/28/2025 9:03 AM [facility] Chloride 95(L) 96 - 110 mmol/L LAB CHEMISTRY METHOD 06/28/2025 9:03 AM [facility] CO2 34(H) 21 - 32 mmol/L LAB CHEMISTRY METHOD 06/28/2025 9:03 AM [facility] Anion Gap 7 3 - 11 LAB CHEMISTRY METHOD 06/28/2025 9:03 AM [facility] Glucose 120(H) 70 - 100 mg/dL LAB CHEMISTRY METHOD 06/28/2025 9:03 AM [facility] BUN 29(H) 5 - 25 mg/dL LAB CHEMISTRY METHOD 06/28/2025 9:03 AM [facility] Creatinine 1.60(H) 0.70 - 1.30 mg/dL LAB CHEMISTRY METHOD 06/28/2025 9:03 AM [facility] eGFR 45(L) >=60 mL/min/1. 73m2 LAB CHEMISTRY METHOD 06/28/2025 9:03 AM EDT [facility] Comment:Calculation based on the Chronic Kidney Disease Epidemiology Collaboration (CKD-EPI) equation refit without adjustment for race. BUN/Creatinine Ratio 18.1 LAB CHEMISTRY METHOD 06/28/2025 9:03 AM EDT [facility] Calcium 8.8 8.5 - 10.5 mg/dL LAB CHEMISTRY METHOD 06/28/2025 9:03 AM EDT [facility] Blood Venous blood specimen / Unknown Venipuncture / Unknown 06/28/2025 5:41 AM EDT 06/28/2025 8:06 AM EDT us Jenaro Vanessa MD LAB BLOOD ORDERABLES Final Resu lt [facility] [address] [place] [address], documented in this encounter Visit Diagnoses Diagnosis Diverticulitis of large intestine with perforation and abscess without bleeding Infectious gastroenteritis and colitis, unspecified documented in this encounter Additional Health Concerns Assessment Noted Time PHQ-9 Depression Total Score: 0 10/11/19 25 1:48 PM EST documented as of this encounter Care Teams Play Reader Relationship Specialty Start Date End Date Bimal Feliz PA [address] [place] [address] PCP - General Internal Medicine 11/07/20 documented as of this encounter
--- OUTSIDE RECORDS SUMMARY | 2025-08-15 17:34 | XMS_ITS | Clinical Summary ---
Author Organization [facility] Address [address] [place] [address] Care Team Providers Care Exhibit Designer Name Role Phone Unavailable Primary Care Provider [...] of 2) 11/12/2001 COVID-19 Vaccine ( - 2024-2 6 season) 2025 RSV Vaccine 50 years and old er and Patients (1 - 1-dose 75+ series) 11/12/2026 Hepatitis B Vaccines Aged Out No long er eligible based on patient's age to complete this topic
== END 2025-08-15 13:53 | disposition home or self-care (01) ==
LOC: HO.HGS 13:23
PROVIDERS: PCP Physician Assistant Medical; Visit Provider Surgery
DX: Z93.3 Colostomy status (principal)
CPT/HCPCS: 99024

== ENCOUNTER → 2025-08-15 13:22 | Outpatient (BNVA) | payer MEDICARE, OTHER, SELFPAY | PROVIDERS: PCP Physician Assistant Medical; Visit Provider Surgery | DX: Z93.3 Colostomy status (principal); N32.1 Vesicointestinal fistula | CPT/HCPCS: 99212 ==

== ENCOUNTER 2025-08-21 12:53 | Outpatient (AMB) | payer MEDICARE, OTHER, SELFPAY ==
--- NOTE | 2025-08-21 12:56 | A.OFFVIS_ITS ---
Intake Visit Reasons: 6w follow up SET ( UA ONLY IF Sx) Intake Note: Patient is present for 6 wk follow up ADELINE procedure 06/18/25 Urology Rx:VIT-B Blood Thinners:none Imaging completed: none Urinary sx : Strong urine Odor Television Mechanic Required: No Accompanied by: Self / Same As Patient Allergies No Known Allergies Allergy (Verified 08/21/25 12:58) HPI Comments Details: Repeat lab work - last creatinine 1.9 PFSH Medical History (Updated 08/15/25 @ 13:56 by Juarez Whalen MD) Colostomy in place Colonic diverticular abscess Essential hypertension FH: total knee replacement High blood pressure Surgical History History of surgical procedure (~06/18/25) History of appendectomy History of knee replacement History of repair of right rotator cuff History of tonsillectomy History of colonoscopy History of hip replacement, total Social History Household Members: Spouse Housing: House Are you a primary intensive care ambulance paramedic to a significant other at home: No Do you presently have visiting nurse or other home services: No Alcohol intake: current Alcohol intake frequency: does not drink Comment: pt refused chair alarm at this time. pt in verbal agreement to ring prior. 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 [employer] Results AMB Urinalysis, Automated UA Leukoctes 0 Huong/uL Last Edit by Gema Cooney [facility] on 08/21/25 13:11 UA Nitrite Negative Last Edit by Gema Cooney [facility] on 08/21/25 13:11 UA Urobilinogen 0.2 mg/dL Last Edit by Gema Cooney [facility] on 08/21/25 13:11 UA Protein 15 mg/dL Last Edit by Gema Cooney [facility] on 08/21/25 13:11 UA pH 6.0 Last Edit by Gema Cooney [facility] on 08/21/25 13:11 UA Blood 0 Trey/uL Last Edit by Gema Cooney [facility] on 08/21/25 13:11 UA Specific [place] 1.020 Last Edit by Gema Cooney [facility] on 08/21/25 13:1 1 UA Ketone Negative Last Edit by MONY Moss on 08/21/25 13:11 UA Bilirubin 0 mg/dL Last Edit by MONY Moss on 08/21/25 13:11 UA Glucose 0 mg/dL Last Edit by MONY Moss on 08/21/25 13:11 Results Reviewed Results Reviewed: Laboratory Last Values Urine pH (Auto) 6.0 08/21/25 13:01 Specific [place] (Auto) 1.020 08/21/25 13:01 Urine Protein (Auto) 15 mg/dL 08/21/25 13:01 Glucose (UA)(Auto) 0 mg/dL 08/21/25 13:01 Urine Ketones (Auto) Negative 08/21/25 13:01 Urine Blood (Auto) 0 Trey/uL 08/21/25 13:01 Urine Nitrite (Auto) Negative 08/21/25 13:01 Urine Bilirubin (Auto) 0 mg/dL 08/21/25 13:01 Urine Urobilinogen (Auto) 0.2 mg/dL 08/21/25 13:01 Leukocyte Esterase (Auto) 0 Huong/uL 08/21/25 13:01 Assessment & Plan Assessment & Plan Orders: Orders AMB Urinalysis Automated Today N13.8 - Other obstructive and reflux uropathy, N40.1 - Benign prostatic hyperplasia with lower urinary tract symptoms Basic Metabolic Panel Today N17.9 - Acute kidney failure, unspecified, N20.0 - Calculus of kidney Complete Blood Count no Diff Today E29.1 - Testicular hypofunction, N17.9 - A cute kidney failure, unspecified Coding
--- OUTSIDE RECORDS SUMMARY | 2025-08-21 13:56 | XMS_ITS | Clinical Summary ---
Author Organization [facility] Address [address] [place] [address] Care Team Providers Care Invoicing Machine Operator Name Role Phone Unavailable Primary Care [...]
--- OUTSIDE RECORDS SUMMARY | 2025-08-21 13:57 | XMS_ITS | Encounter Summary ---
Author Organization [facility] Address [address] [place] [address] Care Team Providers Care Credit Controller Name Role Phone Bimal Feliz Primary Care Provider +1 [phone] Encounter Details Date Type Department Care Team (Latest Contact Info) Description 07/04/2025 Lab Requisition [facility] - Main Lab [address] [facility] [address] [address] Jenaro Vanessa MD [address] [place] [address] Diverticulitis of large intestine with [...] for your loved ones. For example, child day care provider or elderly care for an older adult? [...] documented as of this encounter Care Teams Credit Controller Relationship Specialty Start Date End Date Bimal Feliz PA [address] [place] [address] PCP - General Internal Medicine 11/07/20 documented as of this encounter
--- OUTSIDE RECORDS SUMMARY | 2025-08-21 13:57 | XMS_ITS | Clinical Summary ---
Author Organization [facility] Address [address] [facility] [address] [place] [address] Phone Care Team Providers Care Outsole Paraffiner Name Role Phone Bimal Feliz Primary Care [...] Insurance MEDICARE PART A & B [facility] MEDICARE SUPPLEMENT Care Teams Outsole Paraffiner Relationship Specialty Start Date End Date Bimal Feliz PA [address] [place] [address] PCP - General Physician [employer] 01/12/23 Additional Source Comments The information contained in this document represents components of the legal health record. It is not the complete legal health record.[facility]
--- OUTSIDE RECORDS SUMMARY | 2025-08-21 13:57 | XMS_ITS | Encounter Summary ---
Author Organization [facility] Address [address] [place] [address] Care Team Providers Care Teller Name Role Phone Bimal Feliz Primary Care Provider +1 [phone] Encounter Details Date Type Department Care Team (Latest Contact Info) Description 06/23/2025 Lab Requisition [facility] - Main Lab [address] [facility] [employer] [address] Jenaro Vanessa MD [address] [place] [address] Diverticulitis of large intestine with [...] care for your loved ones. For example, child's nurse or elderly care for an older [...] mmol/L LAB CHEMISTRY METHOD 06/23/2025 9:44 AM [facility] Potassium 3.5 3.5 - 5.5 mmol/L LAB CHEMISTRY METHOD 06/23/2025 9:44 AM [facility] Chloride 99 96 - 110 mmol/L LAB CHEMISTRY METHOD 06/23/2025 9:44 AM [facility] CO2 33(H) 21 - 32 mmol/L LAB CHEMISTRY METHOD 06/23/2025 9:44 AM [facility] Anion Gap 6 3 - 11 LAB CHEMISTRY METHOD 06/23/2025 9:44 AM [facility] Glucose 115(H) 70 - 100 mg/dL LAB CHEMISTRY METHOD 06/23/2025 9:44 AM [facility] BUN 36(H) 5 - 25 mg/dL LAB CHEMISTRY METHOD 06/23/2025 9:44 AM [facility] Creatinine 2.00(H) 0.70 - 1.30 mg/dL LAB CHEMISTRY METHOD 06/23/2025 9:44 AM [facility] eGFR 35(L) >=60 mL/min/1. 73m2 LAB CHEMISTRY METHOD 06/23/2025 9:44 AM [facility] Comment:Calculation based on the Chronic Kidney Disease Epidemiology Collaboration (CKD-EPI) equation refit without adjustment for race. BUN/Creatinine Ratio 18.0 LAB CHEMISTRY METHOD 06/23/2025 9:44 AM [facility] Calcium 8.7 8.5 - 10.5 mg/dL LAB CHEMISTRY METHOD 06/23/2025 9:44 AM [facility] AST (SGOT) 435(H) 10 - 42 unit/L LAB CHEMISTRY METHOD 06/23/2025 9:44 AM [facility] ALT (SGPT) 159(H) 10 - 60 unit/L LAB CHEMISTRY METHOD 06/23/2025 9:44 AM EDT [facility] Alkaline Phosphatase 63 42 - 121 unit/L LAB CHEMISTRY METHOD 06/23/2025 9:44 AM EDT [facility] Total Protein 6.2 6.0 - 8.0 g/dL LAB CHEMISTRY METHOD 06/23/2025 9:44 AM EDT [facility] Albumin 2.7(L) 3.2 - 5.0 g/dL LAB CHEMISTRY METHOD 06/23/2025 9:44 AM EDT [facility] Total Bilirubin 0.6 0.0 - 1.4 mg/dL LAB CHEMISTRY METHOD 06/23/2025 9:44 AM EDT [facility] Blood Venous blood specimen / Unknown Venipuncture / Unknown 06/23/2025 7:33 AM EDT 06/23/2025 8:26 AM EDT us Jenaro Vanessa MD LAB BLOOD ORDERABLES Final Resu lt [facility] [address] [place] [address], * (ABNORMAL) Complete blood count (06/23/2025 7:33 AM EDT) WBC 8.8 4.8 - 10.8 K/[facility] LAB HEMETOLOGY METHOD 06/23/2025 8:58 AM EDT [facility] RBC 3.40(L) 4.50 - 5.50 M/[facility] LAB HEMETOLOGY METHOD 06/23/2025 8:58 AM EDT [facility] Hemoglobin 11.2(L) 13.5 - 17.5 g/dL LAB HEMETOLOGY METHOD 06/23/2025 8:58 AM EDT [facility] Hematocrit 34.1(L) 42.0 - 54.0 % LAB HEMETOLOGY METHOD 06/23/2025 8:58 AM EDT [facility] MCV 99.1(H) 79.0 - 98.0 FL LAB HEMETOLOGY METHOD 06/23/2025 8:58 AM EDT [facility] MCH 32.6(H) 27.0 - 32.0 pcg LAB HEMETOLOGY METHOD 06/23/2025 8:58 AM EDT [facility] MCHC 32.8 32.0 - 37.0 g/dL LAB HEMETOLOGY METHOD 06/23/2025 8:58 AM EDT [facility] RDW 12.8 11.0 - 15.0 % LAB HEMETOLOGY METHOD 06/23/2025 8:58 AM EDT [facility] Platelets 184 130 - 400 K/mcL LAB HEMETOLOGY METHOD 06/23/2025 8:58 AM EDT [facility] MPV 11.2(H) 7.0 - 11.0 FL LAB HEMETOLOGY METHOD 06/23/2025 8:58 AM EDT [facility] NRBC 0.0 <1.0 % LAB HEMETOLOGY METHOD 06/23/2025 8:58 AM EDT [facility] NRBC Absolute 0.00 <0.10 K/mcL LAB HEMETOLOGY METHOD 06/23/2025 8:58 AM EDT [facility] Blood Venous blood specimen / Unknown Venipuncture / Unknown 06/23/2025 7:33 AM EDT 06/23/2025 8:26 AM EDT us Jenaro Vanessa MD LAB BLOOD ORDERABLES Final Resu lt [facility] [address] [place] [address], documented in this encounter Visit Diagnoses Diagnosis Diverticulitis of large intestine with perforation and abscess without bleeding Infectious gastroenteritis and colitis, unspecified documented in this encounter Additional Health Concerns Assessment Noted Time PHQ-9 Depression Total Score: 0 10/11/19 25 1:48 PM EST documented as of this encounter Care Teams Teller Relationship Specialty Start Date End Date Bimal Feliz PA [address] [place] [address] PCP - General Internal Medicine 11/07/20 documented as of this encounter
--- OUTSIDE RECORDS SUMMARY | 2025-08-21 13:57 | XMS_ITS | Encounter Summary ---
Author Organization [facility] Address [address] [place] [address] Care Team Providers Care Fire Control Technician B Name Role Phone Bimal Feliz Primary Care Provider +1 [phone] Reason for Visit * Reason Onset Date Comments faxed order 08/14/2025 John paulino #[id number] Encounter Details Date Type Department Care Team ([facility] Contact Info) Description 08/14/2025 Telephone [address] [place] [place] [id number] Jaquelin W[place] Social History Tobacco Use Types Packs/Day Years [...] for your loved ones. For example, child support agent or elderly care for an older adult? [...] as of this encounter Progress Notes * Candis Ruth MA - 08/17/2025 9:54 AM EST ORDER FAXED BACK ON 08/17/25 Via Right Fax and manually * Candis Ruth MA - 08/16/2025 3:12 PM EST Orders placed on mikes desk for signature * Jaquelin Wadsworth [place] - 08/14/2025 10:29 AM EST Received orders from [facility] order #[id number]. Please sign and fax to [phone] documented in this encounter Plan of Treatment Not on file documented as of this encounter Visit Diagnoses Not on filedocumented in this encounter Additional Health Concerns Assessment Noted Time PHQ-9 Depression Total Score: 0 10/11/19 25 1:48 PM EST documented as of this encounter Care Teams Fire Control Technician B Relationship Specialty Start Date End Date Bimal Feliz PA [address] [place] [address] PCP - General Internal Medicine 11/07/20 documented as of this encounter
--- OUTSIDE RECORDS SUMMARY | 2025-08-21 13:57 | XMS_ITS | Encounter Summary ---
Author Organization [facility] Address [address] [place] [address] Care Team Providers Care X Ray Consultant Name Role Phone Bimal Feliz Primary Care Provider +1 [phone] Encounter Details Date Type Department Care Team (Latest Contact Info) Description 06/25/2025 Lab Requisition [facility] - Main Lab [address] [facility] [place] [address] Jenaro Vanessa MD [address] [place] [address] Diverticulitis of large intestine with [...] loved ones. For example, child day care center worker or elderly care for an older [...] mmol/L LAB CHEMISTRY METHOD 06/25/2025 10:48 AM [facility] Potassium 3.3(L) 3.5 - 5.5 mmol/L LAB CHEMISTRY METHOD 06/25/2025 10:48 AM [facility] Chloride 96 96 - 110 mmol/L LAB CHEMISTRY METHOD 06/25/2025 10:48 AM [facility] CO2 33(H) 21 - 32 mmol/L LAB CHEMISTRY METHOD 06/25/2025 10:48 AM [facility] Anion Gap 8 3 - 11 LAB CHEMISTRY METHOD 06/25/2025 10:48 AM [facility] Glucose 116(H) 70 - 100 mg/dL LAB CHEMISTRY METHOD 06/25/2025 10:48 AM [facility] BUN 35(H) 5 - 25 mg/dL LAB CHEMISTRY METHOD 06/25/2025 10:48 AM [facility] Creatinine 1.84(H) 0.70 - 1.30 mg/dL LAB CHEMISTRY METHOD 06/25/2025 10:48 AM [facility] eGFR 38(L) >=60 mL/min/1. 73m2 LAB CHEMISTRY METHOD 06/25/2025 10:48 AM [facility] Comment:Calculation based on the Chronic Kidney Disease Epidemiology Collaboration (CKD-EPI) equation refit without adjustment for race. BUN/Creatinine Ratio 19.0 LAB CHEMISTRY METHOD 06/25/2025 10:48 AM [facility] Calcium 8.5 8.5 - 10.5 mg/dL LAB CHEMISTRY METHOD 06/25/2025 10:48 AM [facility] AST (SGOT) 364(H) 10 - 42 unit/L LAB CHEMISTRY METHOD 06/25/2025 10:48 AM [facility] ALT (SGPT) 163(H) 10 - 60 unit/L LAB CHEMISTRY METHOD 06/25/2025 10:48 AM EDT [facility] Alkaline Phosphatase 73 42 - 121 unit/L LAB CHEMISTRY METHOD 06/25/2025 10:48 AM EDT [facility] Total Protein 6.2 6.0 - 8.0 g/dL LAB CHEMISTRY METHOD 06/25/2025 10:48 AM EDT [facility] Albumin 2.7(L) 3.2 - 5.0 g/dL LAB CHEMISTRY METHOD 06/25/2025 10:48 AM EDT [facility] Total Bilirubin 0.6 0.0 - 1.4 mg/dL LAB CHEMISTRY METHOD 06/25/2025 10:48 AM EDT [facility] Blood Venous blood specimen / Unknown Venipuncture / Unknown 06/25/2025 5:05 AM EDT 06/25/2025 9:52 AM EDT us Jenaro Vanessa MD LAB BLOOD ORDERABLES Final Resu lt [facility] [address] [place] [address], [place] [phone] * (ABNORMAL) Complete blood count (06/25/2025 5:05 AM EDT) WBC 10.0 4.8 - 10.8 K/[facility] LAB HEMETOLOGY METHOD 06/25/2025 10:24 AM EDT [facility] RBC 3.40(L) 4.50 - 5.50 M/[facility] LAB HEMETOLOGY METHOD 06/25/2025 10:24 AM EDT [facility] Hemoglobin 11.1(L) 13.5 - 17.5 g/dL LAB HEMETOLOGY METHOD 06/25/2025 10:24 AM EDT [facility] Hematocrit 33.6(L) 42.0 - 54.0 % LAB HEMETOLOGY METHOD 06/25/2025 10:24 AM EDT [facility] MCV 98.0 79.0 - 98.0 FL LAB HEMETOLOGY METHOD 06/25/2025 10:24 AM EDT [facility] MCH 32.4(H) 27.0 - 32.0 pcg LAB HEMETOLOGY METHOD 06/25/2025 10:24 AM EDT [facility] MCHC 33.0 32.0 - 37.0 g/dL LAB HEMETOLOGY METHOD 06/25/2025 10:24 AM EDT [facility] RDW 12.8 11.0 - 15.0 % LAB HEMETOLOGY METHOD 06/25/2025 10:24 AM [facility] Platelets 160 130 - 400 K/mcL LAB HEMETOLOGY METHOD 06/25/2025 10:24 AM EDT [facility] MPV 11.3(H) 7.0 - 11.0 FL LAB HEMETOLOGY METHOD 06/25/2025 10:24 AM EDT [facility] NRBC 0.0 <1.0 % LAB HEMETOLOGY METHOD 06/25/2025 10:24 AM [facility] NRBC Absolute 0.00 <0.10 K/mcL LAB HEMETOLOGY METHOD 06/25/2025 10:24 AM T [facility] Blood Venous blood specimen / Unknown Venipuncture / Unknown 06/25/2025 5:05 AM EDT 06/25/2025 9:52 AM EDT us Jenaro Vanessa MD LAB BLOOD ORDERABLES Final Resu lt [facility] [address] [place] [address], documented in this encounter Visit Diagnoses Diagnosis Diverticulitis of large intestine with perforation and abscess without bleeding Infectious gastroenteritis and colitis, unspecified documented in this encounter Additional Health Concerns Assessment Noted Time PHQ-9 Depression Total Score: 0 10/11/19 25 1:48 PM EST documented as of this encounter Care Teams X Ray Consultant Relationship Specialty Start Date End Date Bimal Feliz PA [address] [place] [address] PCP - General Internal Medicine 11/07/20 documented as of this encounter
--- OUTSIDE RECORDS SUMMARY | 2025-08-21 13:57 | XMS_ITS | Encounter Summary ---
Author Organization [facility] Address [address] [place] [address] Care Team Providers Care Silver Holloware Assembler Name Role Phone Bimal Feliz Primary Care Provider +1 [phone] Encounter Details Date Type Department Care Team (Latest Contact Info) Description 06/29/2025 Lab Requisition [facility] - Main Lab [address] [facility] [place] [address] Jenaro Vanessa MD [address] [place] [address] Diverticulitis of large intestine with [...] Complete blood count (07/02/2025 7:17 AM EST) [facility] WBC 9.2 4.8 - 10.8 K/mcL LAB HEMETOLOGY METHOD 07/02/2025 10:42 AM [facility] RBC 3.60(L) 4.50 - 5.50 M/mcL LAB HEMETOLOGY METHOD 07/02/2025 10:42 AM [facility] Hemoglobin 11.4(L) 13.5 - 17.5 g/dL LAB HEMETOLOGY METHOD 07/02/2025 10:42 AM [facility] Hematocrit 34.1(L) 42.0 - 54.0 % LAB HEMETOLOGY METHOD 07/02/2025 10:42 AM [facility] MCV 95.8 79.0 - 98.0 FL LAB HEMETOLOGY METHOD 07/02/2025 10:42 AM [facility] MCH 32.0 27.0 - 32.0 pcg LAB HEMETOLOGY METHOD 07/02/2025 10:42 AM [facility] MCHC 33.4 32.0 - 37.0 g/dL LAB HEMETOLOGY METHOD 07/02/2025 10:42 AM [facility] RDW 12.3 11.0 - 15.0 % LAB HEMETOLOGY METHOD 07/02/2025 10:42 AM [facility] Platelets 332 130 - 400 K/mcL LAB HEMETOLOGY METHOD 07/02/2025 10:42 AM [facility] MPV 11.2(H) 7.0 - 11.0 FL LAB HEMETOLOGY METHOD 07/02/2025 10:42 AM [facility] NRBC 0.0 <1.0 % LAB HEMETOLOGY METHOD 07/02/2025 10:42 AM [facility] NRBC Absolute 0.00 <0.10 K/mcL LAB HEMETOLOGY METHOD 07/02/2025 10:42 AM EST [facility] Blood Venous blood specimen / Unknown Venipuncture / Unknown 07/02/2025 7:17 AM EST 07/02/2025 10:29 AM EST us Jenaro Vanessa MD LAB BLOOD ORDERABLES Final Resu lt [facility] [address] [place] [address], [place] [phone] * (ABNORMAL) Comprehensive metabolic panel (07/02/2025 7:17 AM EST) Sodium 135 133 - 145 mmol/L LAB CHEMISTRY METHOD 07/02/2025 11:15 AM [facility] Potassium 3.9 3.5 - 5.5 mmol/L LAB CHEMISTRY METHOD 07/02/2025 11:15 AM [facility] Chloride 96 96 - 110 mmol/L LAB CHEMISTRY METHOD 07/02/2025 11:15 AM [facility] CO2 31 21 - 32 mmol/L LAB CHEMISTRY METHOD 07/02/2025 11:15 AM [facility] Anion Gap 8 3 - 11 LAB CHEMISTRY METHOD 07/02/2025 11:15 AM [facility] Glucose 99 70 - 100 mg/dL LAB CHEMISTRY METHOD 07/02/2025 11:15 AM [facility] BUN 26(H) 5 - 25 mg/dL LAB CHEMISTRY METHOD 07/02/2025 11:15 AM [facility] Creatinine 1.55(H) 0.70 - 1.30 mg/dL LAB CHEMISTRY METHOD 07/02/2025 11:15 AM [facility] eGFR 47(L) >=60 mL/min/1. 73m2 LAB CHEMISTRY METHOD 07/02/2025 11:15 AM [facility] Comment:Calculation based on the Chronic Kidney Disease Epidemiology Collaboration (CKD-EPI) equation refit without adjustment for race. BUN/Creatinine Ratio 16.8 LAB CHEMISTRY METHOD 07/02/2025 11:15 AM [facility] Calcium 8.9 8.5 - 10.5 mg/dL LAB CHEMISTRY METHOD 07/02/2025 11:15 AM [facility] AST (SGOT) 149(H) 10 - 42 unit/L LAB CHEMISTRY METHOD 07/02/2025 11:15 AM [facility] ALT (SGPT) 72(H) 10 - 60 unit/L LAB CHEMISTRY METHOD 07/02/2025 11:15 AM [facility] Alkaline Phosphatase 84 42 - 121 unit/L LAB CHEMISTRY METHOD 07/02/2025 11:15 AM [facility] Total Protein 7.2 6.0 - 8.0 g/dL LAB CHEMISTRY METHOD 07/02/2025 11:15 AM [facility] Albumin 3.2 3.2 - 5.0 g/dL LAB CHEMISTRY METHOD 07/02/2025 11:15 AM [facility] Total Bilirubin 0.7 0.0 - 1.4 mg/dL LAB CHEMISTRY METHOD 07/02/2025 11:15 AM [facility] Blood Venous blood specimen / Unknown Venipuncture / Unknown 07/02/2025 7:17 AM EST 07/02/2025 10:29 AM EST us Jenaro Vanessa MD LAB BLOOD ORDERABLES Final Resu lt [facility] [address] [place] [address], documented in this encounter Visit Diagnoses Diagnosis Diverticulitis of large intestine with perforation and abscess without bleeding Infectious gastroenteritis and colitis, unspecified documented in this encounter Additional Health Concerns Assessment Noted Time PHQ-9 Depression Total Score: 0 10/11/19 25 1:48 PM EST documented as of this encounter Care Teams Silver Holloware Assembler Relationship Specialty Start Date End Date Bimal Feliz PA [address] [place] [address] PCP - General Internal Medicine 11/07/20 documented as of this encounter
--- OUTSIDE RECORDS SUMMARY | 2025-08-21 13:57 | XMS_ITS | Clinical Summary ---
Author Organization [facility] [address] [place] [address] [place] [phone] Phone Care Team Providers Care Menhaden Vessel Pilot Name Role Phone Bimal Feliz Primary Care Provider [phone] Allergies No known active allergies Medications lisinopril [...] Department Care Team Description 08/14/2025 Telephone Endocrinology [address] [phone] Jaquelin Wadsworth MA 07/24/2025 Telephone Adult Medicine [address] [phone] Bimal Feliz PA 07/19/2025 Telephone Adult Medicine [address] [phone] Jaquelin Wadsworth MA 07/05/2025 Telephone Adult Medicine [address] [phone] Bimal Feliz PA 07/04/2025 Lab Requisition [facility] [address] [facility] [employer] [place] [address] Jenaro Vanessa MD Diverticulitis of large intestine with perforation and abscess without bleeding; Infectious gastroenteritis and colitis, unspecified 06/29/2025 Lab Requisition [facility] [address] [place] [phone] Jenaro Vanessa MD Diverticulitis of large intestine with perforation and abscess without bleeding; Infectious gastroenteritis and colitis, unspecified 06/27/2025 Lab Requisition [facility] [address] [place] [phone] Jenaro Vanessa MD Diverticulitis of large intestine with perforation and abscess without bleeding; Infectious gastroenteritis and colitis, unspecified 06/25/2025 Lab Requisition [facility] [address] [place] [phone] Jenaro Vanessa MD Diverticulitis of large intestine with perforation and abscess without bleeding; Infectious gastroenteritis and colitis, unspecified 06/23/2025 Lab Requisition [facility] [address] [place] [phone] Jenaro Vanessa MD Diverticulitis of large intestine with perforation and abscess without bleeding; Infectious gastroenteritis and colitis, unspecified 06/15/2025 Telephone Gastroenterology - [place] [facility] [address] [facility] [address] [place] [address] Tommy Marie MD from Last [...] HISTORY OTHER; COMMENT: right partial knee replacement [facility] 2011 COLONOSCOPY 2002 PROCEDURE: [place] COLONOSCOPY [...] care for your loved ones. For example, early childhood services coordinator or elderly care for an older adult? [...] K/mcL LAB HEMETOLOGY METHOD 07/02/2025 10:42 AM [facility] RBC 3.60(L) 4.50 - 5.50 M/mcL LAB HEMETOLOGY METHOD 07/02/2025 10:42 AM [facility] Hemoglobin 11.4(L) 13.5 - 17.5 g/dL LAB HEMETOLOGY METHOD 07/02/2025 10:42 AM [facility] Hematocrit 34.1(L) 42.0 - 54.0 % LAB HEMETOLOGY METHOD 07/02/2025 10:42 AM [facility] MCV 95.8 79.0 - 98.0 FL LAB HEMETOLOGY METHOD 07/02/2025 10:42 AM [facility] MCH 32.0 27.0 - 32.0 pcg LAB HEMETOLOGY METHOD 07/02/2025 10:42 AM [facility] MCHC 33.4 32.0 - 37.0 g/dL LAB HEMETOLOGY METHOD 07/02/2025 10:42 AM [facility] RDW 12.3 11.0 - 15.0 % LAB HEMETOLOGY METHOD 07/02/2025 10:42 AM [facility] Platelets 332 130 - 400 K/mcL LAB HEMETOLOGY METHOD 07/02/2025 10:42 AM [facility] MPV 11.2(H) 7.0 - 11.0 FL LAB HEMETOLOGY METHOD 07/02/2025 10:42 AM [facility] NRBC 0.0 <1.0 % LAB HEMETOLOGY METHOD 07/02/2025 10:42 AM EST [facility] LAB NRBC Absolute 0.00 <0.10 K/mcL LAB HEMETOLOGY METHOD 07/02/2025 10:42 AM [facility] Blood Venous blood specimen / Unknown Venipuncture / Unknown 07/02/2025 7:17 AM EST 07/02/2025 10:29 AM EST us Jenaro Vanessa MD LAB BLOOD ORDERABLES Final Resu lt [facility] [address] [place] [address], [place] [phone] * (ABNORMAL) Comprehensive metabolic panel (07/02/2025 7:17 AM EST) Only the most recent of3 resultswithin the time period is included. Sodium 135 133 - 145 mmol/L LAB CHEMISTRY METHOD 07/02/2025 11:15 AM [facility] Potassium 3.9 3.5 - 5.5 mmol/L LAB CHEMISTRY METHOD 07/02/2025 11:15 AM [facility] Chloride 96 96 - 110 mmol/L LAB CHEMISTRY METHOD 07/02/2025 11:15 AM [facility] CO2 31 21 - 32 mmol/L LAB CHEMISTRY METHOD 07/02/2025 11:15 AM [facility] Anion Gap 8 3 - 11 LAB CHEMISTRY METHOD 07/02/2025 11:15 AM [facility] Glucose 99 70 - 100 mg/dL LAB CHEMISTRY METHOD 07/02/2025 11:15 AM [facility] BUN 26(H) 5 - 25 mg/dL LAB CHEMISTRY METHOD 07/02/2025 11:15 AM [facility] Creatinine 1.55(H) 0.70 - 1.30 mg/dL LAB CHEMISTRY METHOD 07/02/2025 11:15 AM [facility] eGFR 47(L) >=60 mL/min/1. 73m2 LAB CHEMISTRY METHOD 07/02/2025 11:15 AM [facility] Comment:Calculation based on the Chronic Kidney Disease Epidemiology Collaboration (CKD-EPI) equation refit without adjustment for race. BUN/Creatinine Ratio 16.8 LAB CHEMISTRY METHOD 07/02/2025 11:15 AM [facility] Calcium 8.9 8.5 - 10.5 mg/dL LAB CHEMISTRY METHOD 07/02/2025 11:15 AM [facility] AST (SGOT) 149(H) 10 - 42 unit/L LAB CHEMISTRY METHOD 07/02/2025 11:15 AM [facility] ALT (SGPT) 72(H) 10 - 60 unit/L LAB CHEMISTRY METHOD 07/02/2025 11:15 AM [facility] Alkaline Phosphatase 84 42 - 121 unit/L LAB CHEMISTRY METHOD 07/02/2025 11:15 AM [facility] Total Protein 7.2 6.0 - 8.0 g/dL LAB CHEMISTRY METHOD 07/02/2025 11:15 AM [facility] Albumin 3.2 3.2 - 5.0 g/dL LAB CHEMISTRY METHOD 07/02/2025 11:15 AM [facility] Total Bilirubin 0.7 0.0 - 1.4 mg/dL LAB CHEMISTRY METHOD 07/02/2025 11:15 AM [facility] Blood Venous blood specimen / Unknown Venipuncture / Unknown 07/02/2025 7:17 AM EST 07/02/2025 10:29 AM EST us Jenaro Vanessa MD LAB BLOOD ORDERABLES Final Resu lt [facility] [address] [place] [address], [place] [phone] * (ABNORMAL) Basic metabolic panel (06/28/2025 5:41 AM EDT) Sodium 136 133 - 145 mmol/L LAB CHEMISTRY METHOD 06/28/2025 9:03 AM [facility] Potassium 3.8 3.5 - 5.5 mmol/L LAB CHEMISTRY METHOD 06/28/2025 9:03 AM [facility] Chloride 95(L) 96 - 110 mmol/L LAB CHEMISTRY METHOD 06/28/2025 9:03 AM [facility] CO2 34(H) 21 - 32 mmol/L LAB CHEMISTRY METHOD 06/28/2025 9:03 AM [facility] Anion Gap 7 3 - 11 LAB CHEMISTRY METHOD 06/28/2025 9:03 AM [facility] Glucose 120(H) 70 - 100 mg/dL LAB CHEMISTRY METHOD 06/28/2025 9:03 AM [facility] BUN 29(H) 5 - 25 mg/dL LAB CHEMISTRY METHOD 06/28/2025 9:03 AM [facility] Creatinine 1.60(H) 0.70 - 1.30 mg/dL LAB CHEMISTRY METHOD 06/28/2025 9:03 AM [facility] eGFR 45(L) >=60 mL/min/1. 73m2 LAB CHEMISTRY METHOD 06/28/2025 9:03 AM [facility] Comment:Calculation based on the Chronic Kidney Disease Epidemiology Collaboration (CKD-EPI) equation refit without adjustment for race. BUN/Creatinine Ratio 18.1 LAB CHEMISTRY METHOD 06/28/2025 9:03 AM [facility] Calcium 8.8 8.5 - 10.5 mg/dL LAB CHEMISTRY METHOD 06/28/2025 9:03 AM [facility] Blood Venous blood specimen / Unknown Venipuncture / Unknown 06/28/2025 5:41 AM EDT 06/28/2025 8:06 AM EDT Jenaro Vanessa MD LAB BLOOD ORDERABLES Final Resu lt [facility] ([facility]) [facility] [address] [place] [address], [place] [phone] * External CT Report (06/15/2025) Only the [...] Result * Hepatitis C Screening (02/12/2016) Pathologist [facility] Hepatitis C Screening Abstracted Historical Provider HEALTH MAINTENANCE Final Result from Last 3 Months or Most Recently Relevant to Health Maintenance Insurance MEDICARE [facility] Care Teams Menhaden Vessel Pilot Relationship Specialty Start Date End Date Bimal Feliz PA [address] [place] [address] PCP - General Internal Medicine 11/07/20
--- OUTSIDE RECORDS SUMMARY | 2025-08-21 13:57 | XMS_ITS | Encounter Summary ---
Author Organization [facility] Address [address] [place] [address] Care Team Providers Care Gauge Inspector Name Role Phone Bimal Feliz Primary Care Provider [phone] Encounter Details Date Type Department Care Team (Latest Contact Info) Description 06/27/[address] [facility] [address] [facility] [employer] [place] [address] Jenaro Vanessa MD [address] [place] [phone] Diverticulitis of large intestine with [...] Complete blood count (06/28/2025 5:41 AM EDT) [facility] Signature WBC 13.1(H) 4.8 - 10.8 K/mcL LAB HEMETOLOGY METHOD 06/28/2025 8:50 AM [facility] RBC 3.90(L) 4.50 - 5.50 M/mcL LAB HEMETOLOGY METHOD 06/28/2025 8:50 AM EDT [facility] Hemoglobin 12.5(L) 13.5 - 17.5 g/dL LAB HEMETOLOGY METHOD 06/28/2025 8:50 AM [facility] Hematocrit 38.1(L) 42.0 - 54.0 % LAB HEMETOLOGY METHOD 06/28/2025 8:50 AM [facility] MCV 97.7 79.0 - 98.0 FL LAB HEMETOLOGY METHOD 06/28/2025 8:50 AM [facility] LAB MCH 32.1(H) 27.0 - 32.0 pcg LAB HEMETOLOGY METHOD 06/28/2025 8:50 AM [facility] LAB MCHC 32.8 32.0 - 37.0 g/dL LAB HEMETOLOGY METHOD 06/28/2025 8:50 AM [facility] RDW 12.7 11.0 - 15.0 % LAB HEMETOLOGY METHOD 06/28/2025 8:50 AM T [facility] Platelets 413(H) 130 - 400 K/mcL LAB HEMETOLOGY METHOD 06/28/2025 8:50 AM T [facility] MPV 11.4(H) 7.0 - 11.0 FL LAB HEMETOLOGY METHOD 06/28/2025 8:50 AM [facility] NRBC 0.0 <1.0 % LAB HEMETOLOGY METHOD 06/28/2025 8:50 AM EDT [facility] NRBC Absolute 0.00 <0.10 K/mcL LAB HEMETOLOGY METHOD 06/28/2025 8:50 AM EDT [facility] Blood Venous blood specimen / Unknown Venipuncture / Unknown 06/28/2025 5:41 AM EDT 06/28/2025 8:06 AM EDT us Jenaro Vanessa MD LAB BLOOD ORDERABLES Final Resu lt [facility] [address] [place] [address], [place] [phone] * (ABNORMAL) Basic metabolic panel (06/28/2025 5:41 AM EDT) Sodium 136 133 - 145 mmol/L LAB CHEMISTRY METHOD 06/28/2025 9:03 AM [facility] Potassium 3.8 3.5 - 5.5 mmol/L LAB CHEMISTRY METHOD 06/28/2025 9:03 AM [facility] Chloride 95(L) 96 - 110 mmol/L LAB CHEMISTRY METHOD 06/28/2025 9:03 AM [facility] CO2 34(H) 21 - 32 mmol/L LAB CHEMISTRY METHOD 06/28/2025 9:03 AM [facility] Anion Gap 7 3 - 11 LAB CHEMISTRY METHOD 06/28/2025 9:03 AM [facility] Glucose 120(H) 70 - 100 mg/dL LAB CHEMISTRY METHOD 06/28/2025 9:03 AM [facility] BUN 29(H) 5 - 25 mg/dL LAB CHEMISTRY METHOD 06/28/2025 9:03 AM [facility] Creatinine 1.60(H) 0.70 - 1.30 mg/dL LAB CHEMISTRY METHOD 06/28/2025 9:03 AM [facility] eGFR 45(L) >=60 mL/min/1. 73m2 LAB CHEMISTRY METHOD 06/28/2025 9:03 AM EDT [facility] Comment:Calculation based on the Chronic Kidney Disease Epidemiology Collaboration (CKD-EPI) equation refit without adjustment for race. BUN/Creatinine Ratio 18.1 LAB CHEMISTRY METHOD 06/28/2025 9:03 AM EDT [facility] Calcium 8.8 8.5 - 10.5 mg/dL LAB CHEMISTRY METHOD 06/28/2025 9:03 AM EDT [facility] Blood Venous blood specimen / Unknown Venipuncture / Unknown 06/28/2025 5:41 AM EDT 06/28/2025 8:06 AM EDT us Jenaro Vanessa MD LAB BLOOD ORDERABLES Final Resu lt [facility] [address] [place] [address], documented in this encounter Visit Diagnoses Diagnosis Diverticulitis of large intestine with perforation and abscess without bleeding Infectious gastroenteritis and colitis, unspecified documented in this encounter Additional Health Concerns Assessment Noted Time PHQ-9 Depression Total Score: 0 10/11/19 25 1:48 PM EST documented as of this encounter Care Teams Gauge Inspector Relationship Specialty Start Date End Date Bimal Feliz PA [address] [place] [address] PCP - General Internal Medicine 11/07/20 documented as of this encounter
== END 2025-08-21 14:00 | disposition home or self-care (01) ==
LOC: HO.HUSH 12:54
PROVIDERS: PCP Physician Assistant Medical; Visit Provider Urology
DX: N40.1 Benign prostatic hyperplasia with lower urinary tract symptoms (principal); N13.8 Other obstructive and reflux uropathy

== ENCOUNTER → 2025-08-21 12:53 | Outpatient (BNVA) | payer MEDICARE, OTHER, SELFPAY | PROVIDERS: PCP Physician Assistant Medical; Visit Provider Urology | DX: N32.1 Vesicointestinal fistula (principal) | CPT/HCPCS: 81003 ==